=== PATIENT | male | born 1955 | race Caucasian/White ===

== ENCOUNTER 2021-12-18 15:55 | Outpatient (CLI) | payer MEDICARE, BC, SELFPAY ==
[2021-12-18 18:23] LABS: Albumin* 4.8 g/dL (3.3-5.0); Chloride* 104 mmol/L (96-114); Potassium* 4.5 mmol/L (3.6-5.1); Sodium* 139 mmol/L (135-149)
[2021-12-18 18:26] LABS: Alanine Aminotransferase* 27 U/L (4-50); Alkaline Phosphatase* 107 U/L (40-150); Aspartate Amino Transferase* 29 U/L (12-35); Bilirubin Total* 0.4 mg/dL (0.1-1.5); Blood Urea Nitrogen* 24 mg/dL (7-30); Carbon Dioxide* 25 mmol/L (20-32); Estimated Glomerular Filt Rate 83 ml/min; Glucose* 159 mg/dL (60-115); Total Protein* 8.4 g/dL (6.0-8.3)
[2021-12-18 18:27] LABS: Calcium* 9.8 mg/dL (8.4-10.6)
== END 2021-12-18 15:56 | disposition home or self-care (01) ==
LOC: NFLDREF 15:56
PROVIDERS: PCP Internal Medicine; Visit Provider Internal Medicine
DX: Z01.818 Encounter for other preprocedural examination (principal)
CPT/HCPCS: 80053

== ENCOUNTER 2022-03-02 07:55 | Outpatient (CLI) | payer MEDICARE, BC, SELFPAY ==
--- OUTSIDE RECORDS SUMMARY | 2022-03-02 08:01 | XMS_ITS | Encounter Summary ---
:1955 Author Organization [place] Address [facility] [address] Care Team Providers Name Role Phone Maurizio Yost MD Primary Care Provider [phone] Reason for Visit Auth/Cert Specialty Diagnoses / Procedures Referred By Contact Refer red To Contact Surgery Diagnoses Prostate cancer (H) Prostate cancer (H) [C61] Sh Periop Services Procedures ZZC LAPAROSCOPY, SURGICAL PROSTATECTOMY, RETROPUBIC RADICAL, W/NERVE SPARING ROBOTIC ASSISTED LAPAROSCOPIC PROSTATECTOMY AND PELVIC LYMPH NODE DISSECTION [address] [place] [address] Phone: Referral ID Status Reason Start Date Expiration Date Visits Requ ested Visits Authorized [id number] 1 1 Encounter Details Date Type Department Care Team Description 01/07/2022 - [facility], Prostate cancer (H) (Primary Dx); 01/08/2022 Encounter [facility] Elver Banuelos MD Routine general medical examination at a health care facility [facility] [place] [address] [place] [phone] [place] [id number] Social History Tobacco Use Types Packs/Day Years Used Date Smoking Tobacco: Never Smokeless Tobacco: Former Alcohol Use Standard Drinks/Week Comments No 0 (1 standard drink = 0.6 oz pure alcoho l) Sex Assigned at Date Recorded Not on file COVID-19 Exposure Response Date Recorded In the last 10 days, have you been in contact with No / Unsu re 01/07/2022 9:44 AM CDT someone who was confirmed or suspected to have Coronavirus/COVID-19? documented as of this encounter Last Filed Vital Signs Vital Sign Reading Time Taken Comments Blood Pressure 121/70 01/08/2022 7:24 AM CDT Pulse 68 01/08/2022 7:24 AM CDT Temperature 36.6 ??C (97.9 ??F) 01/08/2022 7:24 AM CDT Respiratory Rate 14 01/08/2022 7:24 AM CDT Oxygen Saturation 98% 01/08/2022 7:24 AM CDT Inhaled Oxygen Concentration - - Weight 97.5 kg (215 lb) 01/07/2022 10:02 AM CDT Height 180.3 cm (5' 11) 01/07/2022 10:02 AM CDT Body Mass Index 29.99 01/07/2022 10:02 AM CDT documented in this encounter Medications at Time of Discharge Medication Sig Dispensed Refills Start Date End Date Aspirin 81 MG 0 01/12/2022 CAPSIndications: Routine general medical examination at a health care facility FISH OIL 1000 MG OR Take 2 g by mouth 0 7 CAPSIndications: Other daily (with dinner) and unspecified (2 x 1000 mg = 2000 hyperlipidemia mg) metFORMIN (GLUCOPHAGE) Take 500 mg by mouth 0 500 MG tablet 2 times daily (with meals) oxyCODONE (ROXICODONE) 5 Take 1 tablet (5 mg) 8 tablet 0 0 01/08/2022 MG tabletIndications: by mouth every 4 Prostate cancer (H) hours as needed for moderate to severe pain senna-docusate Take 1-2 tablets by 20 tablet 0 01/08/2022 (SENOKOT-S/PERICOLACE) mouth 2 times daily 8.6-50 MG as needed for tabletIndications: constipation Prostate cancer (H) simvastatin (ZOCOR) 40 Take 1 tablet by 90 tablet 0 013 MG tabletIndications: mouth At Bedtime. Hyperlipidemia LDL goal <130 ciprofloxacin (CIPRO) Take 1 tablet (500 6 tablet 0 202101/11/2022 500 MG mg) by mouth 2 times tabletIndications: daily for 3 days Prostate cancer (H) Please start your antibiotic the day BEFORE your follow up visit then also take it the day of your visit and the day after. documented as of this encounter Progress Notes Amie Zaragoza PA-C - 01/08/2022 9:18 AM CDT [facility] Progress Note Assessment & Plan Branden Graf is a 66 year old male POD #[address] Brennan, doing well. Plan: - Discharge to home today with baptiste. RN to teach leg bag cares, appreciate assistance. - F/u for catheter removal on 01/22 - AVS updated - Regular diet, ambulate, encourage IS and fluids - Discussed discharge expectations at length. Encouraged to utilize senna and LEAD BURNER HELPER miralax given h/o straining with bowel movements. Amie Zaragoza PA-C [facility] Pager: [phone] Office: [phone] Interval History Doing well, no events overnight. Ambulated x3 since surgery. Tolerating regular diet; denies nausea,bloating, or flatus. Pain controlled with tylenol. at bedside. AVSS Cr 1.14 Hgb 12.4 UOP 700 / 1150cc OBJECTIVE: BP 121/70 (BP Location: Right arm) Pulse 68 Temp 97.9 ??F (36.6 ??C) (Oral) Resp 14 Ht 1.803 m (5' 11) Wt 97.5 kg (215 lb) SpO2 98% BMI 29.99 kg/m?? Intake/Output Summary (Last 24 hours) at 01/08/2022 0918 Last data filed at 01/08/2022 0556 Gross per 24 hour Intake 2730 ml Output 1300 ml Net 1430 ml General appearance shows no deformaties and good grooming in no acute distress. EYES: no icterus HEAD, EARS, NOSE, MOUTH, AND THROAT: atraumatic, normocephalic NECK: symmetric CHEST WALL: symmetric CARDIAC: skin well perfused, no LE edema RESPIRATORY: breathing unlabored ABDOMEN: soft, non tender, non distended. Incisions c/d/i and ANN with glue. : Baptiste draining clear urine SKIN/HAIR/NAILS: no visible rashes NEUROLOGIC: no focal deficits PSYCHIATRIC: Speech, mood, and affect normal Amie Zaragoza PA-C [facility] Miranda Pierce LPN - 01/06/2022 12:13 PM CDT LEAD BURNER HELPER medications updated by Medication Scribe prior to surgery via phone call with patient??(last doses completed by Nurse) Medication history sources: Patient, H&P and Patient's home med list In the past week, patient estimated taking medication this percent of the time: Greater than 90% Adherence assessment: N/A Not Observed Significant changes made to the medication list: None Additional medication history information: None Medication reconciliation completed by provider prior to medication history? No Time spent in this activity: 40 minutes The information provided in this note is only as accurate as the sources available at the time of update(s) Prior to Admission medications Medication Sig Last Dose Taking? Auth Provider Microphone Boom Operator End Date ASPIRIN 81 MG OR TABS Take 81 mg by mouth every evening 09/22/2021 at PM Yes Maurizio Yost MD FISH OIL 1000 MG OR CAPS Take 2 g by mouth daily (with dinner) (2 x 1000 mg = 2000 mg) 12/21/2021 at PM Yes Maurizio Yost MD metFORMIN (GLUCOPHAGE) 500 MG tablet Take 500 mg by mouth 2 times daily (with meals) 01/05/2022 at PM Yes Reported, Patient Yes simvastatin (ZOCOR) 40 MG tablet Take 1 tablet by mouth At Bedtime. Patient taking differently: Take 40 mg by mouth every evening 01/05/2022 at PM Yes Maurizio Yost MD Yes documented in this encounter H&P Notes Olivia Garcia MD - 01/07/2022 11:30 AM CDT I have reviewed the surgical (or preoperative) H&P that is linked to this encounter, and examined the patient. There are no significant changes Source Note - Scan, Provider - 12/30/2021 4:39 PM CDT documented in this encounter Procedure Notes Elver Brennan MD - 01/07/2022 5:40 PM CDT Preoperative Diagnosis: Prostate Cancer Postoperative Diagnosis: Prostate Cancer Procedure: 1. Robotic Radical Prostatectomy with bilateral pelvic lymphadenectomy Surgeon: Elver Brennan MD Camp Boss: Tomeka Salter PA-C Date of Procedure: 01/07/22 OPERATIVE INDICATION: Branden Graf is a 66 year old male with prostate cancer. After understanding various management options he elected to undergo today's procedure. Clinical stage: [id number] PSA: 12.43 TAMMI: smooth MRI findings: 1.0 cm PIRADS 4 right apex PZ Prostate volume: 32g EPE: unlikely SVI: unlikely Urethral length:unlikely LNI:unlikely Biopsy grade: 4+4=8 # cores positive: 7 # cores total: 12 Intraoperative findings: Urethra: good length Right nerve sparing: near complete Left nerve sparing:near complete Bladder neck sparing: n/a Bladder neck reconstruction: anterior Anastomosis tested:watertight Lymphadenopathy:none Accessory obturator artery/size/spared:none PORT PLACEMENT: Standard 6 ports After discussing all treatment options, the patient elected to proceed with robotic prostatectomy. The patient understands that we will proceed with robotic prostatectomy, but will convert to open prostatectomy if needed. DESCRIPTION OF PROCEDURE: The patient was identified and was brought to the operating room. He was placed on a Gelfoam padded table. After adequate general anesthesia, he was placed in supine position. Pneumatic compression stockings had been applied. All pressure points were adequately padded. Arms were tucked and he was secured to the table. The patient was then prepped and draped in the usual manner. Time out was called. An 16 Italian [place] catheter was placed and the bladder was emptied. I made a small supraumbilical incision. Using a Veress needle, pneumoperitoneum was achieved. I then placed an 8 mm port at this site. Initial endoscopic inspection with a 0 degree lens showed no evidence of vascular or visceral injury. There were minimal adhesions. The remaining ports were then placed. Two 8 mm ports were placed on either side 10 cm from the umbilical port. A 12 mm port was placed in the right lower quadrant above the anterior superior iliac spine, and a similar location on the left side an 8 mm port was placed. A5 mm suction port was placed lateral to the camera port on the right side. With all the ports in place the patient was placed in steep Trendelenburg position and the robot was docked. The sigmoid was gently released from the LLQ and the posterior bladder at the cul-de-sac. I then incised the peritoneum at the bladder base and the posterior dissection was carried beneath Denonvillier's fascia to the prostate apex. The seminal vesicles and vas deferens were identified and dissected free. Next peritoneal incisions were made lateral to the medial umbilical ligaments and the bladder was dissected away from the anterior abdominal wall and pubic ramus to expose the prostate. The superficial dorsal vein was cauterized and transected. The endopelvic fascia was opened. Incision was made in the lateral prostatic fascia and nerve-sparing was started in the interfascial plane. Next the anterior bladder wall was incised at the level of the bladder neck. The posterior bladder neck was then excised and dissected away from the base of the prostate. The seminal vesicles and vas deferens were now tented up. This exposed the lateral pedicles. I then proceeded to identify the plane between the lateral prostate and the lateral pedicles. Hem-O-Julien clips were used and the lateral pedicle was transected. Electrocautery was not used in this area.Near complete bilateral nerve preservation was performed. The dissection was carried around the apexof the prostate. Next I transected the deep dorsal vein and then oversewed this with a running 3-0 V-julien suture. The urethra was transected distal to the apex of the prostate and the prostate was placed in a Endocatch. Excellent urethral length was preserved. Jovany-Seal was used to achieve further hemostasis. A bilateral pelvic lymph node dissection was done, removing fibrofatty tissue in the external iliac and obturator areas. Bipolar cautery and hemolock clips were used to ligate lymphatic vessels. The obturator nerve was identified and preserved bilaterally. I then proceeded to anastomose the bladder neck to the urethra using a running suture of 3-0 Monocryl on a double armed needle. An 18 Italian catheter was placed and the bladder irrigated well. A good watertight, tension free anastasmosis was obtained. Further inspection at this time showed no further b leeding. The string of the Endocatch was then brought out through the umbilical port site. The robotwas then undocked. The laparoscopic ports were removed under vision and the 12 mm assistant cross country coach port wasclosed with an 0 Vicryl using a CloudApps device I slightly extended the supraumbilical incision and the prostate was removed through this site. The fascia was then closed using running 0 Vicryl sutures. The skin incisions were closed using 4-0 monocryl and Dermabond. The needle, sponge and lap counts were correct. The patient remained stable throughout the entire procedure. The estimated bloodloss was: 150 ml. The patient tolerated the procedure well and was sent to the recovery room in stable condition. Catheter can be removed in 10 days documented in this encounter Miscellaneous Notes Plan of Care - Nurys Ellington RN - 01/08/2022 2:31 PM CDT VSS, no fevers, comfortable with only scheduled Tylenol. AVS reviewed, baptiste teaching done w-patientand spouse, questions answered, pt preferred to keep night bag inplace. He was discharged home w-filled prescriptions via private car with his . Plan of Care - Erinn Conley RN - 01/08/2022 5:05 AM CDT Goal Outcome Evaluation: Alert and oriented x4. SBA. Walked x 2 overnight-tolerating well. Abdominal discomfort managed with scheduled tylenol. Abdominal incisions CDI. Baptiste catheter in place with good output. VSS on RA ex HTN. Possible discharge today. Will discharge with baptiste. documented in this encounter Plan of Treatment Not on filedocumented as of this encounter Procedures Procedure Name Priority Date/Time Associated Comments Diagnosis HEMOGLOBIN Routine 01/08/2022 6:56 Results for this AM CDT procedure are i n the results section. BASIC METABOLIC PANEL Routine 01/08/2022 6:56 Res ults for this AM CDT procedure are i n the results section. GLUCOSE BY METER Routine 01/07/2022 10:23 Results for this PM CDT procedure are i n the results section. GLUCOSE BY METER Routine 01/07/2022 6:21 Results for this PM CDT procedure are i n the results section. SURGICAL PATHOLOGY EXAM Routine 01/07/2022 2:24 R esults for this PM CDT procedure are i n the results section. PROSTATECTOMY, 01/07/2022 12:46 Prostate cancer ROBOT-ASSISTED, USING DA PM CDT (H) EDWIN XI, WITH PELVIC LYMPHADENECTOMY TYPE AND SCREEN, ADULT STAT 01/07/2022 10:11 R esults for this AM CDT procedure are i n the results section. CREATININE Add-On 01/07/2022 10:11 Results for this AM CDT procedure are i n the results section. ABO/RH TYPE AND SCREEN STAT 01/07/2022 10:11 R esults for this AM CDT procedure are i n the results section. GLUCOSE STAT 01/07/2022 10:11 Results for this AM CDT procedure are i n the results section. documented in this encounter Results (ABNORMAL) Hemoglobin (01/08/2022 6:56 AM CDT) P athologist Signature Hemoglobin 12.4 (L) 13.3 - 17.7 01/08/2022 LABORATORY g/dL 7:27 AM CDT Specimen Anatomical Collection Method / Collection Time Recei opal Time (Source) Location / Volume Laterality Blood STRUCTURE OF RIGHT Venipuncture / 01/08/2022 6:56 09/0 12/2021 7:22 UPPER LIMB / Unknown AM CDT AM CDT Unknown Tomeka Salter PA-C LAB - BLOOD ORDERABLES Performing Organization Address City/State/ZIP Code Phon e Number LABORATORY [place] [address] Care Lab [address] 1st floor, Room [address]B (ABNORMAL) Basic metabolic panel (01/08/2022 6:56 AM CDT) Analysis Performed At Patho logist Time Signature Sodium 137 133 - 144 01/08/2022 LABORATORY mmol/L 7:46 AM CDT Potassium 4.2 3.4 - 5.3 01/08/2022 LABORATORY mmol/L 7:46 AM CDT Chloride 104 94 - 109 01/08/2022 LABORATORY mmol/L 7:46 AM CDT Carbon Dioxide 26 20 - 32 01/08/2022 LABORATORY (CO2) mmol/L 7:46 AM CDT Anion Gap 7 3 - 14 01/08/2022 LABORATORY mmol/L 7:46 AM CDT Urea Nitrogen 18 7 - 30 01/08/2022 LABORATORY mg/dL 7:46 AM CDT Creatinine 1.14 0.66 - 01/08/2022 LABORATORY 1.25 mg/dL 7:46 AM CDT Calcium 8.9 8.5 - 10.1 01/08/2022 LABORATORY mg/dL 7:46 AM CDT Glucose 153 (H) 70 - 99 01/08/2022 LABORATORY mg/dL 7:46 AM CDT GFR Estimate 71 >60 01/08/2022 LABORATORY mL/min/1.7 7:46 AM CDT 3m2 Comment: Effective April 22, 2021 eGF Rcr in adults is calculated using the 2020 CKD-EPI creatinine equation which includ es age and gender (Randolph et al., NEJM, DOI: 10.1056/WRVPcs3371366) Specimen Anatomical Collection Method / Collection Time Recei opal Time (Source) Location / Volume Laterality Blood STRUCTURE OF RIGHT Venipuncture / 01/08/2022 6:56 09/0 12/2021 7:22 UPPER LIMB / Unknown AM CDT AM CDT Unknown Tomeka Salter PA-C LAB - BLOOD ORDERABLES Performing Organization Address City/State/ZIP Code Phon e Number LABORATORY [place] [address] Care Lab [address] 1[address] floor, Room [address]B (ABNORMAL) Glucose by meter (01/07/2022 10:23 PM CDT) P athologist Signature GLUCOSE BY 175 (H) 70 - 99 01/07/2022 LABORATORY METER POCT mg/dL 10:29 PM CDT POC Specimen (Source) Anatomical Collection Method Collection Time Re ceived Time Location / / Volume Laterality Blood, Capillary BLOOD SPECIMEN / 01/07/2022 10:23 10/2021 Unknown PM CDT 10:29 PM CDT Elver MICHAEL - PRETTY POCT Performing Organization Address City/State/ZIP Code Phon e Number LABORATORY [place] [facility] [place] [address] Care Lab [address] 1[address], Room [address]B (ABNORMAL) Glucose by meter (01/07/2022 6:21 PM CDT) P athologist Signature GLUCOSE BY 195 (H) 70 - 99 01/07/2022 LABORATORY METER POCT mg/dL 6:28 PM CDT POC Specimen (Source) Anatomical Collection Method Collection Time Re ceived Time Location / / Volume Laterality Blood, Capillary BLOOD SPECIMEN / 01/07/2022 6:21 09/0 10/2021 6:28 Unknown PM CDT PM CDT Elver MICHAEL - CRISTINA POCT Performing Organization Address City/State/ZIP Code Phon e Number LABORATORY [place] [facility] [place] [address] Care Lab [address] 1[address], Room [address]B (ABNORMAL) Surgical Pathology Exam (01/07/2022 2:24 PM CDT) Component Value Ref Test Analysis Performed At Patholo gist Range Method Time Signature Case Report Surgical Pathology Report ? Case: [id number] ? 01/13/2022 Authorizing Provider: ??Elver Williamson ? Collected: ? 01/07/2022 02:24 PM ? 7:16 PM LABORATOR Y ? MD Vin ? CDT [facility] ?Received: ?01/08/2022 08:37 AM ? [facility] ? Pathologist: ? Sonia Mercer, ? Specimens: ?? A) - Prostate, Patricia Prostatic fat ? B) - Urin jayy Bladder, Posterior bladder neck margin ? C) - Pros collins, PROSTATE AND SEMINAL VESICLES ? D) - Lymp h Node(s), Pelvis, Left ? E) - Lymp h Node(s), Pelvis, Right ? Final A. Soft tissue, periprostatic fat, resection: 01/13/2022 Electronically Diagnosis -Negative for malignancy. 7:16 PM LABO RATORY signed by CDT Sa kristen Mercer B. Prostate, bladder neck margin, biopsy: on 01/13/2022 -Negative for malignancy. at 7:16 PM C. Prostate gland, robotic radical prostatectomy: -Prostatic adenocarcinoma, a cinar-type; grade group 3 ([place] score 4+3 = 7) with greater than 90% pattern 4. -Estimated percentage of prostate involved by tumor: 11-20%. -Negative for bladder neck or seminal vesicle invasion. -Negative for extracapsular extension. -Uninvolved margins. -See tumor synoptic report for details. D. Lymph nodes, left pelvic, lymphadenectomy: - Three lymph nodes negative for metastatic carcinoma (0/3). E. Lymph nodes, right pelvic, lymphadenectomy: -Three lymph nodes negative for metastatic carcinoma (0/3). Synoptic PROSTATE GLAND: Radical Prostatectomy Checklist PROSTATE GLAND: RADICAL PROSTATECTOMY - A, B, C, D, E 7:16 PM LABORATORY 8th Edition - Protocol posted: 03/12/2021 CDT SPECIMEN ?? Procedure: ?Radical prostatectomy: With bilateral pelvic lymphadenectomy ?? Prostate Size: ? Prostate Weight (Grams): ?42 g ? Prostate Greatest Dimension (Centimeters): ?5.5 c m TUMOR ?? Histologic Type: ?Acinar adenocarcinoma ?? Histologic Grade: ? Grade: ?Grade group 3 ([place] Score 4 + 3 = 7) ? Minor Tertiary Pattern 5 (less than 5%): ?Not applicable ? Percentage of Pattern 4: ?Greater than 90% ?? Intraductal Carcinoma (IDC): ?Not identified ?? Cribriform Glands: ?Present ?? Treatment Effect: ?No known presurgical therapy ?? TUMOR QUANTITATION: ? Estimated Percentage of Prostate Involved by Tumor: ?11 - 20% Extraprostatic Extension (EPE): ?Not identified Urinary Bladder Neck Invasion: ?Not identified Seminal Vesicle Invasion: ?Not identified Lymphovascular Invasion: ?Not Identified Perineural Invasion: ?Present MARGINS Margin Status: ?All margins negative for invasive carci noma REGIONAL LYMPH NODES Regional Lymph Node Status: ? : ?All regional lymph nodes negative for tumor ?? Number of Lymph Nodes Examined: ?6 PATHOLOGIC STAGE CLASSIFICATION (pTNM, AJCC 8th Edition) ?? Reporting of pT, pN, and (when applicable) pM categories is based on information available to the pathologist at the time the report is issued. As per the AJCC (Chapter 1, 8th Ed.) it is the managin g physician? s responsibility to establish the final pathologic stage based upon all pertinent information, including but potentially not limited to this pathology report. Primary Tumor (pT): ?pT2 pN Category: ?pN0 ADDITIONAL FINDINGS Additional Findings: ?H igh-grade prostatic intraepithelial neoplasia (PIN) SPECIAL STUDIES Ancillary Studies: ?Not performed Clinical The patient 01/13/2022 RH Information underwent robotic 7:16 PM LABORATORY radical CDT prostatectomy with bilateral pelvic lymphadenectomy for biopsy-proven prostatic adenocarcinoma (4+4 = 8). Gross A(1). Prostate, Patricia Prostatic fat: 01/01 RH Description The specimen is received in formalin, labeled with the patient's name, medical record number and other identifying information designated periprostatic fat. It consists of a 5.0 x 3.0 x 1.0 cm aggrega 7:16 PM LABORATORY te of yellow-mayer, lobulated adipose tissue which is sectioned to reveal a pale- mayer, soft cut surface. Roustabout Supervisor sections of the specimen are submitted in 1 cassette. CDT B(2). Urinary Bladder, Posterior bladder neck margin: The specimen is received in formalin, labeled with the patient's name, medical record number and other identifying information designated posterior bladder neck margin. It consists of a 1.5 x 0.3 x 0. 2 cm pale-mayer, irregular sof t tissue fragment. The resected surface of the specimen is entirely inked black, the specimen is sectioned into 4 pieces, is submitted entirely in 1 cassette. C(3). Prostate, PROSTATE AND SEMINAL VESICLES: The specimen is received in formalin labeled with the patient's name, medical record number, and other identifying information and designated prostate seminal vesicles. It consists of a 42 g radical p rostatectomy specimen measur ing 4.0 cm apex to base x 5.5 cm transversely x 3.5 cm anterior to posterior. The right and left seminal vesicles measure 3.5 x 2.0 x 1.0 cm and 3.5 x 2.0 x 1.0 cm respective ly. The right and left vasa deferentia measure 4.5 cm in length x 0.4 cm in diameter and 4.5 cm in length x 0.3 cm diameter, respectively. The left side of the prostate is inked black, and the right dixie e is inked blue. The bladder neck and distal urethral margins are coned and submitted entirely. The specimen is serially sectioned from apex to base into 8 slices, revealing a pale-mayer, lobulated, bulgi ng cut surface. No discrete tumor nodules are noted grossly. Roustabout Supervisor sections including the entire posterior aspect are submitted. Summary of Sections: C1 - right seminal vesicle and en face vas deferens margin C2 - left seminal vesicle and en face vas deferens margin C3 - right bladder neck margin C4 - left bladder neck margin C5 - right distal urethral margin C6 - left distal urethral margin C7-C15 - right posterior, sequentially submitted from apex t o base B42-Z90-affol 5, thinned section C16-C25 - left posterior, sequentially submitted from apex t o base C20-C 21-slice 5, thinned section C 22-C 23-slice 6, thinned section C26 - right anterior mid (slice 4) C27 - left anterior mid (slice 4) D(4). Lymph Node(s), Pelvis, Left, : The specimen is received in formalin, labeled with the patient's name, medical record number and other identifying information designated left pelvic lymph nodes. It consists of a 7.0 x 4.5 x 1.5 cm a ggregate of yellow-mayer, lobu lated adipose tissue. Isolated from the tissue are 3, 2.0-4.5 x 2.0 x 1.0 cm pale-mayer possible lymph nodes which are sectioned to reveal a pale-mayer to fatty replaced cut surf elo. The possible lymph nodes are submitted entirely as foll ows: D1-1 possible lymph node, bisected D2-D3-1 possible lymph node, bisected D4-D9-1 possible lymph node, multi sectioned E(5). Lymph Node(s), Pelvis, Right, : The specimen is received in formalin, labeled with the patient's name, medical record number and other identifying information designated right pelvic lymph nodes. It consists of a 8.0 x 4.0 x 2.0 cm aggregate of yellow-mayer, lob ulated adipose tissue. Isolated from the tissue are 4, 1.0-4.0 x 2.5 x 1.0 cm pale-mayer possible lymph nodes which are sectioned to reveal a pale-mayer to fatty replaced cut alejandro face. The possible lymph nodes are submitted entirely as fol lows: E1-1 possible lymph node, bisected E2-1 possible lymph node, bisected E3-E5-1 possible lymph node, trisected E6-E11-1 possible lymph node, multi sectioned (Christiana Waldrop) Microscopic A, B, C, D, and E. 01/13/2022 Description Microscopic 7:16 PM LABORATORY examination is CDT performed. MCRS Yes (A) N/A 01/13/2022 7:16 PM LABORATORY CDT Performing The technical 01/13/2022 Labs component of this 7:16 PM LABORATORY testing was CDT completed at [facility] Laboratory Case Images 01/13/2022 7:16 PM LABORATORY CDT Specimen Anatomical Collection Method Collection Time Receive d Time (Source) Location / / Volume Laterality Tissue PROSTATIC 01/07/2022 2:24 PM 8:37 STRUCTURE / CDT AM CDT Unknown Tissue specimen URINARY BLADDER 01/07/2022 2:35 PM 12/2021 8:37 (specimen) STRUCTURE / CDT AM CDT Unknown Tissue specimen PROSTATIC 01/07/2022 3:23 PM 2021 8:37 (specimen) STRUCTURE / CDT AM CDT Unknown Tissue specimen PELVIC LYMPH NODE 01/07/2022 5:16 PM 0 01/08/2022 8:37 (specimen) STRUCTURE / CDT AM CDT Unknown Tissue specimen PELVIC LYMPH NODE 01/07/2022 5:16 PM 0 01/08/2022 8:37 (specimen) STRUCTURE / CDT AM CDT Unknown Elver Brennan MD LAB - BEAKER AP Performing Organization Address City/State/ZIP Code [place] [id number] Care Lab [address] Lab (1st floor, no room number) [place] [address], [facility] Acute Care Lab [address] 1st floor, Room [address]B Creatinine (01/07/2022 10:11 AM CDT) athologist Signature Creatinine 1.05 0.66 - 1.25 01/07/2022 LABORATORY mg/dL 8:24 PM CDT GFR Estimate 78 >60 01/07/2022 LABORATORY mL/min/1.73 8:24 PM CDT m2 Comment: Effective April 22, 2021 eGF Rcr in adults is calculated using the 2020 CKD-EPI creatinine equation which includ es age and gender (Randolph et al., [place], DOI: 10.1056/UQOJns0974702) Specimen Anatomical Collection Method / Collection Time Recei opal Time (Source) Location / Volume Laterality Blood STRUCTURE OF RIGHT Venipuncture / 01/07/2022 10:11 10/2021 UPPER LIMB / Unknown AM CDT 10:15 AM CDT Unknown Elver Brennan MD LAB - BLOOD ORDERABLES Performing Organization Address City/State/ZIP Code [place] [address] Care Lab [address] 1st floor, Room [address]B Adult Type and Screen (01/07/2022 10:11 AM CDT) Patholo gist Method Time Signature ABO/RH(D) O NEG 01/07/2022 BLOOD 10:00 AM BANK CDT Antibody Negative Negative 01/07/2022 BLOOD Screen 10:00 AM BANK CDT SPECIMEN [id number] 01/07/2022 BLOOD EXPIRATION 10:00 AM BANK DATE CDT Specimen Anatomical Collection Method / Collection Time Recei opal Time (Source) Location / Volume Laterality Blood STRUCTURE OF RIGHT Venipuncture / 01/07/2022 10:11 10/2021 UPPER LIMB / Unknown AM CDT 10:15 AM CDT Unknown Tomeka Salter PA-C LAB - BLOOD BANK TEST ORDER Performing Organization Address City/State/ZIP Code Phon e Number BLOOD BANK [address] [place] [phone] (ABNORMAL) Glucose (01/07/2022 10:11 AM CDT) athologist Signature Glucose 146 (H) 70 - 99 01/07/2022 LABORATORY mg/dL 10:32 AM CDT Patient Yes 01/07/2022 LABORATORY Fasting > 10:32 AM CDT 8hrs? Specimen Anatomical Collection Method / Collection Time Recei opal Time (Source) Location / Volume Laterality Blood STRUCTURE OF RIGHT Venipuncture / 01/07/2022 10:11 10/2021 UPPER LIMB / Unknown AM CDT 10:15 AM CDT Unknown Olivia Garcia MD LAB - BLOOD ORDERABLES Performing Organization Address City/State/ZIP Code [place] [address] Care Lab [address], Room [address]B documented in this encounter Visit Diagnoses Diagnosis Prostate cancer (H) - Primary Malignant neoplasm of prostate Routine general medical examination at a health care facility Prostate cancer (H) Malignant neoplasm of prostate documented in this encounter Admitting Diagnoses Diagnosis Prostate cancer (H) Malignant neoplasm of prostate documented in this encounter Administered Medications Inactive Administered Medications - up to 3 most recent administrations Medication Order MAR Action Action Date Dose Rate Site acetaminophen (TYLENOL) tablet Given 01/07/2022 10:30 AM CDT 975 mg 975 mg 975 mg, Oral, ONCE, On Wed01/07/22 at 1000, For 1 dose, Maximum acetaminophen dose from all sources = 75 mg/kg/day not to exceed 4 grams/day., Pre-procedure acetaminophen (TYLENOL) tablet 975 mg Given 01/08/2022 1:59 PM CDT 975 mg 975 mg, Oral, EVERY 6 HOURS, First dose on Wed01/07/22 at 2000, For 3 days, Administer for multimodal surgical pain management. Maximum acetaminophen dose from all sources = 75 mg/kg/day not to exceed 4 grams/day. Given 01/08/2022 8:24 AM CDT 975 mg Given 01/08/2022 1:53 AM CDT 975 mg ceFAZolin (ANCEF) 1 g vial to attach to NS New Bag 01/08/2022 12:1 5 PM CDT 1 g 100 ml bag for ADULT or 50 ml bag for PE DS Routine, 1 g, Intravenous, EVERY 8 HOURS, First dose on Wed01/07/22 at 2100, For 3 doses, Indications: Perioperative Pharmacoprophylaxis New Bag 01/08/2022 4:05 AM CDT 1 g New Bag 01/07/2022 8:32 PM CDT 1 g HYDROmorphone (DILAUDID) injection 0.2 m g 0.2 mg, Intravenous, EVERY 2 HOURS PRN, other, moderate pain (pain rating 4-6) IF patient unable to take oral pain medication or pain no t controlled with oral analgesics, Starting on Wed01/07/22 at 18 58, Hold IV PRN opioid dose for analgesic side effects. Notify provider to assess for uncontroll ed pain or analgesic side effects. HYDROmorphone (DILAUDID) injection 0.4 m g 0.4 mg, Intravenous, EVERY 2 HOURS PRN, other, severe pain (pain rating 7-10) IF patient unable to take oral pain medication or pain no t controlled with oral analgesics, Starting on Wed01/07/22 at 18 58, Hold IV PRN opioid dose for analgesic side effects. Notify provider to assess for uncontroll ed pain or analgesic side effects. lactated ringers infusion New Bag 01/07/2022 6:13 PM CDT 100 mL/hr at 100 mL/hr, Intravenous, CONTINUOUS, Continue until IV catheter is weaned, PACU/Phase II, Starting on Wed01/07/22 at 1800, Until Wed01/07/22 at 1850 metFORMIN (GLUCOPHAGE) tablet 500 mg Given 01/08/2022 8:24 AM CDT 500 mg 500 mg, Oral, 2 TIMES DAILY WITH MEALS, First dose on Wed01/07/22 at 1900, If the patient receives intravenous, iodinated contrast and patient GFR is greater than 60 mL/min/1.7m2, continue metformin. Contact provider for 'hold' or 'no hold' instructions if no GFR or if GFR is less than 60 mL/min/1.7m2. Given 01/07/2022 8:32 PM CDT 500 mg naloxone (NARCAN) injection 0.2 mg 0.2 mg, Intravenous, EVERY 2 MIN PRN, op ioid reversal, Starting on Wed01/07/22 at 2000, Administer intravenous route when available and notify provider when administered. For unintended sedation or respiratory depression if all of the below criteria are met: ~ respiratory rate LES S than or EQUAL to 8. ~SaO2 less than 92% and or/end-tidal CO2 is greater than 50. ~ the patient is receiving an opioid, has unintended sedations assessed as RASS (-3), and is cur rently not on mechanical ventilation. RASS scale moderate (-3) is movement or eye opening to voice but no eye contact. Patient Monitoring Once the patient has demonstrated a response to the naloxone, continue to monitor respiratory rate, depth, oxygen saturation and end-tidal CO2 (if available) every 15 mi nutes x 2, then every 30 minutes x 2, then every 1 hour x 1 after each naloxone dose. Consider tr ansfer to ICU if patient respiratory parameters have not improved after 4 nalox one doses. naloxone (NARCAN) injection 0.2 mg 0.2 mg, Intramuscular, EVERY 2 MIN PRN, opioid reversal, Starting on Wed01/07/22 at 2000, Administer intramuscular if an int ravenous route is not available and notify provider when administered. For unintend ed sedation or respiratory depression if all of the below criteria are met: ~ respiratory rate LESS than or EQUAL to 8. ~SaO2 less than 92% and or/end-tidal CO2 is greater th an 50. ~ the patient is receiving an opioid, has unintended sedations assessed as RASS (-3), and is currently not on mechanical ventilation. RASS scale moderate (-3) is movement or eye opening to voice but no eye contact. Patient Monitoring Once the patient has demonstrated a response to the naloxone, continue to m onitor respiratory rate, depth, oxygen saturation and end-tidal CO2 (if availab le) every 15 minutes x 2, then every 30 minutes x 2, then every 1 hour x 1 after each naloxone dose. Consider transfer to ICU if patient respiratory parameters have not improved after 4 naloxone doses. naloxone (NARCAN) injection 0.4 mg 0.4 mg, Intravenous, EVERY 2 MIN PRN, op ioid reversal, Starting on Wed01/07/22 at 2000, Administer intravenous route when available and notify provider when administered. For unintended sedation or respiratory depression if all of the below criteria are met: ~ respiratory rate LES S than or EQUAL to 8. ~ SaO2 less than 92% and or/end-tidal CO2 is greater than 50. ~ the patient is receiving an opioid, has unintended sedation assessed as RASS (-4 ) or (-5) and patient is currently not on mechanical ventilation. RASS scale (-4) is deep sedation with no response to voice but movement or eye opening to physical stimulation. R ASS scale (-5) is unarousable. Patient Monitoring Once the patient has demonstrated a response to the naloxone, continue to monitor respiratory rate, depth, oxygen saturation and end-tidal CO2 (if available) every 15 mi nutes x 2, then every 30 minutes x 2, then every 1 hour x 1 after each naloxone dose. Consider tr ansfer to ICU if patient respiratory parameters have not improved after 4 nalox one doses. naloxone (NARCAN) injection 0.4 mg 0.4 mg, Intramuscular, EVERY 2 MIN PRN, opioid reversal, Starting on Wed01/07/22 at 2000, Administer intramuscular if an int ravenous route is not available and notify provider when administered. For unintend ed sedation or respiratory depression if all of the below criteria are met: ~ res piratory rate LESS than or EQUAL to 8. ~ SaO2 less than 92% and or/end-tidal CO2 is greater adrián n 50. ~ the patient is receiving an opioid, has unintended sedation assessed as RASS (-4) or (-5) and patient is currently not on mechanical ventilation. RA SS scale (-4) is deep sedation with no response to voice but movement or eye opening to physical stimulation. RASS scale (-5) is unarousa ble. Patient Monitoring Once the patient has demonstrated a response to the nalox one, continue to monitor respiratory rate, depth, oxygen saturation and end-tidal CO2 (if availab le) every 15 minutes x 2, then every 30 minutes x 2, then every 1 hour x 1 after each naloxone dose. Consider transfer to ICU if patient respiratory parameters have not improved after 4 naloxone doses. ondansetron (ZOFRAN ODT) ODT tab 4 mg 4 mg, Oral, EVERY 6 HOURS PRN, nausea, v omiting, Starting on Wed01/07/22 at 1858, This is Step 1 of nausea and vomiting management. If n ausea not resolved in 15 minutes, go to Step 2 prochlorperazine (COMPAZINE). Do not push through foil backing. Peel back foil and gently remove. Place on to ngue immediately. Administration with liquid unnecessary W ith dry hands, peel back foil backing and gently remove tablet. Do not push oral d isintegrating tablet through foil backing. Administer immediately on tongue and oral disintegrati ng tablet dissolves in seconds, then swallow with saliva. Liquid not required . ondansetron (ZOFRAN) injection 4 mg 4 mg, Intravenous, EVERY 6 HOURS PRN, nausea, vomiting , Administer over 2-5 Minutes, Starting on Wed01/07/22 at 1858, This is Step 1 of nausea and vomiting management. If nausea not resolved in 15 minutes, go t o Step 2 prochlorperazine (COMPAZINE). Irritant. oxyCODONE (ROXICODONE) tablet 10 mg 10 mg, Oral, EVERY 4 HOURS PRN, severe p ain, (pain rating 7-10), Starting on Wed01/07/22 at 1858, Hold oral PRN dose for a nalgesic side effects. Notify provider to assess for uncontrolled pain or analgesic side effects . Hold while on IV SECURITY ARCHITECT or with regular IV opioid dosing. oxyCODONE (ROXICODONE) tablet 5 mg 5 mg, Oral, EVERY 4 HOURS PRN, other, mo derate pain (pain rating 4-6), Starting on Wed01/07/22 at 1858, Hold oral PRN dose f or analgesic side effects. Notify provider to assess for uncontrolled pain or analg esic side effects. Hold while on IV SECURITY ARCHITECT or with regular IV opioid dosing. prochlorperazine (COMPAZINE) injection 5 mg 5 mg, Intravenous, EVERY 6 HOURS PRN, nausea, vomiting , Administer over 1-2 Minutes, Starting on Wed01/07/22 at 1858, This is Step 2 of nausea and vomiting management. If nausea not resolved in 15-30 minutes, N otify provider. prochlorperazine (COMPAZINE) tablet 5 mg 5 mg, Oral, EVERY 6 HOURS PRN, nausea, v omiting, Starting on Wed01/07/22 at 1858, This is Step 2 of nausea and vomiting ma nagement. If nausea not resolved in 15-30 minutes, Notify provider. sodium chloride (PF) 0.9% PF flush 3 mL Given 01/08/2022 1:55 AM CDT 3 mLs 3 mL, Intracatheter, EVERY 1 MIN PRN, line flush, other, to ensure patency or to lock dormant line, Starting on Wed01/07/22 at 1858 sodium chloride 0.9% infusion New Bag 01/07/2022 8:02 PM CDT 100 mL/hr at 100 mL/hr, Intravenous, CONTINUOUS, Starting on Wed01/07/22 at 1900, Until Fani 01/08/22 at 1633 documented in this encounter Active and Recently Administered Medications Times are shown in CDT. Scheduled Medication Order 01/06/2022 01/07/2022 01/08/2022 acetaminophen (TYLENOL) tablet 975 mg (COMPLETED) 1030 (Given - Provider: Jessica Jones RN) 975 mg, Oral, ONCE, On Wed01/07/22 at 100 0, For 1 dose, Maximum acetaminophen dose from all sources = 75 mg/kg/day not to exceed 4 grams/day., Pre-procedure acetaminophen (TYLENOL) tablet 975 mg 20 33 (Given - Provider: Erinn Conley, CARL) 0153 (Given - Provider: Erinn Conley RN)0824 (Given - Provider: Nurys Ellington, CARL)1359 (Given - Provider: Nurys Ellington, RN) 975 mg, Oral, EVERY 6 HOURS, First dose on Wed01/07/22 at 2000, For 3 days, Administer for multimodal surgical pain management. Maximum acetaminophen dose from all sources = 75 mg/kg/day not to exceed 4 grams/day. ceFAZolin (ANCEF) 1 g vial to attach to NS 100 ml bag for ADULT or 50 ml bag for PEDS (COMPLETED) 2031 (New Bag - Provider: Erinn Conley RN) 040 (New Bag - Provider: Erinn Conley RN)1215 (New Bag - Provider: Nurys Ellington, RN) Routine, 1 g, Intravenous, EVERY 8 HOURS , First dose on Wed01/07/22 at 2100, For 3 doses, Indications: Perioperative Pharmacoprophylaxis ceFAZolin Sodium (ANCEF) injection 2 g (COMPLETED) 125 (Given - Provider: Bernie Smith APRN LICENSE EXAMINER) Routine, 2 g, Intravenous, PRE-OP/PRE-NY OCEDURE, Starting on Wed01/07/22 at 0955, For 1 dose, Give first dose within 1 hour PRIOR to incision. If patient weight is greater than or equal to 120 kg increas e dose to 3 g., Indications: Perioperative Pharmacoprophylaxis, Pre-procedure metFORMIN (GLUCOPHAGE) tablet 500 mg (Given - Provider: Erinn Conley RN) 08 (Given - Provider: Nurys Ellington, RN) 500 mg, Oral, 2 TIMES DAILY WITH MEALS, First dose on Wed01/07/22 at 1900, If the patient receives intravenous, iodinated contrast and patient GFR is greater than 60 mL/min/1.7m2, continue metformin. Con tact provider for 'hold' or 'no hold' in structions if no GFR or if GFR is less than 60 mL/min/1.7m2. sodium chloride (PF) 0.9% PF flush 3 mL 2001 (Not Given - Provider: Erinn Conley RN - Reason: IV Infusing) 021 (Not Given - Provider: Erinn cooper RN - Reason: Other - Comment: gave PRN early)1359 (Not Given - Provider: Nurys Ellington, CARL - Reason: Loss of IV access) 3 mL, Intracatheter, EVERY 8 HOURS, Firs t dose on Wed01/07/22 at 1900, to lock peripheral IV dormant line Continuous Medication Order 01/06/2022 01/07/2022 01/08/2022 lactated ringers infusion (CANCELED) 124 6 (New Bag - Provider: Bernie Smith APRN LICENSE EXAMINER)1640 (Anesthesia Volume Adjustment - Provider: Guido Le APRN LICENSE EXAMINER)1754 (Anesthesia Volume Adjustment - Provider: Guido Le APRN LICENSE EXAMINER) at 100 mL/hr, Intravenous, CONTINUOUS, P re-procedure, Starting on Wed01/07/22 at 1000, Until Wed01/07/22 at 1800 lactated ringers infusion (CANCELED) 181 3 (New Bag - Provider: Deborah Yost RN)2001 (Stopped - Provider: Erinn Conley RN) at 100 mL/hr, Intravenous, CONTINUOUS, C ontinue until IV catheter is weaned, PACU/Phase II, Starting on Wed01/07/22 at 1800, Until Wed01/07/22 at 1850 sodium chloride 0.9% infusion 2001 (New Bag - Pr ovider: Erinn Conley RN) at 100 mL/hr, Intravenous, CONTINUOUS, S tarting on Wed01/07/22 at 1900, Until Fani 01/08/22 at 1633 PRN Medication Order 01/06/2022 01/07/2022 01/08/2022 bupivacaine (MARCAINE) 0.5% injection MDV (CANCELED) 1725 (Given - Provider: Elver Brennan MD) PRN, Starting on Wed01/07/22 at 1725, Intra-procedure HYDROmorphone (DILAUDID) injection 0.2 mg(Linked Group 1) 0.2 mg, Intravenous, EVERY 2 HOURS PRN, other, moderate pain (pain rating 4-6) IF patient unable to take oral pain medication or pain not controlled with oral analgesics, Starting on Wed01/07/22 at 1858, Hold IV PRN opioid dose for analgesic s zena effects. Notify provider to assess for uncontrolled pain or analgesic side effects. HYDROmorphone (DILAUDID) injection 0.4 mg(Linked Group 1) 0.4 mg, Intravenous, EVERY 2 HOURS PRN, other, severe pain (pain rating 7-10) IF patient unable to take oral pain medication or pain not controlled with oral analgesics, Starting on Wed01/07/22 at 1858, Hold IV PRN opioid dose for analgesic si de effects. Notify provider to assess for uncontrolled pain or analgesic side effects. lidocaine (LMX4) cream Topical, EVERY 1 HOUR PRN, pain, with VA D insertion, Starting on Wed01/07/22 at 1858, Apply at least 30 minutes prior to VAD insertion in divided doses as needed for size of site for insertion. MAX Dose: 2.5 g (?? of 5 g tube) Do NOT give if p atient has a history of allergy to any local anesthetic or any bakari product. Do NOT use both lidocaine intradermal/subcutaneous injection and the lidocaine cream on the same site. lidocaine 1 % 0.1-1 mL 0.1-1 mL, Other, EVERY 1 HOUR PRN, mild pain with VAD insertion, Starting on Wed01/07/22 at 1858, MAX dose 1 mL subcutaneous OR intradermal along the side of the vein in divided doses as needed for VAD i nsertion. Do NOT give if patient has a h istory of allergy to any local anesthetic or any bakari product. Do NOT use both lidocaine intradermal/subcutaneous injection and the lidocaine cream on the same site. naloxone (NARCAN) injection 0.2 mg(Linked Group 2) 0.2 mg, Intravenous, EVERY 2 MIN PRN, op ioid reversal, Starting on Wed01/07/22 at 2000, Administer intravenous route when available and notify provider when administered. For unintended sedation or respi ratory depression if all of the below cr iteria are met: ~ respiratory rate LESS than or EQUAL to 8. ~SaO2 less than 92% and or/end-tidal CO2 is greater than 50. ~ the patient is receiving an opioid, has unintended sedations assessed as RASS ( -3), and is currently not on mechanical ventilation. RASS scale moderate (-3) is movement or eye opening to voice but no eye contact. Patient Monitoring Once the patient has demonstrated a response to t he naloxone, continue to monitor respiratory rate, depth, oxygen saturation and end-tidal CO2 (if available) every 15 minutes x 2, then every 30 minutes x 2, then every 1 hour x 1 after each naloxone do se. Consider transfer to ICU if patient respiratory parameters have not improved after 4 naloxone doses. naloxone (NARCAN) injection 0.2 mg(Linked Group 2) 0.2 mg, Intramuscular, EVERY 2 MIN PRN, opioid reversal, Starting on Wed01/07/22 at 2000, Administer intramuscular if an intravenous route is not available and notify provider when administered. For unin tended sedation or respiratory depressio n if all of the below criteria are met: ~ respiratory rate LESS than or EQUAL to 8. ~SaO2 less than 92% and or/end-tidal CO2 is greater than 50. ~ the patient is receiving an opioid, has unintended lupe tions assessed as RASS (-3), and is currently not on mechanical ventilation. RASS scale moderate (-3) is movement or eye opening to voice but no eye contact. Christina ent Monitoring Once the patient has demo nstrated a response to the naloxone, continue to monitor respiratory rate, depth, oxygen saturation and end-tidal CO2 (if available) every 15 minutes x 2, then ev latasha 30 minutes x 2, then every 1 hour x 1 after each naloxone dose. Consider transfer to ICU if patient respiratory parameters have not improved after 4 naloxone doses. naloxone (NARCAN) injection 0.4 mg(Linked Group 2) 0.4 mg, Intravenous, EVERY 2 MIN PRN, op ioid reversal, Starting on Wed01/07/22 at 2000, Administer intravenous route when available and notify provider when administered. For unintended sedation or respi ratory depression if all of the below cr iteria are met: ~ respiratory rate LESS than or EQUAL to 8. ~ SaO2 less than 92% and or/end-tidal CO2 is greater than 50. ~ the patient is receiving an opioid, lowe s unintended sedation assessed as RASS ( -4) or (-5) and patient is currently not on mechanical ventilation. RASS scale (-4) is deep sedation with no response to voice but movement or eye opening to phys ical stimulation. RASS scale (-5) is kimberly rousable. Patient Monitoring Once the patient has demonstrated a response to the naloxone, continue to monitor respiratory rate, depth, oxygen saturation and end- tidal CO2 (if available) every 15 minute s x 2, then every 30 minutes x 2, then every 1 hour x 1 after each naloxone dose. Consider transfer to ICU if patient respiratory parameters have not improved after 4 naloxone doses. naloxone (NARCAN) injection 0.4 mg(Linked Group 2) 0.4 mg, Intramuscular, EVERY 2 MIN PRN, opioid reversal, Starting on Wed01/07/22 at 2000, Administer intramuscular if an intravenous route is not available and notify provider when administered. For unin tended sedation or respiratory depressio n if all of the below criteria are met: ~ respiratory rate LESS than or EQUAL to 8. ~ SaO2 less than 92% and or/end- tidal CO2 is greater than 50. ~ the patient is receiving an opioid, has unintended sed ation assessed as RASS (-4) or (-5) and patient is currently not on mechanical ventilation. RASS scale (-4) is deep sedation with no response to voice but movemen t or eye opening to physical stimulation . RASS scale (-5) is unarousable. Patient Monitoring Once the patient has demonstrated a response to the naloxone, continue to monitor respiratory rate, depth, ox ygen saturation and end-tidal CO2 (if av ailable) every 15 minutes x 2, then every 30 minutes x 2, then every 1 hour x 1 after each naloxone dose. Consider transfer to ICU if patient respiratory parameters have not improved after 4 naloxone doses. ondansetron (ZOFRAN ODT) ODT tab 4 mg(Linked Group 3) 4 mg, Oral, EVERY 6 HOURS PRN, nausea, v omiting, Starting on Wed01/07/22 at 1858, This is Step 1 of nausea and vomiting management. If nausea not resolved in 15 minutes, go to Step 2 prochlorperazine (CO MPAZINE). Do not push through foil backi ng. Peel back foil and gently remove. Place on tongue immediately. Administration with liquid unnecessary With dry hands, peel back foil backing and gently remove tablet. Do not push oral disintegrating tablet through foil backing. Administer immediately on tongue and oral disintegrating tablet dissolves in seconds, then swallow with saliva. Liquid not required. ondansetron (ZOFRAN) injection 4 mg(Linked Group 3) 4 mg, Intravenous, EVERY 6 HOURS PRN, na usea, vomiting, Administer over 2-5 Minutes, Starting on Wed01/07/22 at 1858, This is Step 1 of nausea and vomiting management. If nausea not resolved in 15 minute s, go to Step 2 prochlorperazine (COMPAZINE). Irritant. oxyCODONE (ROXICODONE) tablet 10 mg(Linked Group 4) 10 mg, Oral, EVERY 4 HOURS PRN, severe p ain, (pain rating 7-10), Starting on Wed01/07/22 at 1858, Hold oral PRN dose for analgesic side effects. Notify provider to assess for uncontrolled pain or analges ic side effects. Hold while on IV SECURITY ARCHITECT or with regular IV opioid dosing. oxyCODONE (ROXICODONE) tablet 5 mg(Linked Group 4) 5 mg, Oral, EVERY 4 HOURS PRN, other, mo derate pain (pain rating 4-6), Starting on Wed01/07/22 at 1858, Hold oral PRN dose for analgesic side effects. Notify provider to assess for uncontrolled pain or a nalgesic side effects. Hold while on IV SECURITY ARCHITECT or with regular IV o pioid dosing. prochlorperazine (COMPAZINE) injection 5 mg(Linked Group 5) 5 mg, Intravenous, EVERY 6 HOURS PRN, na usea, vomiting, Administer over 1-2 Minutes, Starting on Wed01/07/22 at 1858, This is Step 2 of nausea and vomiting management. If nausea not resolved in 15-30 minutes, Notify provider. prochlorperazine (COMPAZINE) tablet 5 mg(Linked Group 5) 5 mg, Oral, EVERY 6 HOURS PRN, nausea, v omiting, Starting on Wed01/07/22 at 1858, This is Step 2 of nausea and vomiting management. If nausea not resolved in 15- 30 minutes, Notify provider. senna-docusate (SENOKOT-S/PERICOLACE) 8.6-50 MG per tablet 1-2 t ablet 1-2 tablet, Oral, 2 TIMES DAILY PRN, con stipation, Starting on Wed01/07/22 at 1858, To prevent constipation. Hold for loose stools Hold for loose stools. sodium chloride (PF) 0.9% PF flush 3 mL 0155 (Given - Provider: Erinn Conley RN) 3 mL, Intracatheter, EVERY 1 MIN PRN, li ne flush, other, to ensure patency or to lock dormant line, Starting on Wed01/07/22 at 1858 topical tissue adhesive (EXOFIN) tube (CANCELED) 1724 (Given - Provider: Tomeka Salter PA-C) PRN, Starting on Wed01/07/22 at 1724, Intra-procedure Linked Groups Order Group 1: HYDROmorphone (DILAUDID) injection 0.2 mgJump to med 0.2 mg, Intravenous, EVERY 2 HOURS PRN, other, moderate pain (pain rating 4-6) IF patient unable to take oral pain medication or pain not controlled with oral analgesics, Starting on Wed01/07/22 at 1858& lt;br>Hold IV PRN opioid dose for analge sic side effects. Notify provider to assess for uncontrolled pain or analgesic side effects.
Or HYDROmorphone (DILAUDID) injection 0.4 mgJump to med 0.4 mg, Intravenous, EVERY 2 HOURS PRN, other, severe pain (pain rating 7-10) IF patient unable to take oral pain medication or pain not controlled with oral analgesics, Starting on Wed01/07/22 at 1858&l t;br>Hold IV PRN opioid dose for analges ic side effects. Notify provider to assess for uncontrolled pain or analgesic side effects.
Group 2: naloxone (NARCAN) injection 0.2 mgJump to med 0.2 mg, Intravenous, EVERY 2 MIN PRN, op ioid reversal, Starting on Wed01/07/22 at 2001
Administer intravenous route when available and notify provider when administered. For unintended sedation or respiratory depression if al l of the below criteria are met: ~ respiratory rate LESS than or EQUAL to 8. ~SaO2 less than 92% and or/end- tidal CO2 is greater than 50.&n bsp;~ the patient is receiving an opioid , has unintended sedations assessed as RASS (-3), and is currently not on mechanical ventilation. RASS scale moderate (-3) is movement or eye o pening to voice but no eye contact.&nbsp ; Patient Monitoring Once the patient has demonstrated a response to the naloxone, continue to monitor respiratory rate, depth, oxygen satur ation and end-tidal CO2 (if available) e very 15 minutes x 2, then every 30 minutes x 2, then every 1 hour x 1 after each naloxone dose. Consider transfer to ICU if patient respiratory parameters have not improved after 4 na loxone doses.
Or naloxone (NARCAN) injection 0.4 mgJump to med 0.4 mg, Intravenous, EVERY 2 MIN PRN, op ioid reversal, Starting on Wed01/07/22 at 2000
Administer intravenous route when available and notify provider when administered. For unintended sedation or respiratory depression if al l of the below criteria are met: ~ respiratory rate LESS than or EQUAL to 8. ~ SaO2 less than 92% and or/end- tidal CO2 is greater than 50.&n bsp;~ the patient is receiving an opioid , has unintended sedation assessed as RASS (-4) or (-5) and patient is currently not on mechanical ventilation. RASS scale (-4) is deep sedatio n with no response to voice but movement or eye opening to physical stimulation. RASS scale (-5) is unarousable. Patient Monitoring Onc e the patient has demonstrated a respons e to the naloxone, continue to monitor respiratory rate, depth, oxygen saturation and end-tidal CO2 (if available) every 15 minutes x 2, then every 30 minutes x 2 , then every 1 hour x 1 after each nalox one dose. Consider transfer to ICU if patient respiratory parameters have not improved after 4 naloxone doses.
Or naloxone (NARCAN) injection 0.2 mgJump to med 0.2 mg, Intramuscular, EVERY 2 MIN PRN, opioid reversal, Starting on Wed01/07/22 at 2000
Administer intramuscular if an intravenous route is not available and notify provider when administered.& amp;nbsp;For unintended sedation or resp iratory depression if all of the below criteria are met: ~ respiratory rate LESS than or EQUAL to 8. ~SaO2 less than 92% and or/end-tidal CO2 i s greater than 50. ~ the patient is receiving an opioid, has unintended sedations assessed as RASS (-3), and is currently not on mechanical ventilation. RASS scale moderate ( -3) is movement or eye opening to voice but no eye contact. Patient Monitoring Once the patient has demonstrated a response to the naloxone, continue to monitor respiratory r ate, depth, oxygen saturation and end-ti suze CO2 (if available) every 15 minutes x 2, then every 30 minutes x 2, then every 1 hour x 1 after each naloxone dose. Consider transfer to U if patient respiratory parameters have not improved after 4 naloxone doses.
Or naloxone (NARCAN) injection 0.4 mgJump to med 0.4 mg, Intramuscular, EVERY 2 MIN PRN, opioid reversal, Starting on Wed01/07/22 at 2001
Administer intramuscular if an intravenous route is not available and notify provider when administered.& amp;nbsp;For unintended sedation or resp iratory depression if all of the below criteria are met: ~ respiratory rate LESS than or EQUAL to 8. ~ SaO2 less than 92% and or/end-tidal CO2 i s greater than 50. ~ the patient is receiving an opioid, has unintended sedation assessed as RASS (-4) or (-5) and patient is currently not on mechanical ventilation. RASS sc oumou (-4) is deep sedation with no respon se to voice but movement or eye opening to physical stimulation. RASS scale (-5) is unarousable. Patient Monitoring Once the patient has de monstrated a response to the naloxone, continue to monitor respiratory rate, depth, oxygen saturation and end-tidal CO2 (if available) every 15 minutes x 2, t hen every 30 minutes x 2, then every 1 h our x 1 after each naloxone dose. Consider transfer to ICU if patient respiratory parameters have not improved after 4 naloxone doses.
Group 3: ondansetron (ZOFRAN ODT) ODT tab 4 mgJump to med 4 mg, Oral, EVERY 6 HOURS PRN, nausea, v omiting, Starting on Wed01/07/22 at 1858
This is Step 1 of nausea and vomiting management. If nausea not resolved in 15 minutes, go to Step 2 prochlorperazine (COMPAZINE). Do not push through foil backing. Peel back foil and gently remove. Place on tongue immediately. Administration with liquid unnecessary With dry hands, peel back foil backing and gently remove tab let. Do not push oral disintegrating tablet through foil backing. Administer immediately on tongue and oral disintegrating tablet dissolves in seconds, then swallow with saliva. Liquid not required.
Or ondansetron (ZOFRAN) injection 4 mgJump to med 4 mg, Intravenous, EVERY 6 HOURS PRN, na usea, vomiting, Administer over 2-5 Minutes, Starting on Wed01/07/22 at 1858
This is Step 1 of nausea and vomiting management. If nause a not resolved in 15 minutes, go to Step 2 prochlorperazine (COMPAZINE). Irritant.
Group 4: oxyCODONE (ROXICODONE) tablet 5 mgJump to med 5 mg, Oral, EVERY 4 HOURS PRN, other, mo derate pain (pain rating 4-6), Starting on Wed01/07/22 at 1858
Hold oral PRN dose for analgesic side effects. Notify provider to assess for uncontrolled p ain or analgesic side effects. Hol d while on IV SECURITY ARCHITECT or with regular IV opioid dosing.
Or oxyCODONE (ROXICODONE) tablet 10 mgJump to med 10 mg, Oral, EVERY 4 HOURS PRN, severe p ain, (pain rating 7-10), Starting on Wed01/07/22 at 1858
Hold oral PRN dose for analgesic side effects. Notify provider to assess for uncontrolled pain or analgesic side effects. Hold whil e on IV SECURITY ARCHITECT or with regular IV opioid dosing.
Group 5: prochlorperazine (COMPAZINE) injection 5 mgJump to med 5 mg, Intravenous, EVERY 6 HOURS PRN, na usea, vomiting, Administer over 1-2 Minutes, Starting on Wed01/07/22 at 1858
This is Step 2 of nausea and vomiting management. If nausea not resolved in 15-30 minutes, Notify provider.
Or prochlorperazine (COMPAZINE) tablet 5 mgJump to med 5 mg, Oral, EVERY 6 HOURS PRN, nausea, v omiting, Starting on Wed01/07/22 at 1858
This is Step 2 of nausea and vomiting management. If nausea not resolved in 15-30 minutes, Notify provider.
documented in this encounter Care Teams Access Coordinator Relationship Specialty Start Date End Date Maurizio Yost MD PCP - General 06/17/01 [address] [place] [address] documented as of this encounter
--- OUTSIDE RECORDS SUMMARY | 2022-03-02 08:01 | XMS_ITS | Encounter Summary ---
:1955 Author Organization [facility] Address [address] [place] [address]. [place] [address] Care Team Providers Name Role Phone Maurizio Yost MD Primary Care Provider [phone] Reason for Visit Auth/Cert Specialty Diagnoses / Procedures Referred By Contact Refer red To Contact Surgery Diagnoses Prostate cancer (H) Prostate cancer (H) [C61] Periop Services Procedures [facility] LAPAROSCOPY, SURGICAL PROSTATECTOMY, RETROPUBIC RADICAL, W/NERVE SPARING ROBOTIC ASSISTED LAPAROSCOPIC PROSTATECTOMY AND PELVIC LYMPH NODE DISSECTION [address] [place] [address] Phone: Referral ID Status Reason Start Date Expiration Date Visits Requ ested Visits Authorized [id number] 1 1 Encounter Details Date Type Department Care Team Description 01/07/2022 Surgery [facility] JULIA Brennan ASSISTED [facility] PROSTATECTOMY AND [address] LTD BILATERAL PELVIC LYMPH [address] [place] [address] [address] [place], [place] [address] (Wo rk) Surgery Details Date/Time Status Location OR Service Patient Case Class Case Type Trauma Class Case? 01/07/22 12:45 Posted [facility] OR R 01 Urology Same Day PM Surgery Panel 1 Procedure LRB Anes Op Region Wound Class Commen ts ROBOTIC ASSISTED LAPAROSCOPIC N/A General Pelvis II-[place] an Contaminated PROSTATECTOMY AND BILATERAL PELVIC LYMPH NODE DISSECTION Surgeon Surgeon Role Service Panel Elver Brennan Vin, MD Primary Urology 1 Tomeka Salter PA-C Assisting 1 documented in this encounter Social History Tobacco Use Types Packs/Day Years [...] Sign Reading Time Taken Comments Blood Pressure 137/74 01/07/2022 10:02 AM CDT Pulse 70 01/07/2022 10:02 AM CDT Temperature 36.3 ??C (97.4 ??F) 01/07/2022 10:02 AM CDT Respiratory Rate 18 01/07/2022 10:02 AM CDT Oxygen Saturation 98% 01/07/2022 10:02 AM CDT Inhaled Oxygen Concentration - - [...] Zaragoza PA-C - 01/08/2022 9:18 AM CDT [facility] Urology Progress Note Assessment & Plan [...] at length. Encouraged to utilize senna and HOME INSURANCE AGENT miralax given h/o straining with bowel movements. Amie Zaragoza PA-C [facility] Pager: [phone] Office: [phone] Interval History Doing well, no events overnight. [...] non tender, non distended. 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 : Baptiste draining clear urine SKIN/HAIR/NAILS: no visible rashes NEUROLOGIC: no focal deficits PSYCHIATRIC: Speech, mood, and affect normal Amie Zaragoza PA-C [facility] Miranda Pierce LPN - 01/06/2022 12:13 PM CDT HOME INSURANCE AGENT medications updated by Medication Scribe prior to [...] Medication Sig Last Dose Taking? Auth Provider Custodial End Date ASPIRIN 81 MG OR TABS [...] are no significant changes Source Note - Silvio, Provider - 12/30/2021 4:39 PM CDT documented in this encounter Procedure Notes Elver Brennan MD - 01/07/2022 5:40 PM CDT Preoperative Diagnosis: Prostate Cancer Postoperative Diagnosis: Prostate Cancer Procedure: 1. Robotic Radical Prostatectomy with bilateral pelvic lymphadenectomy Surgeon: Elver Brennan MD Meat Counter Worker: Tomeka Salter PA-C Date of Procedure: 01/07/22 OPERATIVE INDICATION: Branden Graf is a 66 year old male with prostate cancer. After understanding various management options he elected to undergo today's procedure. Clinical stage: [id number] PSA: 12.43 TAMMI: smooth MRI findings: 1.0 [...] manner. Time out was called. An 16 Maori Bill Moore[place] catheter was placed and the bladder was [...] on a double armed needle. An 18 Maori catheter was placed and the bladder irrigated well. A good watertight, tension free anastasmosis was obtained. Further inspection at this time showed no further b leeding. The string of the Endocatch was then brought out through the umbilical port site. The robotwas then undocked. The laparoscopic ports were removed under vision and the 12 mm tv production assistant port wasclosed with an 0 Vicryl using a Tempronics device I slightly extended the supraumbilical incision [...] Hemoglobin 12.4 (L) 13.3 - 17.7 01/08/2022 [facility] g/dL 7:27 AM CDT Specimen Anatomical Collection Method / Collection Time Recei opal Time (Source) Location / Volume Laterality Blood STRUCTURE OF RIGHT Venipuncture / 01/08/2022 6:56 09/0 12/2021 7:22 UPPER LIMB / Unknown AM CDT AM CDT Unknown Tomeka Salter PA-C LAB - BLOOD ORDERABLES Performing Organization Address City/State/ZIP Code Phon e Number [place] [address] Care Lab [address] [place] 1st floor, Room 20B (ABNORMAL) Basic metabolic [...] equation which includ es age and gender (Diamond Merchant et al., NEJM, DOI: 10.1056/QNCSup6445426) Specimen Anatomical Collection Method / Collection Time Recei opal Time (Source) Location / Volume Laterality Blood STRUCTURE OF RIGHT Venipuncture / 01/08/2022 6:56 09/0 12/2021 7:22 UPPER LIMB / Unknown AM CDT AM CDT Unknown Tomeka Salter PA-C LAB - BLOOD ORDERABLES Performing Organization Address City/State/ZIP Code Phon e Number [place] [address] Care Lab [address] 1st [...] Unknown PM CDT 10:29 PM CDT Elver Brennan MD LAB - [facility] POCT Performing Organization Address City/[facility]/ZIP Code Phon e Number LABORATORY [place] [address] Care Lab [address] 1st floor, Room 20B (ABNORMAL) Glucose by meter (01/07/2022 6:21 PM CDT) athologist Signature GLUCOSE BY 195 (H) 70 - 99 01/07/2022 LABORATORY METER POCT mg/dL 6:28 PM CDT POC Specimen (Source) Anatomical Collection Method Collection Time Re ceived Time Location / / Volume Laterality Blood, Capillary BLOOD SPECIMEN / 01/07/2022 6:21 09/0 10/2021 6:28 Unknown PM CDT PM CDT Elver [place] - BEPRETTY POCT Performing Organization Address City/[facility]/ZIP Code Phon e Number LABORATORY [place] [address] Care Lab [address] 1st floor, Room 20B (ABNORMAL) Surgical Pathology Exam (01/07/2022 2:24 PM CDT) Component Value Ref Test Analysis Performed At [facility] gist Range Method Time Signature Case Report Surgical Pathology Report ? Case: [id number] ? 01/13/2022 RH Authorizing Provider: ??Elver Williamson ? Collected: ? 01/07/2022 02:24 PM ? 7:16 PM LABORATOR Y ? Vin, ? CDT [facility] ?Received: ?01/08/2022 08:37 AM ? [facility] [...] -Prostatic adenocarcinoma, a cinar-type; grade group 3 (Hussein score 4+3 = 7) with greater than [...] Histologic Grade: ? Grade: ?Grade group 3 ([place] Score 4 + 3 = 7) ? [...] (Chapter 1, 8th Ed.) it is [facility] physician? s responsibility to establish the [...] reveal a pale- mayer, soft cut surface. Fagoter sections of the specimen are submitted in [...] No discrete tumor nodules are noted grossly. Fagoter sections including the entire posterior aspect are [...] sequentially submitted from apex t o base [id number] 5, thinned section C16-C25 - left posterior, [...] PM LABORATORY testing was CDT completed at [facility] Laboratory Case Images 01/13/2022 7:16 [...] CDT Unknown Elver Brennan MD LAB - [facility] Performing Organization Address City/State/ZIP Code Ph[place] [address] Care Lab [address] [facility] (1st floor, no room number) [place] [address], [facility] Care Lab [address] floor, Room 20B Creatinine (01/07/2022 10:11 AM CDT) P athologist Signature Creatinine 1.05 0.66 - 1.25 01/07/2022 LABORATORY mg/dL 8:24 PM CDT GFR Estimate 78 >60 01/07/2022 LABORATORY mL/min/1.73 8:24 PM CDT m2 Comment: Effective April 22, 2021 eGF Rcr in adults is calculated using the 2020 CKD-EPI creatinine equation which includ es age and gender (Randolph et al., NEJM, DOI: 10.1056/HCBEsl7918114) Specimen Anatomical Collection Method / Collection Time Recei opal Time (Source) Location / Volume Laterality Blood STRUCTURE OF RIGHT Venipuncture / 01/07/2022 10:11 10/2021 UPPER LIMB / Unknown AM CDT 10:15 AM CDT Unknown Elver Brennan MD LAB - BLOOD ORDERABLES Performing Organization Address City/State/ZIP Code Phon e Number LABORATORY [facility], [place] [address] Care Lab [address] 1st floor, Room 20B Adult Type and Screen (01/07/2022 10:11 AM CDT) Patholo gist Method Time Signature ABO/RH(D) O NEG 01/07/2022 BLOOD 10:00 AM BANK CDT Antibody Negative Negative 01/07/2022 BLOOD Screen 10:00 AM BANK CDT SPECIMEN [id number] 01/07/2022 BLOOD EXPIRATION 10:00 AM BANK DATE CDT Specimen Anatomical Collection Method / Collection Time Recei opal Time (Source) Location / Volume Laterality Blood STRUCTURE OF RIGHT Venipuncture / 01/07/2022 10:11 10/2021 UPPER LIMB / Unknown AM CDT 10:15 AM CDT Unknown Tomeka Salter PA-C LAB - BLOOD BANK TEST ORDER Performing Organization Address City/State/ZIP Code Phon e Number BLOOD BANK [address] [place] [address] (ABNORMAL) Glucose (01/07/2022 10:11 AM CDT) P athologist Signature Glucose 146 (H) 70 - [...] Address City/State/ZIP Code Phon e Number [place] [address] Care Lab [address] 1[address] floor, Room 20B documented in this [...] Given 01/08/2022 1:53 AM CDT 975 mg bupivacaine (MARCAINE) Given 01/07/2022 5:25 PM 30 mLs Operative Site/Surgical 0.5% injection MDV CDT Site PRN, Starting on Wed01/07/22 at 1725, Intra-procedure ceFAZolin (ANCEF) 1 g vial to attach [...] op ioid reversal, Starting on Wed01/07/22 at 2001, Administer intravenous route when available and notify [...] nausea, v omiting, Starting on Wed01/07/22 at 1857, This is Step 1 of nausea and [...] over 2-5 Minutes, Starting on Wed01/07/22 at 185, This is Step 1 of nausea and [...] side effects . Hold while on IV PAY STATION DEPARTMENT MANAGER or with regular IV opioid dosing. oxyCODONE (ROXICODONE) tablet 5 mg 5 mg, Oral, EVERY 4 HOURS PRN, other, mo derate pain (pain rating 4-6), Starting on Wed01/07/22 at 1858, Hold oral PRN dose f or analgesic side effects. Notify provider to assess for uncontrolled pain or analg esic side effects. Hold while on IV PAY STATION DEPARTMENT MANAGER or with regular IV opioid dosing. prochlorperazine [...] at 1900, Until Fani 01/08/22 at 1633 topical tissue adhesive Given 01/07/2022 5:24 PM 1 applicator Operative (EXOFIN) tube CDT Site/Surgical S ite PRN, Starting on Wed01/07/22 at 1724, Intra-procedure documented in this encounter Active and Recently Administered Medications Times are shown in CDT. Scheduled Medication Order 01/06/2022 01/07/2022 01/08/2022 acetaminophen (TYLENOL) tablet 975 mg (COMPLETED) 1030 (Given - Provider: Jessica Jones, CARL) 975 mg, Oral, ONCE, On Wed01/07/22 at 100 0, For 1 dose, Maximum acetaminophen dose from all sources = 75 mg/kg/day not to exceed 4 grams/day., Pre-procedure acetaminophen (TYLENOL) tablet 975 mg 20 33 (Given - Provider: Erinn Conley RN) 0153 (Given - Provider: Erinn Conley RN)0824 (Given - Provider: Nurys Ellington, RN)1359 (Given - Provider: Nurys Ellington, RN) 975 [...] (New Bag - Provider: Erinn Conley RN) 0405 (New Bag - Provider: Erinn Conley RN)1215 (New Bag - Provider: Nurys Ellington, CARL) Routine, 1 g, Intravenous, EVERY 8 HOURS , First dose on Wed01/07/22 at 2100, For 3 doses, Indications: Perioperative Pharmacoprophylaxis ceFAZolin Sodium (ANCEF) injection 2 g (COMPLETED) 1251 (Given - Provider: Bernie Smith APRN CRNA) Routine, 2 g, Intravenous, PRE-OP/PRE-NH OCEDURE, Starting on Wed01/07/22 at 0955, For 1 dose, Give first dose within 1 hour PRIOR to incision. If patient weight is greater than or equal to 120 kg increas e dose to 3 g., Indications: Perioperative Pharmacoprophylaxis, Pre-procedure metFORMIN (GLUCOPHAGE) tablet 500 mg 203 2 (Given - Provider: Erinn Conley RN) 0824 (Given - Provider: Nurys Ellington RN) 500 mg, Oral, 2 TIMES DAILY [...] Erinn Conley RN - Reason: IV Infusing) 0212 (Not Given - Provider: Erinn cooper RN - Reason: Other - Comment: gave PRN early)1359 (Not Given - Provider: Nurys Ellington RN - Reason: Loss of IV access) 3 mL, Intracatheter, EVERY 8 HOURS, Firs t dose on Wed01/07/22 at 1900, to lock peripheral IV dormant line Continuous Medication Order 01/06/2022 01/07/2022 01/08/2022 lactated ringers infusion (CANCELED) 124 6 (New Bag - Provider: Bernie Smiht APRN REFERENCE SERVICES HEAD)1640 (Anesthesia Volume Adjustment - Provider: Guido Le APRN REFERENCE SERVICES HEAD)1754 (Anesthesia Volume Adjustment - Provider: Guido Le APRN REFERENCE SERVICES HEAD) at 100 mL/hr, Intravenous, CONTINUOUS, P re-procedure, [...] 2001 (New Bag - Pr ovider: Erinn Conley, CARL) at 100 mL/hr, Intravenous, CONTINUOUS, S tarting [...] op ioid reversal, Starting on Wed01/07/22 at 2001, Administer intravenous route when available and notify [...] ic side effects. Hold while on IV PAY STATION DEPARTMENT MANAGER or with regular IV opioid dosing. oxyCODONE (ROXICODONE) tablet 5 mg(Linked Group 4) 5 mg, Oral, EVERY 4 HOURS PRN, other, mo derate pain (pain rating 4-6), Starting on Wed01/07/22 at 1858, Hold oral PRN dose for analgesic side effects. Notify provider to assess for uncontrolled pain or a nalgesic side effects. Hold while on IV PAY STATION DEPARTMENT MANAGER or with regular IV o pioid dosing. [...] 3 mL 0155 (Given - Provider: Erinn Conley, CARL) 3 mL, Intracatheter, EVERY 1 MIN PRN, [...] after each naloxone dose. Consider transfer to [facility] if patient respiratory parameters have not improved [...] side effects. Hol d while on IV PAY STATION DEPARTMENT MANAGER or with regular IV opioid dosing.
Or oxyCODONE (ROXICODONE) tablet 10 mgJump to med 10 mg, Oral, EVERY 4 HOURS PRN, severe p ain, (pain rating 7-10), Starting on Wed01/07/22 at 1858
Hold oral PRN dose for analgesic side effects. Notify provider to assess for uncontrolled pain or analgesic side effects. Hold whil e on IV PAY STATION DEPARTMENT MANAGER or with regular IV opioid dosing.
Group [...] provider.
documented in this encounter Care Teams Carbon Brusher Assembler Relationship Specialty Start Date End Date Maurizio Yost MD PCP - General 06/17/01 [address] [place] [address] documented as of this encounter
--- OUTSIDE RECORDS SUMMARY | 2022-03-02 08:01 | XMS_ITS | Encounter Summary ---
:1955 Author Organization [facility] Address [address] [place] [address]. [place] [address] Care Team Providers Name Role Phone Maurizio Yost MD Primary Care Provider [phone] Encounter Details Date Type Department Care Team Description 11/12/2021 Travel Social History Tobacco Use Types Packs/Day Years Used Date Smoking Tobacco: Never Alcohol Use Standard Drinks/Week Comments No 0 (1 standard drink = 0.6 oz pure alcoho l) Sex Assigned at Date Recorded Not on file COVID-19 Exposure Response Date Recorded In the last 10 days, have you been in contact with No / Unsu re 11/12/2021 11:58 AM CDT someone who was confirmed or suspected to have Coronavirus/COVID-19? documented as of this encounter Plan of Treatment Not on filedocumented as of this encounter Visit Diagnoses Not on filedocumented in this encounter Care Teams Palaeontologist Relationship Specialty Start Date End Date Maurizio Yost MD PCP - General 06/17/01 [address] [place] [address] documented as of this encounter
--- OUTSIDE RECORDS SUMMARY | 2022-03-02 08:01 | XMS_ITS | Encounter Summary ---
:1955 Author Organization [facility] Address [address] [place] [address]. [place] [address] Care Team Providers Name Role Phone Maurizio Yost MD Primary Care Provider [phone] Encounter Details Date Type Department Care Team Description 12/19/2021 Travel Social History Tobacco Use Types Packs/Day Years Used Date Smoking Tobacco: Never Alcohol Use Standard Drinks/Week Comments No 0 (1 standard drink = 0.6 oz pure alcoho l) Sex Assigned at Date Recorded Not on file documented as of this encounter Plan of Treatment Not on filedocumented as of this encounter Visit Diagnoses Not on filedocumented in this encounter Care Teams Inserting Machine Operator Relationship Specialty Start Date End Date Maurizio Yost MD PCP - General 06/17/[address] [place] [address] documented as of this encounter
--- OUTSIDE RECORDS SUMMARY | 2022-03-02 08:01 | XMS_ITS | Encounter Summary ---
:1955 Author Organization [facility] Address [address] [facility] [place] [address] Care Team Providers Name Role Phone Maurizio Yost MD Primary Care Provider [phone] Reason for Visit Auth/Cert Specialty Diagnoses / Procedures Referred By Contact Refer red To Contact Surgery Diagnoses Prostate cancer (H) Prostate cancer (H) [C61] Sh Periop Services Procedures [facility] LAPAROSCOPY, SURGICAL PROSTATECTOMY, RETROPUBIC RADICAL, W/NERVE SPARING ROBOTIC ASSISTED LAPAROSCOPIC PROSTATECTOMY AND PELVIC LYMPH NODE DISSECTION [address], [address] [place] [address] Phone: Referral ID Status Reason Start Date Expiration Date Visits Requ ested Visits Authorized [id number] 1 1 Encounter Details Date Type Department Care Team Description 01/07/2022 Anesthesia Event [facility] Teofilo Milian MD [facility] [address] [id number] [facility] Bernie Smith, QUILL MACHINE OPERATOR ROVING INSPECTOR [address] [id number] Services [address] [place] [address] Anesthesia Record Procedure Summary Procedure Name Responsible Anesthesia Start Anesthesia Stop Anesthesiologist Time Time ROBOTIC ASSISTED Teofilo Milian MD 01/07/22 1246 1755 LAPAROSCOPIC PROSTATECTOMY AND BILATERAL PELVIC LYMPH NODE DISSECTION (Pelvis) Events Date Time Event Comment 01/07/2022 1131 1246 An Start 1247 An Start Data 1249 AN REASSESS I attest that I have identified and re-evaluated the patient immediat jasmin before the induction of anesthesia and I am satisfi ed that the anesthetic plan is suitable for the patient' s condition and procedure. The first vital signs jamilah rded are pre- induction. ANNE-MARIE Campos A 1252 An Induction 1255 An Intubation 1322 AN INCISION 1331 MD Present 1440 MD Present 1600 MD Present 1746 MD Present 1748 AN Extubation All extubation c soraida met prior to removal. 1749 an stop data 1755 An Stop Electronically s igned by Guido Le APRN CRNA on January 07, 2022 5:55 PM Name Total dexamethasone 4mg/mL 4 mg fentaNYL (SUBLIMAZE) injection 100 mcg glycopyrrolate 0.2mg/mL 0.8 mg lidocaine 2% 100 mg midazolam 1mg/mL 2 mg neostigmine 1mg/mL 5 mg ondansetron 2mg/mL 4 mg phenylephrine (FREDY-SYNEPHRINE) injection 200 mcg propofol (DIPRIVAN) injection 10 mg/mL vial 240 mg rocuronium 10mg/mL 150 mg ceFAZolin Sodium (ANCEF) injection 2 g 2 g phenylephrine 0.2 mg/mL (mcg/kg/min) drip 1.18 mg HYDROmorphone (DILAUDID) (PF) injection 0.5 mg/0.5 mL 1 mg dexmedetomidine (PRECEDEX) in NS syringe (4 mcg/mL) 20 mcg ceFAZolin vial 1 gm 2 g lactated ringers infusion 900 mL LR 950 mL Agents Name NO HELIOX O2 N2O Air Exp Sevoflurane Exp Isoflurane Exp Desflurane Exp N2O O2 Delivery Device Ins Sevoflurane Ins Isoflurane Ins Desflurane O2 Auxiliary Blood No blood administrations on file. Lines, Drains, and Airways Type Details Placement Removal Incision/Surgical Site 01/07/22; 1712; 01/07/22 1712 by Abdomen; 6X port Akil Ventura RN sites Peripheral IV 01/07/22; 1048; 20 G; 01/07/22 1048 by 01/08/22 1220 by Left; Hand Jessica Jones Foisy, Ann E, RN RN ETT Placement Date: 01/07/22 1255 by 01/07/22 1748 b y 01/07/22; Placement Bernie Smith Beumer, Fr bennett N, Time: 1255 (created QUILL MACHINE OPERATOR ROVING INSPECTOR QUILL MACHINE OPERATOR ROVING INSPECTOR via procedure documentation); Mask Ventilation: 2; Induction Type: Intravenous; Ease of Intubation: Easy; Technique: Video laryngoscopy; ETT Type: Single; Tube Size: 8 mm; VL Blade Size: Long 4; Grade View: 1; Adjucts: Stylet; Placement Person: ROVING INSPECTOR; Attempts: 1; Depth: 23 cm Peripheral IV 01/07/22; 1256; 16 G; 01/07/22 1256 by 01/08/22 1220 by BD; Right; Hand; Bernie Smith Foisy, Ann E, RN Alcohol QUILL MACHINE OPERATOR ROVING INSPECTOR Urethral Catheter 01/07/22; 1322; No; 01/07/22 1322 by 01/07/22 1655 by /GI/REHAB SPECIALIST Pelvic Bernadette Singleton Kunsang, T enzin, electronic prepress system operator; 16 fr RN Urethral Catheter 01/07/22; 1656; No; 01/07/22 1656 by 01/08/22 1533 by /GI/REHAB SPECIALIST Pelvic Akil Ventura RN Inpatient, Nurse Procedure; 18 fr documented in this encounter Social History Tobacco [...] have Coronavirus/COVID-19? documented as of this encounter OR Notes Anesthesia Postprocedure Evaluation - Jose, Olivia oMon MD - 01/07/2022 3:29 PM CDT Patient: Branden Graf Procedure: Procedure(s): ROBOTIC ASSISTED LAPAROSCOPIC PROSTATECTOMY AND PELVIC LYMPH NODE DISSECTION Anesthesia Type: General Note: Postop Pain Control: Uneventful Sign Out: Well controlled pain PONV: No Neuro/Psych: Uneventful Sign Out: Acceptable/Baseline neuro status Airway/Respiratory: Uneventful Sign Out: AIRWAY IN SITU/Resp. Support CV/Hemodynamics: Uneventful Sign Out: Acceptable CV status; No obvious hypovolemia; No obvious fluid overload Other NRE: NONE DID A NON-ROUTINE EVENT OCCUR? No Last vitals: Vitals: 01/07/22 1002 BP: 137/74 Pulse: 70 Resp: 18 Temp: 36.3 ??C (97.4 ??F) SpO2: 98% Electronically Signed By: Olivia Garcia MD, January 07, 2022 3:29 PM Anesthesia Procedure Notes - Bernie Smith APRN CRNA - 01/07/2022 1:50 PM CDTAssociated Order(s): Airway Airway Patient location during procedure: OR Procedure Start/Stop Times: 01/07/2022 12:55 PM Staff - Anesthesiologist: Olivia Garcia MD ROVING INSPECTOR: Bernie Smith APRN CRNA Performed By: ROVING INSPECTOR Consent for Airway Urgency: elective Indications and Patient Condition Indications for airway management: fanny-procedural Induction type:intravenous Mask difficulty assessment: 2 - vent by mask + OA or adjuvant +/- NMBA Final Airway Details Final airway type: endotracheal airway Successful airway: ETT - single Endotracheal Airway Details ETT size (mm): 8.0 Cuffed: yes Successful intubation technique: video laryngoscopy VL Blade Size: Long 4 Grade View of Cords: 1 Adjucts: stylet Position: Right Measured from: lips Secured at (cm): 23 Bite block used: None Post intubation assessment Placement verified by: capnometry, equal breath sounds and chest rise Number of attempts at approach: 1 Secured with: pink tape Ease of procedure: easy Dentition: Intact and Unchanged Medication(s) Administered Medication Administration Time: 01/07/2022 12:55 PM Anesthesia Preprocedure Evaluation - Olivia Garcia MD - 01/07/2022 11:30 AM CDT Anesthesia Pre-Procedure Evaluation Patient: Branden Graf : 1955 Procedure : Procedure(s): ROBOTIC ASSISTED LAPAROSCOPIC PROSTATECTOMY AND PELVIC LYMPH NODE DISSECTION Past Medical History: Diagnosis Date ??? Diabetes (H) ??? Disease of nasal sinus ??? Diverticulosis of colon (without mention of hemorrhage) 06/03/2007 incidental diverticulosis seen on colonoscopy ??? Dysmetabolic syndrome X ??? Exposure to confirmed case of severe acute respiratory syndrome coronavirus 2 (SARS-CoV-2) infection ??? Hernia, umbilical ??? [place] (hard of hearing) ??? Nasal polyp ??? Other abnormal blood chemistry ??? Pain of right thumb ??? Pure hypercholesterolemia ??? Sensorineural hearing loss, unilateral 10/01/2009 left sided hearing loss without obvious cause; ENT workup and MRI negative Past Surgical History: Procedure Laterality Date ??? HERNIA REPAIR umbilical hernia ??? NO HISTORY OF SURGERY Allergies Allergen Reactions ??? No Known Allergies Social History Tobacco Use ??? Smoking status: Never Smoker ??? Smokeless tobacco: Former User Substance Use Topics ??? Alcohol use: No Wt Readings from Last 1 Encounters: 01/07/22 97.5 kg (215 lb) Anesthesia Evaluation Pt has had prior anesthetic. No history of anesthetic complications ROS/MED HX ENT/Pulmonary: Comment: Andreafski (-) sleep apnea Neurologic: (-) no CVA Cardiovascular: (+) Dyslipidemia ----- (-) CAD METS/Exercise Tolerance: Hematologic: Musculoskeletal: GI/Hepatic: (-) GERD Renal/Genitourinary: Endo: (+) type II DM, Psychiatric/Substance Use: Infectious Disease: Malignancy: (+) Malignancy, History of Prostate. Other: Physical Exam Airway Mallampati: II TM distance: > 3 FB Neck ROM: full Mouth opening: > 3 cm Respiratory Devices and Support Dental no notable dental history Cardiovascular cardiovascular exam normal Pulmonary pulmonary exam normal OUTSIDE LABS: CBC: Lab Results Component Value Date HGB 14.6 09/04/2011 HGB 14.5 09/12/2009 BMP: Lab Results Component Value Date NA 142 09/04/2011 NA 141 09/03/2010 POTASSIUM 4.4 09/04/2011 POTASSIUM 4.3 09/03/2010 CHLORIDE 104 09/04/2011 CHLORIDE 103 09/03/2010 CO2 26 09/04/2011 CO2 28 09/03/2010 BUN 20 09/04/2011 BUN 20 09/03/2010 CR 0.98 09/04/2011 CR 1.02 09/03/2010 GLC 146 (H) 01/07/2022 GLC 119 (H) 09/04/2011 COAGS: No results found for: PTT, INR, FIBR POC: No results found for: BGM, HCG, HCGS HEPATIC: Lab Results Component Value Date ALBUMIN 4.4 09/03/2010 PROTTOTAL 8.1 09/03/2010 ALT 25 09/04/2011 AST 30 09/04/2011 ALKPHOS 79 09/03/2010 BILITOTAL 0.8 09/03/2010 OTHER: Lab Results Component Value Date A1C 6.2 (H) 09/04/2011 VIOLETA 9.7 09/04/2011 Anesthesia Plan ASA Status: 2 NPO Status: NPO Appropriate Anesthesia Type: General. - Airway: ETT Induction: Propofol, Intravenous. Maintenance: Balanced. Consents Anesthesia Plan(s) and associated risks, benefits, and realistic alternatives discussed. Questions answered and patient/digital media representative(s) expressed understanding. - Discussed: - Discussed with: Patient Postoperative Care Pain management: Multi-modal analgesia. PONV prophylaxis: Ondansetron (or other 5HT-3), Dexamethasone or Solumedrol Comments: Olivia Garcia MD, MD documented in this encounter Miscellaneous Notes Anesthesia Care Transfer Note - Guido Le APRN ROVING INSPECTOR - 01/07/2022 5:54 PM CDT Patient: Branedn Graf Procedure: Procedure(s): ROBOTIC ASSISTED LAPAROSCOPIC PROSTATECTOMY AND BILATERAL PELVIC LYMPH NODE DISSECTION Diagnosis: Prostate cancer (H) [C61] Diagnosis Additional Information: No value filed. Anesthesia Type: General Note: Oropharynx: oropharynx clear of all foreign objects and spontaneously breathing Level of Consciousness: awake Oxygen Supplementation: face mask Level of Supplemental Oxygen (L/min / FiO2): 6 Independent Airway: airway patency satisfactory and stable Dentition: dentition unchanged Vital Signs Stable: post-procedure vital signs reviewed and stable Report to RN Given: handoff report given Patient transferred to: PACU Comments: Neuromuscular blockade reversed after TOF 4/4, spontaneous respirations, adequate tidal volumes, oropharynx suctioned with soft flexible catheter, extubated atraumatically, extubated with suction, airway patent after extubation. Oxygen via facemask at 6 liters per minute to PACU. Oxygen tubing connected to wall O2 in PACU, SpO2, NiBP, and EKG monitors and alarms on and functioning, report on patient's clinical status given to GLOVE PARTS INSPECTOR, RN questions answered. Handoff Report: Identifed the Patient, Identified the Reponsible Provider, Reviewed the pertinent medical history, Discussed the surgical course, Reviewed Intra-OP anesthesia mangement and issues during anesthesia, Set expectations for post-procedure period and Allowed opportunity for questions and acknowledgement of understanding Vitals: Vitals Value Taken Time BP 142/75 01/07/22 1751 Temp Pulse 80 01/07/22 1753 Resp 11 01/07/22 1753 SpO2 98 % 01/07/22 175 Vitals shown include unvalidated device data. Electronically Signed By: Guido Le APRN CRNA January 07, 2022 5:54 PM documented in this encounter Plan of Treatment Not on filedocumented as of this encounter Procedures Procedure Name Priority Date/Time Associated Comments Diagnosis ANE AIRWAY ETT Routine 01/07/2022 12:55 Results f or this PERFORMABLE PM CDT procedure are i n the results section. documented in this encounter Results ANE AIRWAY ETT PERFORMABLE (01/07/2022 12:55 PM CDT) Narrative Bernie Smith APRN CRNA - 01/07/2022 12:55 PM CDT Bernie Smith APRN CRNA ? 01/07/2022 ??1:50 PM Airway ? Patient location during procedure : OR ? Procedure Start/Stop Times: 12:55 PM Staff - ? Anesthesiologist: ??Jose, Bertha Moon MD ? ROVING INSPECTOR: Bernie Smith APRN CRNA ? Performed By: ROVING INSPECTOR Consent for Airway ? Urgency: elective Indications and Patient Condition ? Indications for airway management : fanny-procedural ? Induction type:intravenous ? Mask difficulty assessment: 2 - v ent by mask + OA or adjuvant +/- NMBA Final Airway Details ? Final airway type: endotracheal a irway ? Successful airway: ETT - single Endotracheal Airway Details ? ETT size (mm): 8.0 ? Cuffed: yes ? Successful intubation technique: video laryngoscopy ? VL Blade Size: Long 4 ? Grade View of Cords: 1 ? Adjucts: stylet ? Position: Right ? Measured from: lips ? Secured at (cm): 23 ? Bite block used: None Post intubation assessment ? Placement verified by: capnometry , equal breath sounds and chest rise ? Number of attempts at approach: 1 ? Secured with: pink tape ? Ease of procedure: easy ? Dentition: Intact and Unchanged Medication(s) Administered Medication Administration Time: 01/07/2022 12:55 PM Olivia Garcia MD [place] [facility] documented in this encounter Visit Diagnoses Not on filedocumented in this encounter Administered Medications Inactive Administered Medications - up to 3 most recent administrations Medication Order MAR Action Action Date Dose Rate Site ceFAZolin (ANCEF) 1 g vial to attach Given 01/07/2022 4:58 PM CD T 2 g to NS 100 ml bag for ADULT or 50 ml bag for PEDS Routine, Intravenous, PRN, Starting on Wed01/07/22 at 1658, Anesthesia Intra-op ceFAZolin Sodium (ANCEF) injection 2 g Given 01/07/2022 12:51 PM CDT 2 g Routine, 2 g, Intravenous, PRE-OP/PRE-PROCEDURE, Starting on Wed01/07/22 at 0955, For 1 dose, Give first dose within 1 hour PRIOR to incision. If patient weight is greater than or equal to 120 kg increase dose to 3 g., Indications: Perioperative Pharmacoprophylaxis, Pre-procedure dexamethasone (DECADRON) injection Given 01/07/2022 1:07 PM CDT 4 mg Intravenous, PRN, Administer over 1 Minutes, Starting on Wed01/07/22 at 1307, Anesthesia Intra-op dexmedetomidine (PRECEDEX) 4 mcg/mL in NS Given 01/07/2022 1:33 PM CDT 8 mcg PRE-MIX Intravenous, PRN, Starting on Wed01/07/22 at 1327, Anesthesia Intra-op Given 01/07/2022 1:27 PM CDT 12 mcg fentaNYL (PF) (SUBLIMAZE) injection Given 01/07/2022 12:52 PM CDT 100 mcg Intravenous, PRN, Administer over 3-5 Minutes, Starting on Wed01/07/22 at 1252, Anesthesia Intra-op glycopyrrolate (ROBINUL) injection Given 01/07/2022 5:24 PM CDT 0.8 mg Intravenous, PRN, Administer over 1-2 Minutes, Starting on Wed01/07/22 at 1724, Anesthesia Intra-op HYDROmorphone (PF) (DILAUDID) injection Given 01/07/2022 3:57 PM CDT 0.5 mg Intravenous, PRN, Administer over 2-10 Minutes, Starting on Wed01/07/22 at 1323, Anesthesia Intra-op Given 01/07/2022 1:23 PM CDT 0.5 mg lactated ringers infusion New Bag 01/07/2022 12:46 PM CDT at 100 mL/hr, Intravenous, CONTINUOUS, Pre-procedure, Starting on Wed01/07/22 at 1000, Until Wed01/07/22 at 1800 lactated ringers infusion New Bag 01/07/2022 1:00 PM CDT Intravenous, CONTINUOUS PRN, Anesthesia Intra-op, Starting on Wed01/07/22 at 1300, Until Wed01/07/22 at 1755 lidocaine 2% injection (MDV) Given 01/07/2022 12:52 PM CDT 100 mg Other, PRN, Starting on Wed01/07/22 at 1252, Anesthesia Intra-op midazolam (VERSED) injection Given 01/07/2022 12:46 PM CDT 2 mg Intravenous, Administer over 2 Minutes, PRN, Starting on Wed01/07/22 at 1246, Anesthesia Intra-op neostigmine (PROSTIGMINE) injection Given 01/07/2022 5:24 PM CDT 5 mg Intravenous, PRN, Starting on Wed01/07/22 at 1724, Anesthesia Intra-op ondansetron (ZOFRAN) injection Given 01/07/2022 5:40 PM CDT 4 mg Intravenous, PRN, Administer over 2-5 Minutes, Starting on Wed01/07/22 at 1740, Anesthesia Intra-op phenylephrine (FREDY-SYNEPHRINE) injection Bolus 01/07/2022 3:22 PM CDT 100 mcg Intravenous, CONTINUOUS PRN, Starting on Wed01/07/22 at 1310, Anesthesia Intra-op New Bag 01/07/2022 1:10 PM CDT 100 mcg phenylephrine 0.2 mg/mL Rate/Dose Change 01/07/2022 3:32 0.1 mcg/kg /min 2.925 mL/hr (mcg/kg/min) drip PM CDT Intravenous, CONTINUOUS PRN, Starting on Wed01/07/22 at 1303, Anesthesia Intra-op Restarted 01/07/2022 3:22 PM CDT 0.2 mcg/kg/min 5.85 mL/hr Rate/Dose Change 01/07/2022 1:24 PM CDT 0.2 mcg/kg/min 5.85 mL/hr propofol (DIPRIVAN) injection 10 mg/mL v ial Given 01/07/2022 1:35 PM CDT 40 mg Intravenous, PRN, Starting on Wed01/07/22 at 1252, Anesthesia Intra-op Given 01/07/2022 12:52 PM CDT 200 mg rocuronium injection Given 01/07/2022 4:01 PM CDT 20 mg Intravenous, PRN, Starting on Wed01/07/22 at 1252, Anesthesia Intra-op Given 01/07/2022 3:34 PM CDT 20 mg Given 01/07/2022 3:13 PM CDT 10 mg documented in this encounter Care Teams Inventory Administrator Relationship Specialty Start Date End Date Maurizio Yost MD PCP - General 06/17/01 [address] [place] [address] documented as of this encounter
--- OUTSIDE RECORDS SUMMARY | 2022-03-02 08:01 | XMS_ITS | Clinical Summary ---
:1955 Author Organization [place] Address [facility] [place] [address] Care Team Providers Name Role Phone Maurizio Yost MD Primary Care Provider [phone] Allergies Active Allergy Reactions Severity Noted Date Comments No Known Allergies 05/05/2002 Medications Medication Sig Dispensed Refills Start Date End Date Status FISH OIL 1000 MG OR Take 2 g by 0 08/05/2006 Active CAPSIndications: Other mouth daily and unspecified (with dinner) (2 hyperlipidemia x 1000 mg = 2000 mg) simvastatin (ZOCOR) 40 Take 1 tablet by 90 tablet 0 09/20/2012 Active MG tabletIndications: mouth At Hyperlipidemia LDL goal Bedtime. <130 Additional Information Patient taking differently: 40 mg Oral EVERY EVENING, Reported on 01/08/2022 metFORMIN (GLUCOPHAGE) 500 Take 500 mg by mouth 2 0 Active MG tablet times daily (with meals) Aspirin 81 MG 0 01/12/2022 Activ e CAPSIndications: Routine general medical examination at a health care facility senna-docusate Take 1-2 tablets by mouth 20 tablet 0 2 Active (SENOKOT-S/PERICOLACE) 2 times daily as needed 8.6-50 MG for constipation tabletIndications: Prostate cancer (H) oxyCODONE (ROXICODONE) 5 MG Take 1 tablet (5 mg) by 8 tablet 0 01/08/2022 Active tabletIndications: Prostate mouth every 4 hours as cancer (H) needed for moderate to severe pain Active Problems Problem Noted Date Prostate cancer 01/07/2022 Advanced directives, counseling/discussion 09/11/2011 Overview: Patient states has Advance Directive and will bring in a copy to clinic. 09/11/2011 HYPERLIPIDEMIA LDL GOAL <130 03/02/2010 Dysmetabolic syndrome X 11/30/2003 Abnormal blood chemistry 07/10/2002 Overview: Problem list name updated by automated p rocess. Provider to review Pure hypercholesterolemia 05/05/2002 Diverticulosis of large intestine Overview: incidental diverticulosis seen on colono scopy Problem list name updated by automated p rocess. Provider to review Sensorineural hearing loss, unilateral Overview: left sided hearing loss without obvious cause; ENT workup and MRI negative Encounters Date Type Specialty Care Team Description 01/07/2022 Anesthesia Event Surgery Teofilo Milian MD [place]don, Bernie Sarabia APRN ACOUSTICAL CARPENTER 01/07/2022 Surgery Surgery Mika, ROBOTIC MILLA BROOKLYNN Elver Banuelos MD LAPAROSCOPI C PROSTATECTOMY A ND BILATERAL PELVI C LYMPH NODE DISSECTION 01/07/2022 - Hospital Encounter Med Surg O'Anna, Prostat e cancer (H) (Primary Dx); 01/08/2022 Elver Banuelos MD Routine gen eral medical examination at a health care facility 01/07/2022 Travel 01/04/2022 Lab Lab Marlo Mejia, Pre-operat zaida general physical examin ation 01/03/2022 Travel 12/19/2021 Travel 12/14/2021 Patient Self-Triage Urgent Care Marlo Mejia, Pre -operative general physical examin ation from Last 3 Months Immunizations Name Administration Dates Next Due Influenza (IIV3) PF 03/03/2011 TDAP Vaccine (Adacel) 08/10/2008 Family History Medical History Relation Comments C.A.D. Father Cancer - colorectal Mother Diabetes Mother Hypertension Mother Breast Cancer Sister Diabetes Sister Relation Status Comments Father Mother Sister Social History Tobacco Use Types Packs/Day Years Used Date Smoking Tobacco: Never Smokeless Tobacco: Former Alcohol Use Standard Drinks/Week Comments No 0 (1 standard drink = 0.6 oz pure alcoho l) Sex Assigned at Date Recorded Not on file Last Filed Vital Signs Vital Sign Reading [...] Mass Index 29.99 01/07/2022 10:02 AM CDT Plan of Treatment Health Maintenance Due Date Last Done Comments ANNUAL REVIEW OF HM ORDERS 1955 CT COLONOGRAPHY 1955 FIT-DNA (Cologuard) 1955 FIT 1955 FLEX SIG 1955 HEPATITIS B IMMUNIZATION (1 1955 of 3 - 3-dose series) HEPATITIS C SCREENING 08/30/1973 CMP 09/04/2011 09/03/2010 A1C 03/06/2012 09/04/2011, 09/03/2010, 09/12/2009, Additional history exists LIPID 09/03/2012 09/04/2011, 09/03/2010, 09/12/2009, Additional history exists ADVANCE CARE PLANNING 09/10/2016 09/11/2011 COLONOSCOPY 06/10/2017 06/10/2007 COLORECTAL CANCER SCREENING 06/10/2017 AORTIC ANEURYSM SCREENING 08/30/2020 (SYSTEM ASSIGNED) FALL RISK ASSESSMENT 08/30/2020 MEDICARE ANNUAL WELLNESS 08/30/2020 05/05/2002 VISIT PHQ-2 (once per calendar 05/03/2021 year) COVID-19 Vaccine (5 - 11/04/2021 09/09/2021, 03/29/2021, Booster for Moderna series) 08/07/2020, Addition al history exists INFLUENZA VACCINE (#1) 2022 02/05/2021, 02/12/2019, 02/24/2017, Additional history exists Pneumococcal Vaccine: 65+ 09/30/2023 03/05/2021, 09/29/2018 Years (#3) DTAP/TDAP/TD IMMUNIZATION 12/19/2031 12/18/2021, 08/19/2012 , (4 - Td or Tdap) 08/10/2008 ZOSTER IMMUNIZATION Completed 02/25/2021, 09/29/2018, 07/21/2018, Additional history exists IPV IMMUNIZATION Aged Out No longer eligi ble based on patient 's age to complete this topic MENINGITIS IMMUNIZATION Aged Out No longe r eligible based on patient 's age to complete this topic Procedures Procedure Name Priority Date/Time Associated Comments [...] procedure are i n the results section. ANE AIRWAY ETT Routine 01/07/2022 12:55 Results f or this PERFORMABLE PM CDT procedure are i n the results section. PROSTATECTOMY, 01/07/2022 12:46 Prostate cancer (H) ROBOT-ASSISTED, USING PM CDT DA EDWIN XI, WITH PELVIC LYMPHADENECTOMY ABO/RH TYPE AND SCREEN STAT 01/07/2022 10:11 R esults for this AM CDT procedure are i n the results section. TYPE AND SCREEN, ADULT STAT 01/07/2022 10:11 R esults for this AM CDT procedure are i n the results section. CREATININE Add-On 01/07/2022 10:11 Results for this AM CDT procedure are i n the results section. GLUCOSE STAT 01/07/2022 10:11 Results for this AM CDT procedure are i n the results section. COVID-19 VIRUS Routine 01/04/2022 2:11 Pre-operative Results f or this (CORONAVIRUS) BY PCR PM CDT general physical pro cedure are in examination the results section. from Last 3 Months Results (ABNORMAL) Hemoglobin (01/08/2022 6:56 AM CDT) [...] Address City/State/ZIP Code Ph[place] [address] Care Lab [address] 1st floor, Room 20B (ABNORMAL) Basic [...] and gender (Randolph et al., NEJM, DOI: 10.1056/YAAEka4076351) Specimen Anatomical Collection Method / Collection Time Recei opal Time (Source) Location / Volume Laterality Blood STRUCTURE OF RIGHT Venipuncture / 01/08/2022 6:56 09/0 12/2021 7:22 UPPER LIMB / Unknown AM CDT AM CDT Unknown Tomeka Salter PA-C LAB - BLOOD ORDERABLES Performing Organization Address City/State/ZIP Code Phon e Number [place] [address] Care Lab [address] 1[address] floor, Room 20B (ABNORMAL) Glucose by meter (01/07/2022 10:23 PM CDT)Only the most recent of2 resultswithin the time period is included. athologist Signature GLUCOSE BY 175 (H) 70 - 99 01/07/2022 LABORATORY METER POCT mg/dL 10:29 PM CDT POC Specimen (Source) Anatomical Collection Method Collection Time Re ceived Time Location / / Volume Laterality Blood, Capillary BLOOD SPECIMEN / 01/07/2022 10:23 10/2021 Unknown PM CDT 10:29 PM CDT Elver Brennan MD LAB - BEAKER POCT Performing Organization Address City/State/ZIP Code Phon e Number LAB[place]ATORY [place] [address] Care Lab [address] 1[address] floor, Room 20B (ABNORMAL) Surgical Pathology Exam (01/07/2022 2:24 PM CDT) Component Value Ref Test [facility] Method Time Signature Case Report Surgical Pathology Report ? Case: [id number] ? 01/13/2022 Authorizing Provider: ??Elver Williamson ? Collected: ? 01/07/2022 02:24 PM ? 7:16 PM LABORATOR Y ? Vin, MD ? CDT [facility]: [facility] ?Received: ?01/08/2022 08:37 AM ? [facility] OR ? Pathologist: ? Sylvie, Sonia, MD ? Specimens: ?? A) - Prostate, Fanny Prostatic fat ? B) - Urin jayy Bladder, Posterior bladder neck margin ? C) - Pros colilns, PROSTATE AND SEMINAL VESICLES ? D) - Lymp h Node(s), Pelvis, Left ? E) - Lymp h Node(s), Pelvis, Right ? Final A. Soft tissue, periprostatic fat, resection: 01/13/2022 Electronically Diagnosis -Negative for malignancy. 7:16 PM LABO RATTIMMY signed by CDT Sa kristen Mercer B. Prostate, bladder neck margin, biopsy: MD on 01/13/2022 -Negative for malignancy. at 7:16 [...] Histologic Grade: ? Grade: ?Grade group 3 (Hussein Score 4 + 3 = 7) ? [...] adenocarcinoma (4+4 = 8). Gross A(1). Prostate, Fanny Prostatic fat: 01/01 Description The specimen is received in formalin, labeled with the patient's name, medical record number and other identifying information designated periprostatic fat. It consists of a 5.0 x 3.0 x 1.0 cm aggrega 7:16 PM LABORATORY te of yellow-mayer, lobulated adipose tissue which is sectioned to reveal a pale- mayer, soft cut surface. Compound Finisher sections of the specimen are submitted in [...] to base into 8 slices, revealing a pale-maeyr, lobulated, bulgi ng cut surface. No discrete tumor nodules are noted grossly. Compound Finisher sections including the entire posterior aspect are [...] sequentially submitted from apex t o base [id number], thinned section C16-C25 - left posterior, [...] PM LABORATORY testing was CDT completed at [facility] Case Images 01/13/2022 7:16 PM [...] CDT Unknown Elver Brennan MD LAB - [facility] Performing Organization Address City/State/ZIP Code Phon e [place] [address] Care [address] Lab (1st floor, no room number) [place] [address], [facility] [phone] Acute Care Lab [address] floor, Room 20B ANE AIRWAY ETT PERFORMABLE (01/07/2022 12:55 PM CDT) Narrative Bernie Smith APRN ACOUSTICAL CARPENTER - 01/07/2022 12:55 PM CDT Bernie Smith APRN CRNA ? 01/07/2022 ??1:50 PM Airway ? Patient location during procedure : OR ? Procedure Start/Stop Times: 12:55 PM Staff - ? Anesthesiologist: ??Bertha Garcia MD ? ACOUSTICAL CARPENTER: Bernie Smith APRN CRNA ? Performed By: ACOUSTICAL CARPENTER Consent for Airway ? Urgency: elective Indications [...] Time: 01/07/2022 12:55 PM Olivia Garcia MD AR ANESTHESIA Adult Type and Screen (01/07/2022 10:11 AM CDT) [facility] gist Method Time Signature ABO/RH(D) O NEG 01/07/2022 BLOOD 10:00 AM BANK CDT Antibody Negative Negative 01/07/2022 BLOOD Screen 10:00 AM BANK CDT SPECIMEN [id number] 01/07/2022 BLOOD EXPIRATION 10:00 AM BANK DATE CDT Specimen Anatomical Collection Method / Collection Time Recei opal Time (Source) Location / Volume Laterality Blood STRUCTURE OF RIGHT Venipuncture / 01/07/2022 10:11 10/2021 UPPER LIMB / Unknown AM CDT 10:15 AM CDT Unknown Tomeka Salter PA-C LAB - BLOOD BANK TEST ORDER Performing Organization Address City/State/ZIP Code Phon e Number BLOOD BANK [address] [address] Creatinine (01/07/2022 10:11 AM CDT) athologist Signature Creatinine 1.05 0.66 - 1.25 01/07/2022 LABORATORY mg/dL 8:24 PM CDT GFR Estimate 78 >60 01/07/2022 LABORATORY mL/min/1.73 8:24 PM CDT m2 Comment: Effective April 22, 2021 eGF Rcr in adults is calculated using the 2020 CKD-EPI creatinine equation which includ es age and gender (Randolph et al., NEJ, DOI: 10.1056/[id number]) Specimen Anatomical Collection Method / Collection Time Recei opal Time (Source) Location / Volume Laterality Blood STRUCTURE OF RIGHT Venipuncture / 01/07/2022 10:11 10/2021 UPPER LIMB / Unknown AM CDT 10:15 AM CDT Unknown Elver Brennan MD LAB - BLOOD ORDERABLES Performing Organization Address City/State/ZIP Code Phon e Number [place]AT[place] [address] [phone] Care Lab [address] 1[address] floor, Room 20B (ABNORMAL) Glucose (01/07/2022 10:11 AM CDT) P [...] Address City/State/ZIP Code Phon e Number [place] [address] Care Lab [address] 1[address] floor, Room 20B Asymptomatic COVID-19 Virus (Coronavirus) by PCR Nose (01/04/2022 2:11 PM CDT) Analysis Performed At Patho logist Time Signature SARS CoV2 PCR Negative Negative 01/05/2022 [facility] 9:58 AM CDT LABORATORY Comment: NEGATIVE: SARS-CoV-2 (COVID-19) RNA not detected, presumed negative. Specimen Anatomical Collection Method Collection Time Receive d Time (Source) Location / / Volume Laterality Swab NASAL STRUCTURE / Non-blood 01/04/2022 2:11 PM 0 08/2021 2:11 Unknown Collection / CDT PM CDT Unknown Narrative [facility] LABORATORY - 01/05/2022 9:58 AM C DT Testing was performed using the Xpert Xpress SARS-CoV-2 Assay on the [employer] Gene-Xpert Instrument Systems. A dditional information about this Emergency Use Authorization (EUA) a ssay can be found via the Lab Guide. This test should be ordered for t he detection of SARS-CoV-2 in individuals who meet SARS-CoV-2 clinical and/or epidemiological criteria. Test performance is unknown in asymptomatic patients. This test is for in vitro diagnostic use unde r the FDA EUA for laboratories certified under CLIA to per form high complexity testing. This test has not been FDA cleared or ap proved. A negative result does not rule out the presence of PCR in hibitors in the specimen or target RNA in concentration below the li natacha of detection for the assay. The possibility of a false negati ve should be considered if the patient's recent exposure or clinica l presentation suggests COVID-19. This test was validated by the [facility]. This lab oratory is certified under the Clinical Laboratory Improvement Amen dments of 1987 (CLIA-88) as qualified to perform high complexity lab oratory testing. Marlo Mejia MD LAB - MICRO GENERAL ORDERABL ES Performing Organization Address City/State/ZIP Code Phon e Number [facility] LABORATORY [facility] [place] [address] Diag. Lab [address] [facility], [address] from Last 3 Months Insurance Payer Benefit Plan / Subscriber ID Effective Phone Address T ype Group Dates MEDICARE MEDICARE [id number] 2020-Prese [phone] ATTN CEFER[place] Medicare nt 40 [address] [place] [address] BCBS BCBS OF [place] [id number] 2021-Pres [phone] [address] [address] Indemnity ent [address] [place] [address] Advance Directives For more information, please contact: [phone] Latest Code Status on File Code Status Date Activated Date Inactivated Comments Full Code 01/07/2022 5:40 PM 01/08/2022 4:38 PM All basic and advanced life-sustaining interventions ar e performed as appropriate Question Answer Comments Code status determined by: Unable to discuss and no AD/POLST on file; continue PREVIOUSLY ORDERED code status Care Teams Electrical Maintenance Supervisor Relationship Specialty Start Date End Date Maurizio Yost MD PCP - General 06/17/01 [address] [place] [address]
--- OUTSIDE RECORDS SUMMARY | 2022-03-02 08:01 | XMS_ITS | Encounter Summary ---
:1955 Author Organization [place] Address [address] [place] [address]. [place] [address] Care Team Providers Name Role Phone Maurizio Yost MD Primary Care Provider [phone] Reason for Visit Diagnostic Imaging PET (Routine) - Pending Review Specialty Diagnoses / Procedures Referred By Contact Refer red To Contact Diagnoses Malignant neoplasm of prostate (H) Elver Brennan Procedures PET PSMA Eyes to Thighs MD Vin [facility] [address] [place] [address] Referral ID Status Reason Start Date Expiration Date Visits V isits Requested Authorized [id number] Pending 11/10/2021 11/10/2022 1 1 Review Encounter Details Date Type Department Care Team Description 11/12/2021 [facility] Is[facility]ell Brennan ant neoplasm Procedure Imaging Research Elver Banuelos MD of prostate (H) 2020 [facility] [place] [address] [address] [facility] [address] [place] [address] Social History Tobacco Use Types Packs/Day Years [...] encounter Procedures Procedure Name Priority Date/Time Associated Diagnosis Comme nts PET PSMA EYES TO Routine 11/12/2021 1:56 PM Malignant neoplasm Results for this THIGHS CDT of prostate (H) procedure ar e in the results section. documented in this encounter Results PET PSMA Eyes to Thighs (11/12/2021 1:56 PM CDT) Anatomical Region Laterality Modality Whole Body, SUBRAD CT BODY, UMP NUC MED Positron Emission Tomography (PET) Specimen (Source) Anatomical Location Collection Method / Collectio n Time Received Time / Laterality Volume Impressions 11/12/2021 5:09 PM CDT IMPRESSION: This patient with history of prostate carcinoma there is a solitary lesion within the right prostat e gland: 1. ??Focal PSMA uptake within the right apex of the prostate gland, compatible with the PIRADS 4 lesion on M RI report. 2. ??No abnormal PSMA uptake to suggest metastatic disease within neck, chest, abdomen or pelvis. No metastatic bony lesions. I have personally reviewed the examinati on and initial interpretation and I agree with the findings. YOSEF RUSSELL MD Narrative 11/12/2021 5:09 PM CDT Combined Report of: PET and CT on 11/12/2021 1:56 PM : 1. PET of the neck, chest, abdomen, and pelvis. 2. PET CT Fusion for Attenuation Correct ion and Anatomical Localization: ??Images were evaluated in axial, coronal, and sagittal planes in bone, soft tissue, and lung wi ndows. 3. 3D MIP and PET-CT fused images were p rocessed on an independent workstation and archived to PACS and rev iewed by a radiologist. Technique: 1. PET: The patient received 9.83 mCi of F-18 Pylarify PSMA, body weight was 100.5 kg. Images were evaluat ed in the axial, sagittal, and coronal planes as well as the rotational whole body MIP. Images were acquired from the Vertex to the Midthigh . 2. CT: Volumetric acquisition for attenu ation correction and anatomical localization. INDICATION: Malignant neoplasm of prosta te (H) ADDITIONAL INFORMATION OBTAINED FROM EMR : none COMPARISON: Outside prostate MRI report from 08/08/2021, no images available on PACS. 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 CHEST: There is no suspicious PSMA uptake in th e chest. ABDOMEN AND PELVIS: Focal PSMA uptake within the right apex of the prostate gland. SUV max of 13.02. No abnormal uptake to suggest metastatic disease within the abdomen and pelvis. BONES: There is no abnormal PSMA uptake in the skeleton Procedure Note Yosef Russell MD - 11/12/2021F ormatting of this note might be different from the original. Combined Report of: PET and CT on 022 1:56 PM : 1. PET of the neck, chest, abdomen, and pelvis. 2. PET CT Fusion for Attenuation Correct ion and Anatomical Localization: Images were evaluated in a xial, coronal, and sagittal planes in bone, soft tissue, and lung wi ndows. 3. 3D MIP and PET-CT fused images were p rocessed on an independent workstation and archived to PACS and rev iewed by a radiologist. Technique: 1. PET: The patient received 9.83 mCi of F-18 Pylarify PSMA, body weight was 100.5 kg. Images were evaluat ed in the axial, sagittal, and coronal planes as well as the rotational whole body MIP. Images were acquired from the Vertex to the Midthigh . 2. CT: Volumetric acquisition for attenu ation correction and anatomical localization. INDICATION: Malignant neoplasm of prosta te (H) ADDITIONAL INFORMATION OBTAINED FROM EMR : none COMPARISON: Outside prostate MRI report from 08/08/2021, no images available on PACS. 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 CHEST: There is no suspicious PSMA uptake in th e chest. ABDOMEN AND PELVIS: Focal PSMA uptake within the right apex of the prostate gland. SUV max of 13.02. No abnormal uptake to suggest metastatic disease within the abdomen and pelvis. BONES: There is no abnormal PSMA uptake in the skeleton IMPRESSION: This patient with history of prostate carcinoma there is a solitary lesion within the right prostat e gland: 1. Focal PSMA uptake within the right ap ex of the prostate gland, compatible with the PIRADS 4 lesion on M RI report. 2. No abnormal PSMA uptake to suggest me tastatic disease within neck, chest, abdomen or pelvis. No metastatic bony lesions. I have personally reviewed the examinati on and initial interpretation and I agree with the findings. YOSEF RUSSELL MD Elver Brennan MD IMG PET ORDERABLES documented in this encounter Visit Diagnoses Diagnosis Malignant neoplasm of prostate (H) Malignant neoplasm of prostate documented in this encounter Administered Medications Inactive Administered Medications - up to 3 most recent administrations Medication Order MAR Action Action Date Dose Rate Site piflufolastat F-18 PSMA Given 11/12/2021 12:38 PM 9.83 millicuri es (PYLARIFY) radioisotope CDT injection 7.2-10.8 millicurie 7.2-10.8 millicurie, Intravenous, ONCE, On Wed11/12/21 at 1300, For 1 dose, Supplied by and admninistered by Nuclear Medicine *HW* documented in this encounter Care Teams Tape Folding Machine Operator Relationship Specialty Start Date End Date Maurizio Yost MD PCP - General 06/17/[address] [place] [id number] documented as of this encounter
--- OUTSIDE RECORDS SUMMARY | 2022-03-02 08:01 | XMS_ITS | Encounter Summary ---
:1955 Author Organization [place] Address [address] [place] [address]. [place] [address] Care Team Providers Name Role Phone Maurizio Yost MD Primary Care Provider [phone] Encounter Details Date Type Department Care Team Description 01/03/2022 Travel Social History Tobacco Use Types Packs/Day Years Used Date Smoking Tobacco: Never Alcohol Use Standard Drinks/Week Comments No 0 (1 standard drink = 0.6 oz pure alcoho l) Sex Assigned at Date Recorded Not on file COVID-19 Exposure Response Date Recorded In the last 10 days, have you been in contact with No / Unsu re 01/03/2022 6:32 PM CDT someone who was confirmed or suspected to have Coronavirus/COVID-19? documented as of this encounter Plan of Treatment Not on filedocumented as of this encounter Visit Diagnoses Not on filedocumented in this encounter Care Teams Information Assoc Relationship Specialty Start Date End Date Maurizio Yost MD PCP - General 06/17/01 [address] [place] [address] documented as of this encounter
--- OUTSIDE RECORDS SUMMARY | 2022-03-02 08:01 | XMS_ITS | Encounter Summary ---
:1955 Author Organization [place] Address [address] [place] [address]. [place] [address] Care Team Providers Name Role Phone Maurizio Yost MD Primary Care Provider [phone] Encounter Details Date Type Department Care Team Description 01/04/2022 Lab [facility] Do cooper Mejia MD Pre-operative general [place] [facility] [address] physical examination [address] [place] [address] [place], [place] [phone] (Wo rk) [address] [phone] Social History Tobacco Use Types Packs/Day Years [...] Name Priority Date/Time Associated Diagnosis Comme nts COVID-19 VIRUS Routine 01/04/2022 2:11 PM Pre-operative Result s for this (CORONAVIRUS) BY CDT general physical procedu re are in PCR examination the results section. documented in this encounter Results Asymptomatic COVID-19 Virus (Coronavirus) by PCR Nose (01/04/2022 2:11 PM CDT) Analysis Performed At Patho logist Time Signature SARS CoV2 PCR Negative Negative 01/05/2022 [facility] 9:58 AM CDT LABORATORY Comment: NEGATIVE: SARS-CoV-2 (COVID-19) RNA not detected, presumed negative. Specimen Anatomical Collection Method Collection Time Receive d Time (Source) Location / / Volume Laterality Swab NASAL STRUCTURE / Non-blood 01/04/2022 2:11 PM 08/2021 2:11 Unknown Collection / CDT PM CDT Unknown Narrative [facility] - 01/05/2022 9:58 AM C DT Testing was performed using the Xpert Xpress SARS-CoV-2 Assay on the [employer]Xpert Instrument Systems. A dditional information about this [...] COVID-19. This test was validated by the [facility]. This lab oratory is certified under the Clinical Laboratory Improvement Amen dments of 1987 (CLIA-88) as qualified to perform high complexity lab oratory testing. Marlo Mejia MD LAB - MICRO GENERAL ORDERABL ES Performing Organization Address City/State/ZIP Code Phon e Number [facility]ORAT[facility] [place] [id number] Diag. Lab [address] [facility], Room [address]297 documented in this encounter Visit Diagnoses Diagnosis Pre-operative general physical examinati on Other specified pre-operative examinatio n documented in this encounter Care Teams Gore Inserter Relationship Specialty Start Date End Date Maurizio Yost MD PCP - General 06/17/01 [address] [place] [address] documented as of this encounter
--- OUTSIDE RECORDS SUMMARY | 2022-03-02 08:01 | XMS_ITS | Encounter Summary ---
:1955 Author Organization [place] Address [address] [place] [address]. [place] [address] Care Team Providers Name Role Phone Maurizio Yost MD Primary Care Provider [phone] Reason for Visit Reason Onset Date Comments Refill Request 09/20/2012 Encounter Details Date Type Department Care Team Description 09/20/2012 Refill [facility] Cosme Yost, Refill Request Kaden Hi MD [address] [place] [address] [phone] [place], [place] [phone] (Wo rk) Social History Tobacco Use Types Packs/Day Years Used Date Smoking Tobacco: Never Alcohol Use Standard Drinks/Week Comments No 0 (1 standard drink = 0.6 oz pure alcoho l) Sex Assigned at Date Recorded Not on file documented as of this encounter Miscellaneous Notes Telephone Encounter - Ai Patrick - 09/21/2012 8:19 AM CDT Pt is due for labs and ov. Reminder letter sent, orders placed if indicated. Rx filled per standing order. Ai Patrick RN documented in this encounter Plan of Treatment Not on filedocumented as of this encounter Visit Diagnoses Diagnosis Hyperlipidemia LDL goal <130 - Primary Other and unspecified hyperlipidemia documented in this encounter Care Teams Charging Operator Relationship Specialty Start Date End Date Maurizio Yost MD PCP - General 06/17/[address] [place] [address] documented as of this encounter
--- OUTSIDE RECORDS SUMMARY | 2022-03-02 08:01 | XMS_ITS | Encounter Summary ---
:1955 Author Organization [place] Address [facility] [place] [address] Care Team Providers Name Role Phone Maurizio Yost MD Primary Care Provider [phone] Encounter Details Date Type Department Care Team Description 12/14/2021 Patient M [facility] Marlo Mejia Pre-operat zaida general Self-Triage [facility] MD Vin physical examination [address] [address] [place] [address] [phone] Social History Tobacco Use Types Packs/Day Years Used Date Smoking Tobacco: Never Alcohol Use Standard Drinks/Week Comments No 0 (1 standard drink = 0.6 oz pure alcoho l) Sex Assigned at Date Recorded Not on file documented as of this encounter Plan of Treatment Not on filedocumented as of this encounter Results Asymptomatic COVID-19 Virus (Coronavirus) [...] the Xpert Xpress SARS-CoV-2 Assay on the [employer]-Xpert Instrument Systems. A dditional information about [...] COVID-19. This test was validated by the [facility]. This lab oratory is certified under the Clinical Laboratory Improvement Amen dments of 1987 (CLIA-88) as qualified to perform high complexity lab oratory testing. Marlo Mejia MD LAB - MICRO GENERAL ORDERABL ES Performing Organization Address City/State/ZIP Code Phon e Number [facility] [place] [address] Diag. Lab [address] [facility], Room [address]297 documented in this encounter Visit Diagnoses Diagnosis Pre-operative general physical examinati on Other specified pre-operative examinatio n documented in this encounter Care Teams Lamination Operator Relationship Specialty Start Date End Date Maurizio Yost MD PCP - General 06/17/[address] [place] [address] documented as of this encounter
--- OUTSIDE RECORDS SUMMARY | 2022-03-02 08:01 | XMS_ITS | Encounter Summary ---
:1955 Author Organization [facility] Address [address] [place] [address]. [place] [address] Care Team Providers Name Role Phone Maurizio Yost MD Primary Care Provider [phone] Encounter Details Date Type Department Care Team Description 01/07/2022 Travel Social History Tobacco Use Types Packs/Day [...] on filedocumented in this encounter Care Teams Genetic Supervisor Relationship Specialty Start Date End Date Maurizio Yost MD PCP - General 06/17/01 [address] [place] [address] documented as of this encounter
--- OUTSIDE RECORDS SUMMARY | 2022-03-02 08:02 | XMS_ITS | Encounter Summary ---
:1955 Author Organization [place] Address [address] [place] [address]. [place] [address] Care Team Providers Name Role Phone Maurizio Yost MD Primary Care Provider [phone] Reason for Visit Reason Onset Date Comments Refill Request 08/14/2009 Simvastatin Encounter Details Date Type Department Care Team Description 08/14/2009 Refill [facility] Maurizio Yost Refil l Request Clinic Kaden Lux MD (Simvastatin) [place] [address] [address] (Wo rk) [address] [phone] Social History Tobacco Use Types Packs/Day Years Used Date Smoking Tobacco: Never Alcohol Use Standard Drinks/Week Comments No 0 (1 standard drink = 0.6 oz pure alcoho l) Sex Assigned at Date Recorded Not on file documented as of this encounter Miscellaneous Notes Telephone Encounter - Yumiko Butt - 08/16/2009 9:59 AM CDT Last Office Visit R/T Diagnosis: 03/22/09 CHOLESTEROL MEDICATION TRIAGE REFILL GUIDELINES: STATINS: Simvastatin OV: 12 mths Max Refills until next office visit R/T Dx: 12mths if LDL < 100 and ALT in last 6 mths. Tests: If LDL<100 every year If LDL>100 every 6 mths and with dosage change FLP,ALT,or per future orders ALT needs to be done every 6 mths if LDL>100, annually if LDL<100. (May do refills until the date of future orders scheduled) *Repeat labs 6-8 wks after dosage change LDL Cholesterol Calculated Date Value Range Status 03/15/2009 86 0-129 (mg/dL) Final ] ALT 41 08/07/2008 Filled per standing order. Given 30 days. Due for appt in August. Letter sent. CARL Robles, BSN documented in this encounter Plan of Treatment Not on filedocumented as of this encounter Visit Diagnoses Diagnosis Other and unspecified hyperlipidemia - P rimary documented in this encounter Care Teams Scagliola Mechanic Relationship Specialty Start Date End Date Maurizio Yost MD PCP - General 06/17/01 [address] [place] [address] documented as of this encounter
--- OUTSIDE RECORDS SUMMARY | 2022-03-02 08:02 | XMS_ITS | Encounter Summary ---
:1955 Author Organization [facility] Address [address] [place] [address]. [place] [address] Care Team Providers Name Role Phone Maurizio Yost MD Primary Care Provider [phone] Reason for Visit Reason Comments Lipids Pre Visit Planning - Done Encounter Details Date Type Department Care Team Description 09/10/2010 Office Visit [facility] Maurizio Yost Hyper lipidemia LDL goal <130 (Primary Dx); Clinic Kaden Lux MD Sensorineural hearing loss, unilateral; [place] [address] [place] [address] Dysmetabolic syndrome X; [address] Special screening for malign ant neoplasm of prostate [place], [place] [phone] [phone] Social History Tobacco Use Types Packs/Day Years Used Date Smoking Tobacco: Never Alcohol Use Standard Drinks/Week Comments No 0 (1 standard drink = 0.6 oz pure alcoho l) Sex Assigned at Date Recorded Not on file documented as of this encounter Last Filed Vital Signs Vital Sign Reading Time Taken Comments Blood Pressure 134/78 09/10/2010 3:21 PM CDT Pulse 78 09/10/2010 3:21 PM CDT Temperature 36.7 ??C (98.1 ??F) 09/10/2010 3:21 PM CDT Respiratory Rate 18 09/10/2010 3:21 PM CDT Oxygen Saturation - - Inhaled Oxygen Concentration - - Weight 104.3 kg (230 lb) 09/10/2010 3:21 PM CDT Height 180.3 cm (5' 11) 09/10/2010 3:21 PM CDT Body Mass Index 32.08 09/10/2010 3:21 PM CDT documented in this encounter Progress Notes Maurizio Yost - 09/03/2010 4:05 PM CDT [facility] OFFICE VISIT Branden Graf presents for follow-up of the following conditions: Hyperlipidemia Patient reports feeling fine Medication side effects: None Issues with medication compliance: None Other patient concerns: none Health Maintenance updated: Yes Ai Patrick PHQ-2 Over the last two weeks- Have the patient been bothered by little interest or pleasure in doing things? No Over the last two weeks- Have the patient been been feeling down, depressed, or hopeless? No VANESSA Sahu Branden Graf is a 55 year old male here for follow up of hyperlipidemia. He has been taking his statin cholesterol medication regularly without side effects such as myalgiasor upper abdominal pain, nausea or jaundice. Side effects from medications: No Review of recent labs shows: Recent Labs Lab Test 09/03/10 0743 09/12/09 0737 ??? CHOL 159 138 ??? HDL 48 43 ??? LDL 76 68 ??? TRIG 171* 134 ??? CHOLHDLRATIO 3.3 3.2 Other issues to discuss today: YES 2. Still has one sided hearing loss. Seen by ENT and has had negative workup thus far. 3. history of elevated fasting lgucose readings but normal A1Cs. Has been trying to work on lowering simple carbs from diet. Reviewed labs GLC 118 09/03/2010 GLC 115 09/12/2009 GLC 127 03/15/2009 GLC 126 08/07/2008 GLC 129 08/04/2007 GLC 111 02/17/2007 GLC 122 07/29/2006 GLC 109 11/02/2003 GLC 105 04/24/2003 GLC 108 10/23/2002 GLC 119 05/06/2002 A1C 6.2 09/03/2010 A1C 6.2 09/12/2009 A1C 6.3 03/15/2009 A1C 6.6 08/07/2008 A1C 6.0 08/04/2007 A1C 5.7 02/17/2007 A1C 6.1 07/29/2006 A1C 6.4 06/12/2005 A1C 6.2 05/28/2004 A1C 6.0 11/02/2003 A1C 6.5 04/24/2003 A1C 6.3 10/23/2002 Past Medical History Diagnosis Date ??? Pure hypercholesterolemia ??? Dysmetabolic syndrome X ??? Other abnormal blood chemistry ??? Diverticulosis of colon (without mention of hemorrhage) 06/10 incidental diverticulosis seen on colonoscopy Past Surgical History Procedure Date ??? No history of surgery Current outpatient prescriptions Medication Sig ??? SIMVASTATIN 40 MG PO TABS 1 TABLET AT BEDTIME ??? FISH OIL 1000 MG OR CAPS 2 capsules daily ??? ASPIRIN 81 MG OR TABS 1 tab po QD (Once per day) Allergies Allergen Reactions ??? No Known Allergies Family History Problem Relation Age of Onset ??? C.A.D. Father ??? Colon CA Mother ??? Diabetes Mother ??? Diabetes Sister ??? Hypertension Mother ??? Breast CA Sister History Social History ??? Marital Status: Spouse Name: N/A Number of Children: 2 ??? 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 Social History Main Topics ??? Smoking status: Never Smoker ??? Smokeless tobacco: Not on file ??? Alcohol Use: No ??? Drug Use: No ??? Sexually Active: Yes -- Female partner(s) Other Topics Concern ??? Seat Belt No educated. Social History Narrative [place] HARD WIRED WITH BATTERIES REPLACED YEARLY.NO GUNS AT HOME. REVIEW OF SYSTEMS: REVIEW OF SYSTEMS: RESP: negative for cough, dyspnea, wheezing, hemoptysis CV: negative for chest pain, palpitations, PND, [place], orthopnea; reports no changes in their ability to perform physical activity GI: negative for dysphagia, N/V, pain, melena, diarrhea and constipation NEURO: negative for numbness/tingling, paralysis, incoordination, or focal weakness OBJECTIVE: BP 134/78 Pulse 78 Temp(Src) 98.1 ??F (36.7 ??C) (Oral) Resp 18 Ht 5' 11 (1.803 m) Wt 230lb (104.327 kg) BMI 32.08 kg/m2 Estimated Body mass index is 32.08 kg/(m^2) as calculated from the following: Height as of this encounter: 5' 11(1.803 m). Weight as of this encounter: 230 lb(104.327 kg). GENERAL alert and no distress HENT: NCAT,oral and posterior pharynx without lesions or erythema,sinuses nontender, facies symmetric NECK: Neck supple. No LAD, without thyroidmegaly or JVD., Carotids without bruits. RESP: Clear to ausculation bilaterally without wheezes or crackles. Normal BS in all mccray. CV: RRR normal S1S2 without murmurs, rubs or gallops. PMI normal LYMPH: no cervical lymph adenopathy appreciated ASSESSMENT/PLAN: 272.4CK Hyperlipidemia LDL goal <130 (primary encounter diagnosis) Comment: Stable. Continue current therapy. He has not experienced any significant side effects of this medication. Plan: simvastatin (ZOCOR) 40 MG tablet, Lipid Profile, AST, ALT, Basic metabolic panel, Hemoglobin 389.15 Sensorineural hearing loss, unilateral Comment: reviewed ENT workup showing no obvious cause. Plan: 277.7 Dysmetabolic syndrome X Comment: Plan: Basic metabolic panel, Hemoglobin A1c V76.44 Special screening for malignant neoplasm of prostate Comment: Plan: Prostate spec antigen screen documented in this encounter Nursing Notes 09/10/2010 3:15 PM CDT >> STANLEY CAST Wed September 10, 2010 3:24 PM Patient presents with: Lipids Pre Visit Planning - Done Medications reviewed: See list Initial BP 134/78 Pulse 78 Temp(Src) 98.1 ??F (36.7 ??C) (Oral) Resp 18 Ht 5' 11 (1.803 m) Wt 230 lb (104.327 kg) BMI 32.08 kg/m2 Estimated Body mass index is 32.08 kg/(m^2) as calculated from the following: Height as of this encounter: 5' 11(1.803 m). Weight as of this encounter: 230 lb(104.327 kg). BP completed using cuff size: large Signed by VANESSA Sahu documented in this encounter Plan of Treatment Not on filedocumented as of this encounter Visit Diagnoses Diagnosis Hyperlipidemia LDL goal <130 - Primary Other and unspecified hyperlipidemia Sensorineural hearing loss, unilateral Dysmetabolic syndrome X Dysmetabolic Syndrome X Special screening for malignant neoplasm of prostate documented in this encounter Care Teams Irrigation Manager Relationship Specialty Start Date End Date Maurizio Yost MD PCP - General 06/17/01 [address] [place] [address] documented as of this encounter
--- OUTSIDE RECORDS SUMMARY | 2022-03-02 08:02 | XMS_ITS | Encounter Summary ---
:1955 Author Organization [facility] Address [address] [place] [address]. [place] [address] Care Team Providers Name Role Phone Maurizio Yost MD Primary Care Provider [phone] Reason for Visit Reason Comments Knee Pain left knee pain and swelling x 1 week, denies injury, states also experiencing left ankle numb ness Encounter Details Date Type Department Care Team Description 01/11/2007 Office Visit [facility] Maurizio Yost N OF KNEE & LEG NOS (Primary Dx); Clinic Kaden Lux MD HYPERLIPIDEMIA NEC/NOS; [place] [address] BLOOD CHEMISTRY NEC [address] [id number] [phone] Social History Tobacco Use Types Packs/Day Years Used Date Smoking Tobacco: Never Alcohol Use Standard Drinks/Week Comments No 0 (1 standard drink = 0.6 oz pure alcoho l) Sex Assigned at Date Recorded Not on file documented as of this encounter Last Filed Vital Signs Vital Sign Reading Time Taken Comments Blood Pressure 138/80 01/11/2007 3:45 PM CDT Pulse 60 01/11/2007 3:45 PM CDT Temperature - - Respiratory Rate - - Oxygen Saturation - - Inhaled Oxygen Concentration - - Weight 108 kg (238 lb) 01/11/2007 3:45 PM CDT Height 179.7 cm (5' 10.75) 01/11/2007 3:45 PM CDT Body Mass Index 33.43 01/11/2007 3:45 PM CDT documented in this encounter Progress Notes Maurizio Yost - 01/11/2007 4:07 PM CDT Branden Graf is here for evaluation of left knee pain/discomfort for last 1 week. Discomfort specifically in lateral joint line, worst with kneeling. All started 1.5 weeks, after extra long walkign session. DOes not sit with legs crossed. Also notices some mild numbness at distal point of left heel during this time. Possible mild joint swelling, no erythema, no knee instability. No specific knee injuries recently. . 2. Has lipid issues, oin meds He has not experienced any significant side effects of this medication. HDL 44 07/29/2006 LDL 79 07/29/2006 CHOL 183 07/29/2006 TRIG 298 07/29/2006 AST 31 07/29/2006 Due for follow up in January anyway, 3. Has dysmetabolic syndrome. Workignon diet, exercise, carb control. Past Medical History: Past Medical History Diagnosis Date ??? PURE HYPERCHOLESTEROLEM ??? DYSMETABOLIC SYNDROME X ??? ABN BLOOD CHEMISTRY NEC Past Surgical History: Past Surgical History Procedure Date ??? No history of surgery Current Medications: Current outpatient prescriptions Medication Sig ??? SIMVASTATIN 40 MG OR TABS 1 TABLET AT BEDTIME ??? FISH OIL 1000 MG OR CAPS 2 capsules daily ??? ASPIRIN 81 MG OR TABS 1 tab po QD (Once per day) Allergies: Allergies Allergen Reactions ??? No Known Allergies Social History: History Social History ??? Marital Status: Spouse Name: N/A Number of Children: 2 ??? 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 Tobacco Use: Never ??? Alcohol Use: No ??? Drug Use: No ??? Sexually Active: Yes Other Topics Concern ??? Seat Belt No educated. 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 NO GUNS AT HOME. Family Medical History: Family History Problem Relation ??? C.A.D. Father ??? Colon CA Mother ??? Diabetes Mother ??? Diabetes Sister ??? Hypertension Mother ??? Breast CA Sister REVIEW of SYSTEMS: REVIEW OF SYSTEMS: RESP: negative for cough, dyspnea, wheezing, hemoptysis CV: negative for chest pain, palpitations, PND, [place], orthopnea, palpitations GI: negative for dysphagia, N/V, pain, melena, diarrhea and constipation NEURO: negative for numbness/tingling, paralysis, incoordination or weakness OBJECTIVE: BP 138/80 Pulse 60 Ht 5' 10.75 (1.80m) Wt 238 lbs (108.0kg) Body mass index is 33.43 kg/(m^2). GENERAL alert and no distress. EYES conjunctivae/corneas clear. PERRL, EOM's intact HENT: NCAT,oral and posterior pharynx without lesions or erythema, facies symmetric NECK: Neck supple. No LAD, without thyroidmegaly or JVD. RESP: Clear to ausculation bilaterally without wheezes or crackles. Normal BS in all mccray. CV: RRR normal S1S2 without murmurs, rubs or gallops. PMI normal LYMPH: no cervical lymph adenopathy appreciated GI: NTND, no organomegaly, normal BS in all quadrants, without rebound or guarding MS: No cyanosis, clubbing or edema noted bilaterally in Upper and Lower Extremities SKIN: no significant ulcers, lesions or rashes NEURO: Alert and Oriented x 3, Gait normal. Reflexes normal and symmetric. Sensation grossly WNL.. ASSESSMENT/PLAN: 844.9 SPRAIN OF KNEE & LEG NOS (primary encounter diagnosis) Note: Apply a compressive SANTA bandage. Rest and elevate the affected painful area. Apply cold compresses intermittently as needed. As pain recedes, begin normal activities slowly as tolerated. Call if symptoms persist. Plan: RTC prn 272.4 HYPERLIPIDEMIA NEC/NOS Note: Discussed current lipid results, previous results (if available) current guidelines (NCEP) fortreatment and goals for lipids. Discussed lifestyle modification, dietary changes (low fat, low simple carb) and regular aerobic exercise. Discussed the link between dysmetabolic syndrome and impaired glucose tolerance seen in certain patterns of lipids. Briefly discussed medication used for lipid lowering, including the statins are their possible side effects of myalgias, rhabdomyolysis, and liver toxicity. Plan: 790.6 ABN BLOOD CHEMISTRY NEC Note: Discussed impaired glucose tolerance, and its part in the dysmetabolic syndrome. Discussed theprogression of impaired glucose tolerance toward diabetes mellitus and the need for agressive interventions now to delay and prevent this inevitable progression. Discussed the overall risks that dysmetabolic syndromes/impaired glucose tolerance/syndrome X pose toward increased risks of vascular disease as the main reason for agressive intervention now. Will add medications for glucose control (i.e. metformin, glitazones, etc), lipid (e.g. statins), and for blood pressure (preferably ARBs and SANTA) asindicated. Will start these as early as needed based other proven ability to delay and modify these risk factors. Plan: pt will return for blood work as previsuly scheduled, but does not specificalylneed to see me as we discussed his situation and potential changes if indicated based on lab results. We can do this via phone or letter assuming thing are stable. documented in this encounter Nursing Notes 01/11/2007 3:45 PM CDT >> GIOVANA CASTANEDA 01/11/2007 3:43 pm Patient presents with: Knee Pain - left knee pain and swelling x 1 week, denies injury, states also experiencing left ankle numbness Pt is aware of need for colonoscopy, will schedule in next couple months Medications reviewed: No discrepancies identified. Initial BP 138/80 Pulse 60 Ht 5' 10.75 (1.80m) Wt 238 lbs (108.0kg) Body mass index is 33.43 kg/(m^2). BP completed using cuff size: large Signed by Giovana Castaneda RN documented in this encounter Plan of Treatment Not on filedocumented as of this encounter Visit Diagnoses Diagnosis Sprain and strain of unspecified site of knee and leg - Primary Other and unspecified hyperlipidemia Other abnormal blood chemistry documented in this encounter Care Teams Stoner Out Relationship Specialty Start Date End Date Maurizio Yost MD PCP - General 06/17/01 [address] [place] [address] documented as of this encounter
--- OUTSIDE RECORDS SUMMARY | 2022-03-02 08:02 | XMS_ITS | Encounter Summary ---
:1955 Author Organization [facility] Address [address] [place] [address]. [place] [address] Care Team Providers Name Role Phone Maurizio Yost MD Primary Care Provider [phone] Reason for Visit Reason Comments Lipids Varicose Vein in the back of his left leg Pre Visit Planning - Done Encounter Details Date Type Department Care Team Description 09/11/2011 Office Visit [facility] Maurizio Yost Hyper lipidemia LDL goal <130 (Primary Dx); Clinic Kaden Lux MD Dysmetabolic syndrome X; [place] [address] [place] [address] Umbilical hernia; [address] ABN BLOOD CHEMISTRY NEC; [place] [address] Sensorineural hearing loss, unilateral [id number] [phone] Social History Tobacco Use Types Packs/Day Years Used Date Smoking Tobacco: Never Alcohol Use Standard Drinks/Week Comments No 0 (1 standard drink = 0.6 oz pure alcoho l) Sex Assigned at Date Recorded Not on file documented as of this encounter Last Filed Vital Signs Vital Sign Reading Time Taken Comments Blood Pressure 126/84 09/11/2011 3:59 PM CDT Pulse 78 09/11/2011 3:59 PM CDT Temperature 37.1 ??C (98.7 ??F) 09/11/2011 3:59 PM CDT Respiratory Rate - - Oxygen Saturation 100% 09/11/2011 3:59 PM CDT Inhaled Oxygen Concentration - - Weight 100.5 kg (221 lb 9.6 oz) 09/11/2011 3:59 PM CDT Height 179 cm (5' 10.47) 09/11/2011 3:59 PM CDT Body Mass Index 31.37 09/11/2011 3:59 PM CDT documented in this encounter Progress Notes Maurizio Yost MD - 09/04/2011 10:59 AM CDT [facility]IC[facility] OFFICE VISIT Branden Graf presents for follow-up of the following conditions: Hyperlipidemia, renew Simvastatin, review Labs Patient reports feeling Good Medication side effects: None Issues with medication compliance: None Other patient concerns: None Health Maintenance updated: Yes Keturah Gamino PHQ-2 Over the last two weeks- Have the patient been bothered by little interest or pleasure in doing things? No Over the last two weeks- Have the patient been been feeling down, depressed, or hopeless? No Branden Graf is a 56 year old male here for follow up of hyperlipidemia. On statin for this, denies any significant side effects of this medication. Latest labs reviewed: Recent Labs Lab Test 09/04/11 0728 09/03/10 0743 ??? CHOL 152 159 ??? HDL 52 48 ??? LDL 81 76 ??? TRIG 96 171* ??? CHOLHDLRATIO 2.9 3.3 AST 30 09/04/2011 2. Reviewed ENT angelika from evaluation about hearing loss in left side. No cause found. 3. Reports bulge in umbilicus present for last few weeks. Past Medical History Diagnosis Date ??? Pure hypercholesterolemia ??? Dysmetabolic syndrome X ??? Other abnormal blood chemistry ??? Diverticulosis of colon (without mention of hemorrhage) 06/10 incidental diverticulosis seen on colonoscopy ??? Sensorineural hearing loss, unilateral 6/10 left sided hearing loss without obvious cause; ENT workup and MRI negative Past Surgical History Procedure Date ??? No history of surgery Current outpatient prescriptions Medication Sig ??? simvastatin (ZOCOR) 40 MG tablet Take 1 tablet by mouth At Bedtime. ??? 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 Smoking status: [...] paralysis, incoordination, or focal weakness OBJECTIVE: BP 126/84 Pulse 78 Temp 98.7 ??F (37.1 ??C) Ht 5' 10.47 (1.79 m) Wt 221 lb 9.6 oz (100.517 kg) BMI 31.37 kg/m2 SpO2 100% Estimated Body mass index is 31.37 kg/(m^2) as calculated from the following: Height as of this encounter: 5' 10.472(1.79 m). Weight as of this encounter: 221 lb 9.6 oz(100.517 kg). GENERAL alert and no distress. EYES conjunctivae/corneas [...] in all quadrants, without rebound or guarding Small easily reducible umbilical hernia present, nontender MS: No cyanosis, clubbing or edema noted bilaterally in Upper and Lower Extremities SKIN: no significant ulcers, lesions or rashes NEURO: Alert and Oriented x 3, Gait normal. Reflexes normal and symmetric. Sensation grossly WNL.. ASSESSMENT/PLAN: 272.4CK Hyperlipidemia LDL goal <130 (primary encounter diagnosis) Comment: This condition is currently controlled on the current medical regimen. Continue current therapy. Discussed current lipid results, previous results (if available) current guidelines (NCEP) for treatment and goals for lipids. Discussed lifestyle modification, dietary changes (low fat, low simple carb) and regular aerobic exercise. Discussed the link between dysmetabolic syndrome and impaired glucose tolerance seen in certain patterns of lipids. Briefly discussed medication used for lipid lowering,including the statins are their possible side effects of myalgias, rhabdomyolysis, and liver toxicity. Plan: simvastatin (ZOCOR) 40 MG tablet, Lipid panel reflex to direct LDL 277.7 Dysmetabolic syndrome X Comment: Plan: CBC with platelets, Basic metabolic panel, Hemoglobin A1c 553.1M Umbilical hernia Comment: refer to surgery when gets bigger, discussed signs and symptoms to watch for. He will alert us if and whenhe needs to be seen. Plan: 790.6 ABN BLOOD CHEMISTRY NEC Comment: Plan: Basic metabolic panel, Hemoglobin A1c 389.15 Sensorineural hearing loss, unilateral Comment: Plan: documented in this encounter Nursing Notes 09/11/2011 4:00 PM CDT >> HERLINDA GUTIERREZ Fri September 11, 2011 4:07 PM Patient presents with: Lipids Varicose Vein - in the back of his left leg Pre Visit Planning - Done Initial BP 126/84 Pulse 78 Temp 98.7 ??F (37.1 ??C) Ht 5' 10.47 (1.79 m) Wt 221 lb 9.6 oz (100.517 kg) BMI 31.37 kg/m2 SpO2 100% Estimated Body mass index is 31.37 kg/(m^2) as calculated from the following: Height as of this encounter: 5' 10.472(1.79 m). Weight as of this encounter: 221 lb 9.6 oz(100.517 kg).. BP completed using cuff size: regular Herlinda Gutierrez documented in this encounter Plan of Treatment Not on filedocumented as of this encounter Visit Diagnoses Diagnosis Hyperlipidemia LDL goal <130 - Primary Other and unspecified hyperlipidemia Dysmetabolic syndrome X Dysmetabolic Syndrome X Umbilical hernia Umbilical hernia without mention of obst ruction or gangrene ABN BLOOD CHEMISTRY NEC Other abnormal blood chemistry Sensorineural hearing loss, unilateral documented in this encounter Care Teams Outsole Molder Relationship Specialty Start Date End Date Maurizio Yost MD PCP - General 06/17/01 [address] [place] [address] documented as of this encounter
--- OUTSIDE RECORDS SUMMARY | 2022-03-02 08:02 | XMS_ITS | Encounter Summary ---
:1955 Author Organization [facility] Address [address] [place] [address]. [place] [address] Care Team Providers Name Role Phone Maurizio Yost MD Primary Care Provider Reason for Visit Reason Onset Date Comments Colonoscopy 03/04/2007 Encounter Details Date Type Department Care Team Description 03/04/2007 Telephone [facility] Owen Banuelos MD Colonoscopy [facility] NO INFO FOUND [address] [phone] (Wo rk) Social History Tobacco Use Types Packs/Day Years Used Date Smoking Tobacco: Never Alcohol Use Standard Drinks/Week Comments No 0 (1 standard drink = 0.6 oz pure alcoho l) Sex Assigned at Date Recorded Not on file documented as of this encounter Miscellaneous Notes Telephone Encounter - Arlene Goff - 03/04/2007 10:37 AM CDT Colonoscopy scheduled at [facility] on 05/20/07 at 7:15AM for screening and mother of colon cancer. Worksheet completed and packet will be mailed. documented in this encounter Plan of Treatment Not on filedocumented as of this encounter Visit Diagnoses Not on filedocumented in this encounter Care Teams Certified Caregiver Relationship Specialty Start Date End Date Maurizio Yost MD PCP - General 06/17/01 [address] [place] [address] documented as of this encounter
--- OUTSIDE RECORDS SUMMARY | 2022-03-02 08:02 | XMS_ITS | Encounter Summary ---
:1955 Author Organization [facility] Address [facility] [place] [address] Care Team Providers Name Role Phone Maurizio Yost MD Primary Care Provider [phone] Encounter Details Date Type Department Care Team Description 08/07/2008 Orders Only [facility] HYP ERLIPIDEMIA NEC/NOS; [place] Dysmetabo lic Syndrome X Laboratory [address] [phone] Social History Tobacco Use Types Packs/Day Years Used Date Smoking Tobacco: Never Alcohol Use Standard Drinks/Week Comments No 0 (1 standard drink = 0.6 oz pure alcoho l) Sex Assigned at Date Recorded Not on file documented as of this encounter Plan of Treatment Not on filedocumented as of this encounter Procedures Procedure Name Priority Date/Time Associated Diagnosis Comme nts HCL BASIC METABOLIC Routine 08/07/2008 7:39 AM Dysmetabolic Sy ndrome Results for this PANEL CDT X procedure are i n the results section. HCL GLYCATED Routine 08/07/2008 7:39 AM Dysmetabolic Syndrome Results for this HEMOGLOBIN CDT X procedure are i n the results section. HCL ALT Routine 08/07/2008 7:39 AM HYPERLIPIDEMIA NEC/NOS Results for this CDT procedure are i n the results section. HCL AST Routine 08/07/2008 7:39 AM HYPERLIPIDEMIA NEC/NOS Results for this CDT procedure are i n the results section. CL AFF A.M.A. LIPID Routine 08/07/2008 7:39 AM HYPERLIPIDEMIA NEC/NOS Results for this PANEL CDT procedure are i n the results section. documented in this encounter Results (ABNORMAL) A.M.A. BASIC METABOLIC PANEL (08/07/2008 7:39 AM CDT) athologist Signature Sodium 142 133 - 144 [place] mmol/L [facility] Potassium 4.1 3.4 - 5.3 [place] mmol/L [facility] Chloride 103 94 - 109 [place] mmol/L [facility] Carbon Dioxide 27 20 - 32 [place] mmol/L [facility] Anion Gap 12 6 - 17 [place] mmol/L [facility] Glucose 126 (H) 60 - 99 [place] mg/dL [facility] Urea Nitrogen 17 7 - 30 [place] mg/dL [facility] Creatinine 0.99 0.66 - [place] 1.25 mg/dL [facility] Comment: New IDMS-traceable calibration beginning 09/01/07 GFR Estimate 79 >60 mL/min/1.7m2 [place] O [facility] GFR Estimate If Black >90 >60 mL/min/1.7m2 [facility] Calcium 9.6 8.5 - 10.4 mg/dL [facility] Specimen Anatomical Collection Method Collection Time Receive d Time (Source) Location / / Volume Laterality 08/07/2008 7:39 AM 9 8:46 CDT AM CDT Maurizio Yost MD LABORATORY Performing Organization Address City/[facility]/ZIP Code Phon e Number [facility] [address] [place] [phone] [facility] (ABNORMAL) HEMOGLOBIN A1C (08/07/2008 7:39 AM CDT) athologist Signature Hemoglobin A1C 6.6 (H) 4.3 - 6.0 [place] % [facility] Specimen Anatomical Collection Method Collection Time Receive d Time (Source) Location / / Volume Laterality 08/07/2008 7:39 AM 9 8:46 CDT AM CDT Maurizio Yost MD LABORATORY Performing Organization Address City/[facility] Code Phon e Number [facility] [address] [place] [phone] [facility] ALANINE AMINO (ALT) (SGPT) (08/07/2008 7:39 AM CDT) athologist Signature ALT 41 0 - 70 U/L [facility] Specimen Anatomical Collection Method Collection Time Receive d Time (Source) Location / / Volume Laterality 08/07/2008 7:39 AM 9 8:46 CDT AM CDT Maurizio Yost MD LABORATORY Performing Organization Address City/[facility]/ZIP Code Phon e Number [facility] [address] [place] [phone] [facility] AST (08/07/2008 7:39 AM CDT) athologist Signature AST 37 0 - 55 U/L [facility] Specimen Anatomical Collection Method Collection Time Receive d Time (Source) Location / / Volume Laterality 08/07/2008 7:39 AM 9 8:46 CDT AM CDT Maurizio Yost MD LABORATORY Performing Organization Address City/State/[facility] Code Phon e Number [facility] [address] [place] [phone] [facility] (ABNORMAL) A.M.A. LIPID PANEL (08/07/2008 7:39 AM CDT) athologist Signature Cholesterol 187 0 - 200 [place] mg/dL [facility] Comment: LDL Cholesterol is the primary guide to therapy: LDL-cholesterol goal in high risk patients is <100 mg/dL and in very high risk patients is <70 mg/dL. The NCEP recommends further evaluation of: patients with cholesterol <200 mg/dL if additional risk factors are present, cholesterol >240 mg/dL, triglycerides >150 mg/dL, or HDL <40 mg/dL. Triglycerides 228 (H) 0 - 150 mg/dL [facility] HDL Cholesterol 48 40 - 110 mg/dL [facility] LDL Cholesterol Calculated 94 0 - 129 mg/dL [facility] VLDL-Cholesterol 46 (H) 0 - 30 mg/dL [facility] Cholesterol/HDL Ratio 3.9 0.0 - 5.0 [facility] Specimen Anatomical Collection Method Collection Time Receive d Time (Source) Location / / Volume Laterality 08/07/2008 7:39 AM 9 8:46 CDT AM CDT Maurizio Yost MD LABORATORY Performing Organization Address City/State/ZIP Code Phon e Number [facility] [address] [place] [phone] [facility] documented in this encounter Visit Diagnoses Diagnosis HYPERLIPIDEMIA NEC/NOS Other and unspecified hyperlipidemia Dysmetabolic syndrome X Dysmetabolic Syndrome X documented in this encounter Care Teams Box Chipper Relationship Specialty Start Date End Date Maurizio Yost MD PCP - General 06/17/01 [address] [place] [address] documented as of this encounter
--- OUTSIDE RECORDS SUMMARY | 2022-03-02 08:02 | XMS_ITS | Encounter Summary ---
:1955 Author Organization [facility] Address [address] [facility] [place] [address] Care Team Providers Name Role Phone Maurizio Yost MD Primary Care Provider [phone] Reason for Referral Rehab Therapy Chiropractic Services - Closed Specialty Diagnoses / Procedures Referred By Contact Refer red To Contact Diagnoses Perceptive hearing loss, unilateral Maurizio Yost [place] MD OTOLARYNGOLOGY [address] [place] [address] [address] [facility] [address] [place], [place] [address] [place] [address] Fax: Referral ID Status Reason Start Date Expiration Date Visits Requ ested Visits Authorized [id number] Closed 10/02/2009 05/02/2011 1 1 Reason for Visit Reason Comments RECHECK left ear continues to have f luid pt cannot hear as well out of it has taken 2 weeks of musinex D with no r tammie Encounter Details Date Type Department Care Team Description 10/02/2009 Office Visit [facility] Maurizio Yost [facility] Kaden Lux MD Loss, Unilateral [place] [address] (Primary Dx) [address], [place] [phone] Social History Tobacco Use Types Packs/Day Years Used Date Smoking Tobacco: Never Alcohol Use Standard Drinks/Week Comments No 0 (1 standard drink = 0.6 oz pure alcoho l) Sex Assigned at Date Recorded Not on file documented as of this encounter Last Filed Vital Signs Vital Sign Reading Time Taken Comments Blood Pressure 122/70 10/02/2009 3:04 PM CDT Pulse 68 10/02/2009 3:04 PM CDT Temperature - - Respiratory Rate - - Oxygen Saturation - - Inhaled Oxygen Concentration - - Weight 104.3 kg (230 lb) 10/02/2009 3:04 PM CDT Height - - Body Mass Index 32.54 09/18/2009 10:34 AM CDT documented in this encounter Progress Notes Maurizio Yost - 10/02/2009 3:30 PM CDT Branden Graf is here for evaluation of ongoing left ear fullness for last 5 weeks. Seen 2 weeks ago, rec for mucinex-d. Has been taking the mucinex D and OTC cold meds without much help. No fevers, no chills. Feels hearing is dull in that ear, hears dull distortion with listening to music, TV, voices, etc. Past Medical History: Past Medical History Diagnosis Date ??? Pure Hypercholesterolemia ??? Dysmetabolic Syndrome X ??? Other Abnormal Blood Chemistry ??? 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 Tobacco Use: [...] ??? Hypertension Mother ??? Breast CA Sister OBJECTIVE: BP 122/70 Pulse 68 Wt 230 lb (104.327 kg) Estimated Body mass index is 32.54 kg/(m^2) as calculated from the following: Height as of 09/18/09: 5' 10.5(1.791 m). Weight as of this encounter: 230 [...] normal LYMPH: no cervical lymph adenopathy appreciated EARS: Normal canals, TMs on both sides, no evidence for infection, perforation or other obvious cause for hearing loss ASSESSMENT/PLAN: 389.15C Perceptive Hearing Loss, Unilateral (primary encounter diagnosis) Comment: unclear reason for this, had similar problems in past Refer to ENT< will need audiology exam as well. Plan: CONSULT OTOLARYNGOLOGY (ENT) documented in this encounter Nursing Notes 10/02/2009 3:00 PM CDT >> YOSSI ARTEAGA Wed Oct 02, 2009 3:06 PM Patient presents with: RECHECK - left ear continues to have fluid pt cannot hear as well out of it has taken 2 weeks of musinex D with no relif Initial BP 122/70 Pulse 68 Wt 230 lb (104.327 kg) Estimated Body mass index is 32.54 kg/(m^2) ascalculated from the following: Height as of 09/18/09: 5' 10.5(1.791 m). Weight as of this encounter: 230 lb(104.327 kg).. BP completed using cuff size: isaiah Arteaga LPN documented in this encounter Plan of Treatment Not on filedocumented as of this encounter Procedures Procedure Name Priority Date/Time Associated Diagnosis Comme nts ZSkyler CONSULT OTOLARYNGOLOGY Routine 01/13/2010 Perceptive Hear ing Loss, (ENT) Unilateral documented in this encounter Results CONSULT OTOLARYNGOLOGY (ENT) (01/13/2010) Narrative This result has an attachment that is no t available. Maurizio Yost MD REFERRAL documented in this encounter Visit Diagnoses Diagnosis Perceptive hearing loss, unilateral - Pr imary Sensorineural hearing loss, unilateral documented in this encounter Care Teams Pricing Director Relationship Specialty Start Date End Date Maurizio Yost MD PCP - General 06/17/01 [address] [place] [address] documented as of this encounter
--- OUTSIDE RECORDS SUMMARY | 2022-03-02 08:02 | XMS_ITS | Encounter Summary ---
:1955 Author Organization [place] Address [facility] [place] [address] Care Team Providers Name Role Phone Maurizio Yost MD Primary Care Provider [phone] Encounter Details Date Type Department Care Team Description 02/17/2007 Orders Only [facility] HYP ERLIPIDEMIA NEC/NOS; [place] [facility] R[facility] M EDICAL EXAM Laboratory [address] [phone] Social History Tobacco Use [...] Priority Date/Time Associated Diagnosis Comme nts HCL HEMOGLOBIN Routine 02/17/2007 8:44 AM Routine Medical Exam Results for this NONLAB CDT procedure are i n the results section. HCL PROSTATE SPEC Routine 02/17/2007 8:44 AM Routine Medical E xam Results for this ANTIGEN,SCREEN CDT procedure are in the results section. HCL GLYCATED Routine 02/17/2007 8:44 AM Hyperlipidemi a Nec/Nos Results for this HEMOGLOBIN CDT Routine Medical Exam procedu re are in the results section. HCL GLUCOSE Routine 02/17/2007 8:44 AM Hyperlipidemi a Nec/Nos Results for this CDT Routine Medical Exam procedu re are in the results section. HCL ALT Routine 02/17/2007 8:44 AM Hyperlipidemi a Nec/Nos Results for this CDT Routine Medical Exam procedu re are in the results section. HCL AST Routine 02/17/2007 8:44 AM Hyperlipidemi a Nec/Nos Results for this CDT Routine Medical Exam procedu re are in the results section. CL AFF A.M.A. LIPID Routine 02/17/2007 8:44 AM Hyperlipi demia Nec/Nos Results for this PANEL CDT Routine Medical Exam procedu re are in the results section. documented in this encounter Results (ABNORMAL) GLUCOSE (02/17/2007 8:44 AM CDT) P athologist Signature Glucose 111 (H) 60 - 99 [place] mg/dL [facility] Specimen Anatomical Collection Method Collection Time Receive d Time (Source) Location / / Volume Laterality 02/17/2007 8:44 AM 7 8:49 CDT AM CDT Maurizio Yost MD LABORATORY Performing Organization Address City/[facility]/ZIP Code Phon e Number [facility] [address] [place] [phone] [facility] HGB (02/17/2007 8:44 AM CDT) P athologist Signature Hemoglobin 14.9 13.3 - 17.7 [facility] g/dL [facility] Specimen Anatomical Collection Method Collection Time Receive d Time (Source) Location / / Volume Laterality 02/17/2007 8:44 AM 7 8:49 CDT AM CDT Maurizio Yost MD LABORATORY Performing Organization Address City/[facility]/ZIP Code Phon e Number [facility] [address] [place] [address] [facility] PROSTATE SPEC ANTIGEN,SCREEN (02/17/2007 8:44 AM CDT) P athologist Signature PSA 1.41 0 - 4 ug/L [facility] Specimen Anatomical Collection Method Collection Time Receive d Time (Source) Location / / Volume Laterality 02/17/2007 8:44 AM 7 8:49 CDT AM CDT Maurizio Yost MD LABORATORY Performing Organization Address City/[facility]/ZIP Code Phon e Number [facility] [address] [place] [phone] [facility] HEMOGLOBIN A1C (02/17/2007 8:44 AM CDT) athologist Signature Hemoglobin A1C 5.7 4.3 - 6.0 [facility] Specimen Anatomical Collection Method Collection Time Receive d Time (Source) Location / / Volume Laterality 02/17/2007 8:44 AM 7 8:49 CDT AM CDT Maurizio Yost MD LABORATORY Performing Organization Address City/[facility]/ZIP Code Phon e Number [facility] [address] [place] [address] [facility] ALANINE AMINO (ALT) (SGPT) (02/17/2007 8:44 AM CDT) athologist Signature ALT 22 0 - 70 U/L [facility] Specimen Anatomical Collection Method Collection Time Receive d Time (Source) Location / / Volume Laterality 02/17/2007 8:44 AM 7 8:49 CDT AM CDT Maurizio Yost MD LABORATORY Performing Organization Address City/State/ZIP Code Phon e Number [facility] [address] [place] [phone] [facility] AST (02/17/2007 8:44 AM CDT) athologist Signature AST 27 0 - 55 U/L [facility] Specimen Anatomical Collection Method Collection Time Receive d Time (Source) Location / / Volume Laterality 02/17/2007 8:44 AM 7 8:49 CDT AM CDT Maurizio Yost MD LABORATORY Performing Organization Address City/[facility]/ZIP Code Phon e Number [facility] [address] [place] [address] [facility] (ABNORMAL) A.M.A. LIPID PANEL (02/17/2007 8:44 AM CDT) athologist Signature Cholesterol 159 0 - 200 [place] mg/dL [facility] Comment: LDL Cholesterol is the primary guide to therapy: LDL-cholesterol goal in high risk patients is <100 mg/dL and in very high risk patients is <70 mg/dL. The NCEP recommends further evaluation of: patients with cholesterol <200 mg/dL if additional risk factors are present, cholesterol >240 mg/dL, triglycerides >150 mg/dL, or HDL <40 mg/dL. Triglycerides 210 (H) 0 - 150 mg/dL [facility] HDL Cholesterol 42 40 - 110 mg/dL [facility] LDL Cholesterol Calculated 75 0 - 129 mg/dL [facility] VLDL-Cholesterol 42 (H) 0 - 30 mg/dL [place] [facility] Cholesterol/HDL Ratio 3.8 0.0 - 5.0 [facility] Specimen Anatomical Collection Method Collection Time Receive d Time (Source) Location / / Volume Laterality 02/17/2007 8:44 AM 7 8:49 CDT AM CDT Maurizio Yost MD LABORATORY Performing Organization Address City/State/ZIP Code Phon e Number [facility] [address] [place] [address] [facility] documented in this encounter Visit Diagnoses Diagnosis Other and unspecified hyperlipidemia Routine general medical examination at a health care facility documented in this encounter Care Teams Parts Counterperson Relationship Specialty Start Date End Date Maurizio Yost MD PCP - General 06/17/01 [address] [place] [address] documented as of this encounter
--- OUTSIDE RECORDS SUMMARY | 2022-03-02 08:02 | XMS_ITS | Encounter Summary ---
:1955 Author Organization [place] Address [facility] [place] [address] Care Team Providers Name Role Phone Maurizio Yost MD Primary Care Provider [phone] Encounter Details Date Type Department Care Team Description 08/04/2007 Orders Only [facility] HYP ERLIPIDEMIA NEC/NOS; [facility] ABN BLOOD CHEMISTRY NEC; Laboratory DYSMETABOLIC SYNDROME X [address] [phone] Social History Tobacco Use [...] Associated Diagnosis Comme nts HCL HEMOGLOBIN Routine 08/04/2007 7:32 AM Hyperlipidemi a Nec/Nos Results for this NONLAB CDT Abn Blood Chemistry procedur e are in Nec the results Dysmetabolic Syndrome sectio n. X HCL GLYCATED Routine 08/04/2007 7:32 AM Abn Blood Chemistry Re sults for this HEMOGLOBIN CDT Nec procedure are in Hyperlipidemia N ec/Nos the results Dysmetabolic Syndrome sectio n. X HCL GLUCOSE Routine 08/04/2007 7:32 AM Abn Blood Chemistry Re sults for this CDT Nec procedure are in Hyperlipidemia N ec/Nos the results Dysmetabolic Syndrome sectio n. X HCL ALT Routine 08/04/2007 7:32 AM Hyperlipidemi a Nec/Nos Results for this CDT Abn Blood Chemistry procedur e are in Nec the results Dysmetabolic Syndrome sectio n. X HCL AST Routine 08/04/2007 7:32 AM Hyperlipidemi a Nec/Nos Results for this CDT Abn Blood Chemistry procedur e are in Nec the results Dysmetabolic Syndrome sectio n. X CL AFF A.M.A. LIPID Routine 08/04/2007 7:32 AM Hyperlipi demia Nec/Nos Results for this PANEL CDT Abn Blood Chemistry procedur e are in Nec the results Dysmetabolic Syndrome sectio n. X documented in this encounter Results HGB (08/04/2007 7:32 AM CDT) athologist Signature Hemoglobin 14.4 13.3 - 17.7 [place] [facility]IC LAB Specimen Anatomical Collection Method Collection Time Receive d Time (Source) Location / / Volume Laterality 08/04/2007 7:32 AM 8 7:37 CDT AM CDT Maurizio Yost MD LABORATORY Performing Organization Address City/[facility]/ZIP Code Phon e Number [facility] [address] [place] [phone] [facility] (ABNORMAL) GLUCOSE (08/04/2007 7:32 AM CDT) athologist Signature Glucose 129 (H) 60 - 99 [place] mg/dL [facility] Specimen Anatomical Collection Method Collection Time Receive d Time (Source) Location / / Volume Laterality 08/04/2007 7:32 AM 8 7:37 CDT AM CDT Maurizio Yost MD LABORATORY Performing Organization Address City/[facility]/ZIP Code Phon e Number [facility] [address] [place] [phone] [facility] HEMOGLOBIN A1C (08/04/2007 7:32 AM CDT) athologist Signature Hemoglobin A1C 6.0 4.3 - 6.0 [place] % [facility] Specimen Anatomical Collection Method Collection Time Receive d Time (Source) Location / / Volume Laterality 08/04/2007 7:32 AM 8 7:37 CDT AM CDT Maurizio Yost MD LABORATORY Performing Organization Address City/[facility]/ZIP Code Phon e Number [facility] [address] [place] [phone] [facility] ALANINE AMINO (ALT) (SGPT) (08/04/2007 7:32 AM CDT) P athologist Signature ALT 38 0 - 70 U/L [facility] Specimen Anatomical Collection Method Collection Time Receive d Time (Source) Location / / Volume Laterality 08/04/2007 7:32 AM 8 7:37 CDT AM CDT Maurizio Yost MD LABORATORY Performing Organization Address City/[facility]/ZIP Code Phon e Number [facility] [address] [place] [address] [facility] (ABNORMAL) AST (08/04/2007 7:32 AM CDT) P athologist Signature AST 59 (H) 0 - 55 U/L [facility] Specimen Anatomical Collection Method Collection Time Receive d Time (Source) Location / / Volume Laterality 08/04/2007 7:32 AM 8 7:37 CDT AM CDT Maurizio Yost MD LABORATORY Performing Organization Address City/[facility]/ZIP Code Phon e Number [facility] [address] [place] [phone] [facility] (ABNORMAL) A.M.A. LIPID PANEL (08/04/2007 7:32 AM CDT) P athologist Signature Cholesterol 163 0 - 200 [place] mg/dL [facility] Comment: LDL Cholesterol is the primary guide to therapy: LDL-cholesterol goal in high risk patients is <100 mg/dL and in very high risk patients is <70 mg/dL. The NCEP recommends further evaluation of: patients with cholesterol <200 mg/dL if additional risk factors are present, cholesterol >240 mg/dL, triglycerides >150 mg/dL, or HDL <40 mg/dL. Triglycerides 206 (H) 0 - 150 mg/dL [facility] HDL Cholesterol 44 40 - 110 mg/dL [place] [facility] LDL Cholesterol Calculated 78 0 - 129 mg/dL [facility] VLDL-Cholesterol 41 (H) 0 - 30 mg/dL [place] [facility] Cholesterol/HDL Ratio 3.7 0.0 - 5.0 [facility] Specimen Anatomical Collection Method Collection Time Receive d Time (Source) Location / / Volume Laterality 08/04/2007 7:32 AM 8 7:37 CDT AM CDT Maurizio Yost MD LABORATORY Performing Organization Address City/State/ZIP Code Phon e Number [facility] [address] [place] [phone] [facility] documented in this encounter Visit Diagnoses Diagnosis Other and unspecified hyperlipidemia Other abnormal blood chemistry Dysmetabolic syndrome X Dysmetabolic Syndrome X documented in this encounter Care Teams Irrigation Engineer Relationship Specialty Start Date End Date Maurizoi Yost MD PCP - General 06/17/01 [address] [place] [address] documented as of this encounter
--- OUTSIDE RECORDS SUMMARY | 2022-03-02 08:02 | XMS_ITS | Encounter Summary ---
:1955 Author Organization [place] Address [facility] [place] [address] Care Team Providers Name Role Phone Maurizio Yost MD Primary Care Provider [phone] Encounter Details Date Type Department Care Team Description 07/29/2006 Orders Only [facility] HYP ERLIPIDEMIA NEC/NOS; [place] PURE HYPE RCHOLESTEROLEM; Laboratory ABN BLOOD CHEMISTRY NEC [address] [phone] Social History Tobacco Use [...] Date/Time Associated Diagnosis Comme nts HCL BASIC Routine 07/29/2006 8:01 Pure Hypercholes terolem Results for this METABOLIC PANEL AM CDT Hyperlipidemia N ec/Nos procedure are in Abn Blood Chemistry Nec the results section. HCL GLYCATED Routine 07/29/2006 8:01 Abn Blood Chemis try Nec Results for this HEMOGLOBIN AM CDT Hyperlipidemia N ec/Nos procedure are in Pure Hypercholesterolem the results section. HCL ALT Routine 07/29/2006 8:01 Pure Hypercholes terolem Results for this AM CDT Hyperlipidemia Nec/Nos proce dure are in the results section. HCL AST Routine 07/29/2006 8:01 Hyperlipidemia N ec/Nos Results for this AM CDT Pure Hypercholesterolem proc edure are in the results section. CL AFF A.M.A. Routine 07/29/2006 8:01 Hyperlipidemia N ec/Nos Results for this LIPID PANEL AM CDT Pure Hypercholesterolem proc edure are in the results section. documented in this encounter Results (ABNORMAL) A.M.A. BASIC METABOLIC PANEL (07/29/2006 8:01 AM CDT) P athologist Signature Sodium 138 133 - 144 [place] mmol/L [facility] Potassium 3.9 3.4 - 5.3 [place] mmol/L [facility] Chloride 100 94 - 109 [place] mmol/L [facility] Carbon Dioxide 24 20 - 32 [place] mmol/L [facility] Anion Gap 14 6 - 17 [place] mmol/L [facility] Glucose 122 (H) 60 - 110 [facility] mg/dL [facility] Urea Nitrogen 16 7 - 30 [facility] mg/dL [facility] Creatinine 1.00 0.80 - [place] 1.50 mg/dL [facility] GFR Estimate 84 >60 [place] mL/min/1.7 [facility] m2 LAB GFR Estimate If >90 >60 [place] mL/min/1.7 [facility] m2 LAB Calcium 9.5 8.5 - 10.4 [facility] mg/dL [facility] Specimen Anatomical Collection Method Collection Time Receive d Time (Source) Location / / Volume Laterality 07/29/2006 8:01 AM 7 8:06 CDT AM CDT Maurizio Yost MD LABORATORY Performing Organization Address City/[facility]/ZIP Code Phon e Number [facility] [address] [place] [phone] [facility] ALANINE AMINO (ALT) (SGPT) (07/29/2006 8:01 AM CDT) athologist Signature ALT 32 0 - 70 U/L [facility] Specimen Anatomical Collection Method Collection Time Receive d Time (Source) Location / / Volume Laterality 07/29/2006 8:01 AM 7 8:06 CDT AM CDT Maurizio Yost MD LABORATORY Performing Organization Address City/[facility]/ZIP Code Phon e Number [facility] [address] [place] [address] [facility] AST (07/29/2006 8:01 AM CDT) athologist Signature AST 31 0 - 55 U/L [facility] Specimen Anatomical Collection Method Collection Time Receive d Time (Source) Location / / Volume Laterality 07/29/2006 8:01 AM 7 8:06 CDT AM CDT Maurizio Yost MD LABORATORY Performing Organization Address City/[facility]/ZIP Code Phon e Number [facility] [address], [place] [address] [facility] (ABNORMAL) HEMOGLOBIN A1C (07/29/2006 8:01 AM CDT) athologist [facility] Hemoglobin A1C 6.1 (H) 4.3 - 6.0 [place] % [facility] Specimen Anatomical Collection Method Collection Time Receive d Time (Source) Location / / Volume Laterality 07/29/2006 8:01 AM 7 8:06 CDT AM CDT Maurizio Yost MD LABORATORY Performing Organization Address City/State/ZIP Code Phon e Number [facility] [address] [place] [address] [facility] (ABNORMAL) A.M.A. LIPID PANEL (07/29/2006 8:01 AM CDT) athologist Signature Cholesterol 183 0 - 200 [place] mg/dL [facility] Comment: LDL Cholesterol is the primary guide to therapy: LDL-cholesterol goal in high risk patients is <100 mg/dL and in very high risk patients is <70 mg/dL. The NCEP recommends further evaluation of: patients with cholesterol <200 mg/dL if additional risk factors are present, cholesterol >240 mg/dL, triglycerides >150 mg/dL, or HDL <40 mg/dL. Triglycerides 298 (H) 0 - 150 mg/dL [facility] HDL Cholesterol 44 40 - 110 mg/dL [facility] LDL Cholesterol Calculated 79 0 - 129 mg/dL [facility] VLDL-Cholesterol 60 (H) 0 - 30 mg/dL [place] [facility] Cholesterol/HDL Ratio 4.1 0.0 - 5.0 [facility] Specimen Anatomical Collection Method Collection Time Receive d Time (Source) Location / / Volume Laterality 07/29/2006 8:01 AM 7 8:06 CDT AM CDT Maurizio Yost MD LABORATORY Performing Organization Address City/State/ZIP Code Phon e Number [facility] [address] [place] [address] [facility] documented in this encounter Visit Diagnoses Diagnosis Other and unspecified hyperlipidemia Pure hypercholesterolemia Other abnormal blood chemistry documented in this encounter Care Teams Child Care Lead Teacher Relationship Specialty Start Date End Date Maurizio Yost MD PCP - General 06/17/01 [address] [place] [phone] documented as of this encounter
--- OUTSIDE RECORDS SUMMARY | 2022-03-02 08:02 | XMS_ITS | Encounter Summary ---
:1955 Author Organization [place] Address [facility] [place] [address] Care Team Providers Name Role Phone Maurizio Yost MD Primary Care Provider [phone] Encounter Details Date Type Department Care Team Description 08/07/2008 Orders Only [facility] Maurizio Yost HYPER LIPIDEMIA NEC/NOS; Clinic Kaden Lux MD PURE HYPERCHOLESTEROLEM; [place] [address] [place] [address] Dysmetabolic Syndrome X [address] [phone] Social History Tobacco Use Types Packs/Day Years Used Date Smoking Tobacco: Never Alcohol Use Standard Drinks/Week Comments No 0 (1 standard drink = 0.6 oz pure alcoho l) Sex Assigned at Date Recorded Not on file documented as of this encounter Plan of Treatment Not on filedocumented as of this encounter Visit Diagnoses Diagnosis HYPERLIPIDEMIA NEC/NOS Other and unspecified hyperlipidemia PURE HYPERCHOLESTEROLEM Pure hypercholesterolemia Dysmetabolic syndrome X Dysmetabolic Syndrome X documented in this encounter Care Teams Timber Spotter Relationship Specialty Start Date End Date Maurizio Yost MD PCP - General 06/17/01 [address] [place] [phone] documented as of this encounter
--- OUTSIDE RECORDS SUMMARY | 2022-03-02 08:02 | XMS_ITS | Encounter Summary ---
:1955 Author Organization [place] Address [address] [place] [address]. [place] [address] Care Team Providers Name Role Phone Maurizio Yost MD Primary Care Provider [phone] Reason for Visit Reason Comments Lipids med check, review labs, is t aking simvastatin, no c/o myalgias Ear Problem right ear ringing Eye Problem left eye redness, denies any discomfort/drainage Encounter Details Date Type Department Care Team Description 08/08/2007 Office Visit [facility] Maurizio Yost HYPER LIPIDEMIA NEC/NOS (Primary Dx); Clinic Kaden Lux MD DYSMETABOLIC SYNDROME X; [place] [address] BLOOD CHEMISTRY NEC; [address] ACUTE CONJUNCTIVITIS NOS; [place] [address] DYSFUNCT EUSTACHIAN TUBE; [address] DIVERTICULOSIS OF COLON W/O BLEED [phone] Social History Tobacco Use Types Packs/Day Years Used Date Smoking Tobacco: Never Alcohol Use Standard Drinks/Week Comments No 0 (1 standard drink = 0.6 oz pure alcoho l) Sex Assigned at Date Recorded Not on file documented as of this encounter Last Filed Vital Signs Vital Sign Reading Time Taken Comments Blood Pressure 118/82 08/08/2007 2:30 PM CDT Pulse 72 08/08/2007 2:30 PM CDT Temperature - - Respiratory Rate - - Oxygen Saturation - - Inhaled Oxygen Concentration - - Weight 108.4 kg (239 lb) 08/08/2007 2:30 PM CDT Height 179.7 cm (5' 10.75) 08/08/2007 2:30 PM CDT Body Mass Index 33.57 08/08/2007 2:30 PM CDT documented in this encounter Progress Notes Maurizio Yost - 08/14/2007 11:54 PM CDT Branden Graf is a 51 year old male here for follow up of hyperlipidemia. He has been taking his statin cholesterol medication regularly without side effects such as myalgiasor upper abdominal pain, nausea or jaundice. Side effects from medications: NO Review of recent labs shows: HDL 44 08/04/2007 LDL 78 08/04/2007 CHOL 163 08/04/2007 TRIG 206 08/04/2007 AST 59 08/04/2007 Other issues to discuss today: YES 2. Reports irritated left eye for last 1-2 days Mild drainage, no matterin, no vision cahnges. No burring. 3. Erports some ear rining in right ear as well Has had reetn URI sx. No drainge, no feers, no chills, no ear Pain. 4. Reviewed colonscopy reportshwoin only incidental diverticulosis. Has never had diverticulitis attacks. Past Medical History Diagnosis Date ??? PURE HYPERCHOLESTEROLEM ??? DYSMETABOLIC SYNDROME X ??? ABN BLOOD CHEMISTRY NEC ??? DIVERTICULOSIS OF COLON W/O BLEED 06/10 incidental diverticulosis seen on colonoscopy Past Surgical History Procedure Date ??? No history of surgery Current outpatient prescriptions Medication Sig ??? SIMVASTATIN 40 MG OR TABS 1 TABLET AT BEDTIME ??? POLYTRIM 64891-3.1 UNIT/ML-% OP SOLN 1-2 drops to affected eye every 4 hours while awake for 4-7days ??? FISH OIL 1000 MG OR CAPS 2 capsules daily ??? ASPIRIN 81 MG OR TABS 1 tab po QD (Once per day) Allergies Allergen Reactions ??? No Known Allergies Family History Problem Relation ??? C.A.D. Father ??? Colon CA Mother ??? Diabetes Mother ??? Diabetes Sister ??? Hypertension Mother ??? Breast CA Sister History Social History ??? Marital Status: Spouse Name: N/A Number of Children: 2 ??? 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 Tobacco Use: Never ??? Alcohol Use: No ??? Drug Use: No ??? Sexually Active: Yes Other Topics Concern ??? Seat Belt No educated. 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 NO GUNS AT HOME. REVIEW OF SYSTEMS: RESP: negative for cough, dyspnea, wheezing, hemoptysis CV: negative for chest pain, palpitations, PND, [place], orthopnea, palpitations GI: negative for dysphagia, N/V, pain, melena, diarrhea and constipation NEURO: negative for numbness/tingling, paralysis, incoordination or weakness OBJECTIVE: BP 118/82 Pulse 72 Ht 5' 10.75 (1.80m) Wt 239 lbs (108.4kg) Body mass index is 33.57 kg/(m^2). GENERAL alert and no distress. EYES right conjunctivae/cornea clear; left is irritated consistent with ocnnunctivitis. PERRL, EOM'sintact HENT: NCAT,oral and posterior pharynx without lesions or erythema, facies symmetric EARS: left showds small amount of no infected nonpurulent fluid in miuddle ear space. NECK: Neck supple. No LAD, without thyroidmegaly [...] normal and symmetric. Sensation grossly WNL.. ASSESSMENT/PLAN: 272.4 HYPERLIPIDEMIA NEC/NOS (primary encounter diagnosis) Note: Discussed current lipid results, previous results [...] effects of myalgias, rhabdomyolysis, and liver toxicity. Stable. Continue current therapy. Plan: SIMVASTATIN 40 MG OR TABS 277.7 DYSMETABOLIC SYNDROME X Note: Discussed impaired glucose tolerance, and its [...] delay and modify these risk factors. Plan: 790.6 ABN BLOOD CHEMISTRY NEC Note: [...] delay and modify these risk factors. Plan: 372.00 ACUTE CONJUNCTIVITIS NOS Note: Plan: POLYTRIM 76476-2.1 UNIT/ML-% OP SOLN 381.81 DYSFUNCT EUSTACHIAN TUBE Note: Discussed the pathophysiology of eustachian tube dysfunciton with the pt including a basic description of the anatomy. Symptomatic therapy suggested: push fluids, use decongestant nasal spray up to 3 days, decongestant of choice or antihistamine-decongestant of choice as needed, saline nasal spray as needed, Robitussin DM prn. RTC prn if symptoms persist or worsen. Call or return to clinic prn if these symptoms worsen or fail to improve as anticipated. Plan: 562.10 DIVERTICULOSIS OF COLON W/O BLEED Note: Review the pathophysiology and anatomincal/mechanical issues of diverticulosis and diverticulitis. Discussed low residue, higher fiber diet to prevent occurances of diverticulitis and the formation of future diverticuli. Discussed the typical presentations of diverticulitis and what to do if they appear. Plan: documented in this encounter Nursing Notes 08/08/2007 2:30 PM CDT >> GIOVANA CASTANEDA 08/08/2007 2:41 pm Patient presents with: Lipids - med check, review labs, is taking simvastatin, no c/o myalgias Ear Problem - right ear ringing Eye Problem - left eye redness, denies any discomfort/drainage Medications reviewed: No discrepancies identified. Initial BP 118/82 Pulse 72 Ht 5' 10.75 (1.80m) Wt 239 lbs (108.4kg) Body mass index is 33.57 kg/(m^2). BP completed using cuff size: large Signed by Giovana Castaneda RN documented in this encounter Plan of Treatment Not on filedocumented as of this encounter Visit Diagnoses Diagnosis Other and unspecified hyperlipidemia - P rimary Dysmetabolic syndrome X Dysmetabolic Syndrome X Other abnormal blood chemistry Acute conjunctivitis, unspecified Dysfunction of eustachian tube Dysfunction of Eustachian tube Diverticulosis of colon (without mention of hemorrhage) documented in this encounter Care Teams Manager Of Finance Relationship Specialty Start Date End Date Maurizio Yost MD PCP - General 06/17/01 [address] [place] [address] documented as of this encounter
--- OUTSIDE RECORDS SUMMARY | 2022-03-02 08:02 | XMS_ITS | Encounter Summary ---
:1955 Author Organization [place] Address [address] [place] [address]. [place] [address] Care Team Providers Name Role Phone Maurizio Yost MD Primary Care Provider [phone] Reason for Visit Reason Comments Lipids med check and review labs Encounter Details Date Type Department Care Team Description 08/05/2006 Office Visit [facility] Maurizio Yost HYPER LIPIDEMIA NEC/NOS (Primary Dx); Clinic Kaden Lux MD DYSMETABOLIC SYNDROME X; [place] [address] [place] [address] ROUTINE MEDICAL EXAM [address] [address] [phone] Social History Tobacco Use Types Packs/Day Years Used Date Smoking Tobacco: Never Alcohol Use Standard Drinks/Week Comments No 0 (1 standard drink = 0.6 oz pure alcoho l) Sex Assigned at Date Recorded Not on file documented as of this encounter Last Filed Vital Signs Vital Sign Reading Time Taken Comments Blood Pressure 124/86 08/05/2006 3:45 PM CDT Pulse 68 08/05/2006 3:45 PM CDT Temperature - - Respiratory Rate - - Oxygen Saturation - - Inhaled Oxygen Concentration - - Weight 104.8 kg (231 lb) 08/05/2006 3:45 PM CDT Height - - Body Mass Index 32.45 06/22/2005 3:45 PM ACCOUNTING CLERK documented in this encounter Progress Notes Maurizio Yost - 08/05/2006 4:47 PM CDT Branden Graf is a 50 year old male here for follow up of hyperlipidemia. He has been taking his statin cholesterol medication regularly without side effects such as myalgiasor upper abdominal pain, nausea or jaundice. Side effects from medications: NO Review of recent labs shows: HDL 44 07/29/2006 LDL 79 07/29/2006 CHOL 183 07/29/2006 TRIG 298 07/29/2006 Other issues to discuss today: YES 1,. Has history of dysmetabolic syndrome. A1C 6.1 07/29/2006 A1C 6.4 06/12/2005 A1C 6.2 05/28/2004 A1C 6.0 11/02/2003 A1C 6.5 04/24/2003 A1C 6.3 10/23/2002 Workgin hard on diet and controlling his levels. Past Medical History Diagnosis Date ??? PURE HYPERCHOLESTEROLEM ??? DYSMETABOLIC SYNDROME X ??? ABN BLOOD CHEMISTRY NEC Past Surgical History Procedure Date ??? No history of surgery Current outpatient prescriptions Medication Sig ??? LIPITOR 20 MG OR TABS 1 tab PO QD (Once per day) ??? 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 Tobacco Use: Never ??? Alcohol Use: No ??? Drug Use: No ??? Sexually Active: Yes Other Topics Concern ??? Seat Belt No educated. 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 NO GUNS AT HOME. REVIEW OF SYSTEMS: REVIEW OF SYSTEMS: RESP: negative for cough, dyspnea, wheezing, hemoptysis CV: negative for chest pain, palpitations, PND, [place], orthopnea, palpitations GI: negative for dysphagia, N/V, pain, melena, diarrhea and constipation NEURO: negative for numbness/tingling, paralysis, incoordination or weakness OBJECTIVE: BP 124/86 Pulse 68 Wt 231 lbs (104.8kg) Estimated Body mass index is 32.45 kg/(m^2) as calculated from: Height of 5' 10.75 (1.797 m) as of 06/22/05 Weight of 231 lbs (104.781 kg) as of this encounter GENERAL alert and no distress. EYES conjunctivae/corneas [...] 272.4 HYPERLIPIDEMIA NEC/NOS (primary encounter diagnosis) Note: Stable. Continue current therapy. Discussed current lipid results, [...] of myalgias, rhabdomyolysis, and liver toxicity. Plan: SIMVASTATIN 40 MG OR TABS, FISH OIL 1000 MG OR CAPS, A.M.A. LIPID PANEL, AST, ALANINE AMINO (ALT) (SGPT), HEMOGLOBIN A1C, GLUCOSE 277.7 DYSMETABOLIC SYNDROME X Note: Discussed impaired [...] delay and modify these risk factors. Plan: V70.0 ROUTINE MEDICAL EXAM (future lab ordere only) Note: Plan: A.M.A. LIPID PANEL, AST, ALANINE AMINO (ALT) (SGPT), HEMOGLOBIN A1C, PROSTATE SPEC ANTIGEN,SCREEN, HGB, GLUCOSE documented in this encounter Nursing Notes 08/05/2006 3:45 PM CDT >> GIOVANA CASTANEDA 08/05/2006 4:10 pm Patient presents with: Lipids - med check and review labs Medications reviewed: No discrepancies identified. Initial BP 124/86 Pulse 68 Wt 231 lbs (104.8kg) Estimated Body mass index is 32.45 kg/(m^2) as calculated from: Height of 5' 10.75 (1.797 m) as of 06/22/05 Weight of 231 lbs (104.781 kg) as of this encounter BP completed using cuff size: large Signed by Giovana Castaneda, RN documented in this encounter Plan of Treatment Not on filedocumented as of this encounter Visit Diagnoses Diagnosis Other and unspecified hyperlipidemia - P rimary Dysmetabolic syndrome X Dysmetabolic Syndrome X Routine general medical examination at a health care facility documented in this encounter Care Teams Bias Cutter Relationship Specialty Start Date End Date Maurizio Yost MD PCP - General 06/17/01 [address] [place] [address] documented as of this encounter
--- OUTSIDE RECORDS SUMMARY | 2022-03-02 08:02 | XMS_ITS | Encounter Summary ---
:1955 Author Organization [place] Address [address] [place] [address]. [place] [address] Care Team Providers Name Role Phone Maurizio Yost MD Primary Care Provider [phone] Encounter Details Date Type Department Care Team Description 03/15/2009 Orders Only [facility] HYP ERLIPIDEMIA NEC/NOS; [place] Other and Unspecified Hyperlipidemia; Laboratory ABN BLOOD CHEMISTRY [facility]; [address] [place] [address] Dysmetabolic Syndrome X; [place], [place] Special Scre ening for Malignant Neoplasm of Prostate [address] Social History Tobacco Use Types Packs/Day Years Used Date Smoking Tobacco: Never Alcohol Use Standard Drinks/Week Comments No 0 (1 standard drink = 0.6 oz pure alcoho l) Sex Assigned at Date Recorded Not on file documented as of this encounter Plan of Treatment Not on filedocumented as of this encounter Procedures Procedure Name Priority Date/Time Associated Diagnosis Comme nts HCL PROSTATE SPEC Routine 03/15/2009 7:35 AM Special Screening for Results for this ANTIGEN,SCREEN SLOT MACHINE KEY PERSON Malignant Neoplasm of proc edure are in Prostate the results section. HCL BASIC METABOLIC Routine 03/15/2009 7:35 AM HYPERLIPI DEMIA NEC/NOS Results for this PANEL SLOT MACHINE KEY PERSON Other and Unspecified proced ure are in Hyperlipidemia the results ABN BLOOD CHEMISTRY section. NEC Dysmetabolic Syndrome X HCL GLYCATED Routine 03/15/2009 7:35 AM HYPERLIPIDEMI A NEC/NOS Results for this HEMOGLOBIN SLOT MACHINE KEY PERSON Other and Unspecified proced ure are in Hyperlipidemia the results ABN BLOOD CHEMISTRY section. NEC Dysmetabolic Syndrome X HCL AST Routine 03/15/2009 7:35 AM HYPERLIPIDEMI A NEC/NOS Results for this SLOT MACHINE KEY PERSON Other and Unspecified proced ure are in Hyperlipidemia the results ABN BLOOD CHEMISTRY section. NEC Dysmetabolic Syndrome X CL AFF A.M.A. LIPID Routine 03/15/2009 7:35 AM HYPERLIPI DEMIA NEC/NOS Results for this PANEL SLOT MACHINE KEY PERSON Other and Unspecified proced ure are in Hyperlipidemia the results ABN BLOOD CHEMISTRY section. NEC Dysmetabolic Syndrome X documented in this encounter Results PROSTATE SPEC ANTIGEN,SCREEN (03/15/2009 7:35 AM SLOT MACHINE KEY PERSON) P athologist Signature PSA 1.94 0 - 4 ug/L [facility] Specimen Anatomical Collection Method Collection Time Receive d Time (Source) Location / / Volume Laterality 03/15/2009 7:35 AM 9 7:40 SLOT MACHINE KEY PERSON AM SLOT MACHINE KEY PERSON Maurizio Yost MD LABORATORY Performing Organization Address City/State/ZIP Code Phon e Number [facility] [address] [place] [address] [facility] (ABNORMAL) A.M.A. BASIC METABOLIC PANEL (03/15/2009 7:35 AM SLOT MACHINE KEY PERSON) P athologist Signature Sodium 142 133 - 144 [place] mmol/L [facility] Potassium 4.6 3.4 - 5.3 [place] mmol/L [facility] Chloride 104 94 - 109 [place] mmol/L [facility] Carbon Dioxide 26 20 - 32 [place] mmol/L [facility] Anion Gap 12 6 - 17 [place] mmol/L [facility] Glucose 127 (H) 60 - 99 [place] mg/dL [facility] Urea Nitrogen 20 7 - 30 [place] mg/dL [facility] Creatinine 1.01 0.66 - [facility] 1.25 mg/dL [facility] Comment: New IDMS-traceable calibration beginning 09/01/07 GFR Estimate 77 >60 mL/min/1.7m2 [place] [facility] GFR Estimate If Black >90 >60 mL/min/1.7m2 [facility] Calcium 10.0 8.5 - 10.4 mg/dL [facility] Specimen Anatomical Collection Method Collection Time Receive d Time (Source) Location / / Volume Laterality 03/15/2009 7:35 AM 9 7:40 SLOT MACHINE KEY PERSON AM SLOT MACHINE KEY PERSON Maurizio Yost MD LABORATORY Performing Organization Address City/State/ZIP Code Phon e Number [facility] [address] [place] [id number] [facility] (ABNORMAL) HEMOGLOBIN A1C (03/15/2009 7:35 AM SLOT MACHINE KEY PERSON) P athologist Signature Hemoglobin A1C 6.3 (H) 4.3 - 6.0 [place] % [facility] Specimen Anatomical Collection Method Collection Time Receive d Time (Source) Location / / Volume Laterality 03/15/2009 7:35 AM 9 7:40 SLOT MACHINE KEY PERSON AM SLOT MACHINE KEY PERSON Maurizio Yost MD LABORATORY Performing Organization Address City/[facility]/ZIP Code Phon e Number [facility] [address] [place] [phone] [facility] AST (03/15/2009 7:35 AM SLOT MACHINE KEY PERSON) P athologist Signature AST 30 0 - 55 U/L [facility] Specimen Anatomical Collection Method Collection Time Receive d Time (Source) Location / / Volume Laterality 03/15/2009 7:35 AM 9 7:40 SLOT MACHINE KEY PERSON AM SLOT MACHINE KEY PERSON Maurizio Yost MD LABORATORY Performing Organization Address City/[facility]/ZIP Code Phon e Number [facility] [address] [place] [phone] [facility] A.M.A. LIPID PANEL (03/15/2009 7:35 AM SLOT MACHINE KEY PERSON) P athologist Signature Cholesterol 160 0 - 200 [place] mg/dL [facility] Comment: LDL Cholesterol is the primary guide to therapy: LDL-cholesterol goal in high risk patients is <100 mg/dL and in very high risk patients is <70 mg/dL. The NCEP recommends further evaluation of: patients with cholesterol <200 mg/dL if additional risk factors are present, cholesterol >240 mg/dL, triglycerides >150 mg/dL, or HDL <40 mg/dL. Triglycerides 119 0 - 150 mg/dL [facility] HDL Cholesterol 50 40 - 110 mg/dL [facility] LDL Cholesterol Calculated 86 0 - 129 mg/dL [facility] VLDL-Cholesterol 24 0 - 30 mg/dL [place] [facility] Cholesterol/HDL Ratio 3.2 0.0 - 5.0 [facility] Specimen Anatomical Collection Method Collection Time Receive d Time (Source) Location / / Volume Laterality 03/15/2009 7:35 AM 9 7:40 SLOT MACHINE KEY PERSON AM SLOT MACHINE KEY PERSON Maurizio Yost MD LABORATORY Performing Organization Address City/State/ZIP Code Phon e Number [facility] [address] [place] [phone] [facility] documented in this encounter Visit Diagnoses Diagnosis HYPERLIPIDEMIA NEC/NOS Other and unspecified hyperlipidemia ABN BLOOD CHEMISTRY NEC Other abnormal blood chemistry Dysmetabolic syndrome X Dysmetabolic Syndrome X Special screening for malignant neoplasm of prostate documented in this encounter Care Teams Licensed Surveyor Relationship Specialty Start Date End Date Maurizio Yost MD PCP - General 06/17/01 [address] [place] [address] documented as of this encounter
--- OUTSIDE RECORDS SUMMARY | 2022-03-02 08:02 | XMS_ITS | Encounter Summary ---
:1955 Author Organization [place] Address [address] [place] [address]. [place] [address] Care Team Providers Name Role Phone Maurizio Yost MD Primary Care Provider [phone] Reason for Visit Reason Comments Lipids med check and review labs Encounter Details Date Type Department Care Team Description 08/10/2008 Office Visit [facility] Maurizio Yost HYPER LIPIDEMIA NEC/NOS (Primary Dx); Clinic Kaden Lux MD Need for Fonqjxydtr-Wqmefgw-Diusgecuk (T dap) Vaccine, Adult/Adolescent; [place] [address] Other and Unspecified Hyperlipidemia; [address] ABN BLOOD CHEMISTRY NEC; [place] [address] Dysmetabolic Syndrome X; [id number] Special Screening for Malignant Neoplasm of Prostate [phone] Social History Tobacco Use Types Packs/Day Years Used Date Smoking Tobacco: Never Alcohol Use Standard Drinks/Week Comments No 0 (1 standard drink = 0.6 oz pure alcoho l) Sex Assigned at Date Recorded Not on file documented as of this encounter Last Filed Vital Signs Vital Sign Reading Time Taken Comments Blood Pressure 122/86 08/10/2008 3:32 PM CDT Pulse 64 08/10/2008 3:32 PM CDT Temperature - - Respiratory Rate - - Oxygen Saturation - - Inhaled Oxygen Concentration - - Weight 108.4 kg (239 lb) 08/10/2008 3:32 PM CDT Height 180.3 cm (5' 11) 08/10/2008 3:32 PM CDT Body Mass Index 33.33 08/10/2008 3:32 PM CDT documented in this encounter Patient Instructions Patient InstructionsMaurizio Yost - 08/10/2008 4:21 PM CDT * Return to see me in 6 months. [facility]2 days before this appointment. Eat nothing for at least 8 hours prior to having these labs drawn. Call [phone] to schedule both appointments. OBESITY/WEIGHT LOSS: * Eat This, Not That (by Kt Wren) A book about choices * Picture Perfect Weight Loss (Dr. Hany Cooper) A book about choices * Calorie Celio (either book or web site) Calorie and carbohydrate data * The Best Life Diet a complete program. Obesity is defined as BMI (body mass index) greater than 30. The main principles in weight loss are diet and exercise. You need to have both. Dietary principles are aimed at keeping the fat content in your diet to less than 30% of total calories AND minimizing the simple carbohydrates (breads, sugars, pasta, etc.). Complex carbohydrates suchas wild rice, brown rice, legumes and most vegetables are OK. Avoid, try to limit all simple carbohydrate foods such as white breads (whole grain natural breads are OK), white rice (brown rice and wild rice are OK), pasta, noodles, candy, jam/jellies, cakes, pies, sweets, pop (sugar free is OK). Try to keep the calories under 2406-3194 total per day, divide between 3 small meals and 2 snacks. Avoid orange juice or any fruit juice because it contains a large amount of sugars which may raise your blood sugars very high. Specifically avoid grapefruit juice because grapefruits and grapefruit juice can interfere with the way certain medications are handled in the body. Limit the amount of citrus fruits such as oranges, ad, grapefruit. These contain a large amount of sugars and will raise your blood sugars very high. Try to keep less than 3 pieces of fruit per day Always eat three meals a day every day: breakfast, lunch, and supper. Try to make the meals all the same size and not to eat one meal much larger than the others. I do not recommend over the counter diet aids such as Metabolife or Dexatrim since they have a high risk of side effects mainly fast heart rate, insomnia, and nervousness. Good resources for nutrition are: * Eat This, Not That (by Kt Wren) A book about choices * Picture Perfect Weight Loss (Dr. Hany Cooper) A book about choices * Calorie Celio (either book or web site) Calorie and carbohydrate data * The Best Life Diet a complete program. * Pipe Gerardoish: Eat More, Weigh Less or The Program for the Reversal of Heart Disease * [facility] web site the food and nutrition link. * Swiss Heart Association * [employer] Diabetes Association (www.diabetes.org) Exercise should be aimed at 3 hours per week total of cumulative physical aerobic activity. documented in this encounter Progress Notes Maurizio Yost - 08/10/2008 4:20 PM CDT Branden Graf is a 52 year old male here for follow up of hyperlipidemia. He has been taking his statin cholesterol medication regularly without side effects such as myalgiasor upper abdominal pain, nausea or jaundice. Side effects from medications: NO Review of recent labs shows: HDL 48 08/07/08 LDL 94 08/07/08 CHOL 187 08/07/08 TRIG 228 08/07/08 Other issues to discuss today: YES 2. Revieed weigh curves and borderline history of glucose elevation GLC 126 08/07/08 GLC 129 08/04/07 GLC 111 02/17/07 GLC 122 07/29/06 GLC 109 11/02/03 GLC 105 04/24/03 GLC 108 10/23/02 GLC 119 05/06/02 A1C 6.6 08/07/08 A1C 6.0 08/04/07 A1C 5.7 02/17/07 A1C 6.1 07/29/06 A1C 6.4 06/12/05 A1C 6.2 05/28/04 A1C 6.0 11/02/03 A1C 6.5 04/24/03 A1C 6.3 10/23/02 Past Medical History Diagnosis Date ??? 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 Tobacco Use: [...] numbness/tingling, paralysis, incoordination or weakness OBJECTIVE: BP 122/86 Pulse 64 Ht 5' 11 (1.803 m) Wt 239 lb (108.41 kg) Body mass index is 33.33 kg/(m^2). GENERAL alert and no distress. EYES [...] ASSESSMENT/PLAN: 272.4 HYPERLIPIDEMIA NEC/NOS (primary encounter diagnosis) Comment: Stable. Continue current therapy. Discussed current lipid [...] of myalgias, rhabdomyolysis, and liver toxicity. Plan: A.M.A. LIPID PANEL, AST, HEMOGLOBIN A1C, A.M.A. BASIC METABOLIC PANEL V06.1H Need for Bfoaevxsao-Rofucmb-Fjcxzisui (Tdap) Vaccine, Adult/Adolescent Comment: Plan: TDAP (ADACEL AGES 11-64) 272.4 Other and Unspecified Hyperlipidemia Comment: Plan: SIMVASTATIN 40 MG OR TABS, A.M.A. LIPID PANEL, AST, HEMOGLOBIN A1C, A.M.A. BASIC METABOLIC PANEL 790.6 ABN BLOOD CHEMISTRY NEC Comment: Discussed impaired glucose tolerance, and its part in the dysmetabolic syndrome. Discussed the progression of impaired glucose tolerance toward diabetes mellitus and the need for agressive interventions now to delay and prevent this inevitable progression. Discussed the overall risks that dysm etabolic syndromes/impaired glucose tolerance/syndrome X pose toward increased risks of vascular disease as the main reason for agressive intervention now. Will add medications for glucose control (i.e. metformin, glitazones, etc), lipid (e.g. statins), and for blood pressure (preferably ARBs and SANTA)as indicated. Will start these as early as needed based other proven ability to delay and modify these risk factors. BG are defintiely more eleavted than in the pat. Discucsed veyr real cahnce of developing DM II if he does not committ to makign changes. He now agreed and will return with those things in mind If A1C notbetter next time, then will need medicaion, starting with metfromin. Plan: A.M.A. LIPID PANEL, AST, HEMOGLOBIN A1C, A.M.A. BASIC METABOLIC PANEL 277.7 Dysmetabolic Syndrome X Comment: Plan: A.M.A. LIPID PANEL, AST, HEMOGLOBIN A1C, A.M.A. BASIC METABOLIC PANEL V76.44 Special Screening for Malignant Neoplasm of Prostate Comment: Plan: PROSTATE SPEC ANTIGEN,SCREEN Spent greater than 25 minutes with pt, greater than 50% of time was educational and counseling. documented in this encounter Nursing Notes 08/10/2008 3:45 PM CDT >> GIOVANA CASTANEDA Fri Aug 10, 2008 3:36 PM Patient presents with: Lipids - med check and review labs Medications reviewed: No discrepancies identified. Initial BP 122/86 Pulse 64 Ht 5' 11 (1.803 m) Wt 239 lb (108.41 kg) Body mass index is 33.33 kg/(m^2). BP completed using cuff size: large Signed by Giovana Castaneda RN documented in this encounter Plan of Treatment Not on filedocumented as of this encounter Visit Diagnoses Diagnosis HYPERLIPIDEMIA NEC/NOS - Primary Other and unspecified hyperlipidemia Need for fentahsybx-vicinmz-qavpysbfw (T dap) vaccine, adult/adolescent Need for prophylactic vaccination with c ombined rvfwsfiosi-zfntnvc-vgbmlmvuo (DTP) vaccine ABN BLOOD CHEMISTRY NEC Other abnormal blood chemistry Dysmetabolic syndrome X Dysmetabolic Syndrome X Special screening for malignant neoplasm of prostate documented in this encounter Care Teams Automobile Leasing Supervisor Relationship Specialty Start Date End Date Maurizio Yost MD PCP - General 06/17/[address] [place] [id number] documented as of this encounter
--- OUTSIDE RECORDS SUMMARY | 2022-03-02 08:02 | XMS_ITS | Encounter Summary ---
:1955 Author Organization [place] Address [address] [place] [address]. [place] [address] Care Team Providers Name Role Phone Maurizio Yost MD Primary Care Provider [phone] Reason for Visit Reason Comments Lipids review labs and meds Encounter Details Date Type Department Care Team Description 02/21/2007 Office Visit [facility] Maurizio Yost HYPER LIPIDEMIA NEC/NOS; Clinic Kaden Lux MD ABN BLOOD CHEMISTRY NEC; [place] [address] [place] [address] DYSMETABOLIC SYNDROME X [address] [address] [phone] Social History Tobacco Use Types Packs/Day Years Used Date Smoking Tobacco: Never Alcohol Use Standard Drinks/Week Comments No 0 (1 standard drink = 0.6 oz pure alcoho l) Sex Assigned at Date Recorded Not on file documented as of this encounter Last Filed Vital Signs Vital Sign Reading Time Taken Comments Blood Pressure 129/79 02/21/2007 3:45 PM CDT Pulse 68 02/21/2007 3:45 PM CDT Temperature - - Respiratory Rate - - Oxygen Saturation - - Inhaled Oxygen Concentration - - Weight 108 kg (238 lb) 02/21/2007 3:45 PM CDT Height - - Body Mass Index 33.43 01/11/2007 3:45 PM CDT documented in this encounter Progress Notes Maurizio Yost - 02/21/2007 4:40 PM CDT Branden Graf is a 51 year old male here for follow up of hyperlipidemia. He has been taking his statin cholesterol medication regularly without side effects such as myalgiasor upper abdominal pain, nausea or jaundice. Side effects from medications: NO Review of recent labs shows: HDL 42 02/17/2007 LDL 75 02/17/2007 CHOL 159 02/17/2007 TRIG 210 02/17/2007 Other issues to discuss today: YES 1. Ongoin issues with impaired glucose tolerance and early dysmetabolic syndrome. GLC 111 02/17/2007 GLC 122 07/29/2006 GLC 109 11/02/2003 GLC 105 04/24/2003 GLC 108 10/23/2002 GLC 119 05/06/2002 A1C 5.7 02/17/2007 A1C 6.1 07/29/2006 A1C 6.4 06/12/2005 A1C 6.2 05/28/2004 A1C 6.0 11/02/2003 A1C 6.5 04/24/2003 A1C 6.3 10/23/2002 Has been workgin on diet changes and exercise more often and regularly. Past Medical History Diagnosis Date ??? 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 Tobacco Use: [...] numbness/tingling, paralysis, incoordination or weakness OBJECTIVE: BP 129/79 Pulse 68 Wt 238 lbs (108.0kg) Estimated Body mass index is 33.43 kg/(m^2) as calculated from: Height of 5' 10.75 (1.797 m) as of 01/11/07 Weight of 238 lbs (107.956 kg) as of this encounter GENERAL alert [...] Sensation grossly WNL.. ASSESSMENT/PLAN: 272.4 HYPERLIPIDEMIA NEC/NOS Note: Discussed current lipid [...] liver toxicity. Stable. Continue current therapy. Plan: A.M.A. LIPID PANEL, AST, ALANINE AMINO (ALT) (SGPT), HEMOGLOBIN A1C, GLUCOSE, HGB 790.6 ABN BLOOD CHEMISTRY NEC Note: Discussed [...] delay and modify these risk factors. Plan: A.M.A. LIPID PANEL, AST, ALANINE AMINO (ALT) (SGPT), HEMOGLOBIN A1C, GLUCOSE, HGB 277.7 DYSMETABOLIC SYNDROME X Note: Discussed impaired [...] delay and modify these risk factors. Plan: A.M.A. LIPID PANEL, AST, ALANINE AMINO (ALT) (SGPT), HEMOGLOBIN A1C, GLUCOSE, HGB Spent greater than 25 minutes with pt, greater than 50% of time was educational and counseling. documented in this encounter Nursing Notes 02/21/2007 3:45 PM CDT >> GIOVANA MOBLEY 02/21/2007 4:08 pm Patient presents with: Lipids - review labs and meds Pt has been advised re: colonoscopy. Will schedule own appt. Medications reviewed: No discrepancies identified. Initial BP 130/82 Pulse 68 Wt 238 lbs (108.0kg) Estimated Body mass index is 33.43 kg/(m^2) as calculated from: Height of 5' 10.75 (1.797 m) as of 01/11/07 Weight of 238 lbs (107.956 kg) as of this encounter BP completed using cuff size: large Signed by Giovana Stoneback, RN documented in this encounter Plan of Treatment Not on filedocumented as of this encounter Visit Diagnoses Diagnosis Other and unspecified hyperlipidemia Other abnormal blood chemistry Dysmetabolic syndrome X Dysmetabolic Syndrome X documented in this encounter Care Teams Medical Records Assistant Relationship Specialty Start Date End Date Maurizio Yost MD PCP - General 06/17/01 [address] [place] [address] documented as of this encounter
--- OUTSIDE RECORDS SUMMARY | 2022-03-02 08:02 | XMS_ITS | Encounter Summary ---
:1955 Author Organization [place] Address [address] [facility] [place] [address] Care Team Providers Name Role Phone Maurizio Yost MD Primary Care Provider [phone] Encounter Details Date Type Department Care Team Description 09/04/2011 Orders Only [facility] Hyp erlipidemia LDL goal <130; [place] Dysmetabo lic syndrome X; Laboratory Special screening for malign ant neoplasm of prostate [address] [address] Social History Tobacco Use Types Packs/Day Years Used Date Smoking Tobacco: Never Alcohol Use Standard Drinks/Week Comments No 0 (1 standard drink = 0.6 oz pure alcoho l) Sex Assigned at Date Recorded Not on file documented as of this encounter Plan of Treatment Not on filedocumented as of this encounter Procedures Procedure Name Priority Date/Time Associated Diagnosis Comme nts PROSTATE SPECIFIC Routine 09/04/2011 7:28 AM Special screening for Results for this ANTIGEN SCREEN CDT malignant neoplasm of proc edure are in prostate the results section. LIPID PROFILE Routine 09/04/2011 7:28 AM Hyperlipidemia LDL Re sults for this CDT goal <130 procedure are i n the results section. HEMOGLOBIN A1C Routine 09/04/2011 7:28 AM Dysmetabolic syndrom e Results for this CDT X procedure are i n the results section. HEMOGLOBIN Routine 09/04/2011 7:28 AM Hyperlipidemia LDL Res ults for this CDT goal <130 procedure are i n the results section. AST Routine 09/04/2011 7:28 AM Hyperlipidemia LDL Res ults for this CDT goal <130 procedure are i n the results section. ALT Routine 09/04/2011 7:28 AM Hyperlipidemia LDL Res ults for this CDT goal <130 procedure are i n the results section. BASIC METABOLIC Routine 09/04/2011 7:28 AM Hyperlipidemia LDL Results for this PANEL CDT goal <130 procedure are in Dysmetabolic syndrome the re sults X section. documented in this encounter Results Hemoglobin (09/04/2011 7:28 AM CDT) athologist Signature Hemoglobin 14.6 13.3 - 17.7 [facility] g/dL [facility] Specimen Anatomical Collection Method Collection Time Receive d Time (Source) Location / / Volume Laterality Blood specimen 09/04/2011 7:28 AM 012 7:33 (specimen) CDT AM CDT Maurizio Yost MD LAB - BLOOD ORDERABLES Performing Organization Address [facility] Code Phon e Number [facility] [address] [place] [phone] [facility] (ABNORMAL) Hemoglobin A1c (09/04/2011 7:28 AM CDT) athologist Signature Hemoglobin A1C 6.2 (H) 4.3 - 6.0 [facility] Specimen Anatomical Collection Method Collection Time Receive d Time (Source) Location / / Volume Laterality Blood specimen 09/04/2011 7:28 AM 012 7:33 (specimen) CDT AM CDT Maurizio Yost MD LAB - BLOOD ORDERABLES Performing Organization Address [facility] Code Phon e Number [facility] [address] [place] [phone] [facility] Prostate spec antigen screen (09/04/2011 7:28 AM CDT) athologist Signature PSA 1.98 0 - 4 ug/L [facility] Specimen Anatomical Collection Method Collection Time Receive d Time (Source) Location / / Volume Laterality Blood specimen 09/04/2011 7:28 AM 012 7:33 (specimen) CDT AM CDT Maurizio Yost MD LAB - BLOOD ORDERABLES Performing Organization Address [facility]/ZIP Code Phon e Number [facility] [address] [place] [address] [facility] (ABNORMAL) Basic metabolic panel (09/04/2011 7:28 AM CDT) P athologist Signature Sodium 142 133 - 144 [place] mmol/L [facility] Potassium 4.4 3.4 - 5.3 [place] mmol/L [facility] Chloride 104 94 - 109 [facility] mmol/L [facility] Carbon Dioxide 26 20 - 32 [place] mmol/L [facility] Anion Gap 13 6 - 17 [place] mmol/L [facility] Glucose 119 (H) 60 - 99 [place] mg/dL [facility] Urea Nitrogen 20 7 - 30 [place] mg/dL [facility] Creatinine 0.98 0.66 - [facility] 1.25 mg/dL [facility] GFR Estimate 79 >60 [place] mL/min/1.7 [facility] m2 LAB GFR Estimate If >90 >60 [place] Black mL/min/1.7 [facility] m2 LAB Calcium 9.7 8.5 - 10.4 [place] mg/dL [facility] Specimen Anatomical Collection Method Collection Time Receive d Time (Source) Location / / Volume Laterality Blood specimen 09/04/2011 7:28 AM 012 7:33 (specimen) CDT AM CDT Maurizio Yost MD LAB - BLOOD ORDERABLES Performing Organization Address City/[facility]/ZIP Code Phon e Number [facility] [address] [place] [phone] [facility] ALT (09/04/2011 7:28 AM CDT) P athologist Signature ALT 25 0 - 70 U/L [facility] Specimen Anatomical Collection Method Collection Time Receive d Time (Source) Location / / Volume Laterality Blood specimen 09/04/2011 7:28 AM 012 7:33 (specimen) CDT AM CDT Maurizio Yost MD LAB - BLOOD ORDERABLES Performing Organization Address City/[facility]/ZIP Code Phon e Number [facility] [address] [place] [phone] [facility] AST (09/04/2011 7:28 AM CDT) athologist Signature AST 30 0 - 45 U/L [facility] Specimen Anatomical Collection Method Collection Time Receive d Time (Source) Location / / Volume Laterality Blood specimen 09/04/2011 7:28 AM 012 7:33 (specimen) CDT AM CDT Maurizio Yost MD LAB - BLOOD ORDERABLES Performing Organization Address City/[facility]/ZIP Code Phon e Number [facility] [address] [place] [phone] [facility] Lipid Profile (09/04/2011 7:28 AM CDT) athologist Signature Cholesterol 152 0 - 200 [place] mg/dL [facility] Comment: LDL Cholesterol is the primary guide to therapy. The NCEP recommends further evaluation of: patients with cholesterol greater than 200 mg/dL if additional risk facto rs are present, cholesterol greater than 240 mg/dL, triglycerides greater than 1 50 mg/dL, or HDL less than 40 mg/dL. Triglycerides 96 0 - 150 mg/dL [place] [facility] HDL Cholesterol 52 40 - 110 mg/dL [facility] LDL Cholesterol Calculated 81 0 - 129 mg/dL [facility] Comment: LDL Cholesterol is the primary guide to therapy: LDL-cholesterol goal in high risk patients is <100 mg/dL and in very high risk patients is <70 mg/dL. VLDL-Cholesterol 19 0 - 30 mg/dL [place] [facility] Cholesterol/HDL Ratio 2.9 0.0 - 5.0 [facility] Specimen Anatomical Collection Method Collection Time Receive d Time (Source) Location / / Volume Laterality Blood specimen 09/04/2011 7:28 AM 012 7:33 (specimen) CDT AM CDT Maurizio Yost MD LAB - BLOOD ORDERABLES Performing Organization Address City/State/ZIP Code Phon e Number [facility] [address] [place] [phone] [facility] documented in this encounter Visit Diagnoses Diagnosis Hyperlipidemia LDL goal <130 Other and unspecified hyperlipidemia Dysmetabolic syndrome X Dysmetabolic Syndrome X Special screening for malignant neoplasm of prostate documented in this encounter Care Teams Imaging Services Director Relationship Specialty Start Date End Date Maurizio Yost MD PCP - General 06/17/01 [address] [place] [phone] documented as of this encounter
--- OUTSIDE RECORDS SUMMARY | 2022-03-02 08:02 | XMS_ITS | Encounter Summary ---
:1955 Author Organization [place] Address [facility] [place] [address] Care Team Providers Name Role Phone Maurizio Yost MD Primary Care Provider [phone] Encounter Details Date Type Department Care Team Description 09/01/2010 Orders Only [facility] Maurizio Yost Hyper lipidemia LDL goal <130 (Primary Dx); Clinic Kaden Lux MD ABN BLOOD CHEMISTRY NEC; [place] [address] [place] [address] Dysmetabolic syndrome X [address] [address] [phone] Social History Tobacco Use Types Packs/Day Years [...] <130 - Primary Other and unspecified hyperlipidemia ABN BLOOD CHEMISTRY NEC Other abnormal blood chemistry Dysmetabolic syndrome X Dysmetabolic Syndrome X documented in this encounter Care Teams Scientific Technical Writer Relationship Specialty Start Date End Date Maurizio Yost MD PCP - General 06/17/[address] [place] [phone] documented as of this encounter
--- OUTSIDE RECORDS SUMMARY | 2022-03-02 08:02 | XMS_ITS | Encounter Summary ---
:1955 Author Organization [place] Address [address] [place] [address]. [place] [address] Care Team Providers Name Role Phone Maurziio Yost MD Primary Care Provider [phone] Reason for Visit Reason Comments RECHECK follow up on lab work Encounter Details Date Type Department Care Team Description [facility]/NOS (Primary Dx); Clinic Kaden Lux MD DYSMETABOLIC SYNDROME X; [place] [address] BLOOD CHEMISTRY NEC; [address] PURE HYPERC HOL[address] [phone] (Work) [phone] Social History Tobacco Use Types Packs/Day Years Used Date Smoking Tobacco: Never Alcohol Use Standard Drinks/Week Comments No 0 (1 standard drink = 0.6 oz pure alcoho l) Sex Assigned at Date Recorded Not on file documented as of this encounter Last Filed Vital Signs Vital Sign Reading Time Taken Comments Blood Pressure 130/70 06/22/2005 3:45 PM BLOWER OPERATOR Pulse 78 06/22/2005 3:45 PM BLOWER OPERATOR Temperature - - Respiratory Rate - - Oxygen Saturation - - Inhaled Oxygen Concentration - - Weight 102.2 kg (225 lb 6.4 oz) 06/22/2005 3:45 PM BLOWER OPERATOR Height 179.7 cm (5' 10.75) 06/22/2005 3:45 PM BLOWER OPERATOR Body Mass Index 31.66 06/22/2005 3:45 PM BLOWER OPERATOR documented in this encounter Progress Notes Maurizio Yost - 06/22/2005 4:41 PM CST Branden Graf is a 49 year old male here for follow up of impaired glucose tolerance, lipids. In regards specifically to Branden impaired glucose tolerance , the patient reports no specific symtpoms or new complaints. Diabetic diet compliance: following the diabetic diet most of the time Diabetic ROS: no polyuria or polydipsia, no chest pain, dyspnea or TIA's, no numbness, tingling or pain in extremities NO reported regular hypo- or hyperglycemia. Diabetic complications: none Recent labs: A1C 6.4 06/12/2005 A1C 6.2 05/28/2004 A1C 6.0 11/02/2003 A1C 6.5 04/24/2003 A1C 6.3 10/23/2002 Other issues to discuss: YES 1. Also has lipids, on meds, no side effects reported. HDL 46 06/12/2005 LDL 86 06/12/2005 CHOL 170 06/12/2005 TRIG 187 06/12/2005 AST 28 06/12/2005 Past Medical History Diagnosis Date ??? PURE HYPERCHOLESTEROLEM ??? DYSMETABOLIC SYNDROME X ??? ABN BLOOD CHEMISTRY NEC Past Surgical History Procedure Date ??? No history of surgery Current outpatient prescriptions Medication Sig ??? ASPIRIN 81 MG OR TABS 1 tab po QD (Once per day) ??? LIPITOR 10 MG OR TABS 1 tab PO QD (Once per day) Allergies Allergen Reactions ??? No Known Allergies Family History Problem Relation ??? C.A.D. Father ??? Colon CA Mother ??? Diabetes Mother ??? Diabetes Sister ??? Hypertension Mother ??? Breast CA Sister History Substance Use Topics ??? Tobacco Use: Never ??? Alcohol Use: No REVIEW of SYSTEMS: ENT/MOUTH: negative for congestion, rhinorrhea, PND, ear pain, sore throat RESP: negative for cough, dyspnea, wheezing, hemoptysis CV: negative for chest pain, palpitations, PND, [place], orthopnea, palpitations GI: negative for dysphagia, N/V, pain, melena, diarrhea and constipation : negative for dysuria, polyuria, hematuria, genital d/c OBJECTIVE: BP 130/70 Pulse 78 Ht 5' 10.75 (1.80m) Wt 225 lbs 6.4 oz (102.2kg) Body mass index is 31.66 kg/(m^2). GENERAL healthy, alert and no distress HENT: NCAT,oral and posterior pharynx without lesions or erythema,sinuses nontender, facies symmetric NECK: Neck supple. No LAD, without thyroidmegaly or JVD., Carotids without bruits. RESP: Clear to ausculation bilaterally without wheezes or crackles. Normal BS in all mccray. CV: RRR normal S1S2, no murmurs, no gallops, no rubs. PMI normal LYMPH: no cervical lymph adenopathy appreciated SKIN: no apparent non healing wounds or significant rashse or lesions. FEET: Foot exam - both sides normal; no swelling, tenderness or skin or vascular lesions. Color and temperature is normal. Sensation is intact with monofilament testing. Peripheral pulses are palpable.Toenails are normal and not digging into neighboring toes. NO nonhealing wounds ASSESSMENT/PLAN: 272.4 HYPERLIPIDEMIA NEC/NOS (primary encounter diagnosis) [...] of myalgias, rhabdomyolysis, and liver toxicity. Plan: LIPITOR 20 MG OR TABS, A.M.A. LIPID PANEL, HEMOGLOBIN A1C, AST, ALANINE AMINO (ALT) (SGPT), A.M.A. BASIC METABOLIC PANEL 277.7 DYSMETABOLIC SYNDROME X Note: Discussed impaired [...] delay and modify these risk factors. Plan: HEMOGLOBIN A1C, A.M.A. BASIC METABOLIC PANEL 272.0 PURE HYPERCHOLESTEROLEM Note: Plan: LIPITOR 20 MG OR TABS, A.M.A. LIPID PANEL, HEMOGLOBIN A1C, AST, ALANINE AMINO (ALT) (SGPT), A.M.A. BASIC METABOLIC PANEL ER OPERATOR documented in this encounter Nursing Notes 06/22/2005 3:45 PM CST >> GINNY MORA 06/22/2005 4:08 pm Branden Graf presents for a follow up on lab work. Initial BP 130/70 Pulse 78 Ht 5' 10.75 (1.80m) Wt 225 lbs 6.4 oz (102.2kg) Body mass index is31.66 kg/(m^2).. BP completed using cuff size: isaiah Mora MA documented in this encounter Plan of Treatment Not on filedocumented as of this encounter Visit Diagnoses Diagnosis Other and unspecified hyperlipidemia - P rimary Dysmetabolic syndrome X Dysmetabolic Syndrome X Other abnormal blood chemistry Pure hypercholesterolemia documented in this encounter Care Teams Hotel Supplies Salesperson Relationship Specialty Start Date End Date Maurizio Yost MD PCP - General 06/17/01 [address] [place] [address] documented as of this encounter
--- OUTSIDE RECORDS SUMMARY | 2022-03-02 08:02 | XMS_ITS | Encounter Summary ---
:1955 Author Organization [facility] Address [address] [place] [address]. [place] [address] Care Team Providers Name Role Phone Maurizio Yost MD Primary Care Provider [phone] Reason for Visit Reason Comments Ear Problem Left ear pressure x 2 weeks Encounter Details Date Type Department Care Team Description 09/04/2009 Office Visit [facility] LIAM Perkins ( [facility] M[facility] Fuller PA-C Dysfunction) (Primary [address] [facility] [address] Dx) [place] [phone] Social History Tobacco Use Types Packs/Day Years Used Date Smoking Tobacco: Never Alcohol Use Standard Drinks/Week Comments No 0 (1 standard drink = 0.6 oz pure alcoho l) Sex Assigned at Date Recorded Not on file documented as of this encounter Last Filed Vital Signs Vital Sign Reading Time Taken Comments Blood Pressure 124/80 09/04/2009 9:49 AM CDT Pulse 84 09/04/2009 9:49 AM CDT Temperature 36.7 ??C (98 ??F) 09/04/2009 9:49 AM CDT Respiratory Rate 16 09/04/2009 9:49 AM CDT Oxygen Saturation - - Inhaled Oxygen Concentration - - Weight 104.3 kg (230 lb) 09/04/2009 9:49 AM CDT Height - - Body Mass Index 32.08 08/10/2008 3:32 PM CDT documented in this encounter Progress Notes Mely Perkins - 09/04/2009 10:26 AM CDT SUBJECTIVE: Branden Graf is a 54 year old male who presents with left ear pressure for 2 week(s). Severity: mild and moderate Timing:gradual onset Additional symptoms include none. History of recurrent otitis: no Past Medical History Diagnosis Date ??? PURE HYPERCHOLESTEROLEM ??? DYSMETABOLIC SYNDROME X ??? ABN BLOOD CHEMISTRY NEC ??? DIVERTICULOSIS OF COLON W/O BLEED 06/10 incidental diverticulosis seen on colonoscopy Current outpatient prescriptions Medication Sig ??? SIMVASTATIN 40 MG OR TABS 1 TABLET AT BEDTIME ??? ASPIRIN 81 MG OR TABS 1 tab po QD (Once per day) ??? FISH OIL 1000 MG OR CAPS 2 capsules daily History Substance Use Topics ??? Tobacco Use: Never ??? Alcohol Use: No ROS: CONSTITUTIONAL:NEGATIVE for fever, chills, change in weight ENT/MOUTH: NEGATIVE for ear, mouth and throat problems RESP:NEGATIVE for significant cough or SOB CV: NEGATIVE for chest pain, palpitations or peripheral edema OBJECTIVE: BP 124/80 Pulse 84 Temp(Src) 98 ??F (36.7 ??C) (Oral) Resp 16 Wt 230 lb (104.327 kg) EXAM: The right TM is normal: no effusions, no erythema, and normal landmarks The right auditory canal is normal and without drainage, edema or erythema The left TM is normal: no effusions, no erythema, and normal landmarks The left auditory canal is normal and without drainage, edema or erythema NOSE: boggy turbinates with clear coryza Oropharynx exam is normal: no lesions, erythema, adenopathy or exudate. GENERAL: no acute distress EYES: EOMI, PERRL, conjunctiva clear NECK: supple, non-tender to palpation, no adenopathy noted SKIN: no suspicious lesions or rashes 381.81D ETD (Eustachian Tube Dysfunction) (primary encounter diagnosis) Plan: FLONASE INHA 50 MCG/DOSE NA Comment: saline nasal spray. May also try OTC loratadine. F/U with PCP should symptoms persist or worsen. documented in this encounter Nursing Notes 09/04/2009 9:45 AM CDT >> TONJA MULLEN Wed September 04, 2009 9:52 AM Patient presents with: Ear Problem - Left ear pressure x 2 weeks Intial BP 124/80 Pulse 84 Temp(Src) 98 ??F (36.7 ??C) (Oral) Resp 16 Wt 230 lb (104.327 kg) Estimated Body mass index is 32.08 kg/(m^2) as calculated from the following: Height as of 08/10/08: 5' 11(1.803 m). Weight as of this encounter: 230 lb(104.327 kg).. BP completed using cuff size: regular Tonja Mullen RN documented in this encounter Plan of Treatment Not on filedocumented as of this encounter Visit Diagnoses Diagnosis ETD (eustachian tube dysfunction) - Prim jayy Dysfunction of Eustachian tube documented in this encounter Care Teams Supervisor Histology Relationship Specialty Start Date End Date Maurizio Yost MD PCP - General 06/17/01 [address] [place] [address] documented as of this encounter
--- OUTSIDE RECORDS SUMMARY | 2022-03-02 08:02 | XMS_ITS | Encounter Summary ---
:1955 Author Organization [facility] Address [address] [place] [address]. [place] [address] Care Team Providers Name Role Phone Maurizio Yost MD Primary Care Provider [phone] Reason for Visit Reason Comments Eye Problem eye infection rt eye has had for 3 days Encounter Details Date Type Department Care Team Description 08/27/2008 Office Visit [facility] Elver Zapata Blepha rityumiko (Primary Clinic Kaden Horton MD Dx) [place] [address] [place] [phone] Social History Tobacco Use Types Packs/Day Years Used Date Smoking Tobacco: Never Alcohol Use Standard Drinks/Week Comments No 0 (1 standard drink = 0.6 oz pure alcoho l) Sex Assigned at Date Recorded Not on file documented as of this encounter Last Filed Vital Signs Vital Sign Reading Time Taken Comments Blood Pressure 110/70 08/27/2008 11:09 AM CDT Pulse 76 08/27/2008 11:09 AM CDT Temperature - - Respiratory Rate - - Oxygen Saturation - - Inhaled Oxygen Concentration - - Weight 105.7 kg (233 lb) 08/27/2008 11:09 AM CDT Height - - Body Mass Index 32.5 08/10/2008 3:32 PM CDT documented in this encounter Progress Notes Elver Zapata - 08/27/2008 11:45 AM CDT Branden Graf is here for irritated upper eyelid. Has been using antibioptic eye gtts since 2 d ago. Notes some matting in the am but otherwise not mch thru the day. No pain or redness in eye itself. PHYSICAL EXAMINATION: BP 110/70 Pulse 76 Wt 233 lb (105.688 kg) GENERAL healthy, alert and no distress EYES R upper eyelid edematous, no sty or other abnrml noted. Eye itself normal ASSESSMENT: 373.00H Blepharitis (primary encounter diagnosis) Plan: may con't to use antibx gtts but i see no direct evid of actual infection here. Can use hot packs prn documented in this encounter Nursing Notes 08/27/2008 11:15 AM CDT >> AARTI OVIEDO Mon Aug 27, 2008 11:11 AM Patient presents with: Eye Problem - eye infection rt eye has had for 3 days Medications reviewed: No discrepancies identified. Initial BP 110/70 Pulse 76 Wt 233 lb (105.688 kg) Estimated Body mass index is 32.50 kg/(m^2) ascalculated from: Height of 5' 11 (1.803 m) as of 08/10/08 Weight of 233 lb (105.688 kg) as of this encounter BP completed using cuff size: large Signed by Primo Oviedo LPN documented in this encounter Plan of Treatment Not on filedocumented as of this encounter Visit Diagnoses Diagnosis Blepharitis - Primary Blepharitis, unspecified documented in this encounter Care Teams Full Stack Python Developer Relationship Specialty Start Date End Date Maurizio Yost MD PCP - General 06/17/[address] [place] [address] documented as of this encounter
--- OUTSIDE RECORDS SUMMARY | 2022-03-02 08:02 | XMS_ITS | Encounter Summary ---
:1955 Author Organization [place] Address [address] [facility] [place] [address] Care Team Providers Name Role Phone Maurizio Yost MD Primary Care Provider [phone] Reason for Referral Referral not Required - Closed Specialty Diagnoses / Procedures Referred By Contact Refer red To Contact Diagnoses Unspecified tinnitus Maurizio Yost [place] MD OTOLARYNGOLOGY [address] [place] [address] [place] [address] [address] [place], [place] [address] [place] [address] Fax: Referral ID Status Reason Start Date Expiration Date Visits Requ ested Visits Authorized [id number] Closed 2007 05/02/2011 1 1 Reason for Visit Reason Comments Ear Problem Right ear discomfort and rin ging x 2 months. Has tried decongestants w/o relief. Encounter Details Date Type Department Care Team Description 2007 Office Visit [facility] Maurizoi Yost TUS NOS (Primary Dx); Clinic Kaden Lux MD DYSFUNCT EUSTACHIAN TUBE [place] [address], [place] [phone] Social History Tobacco Use Types Packs/Day Years Used Date Smoking Tobacco: Never Alcohol Use Standard Drinks/Week Comments No 0 (1 standard drink = 0.6 oz pure alcoho l) Sex Assigned at Date Recorded Not on file documented as of this encounter Last Filed Vital Signs Vital Sign Reading Time Taken Comments Blood Pressure 138/82 2007 3:45 PM CDT Pulse - - Temperature - - Respiratory Rate - - Oxygen Saturation - - Inhaled Oxygen Concentration - - Weight 108 kg (238 lb) 2007 3:45 PM CDT Height 180.3 cm (5' 11) 2007 3:45 PM CDT Body Mass Index 33.19 2007 3:45 PM CDT documented in this encounter Progress Notes Maurizio Yost - 2007 4:21 PM CDT Branden Graf is here for evaluation of recetn mild ringing in the ear for the past several months. More noticeable for the past few weeks. No fevers, no chils, no recetn URIs sx. No dyspahgia, no sore throat. Has some sensation of fullness in the ear. 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 Breast CA Sister OBJECTIVE: BP 138/82 Ht 5' 11 (1.80m) Wt 238 lbs (108.0kg) Body mass index is 33.21 kg/(m^2). GENERAL alert and no distress. EYES [...] Reflexes normal and symmetric. Sensation grossly WNL.. EARS: both canals clear, no wax, small amount of clear fluid visible behind the TM. ASSESSMENT/PLAN: 388.30 TINNITUS NOS (primary encounter diagnosis) Comment: cause not clear, but suspect eustachian tube dysfunction might play some role Refer to ENT If much better on decongsetant alone, then continue as needed, if not, then see ENT Plan: CONSULT OTOLARYNGOLOGY (ENT), GUAIFEN PSE 600-120 MG OR TB12 381.81 DYSFUNCT EUSTACHIAN TUBE Comment: some degree of eustachian tube dysfunction Discussed the pathophysiology of eustachian tube dysfunciton [...] or fail to improve as anticipated. Plan: documented in this encounter Nursing Notes 2007 3:45 PM CDT >> MARY KAY VALDES 2007 3:52 pm Patient presents with: Ear Problem - Right ear discomfort and ringing x 2 months. Has tried decongestants w/o relief. Initial BP 138/82 Ht 5' 11 (1.80m) Wt 238 lbs (108.0kg) Body mass index is 33.21 kg/(m^2).. BP completed using cuff size: regular Jett Valdes CMA documented in this encounter Plan of Treatment Not on filedocumented as of this encounter Procedures Procedure Name Priority Date/Time Associated Diagnosis Comme nts ZSkyler CONSULT OTOLARYNGOLOGY (ENT) Routine 09/09/2007 Unspecifi ed Tinnitus documented in this encounter Results CONSULT OTOLARYNGOLOGY (ENT) (09/09/2007) Narrative This result has an attachment that is no t available. Maurizio Yost MD REFERRAL documented in this encounter Visit Diagnoses Diagnosis Unspecified tinnitus - Primary Dysfunction of eustachian tube Dysfunction of Eustachian tube documented in this encounter Care Teams Field Marketing Team Leader Relationship Specialty Start Date End Date Maurizio Yost MD PCP - General 06/17/01 [address] [place] [address] documented as of this encounter
--- OUTSIDE RECORDS SUMMARY | 2022-03-02 08:02 | XMS_ITS | Encounter Summary ---
:1955 Author Organization [facility] Address [address] [place] [address]. [place] [address] Care Team Providers Name Role Phone Maurizio Yost MD Primary Care Provider [phone] Encounter Details Date Type Department Care Team Description 06/10/2007 GI Procedure [facility] Aidan Yi MD None [place] [address] [facility] [place] [phone] (Wo rk) Social History Tobacco Use Types Packs/Day Years Used Date Smoking Tobacco: Never Alcohol Use Standard Drinks/Week Comments No 0 (1 standard drink = 0.6 oz pure alcoho l) Sex Assigned at Date Recorded Not on file documented as of this encounter Plan of Treatment Not on filedocumented as of this encounter Procedures Procedure Name Priority Date/Time Associated Diagnosis Comme nts COLONOSCOPY Routine 06/10/2007 7:55 AM Results f or this MEDICAL RECORDS TECHNICIAN procedure are i n the results section . documented in this encounter Results COLONOSCOPY (06/10/2007 7:55 AM MEDICAL RECORDS TECHNICIAN) Component Value Ref Test Analysis Performed At [facility] Method Time Signature COLONOSCOPY [facility] RADIOLOGY [facility] Endoscopy Department RESULTS Patient Name: Branden Rivas n ? Gender: M ? Procedure Date: 06/10/2007 7:5 5 AM ? Date of : 1955 ?Age: 51 ? Admit Type: Outpatient ?Room: 6 ? Note Status: Finalized ? Attending MD: Owen Banuelos MD ? Pause For The Cause: Pause for the cause Procedure: ? Colonoscopy Indications: ? Hig h risk colon CA screening: Colon cancer in mother 60 ? or older Providers: ? Owen Banuelos MD, Charissa Del Castillo , CARL Referring : ?Maurizio Yost MD Medicines: ? Fentanyl IV 100 mcgs, Versed IV 1 mg Complications: ? No immediate complications Procedure: ? - Prior to the procedure, a History and Physical was ? performed, and patient medication allergies were ? reviewed. The patient is competent. The risks and ? benefits of the procedure and the sedation options and ? risks were discussed with the patient. All questions ? were answered and informed consent was obtained. Patient ? identification and proposed procedure were verified by ? the physician in the endoscopy suite. Mental Status ? Examination: alert and oriented. Airway Examination: ? normal oropharyng eal airway and neck mobility. ? Respiratory Examination: clear to auscultation. CV ? Examination: normal. Prophylactic Antibiotics: The ? patient does not require prophylactic antibiotics. Prior ? Anticoagulants: The patient has taken aspirin, last dose ? was 6 days prior to procedure. ASA Grade Assessment: II ? - A patient with mild systemic disease. After reviewing ? the risks and benefits, the patient was deemed in ? satisfactory condition to undergo the procedure. The ? anesthesia plan was to use minimal sedation / analgesia ? (anxiolysis). Immediately prior to administration of ? medications, the patient was re-assessed for adequacy to ? receive sedatives. The heart rate, respiratory rate, ? oxygen sa turations, blood pressure, adequacy of ? pulmonary ventilation, and response to care were ? monitored throughout the procedure. The physical status ? of the patient was re-assessed after the procedure. ? After obtaining informed consent, the colonoscope was ? passed under direct vision. Throughout the procedure, ? the patie nt's blood pressure, pulse, and oxygen ? saturations were monitored continuously. The ? [id number] was introduced through the ? anus and advanced to th e cecum, identified by ? appendiceal orifice & IC valve. The colonoscopy was ? performed with ease. The patient tolerated the procedure ? well. The quality of the prep was excellent. The prep ? was adequate to identify polyps. Scope insertion time ? was 12 minutes. Scope withdrawal time was 8 minutes. ? Findings: ? The perianal and digital rectal examinations were nor mal. Pertinent ? negatives include normal sphincte r tone, no palpable rectal lesions and ? no anal lesion or abnormality was detected. A few sma ll-mouthed ? diverticula were foun d in the sigmoid colon and in the descending colon. ? Otherwise normal colon from the a nus (including rectal retroflexion) to ? the base of the cecum. ? Impression: ?- Diverticulos is sigmoid colon and descending colon. ? - The exam was otherwis e normal to the cecum. Recommendation: ?- Discharge patient to home (ambulat ory). ? - High bulk, high fluid diet. ? - Follow up with Dr. Yost as planned and get annual ? FOBT (fecal occult blood test ). ? - Repeat colonoscopy for screening purposes in 5 years ? or PRN sooner. ? - The findings and recommendations were discussed with ? the patient. ? Owen Banuelos M.D. Owen Banuelos MD Signed Date: 06/10/2007 9:00 AM Number of Addenda: 0 I was physically present for the entire viewing portion of t he exam. Note initiated on 06/10/2007 7:55 AM COLONOSCOPY RADIOLOGY RESULTS Specimen (Source) Anatomical Collection Method Collection Time Re ceived Time Location / / Volume Laterality 06/10/2007 7:55 AM MEDICAL RECORDS TECHNICIAN Aidan Yi MD PROCEDURES Performing Organization Address City/State/ZIP Code Phon e Number RADIOLOGY RESULTS documented in this encounter Visit Diagnoses Not on filedocumented in this encounter Care Teams Loan Consultant Relationship Specialty Start Date End Date Maurizio Yost MD PCP - General 06/17/01 [address] [place] [address] documented as of this encounter
--- OUTSIDE RECORDS SUMMARY | 2022-03-02 08:02 | XMS_ITS | Encounter Summary ---
:1955 Author Organization [place] Address [facility] [place] [address] Care Team Providers Name Role Phone Maurizio Yost MD Primary Care Provider [phone] Encounter Details Date Type Department Care Team Description 09/12/2009 Orders Only [facility] HYP ERLIPIDEMIA NEC/NOS; [place] Dysmetabo lic Syndrome X; Laboratory Hyperglycemia [address] [phone] Social History Tobacco Use [...] Priority Date/Time Associated Diagnosis Comme nts HCL LIPID PANEL, Routine 09/12/2009 7:37 AM HYPERLIPIDEM IA NEC/NOS Results for this REFLEX TO DIRECT CDT Dysmetabolic Syndrome pr ocedure are in LDL X the results Hyperglycemia section. HCL HEMOGLOBIN Routine 09/12/2009 7:37 AM HYPERLIPIDEMI A NEC/NOS Results for this NONLAB CDT Dysmetabolic Syndrome proced ure are in X the results Hyperglycemia section. HCL BASIC METABOLIC Routine 09/12/2009 7:37 AM HYPERLIPI DEMIA NEC/NOS Results for this PANEL CDT Dysmetabolic Syndrome proced ure are in X the results Hyperglycemia section. HCL GLYCATED Routine 09/12/2009 7:37 AM Dysmetabolic Syndrome Results for this HEMOGLOBIN CDT X procedure are in Hyperglycemia the results section. HCL ALT Routine 09/12/2009 7:37 AM HYPERLIPIDEMI A NEC/NOS Results for this CDT Dysmetabolic Syndrome proced ure are in X the results Hyperglycemia section. HCL AST Routine 09/12/2009 7:37 AM HYPERLIPIDEMI A NEC/NOS Results for this CDT Dysmetabolic Syndrome proced ure are in X the results Hyperglycemia section. documented in this encounter Results HGB (09/12/2009 7:37 AM CDT) athologist Signature Hemoglobin 14.5 13.3 - 17.7 [facility] g/dL CLINIC LAB Specimen Anatomical Collection Method Collection Time Receive d Time (Source) Location / / Volume Laterality 09/12/2009 7:37 AM 0 7:42 CDT AM CDT Maurizio Yost MD LABORATORY Performing Organization Address City/State/ZIP Code Phon e Number [facility] [address] [place] [address] [facility] (ABNORMAL) A.M.A. BASIC METABOLIC PANEL (09/12/2009 7:37 AM CDT) athologist Signature Sodium 140 133 - 144 [place] mmol/L [facility] Potassium 4.5 3.4 - 5.3 [place] mmol/L [facility] Chloride 104 94 - 109 [place] mmol/L [facility] Carbon Dioxide 26 20 - 32 [place] mmol/L [facility] Anion Gap 10 6 - 17 [place] mmol/L [facility] Glucose 115 (H) 60 - 99 [place] mg/dL [facility] Urea Nitrogen 18 7 - 30 [place] mg/dL [facility] Creatinine 0.99 0.66 - [facility] 1.25 mg/dL [facility] Comment: New IDMS-traceable calibration beginning 09/01/07 GFR Estimate 79 >60 mL/min/1.7m2 [place] [facility] GFR Estimate If Black >90 >60 mL/min/1.7m2 [facility] Calcium 9.4 8.5 - 10.4 mg/dL [facility]IN[facility] LAB Specimen Anatomical Collection Method Collection Time Receive d Time (Source) Location / / Volume Laterality 09/12/2009 7:37 AM 0 7:42 CDT AM CDT Maurizio Yost MD LABORATORY Performing Organization Address City/[facility]/ZIP Code Phon e Number [facility] [address] [place] [phone] [facility] ALANINE AMINO (ALT) (SGPT) (09/12/2009 7:37 AM CDT) P athologist Signature ALT 16 0 - 70 U/L [facility] Specimen Anatomical Collection Method Collection Time Receive d Time (Source) Location / / Volume Laterality 09/12/2009 7:37 AM 0 7:42 CDT AM CDT Maurizio Yost MD LABORATORY Performing Organization Address City/[facility]/ZIP Code Phon e Number [facility] [address] [place] [phone] [facility] AST (09/12/2009 7:37 AM CDT) P athologist Signature AST 34 0 - 55 U/L [facility] Specimen Anatomical Collection Method Collection Time Receive d Time (Source) Location / / Volume Laterality 09/12/2009 7:37 AM 0 7:42 CDT AM CDT Maurizio Yost MD LABORATORY Performing Organization Address City/[facility]/ZIP Code Phon e Number [facility] [address] [place] [phone] [facility] (ABNORMAL) HEMOGLOBIN A1C (09/12/2009 7:37 AM CDT) P athologist Signature Hemoglobin A1C 6.2 (H) 4.3 - 6.0 [facility] Specimen Anatomical Collection Method Collection Time Receive d Time (Source) Location / / Volume Laterality 09/12/2009 7:37 AM 0 7:42 CDT AM CDT Maurizio Yost MD LABORATORY Performing Organization Address City/[facility]/ZIP Code Phon e Number [facility] [address] [place] [phone] [facility] LIPID PANEL, REFLEX TO DIRECT LDL (09/12/2009 7:37 AM CDT) P athologist Signature Cholesterol 138 0 - 200 [place] mg/dL [facility] Comment: LDL Cholesterol is the primary guide to therapy. The NCEP recommends further evaluation of: patients with cholesterol <200 mg/dL if additional risk factors are present, cholesterol >240 mg/dL, triglycerides >150 mg/dL, or HDL <40 mg/dL. Triglycerides 134 0 - 150 mg/dL [place] [facility] HDL Cholesterol 43 40 - 110 mg/dL [facility] LDL Cholesterol Calculated 68 0 - 129 mg/dL [facility] Comment: LDL Cholesterol is the primary guide to therapy: LDL-cholesterol goal in high risk patients is <100 mg/dL and in very high risk patients is <70 mg/dL. VLDL-Cholesterol 27 0 - 30 mg/dL [place] [facility] Cholesterol/HDL Ratio 3.2 0.0 - 5.0 [facility] Specimen Anatomical Collection Method Collection Time Receive d Time (Source) Location / / Volume Laterality 09/12/2009 7:37 AM 0 7:42 CDT AM CDT Maurizio Yost MD LABORATORY Performing Organization Address City/State/ZIP Code Phon e Number [facility] [address] [place] [phone] [facility] documented in this encounter Visit Diagnoses Diagnosis HYPERLIPIDEMIA NEC/NOS Other and unspecified hyperlipidemia Dysmetabolic syndrome X Dysmetabolic Syndrome X Hyperglycemia Other abnormal glucose documented in this encounter Care Teams Dairy Farm Manager Relationship Specialty Start Date End Date Maurizio Yost MD PCP - General 06/17/01 [address], [place] [address] documented as of this encounter
--- OUTSIDE RECORDS SUMMARY | 2022-03-02 08:02 | XMS_ITS | Encounter Summary ---
:1955 Author Organization [place] Address [address] [place] [address]. [place] [address] Care Team Providers Name Role Phone Maurizio Yost MD Primary Care Provider [phone] Reason for Visit Reason Comments Lab Result Notice labs drawn on 09/12/09 Ear Problem left ear feels plugged, flon ase ineffective Refill Request Simvastatin Encounter Details Date Type Department Care Team Description 09/18/2009 Office Visit [facility] Maurizio Yost Other and Unspecified Hyperlipidemia (Primary Dx); Clinic Kaden Lux MD ETD (Eustachian Tube Dysfunction) [place] [address] [phone] Social History Tobacco Use Types Packs/Day Years Used Date Smoking Tobacco: Never Alcohol Use Standard Drinks/Week Comments No 0 (1 standard drink = 0.6 oz pure alcoho l) Sex Assigned at Date Recorded Not on file documented as of this encounter Last Filed Vital Signs Vital Sign Reading Time Taken Comments Blood Pressure 126/80 09/18/2009 10:34 AM CDT Pulse 76 09/18/2009 10:34 AM CDT Temperature - - Respiratory Rate - - Oxygen Saturation - - Inhaled Oxygen Concentration - - Weight 102.5 kg (226 lb) 09/18/2009 10:34 AM CDT Height 179.1 cm (5' 10.5) 09/18/2009 10:34 AM CDT Body Mass Index 31.97 09/18/2009 10:34 AM CDT documented in this encounter Progress Notes Maurizio Yost A - 09/18/2009 10:51 AM CDT Branden Graf is a 54 year old male here for follow up of hyperlipidemia. He has been taking his statin cholesterol medication regularly without side effects such as myalgiasor upper abdominal pain, nausea or jaundice. Side effects from medications: NO Review of recent labs shows: HDL 43 09/12/2009 LDL 68 09/12/2009 CHOL 138 09/12/2009 TRIG 134 09/12/2009 Other issues to discuss today: YES 2. recent sensation of fullness in the left ear. No fevers, no chils, no recent URIs. No dyspahgia, no sore throat, no cough. Has some popping and crackling in the ear No balance issues. Has some mildly impaired hearing described as slightly muffled. Past Medical History Diagnosis Date ??? PURE HYPERCHOLESTEROLEM ??? DYSMETABOLIC SYNDROME X ??? ABN BLOOD CHEMISTRY NEC ??? DIVERTICULOSIS OF COLON W/O BLEED 06/10 incidental diverticulosis seen on colonoscopy Past Surgical History Procedure Date ??? No history of surgery Current outpatient prescriptions Medication Sig ??? FLONASE INHA 50 MCG/DOSE NA INHALE 2 SPRAYS IN EACH NOSTRIL ONCE DAILY at bedtime ??? 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 Weight as of this encounter: 226 lb(102.513 kg). GENERAL alert and no distress. EYES conjunctivae/corneas clear. PERRL, EOM's intact HENT: NCAT,oral and posterior pharynx without lesions or erythema, facies symmetric EARS: right cnaal and TM are within normal limits, left ear canal is noraml., small amt of clear fluid behind left TM, no erythema, no purulence. NECK: Neck supple. No LAD, without thyroidmegaly [...] and symmetric. Sensation grossly WNL.. ASSESSMENT/PLAN: 272.4 Other and Unspecified Hyperlipidemia (primary encounter diagnosis) Comment: Stable. Continue current therapy. He has not experienced any significant side effects of this medication. Plan: SIMVASTATIN 40 MG PO TABS 381.81D ETD (Eustachian Tube Dysfunction) Comment: Discussed the pathophysiology of eustachian tube dysfunciton [...] Plan: documented in this encounter Nursing Notes 09/18/2009 10:15 AM CDT >> NENITA SCHMITZ Wed September 18, 2009 10:37 AM Patient presents with: Lab Result Notice - labs drawn on 09/12/09 Ear Problem - left ear feels plugged, flonase ineffective Refill Request - Simvastatin Initial BP 126/80 Pulse 76 Ht 5' 10.5 (1.791 m) Wt 226 lb (102.513 kg) Estimated Body mass index is 31.97 kg/(m^2) as calculated from the following: Height as of this encounter: 5' 10.5(1.791 m). Weight as of this encounter: 226 lb(102.513 kg). BP completed using cuff size: large Signed by Nenita Schmitz LPN documented in this encounter Plan of Treatment Not on filedocumented as of this encounter Visit Diagnoses Diagnosis Other and unspecified hyperlipidemia - P rimary ETD (eustachian tube dysfunction) Dysfunction of Eustachian tube documented in this encounter Care Teams Rim Fire Charger Operator Relationship Specialty Start Date End Date Maurizio Yost MD PCP - General 06/17/01 [address] [place] [address] documented as of this encounter
--- OUTSIDE RECORDS SUMMARY | 2022-03-02 08:02 | XMS_ITS | Encounter Summary ---
:1955 Author Organization [place] Address [facility] [place] [address] Care Team Providers Name Role Phone Maurizio Yost MD Primary Care Provider [phone] Reason for Visit Reason Comments Blood Draw Encounter Details Date Type Department Care Team Description 06/12/2005 Orders Only [facility] HYP ERLIPIDEMIA NEC/NOS; [facility] ABN BLOOD CHEMISTRY NEC ; Laboratory ROUTINE MEDICAL EXAM [address] [address] Social History Tobacco Use Types [...] Associated Diagnosis Comme nts HCL HEMOGLOBIN Routine 06/12/2005 7:48 AM Routine Medical Exam Results for this NONLAB SOFT SUGAR OPERATOR HEAD procedure are i n the results section. HCL PROSTATE SPEC Routine 06/12/2005 7:48 AM Routine Medical E xam Results for this ANTIGEN,SCREEN SOFT SUGAR OPERATOR HEAD procedure are in the results section. HCL GLYCATED Routine 06/12/2005 7:48 AM ABN BLOOD CHEMISTRY Re sults for this HEMOGLOBIN SOFT SUGAR OPERATOR HEAD NEC procedure are in Hyperlipidemia N ec/Nos the results Routine Medical Exam section . HCL AST Routine 06/12/2005 7:48 AM Hyperlipidemi a Nec/Nos Results for this SOFT SUGAR OPERATOR HEAD Routine Medical Exam procedu re are in the results section. HCL CREATININE Routine 06/12/2005 7:48 AM Hyperlipidemi a Nec/Nos Results for this SOFT SUGAR OPERATOR HEAD ABN BLOOD CHEMISTRY procedur e are in NEC the results Routine Medical Exam section . CL AFF A.M.A. LIPID Routine 06/12/2005 7:48 AM Hyperlipi demia Nec/Nos Results for this PANEL SOFT SUGAR OPERATOR HEAD Routine Medical Exam procedu re are in the results section. documented in this encounter Results (ABNORMAL) A.M.A. LIPID PANEL (06/12/2005 7:48 AM SOFT SUGAR OPERATOR HEAD) athologist Signature Cholesterol 170 0 - 200 [place] mg/dL [facility] Comment: LDL Cholesterol is the primary guide to therapy: LDL-cholesterol goal in high risk patients is <100 mg/dL and in very high risk patients is <70 mg/dL. The NCEP recommends further evaluation of: patients with cholesterol <200 mg/dL if additional risk factors are present, cholesterol >240 mg/dL, triglycerides >150 mg/dL, or HDL <40 mg/dL. Triglycerides 187 (H) 0 - 150 mg/dL [facility] HDL Cholesterol 46 40 - 110 mg/dL [facility] LDL Cholesterol Calculated 86 0 - 129 mg/dL [facility] Comment: LDL Cholesterol is the primary guide to therapy: LDL-cholesterol goal in high risk patients is <100 mg/dL and in very high risk patients is <70 mg/dL. VLDL-Cholesterol 37 (H) 0 - 30 mg/dL [place] [facility] Cholesterol/HDL Ratio 3.7 0.0 - 5.0 [facility] Specimen Anatomical Collection Method Collection Time Receive d Time (Source) Location / / Volume Laterality 06/12/2005 7:48 AM 6 7:53 SOFT SUGAR OPERATOR HEAD AM SOFT SUGAR OPERATOR HEAD Maurizio Yost MD LABORATORY Performing Organization Address City/State/ZIP Code Phon e Number [facility] [address] [place] [address] [facility] AST (06/12/2005 7:48 AM SOFT SUGAR OPERATOR HEAD) athologist Signature AST 28 0 - 55 U/L [facility] Specimen Anatomical Collection Method Collection Time Receive d Time (Source) Location / / Volume Laterality 06/12/2005 7:48 AM 6 7:53 SOFT SUGAR OPERATOR HEAD AM SOFT SUGAR OPERATOR HEAD Maurizio Yost MD LABORATORY Performing Organization Address City/State/ZIP Code Phon e Number [facility] [address], [place] [address] [facility] (ABNORMAL) HEMOGLOBIN A1C (06/12/2005 7:48 AM SOFT SUGAR OPERATOR HEAD) P athologist Signature Hemoglobin A1C 6.4 (H) 4.3 - 6.0 [facility] Specimen Anatomical Collection Method Collection Time Receive d Time (Source) Location / / Volume Laterality 06/12/2005 7:48 AM 6 7:53 SOFT SUGAR OPERATOR HEAD AM SOFT SUGAR OPERATOR HEAD Maurizio Yost MD LABORATORY Performing Organization Address City/[facility]/ZIP Code Phon e Number [facility] [address] [place] [phone] [facility] PROSTATE SPEC ANTIGEN,SCREEN (06/12/2005 7:48 AM SOFT SUGAR OPERATOR HEAD) P athologist Signature PSA 1.59 0 - 4 ug/L [facility] Specimen Anatomical Collection Method Collection Time Receive d Time (Source) Location / / Volume Laterality 06/12/2005 7:48 AM 6 7:53 SOFT SUGAR OPERATOR HEAD AM SOFT SUGAR OPERATOR HEAD Maurizio Yost MD LABORATORY Performing Organization Address City/State/ZIP Code Phon e Number [facility] [address] [place] [phone] [place] [facility] HGB (06/12/2005 7:48 AM SOFT SUGAR OPERATOR HEAD) P athologist Signature Hemoglobin 14.8 13.3 - 17.7 [facility] g/dL CLINIC LAB Specimen Anatomical Collection Method Collection Time Receive d Time (Source) Location / / Volume Laterality 06/12/2005 7:48 AM 6 7:53 SOFT SUGAR OPERATOR HEAD AM SOFT SUGAR OPERATOR HEAD Maurizio Yost MD LABORATORY Performing Organization Address City/State/ZIP Code Phon e Number [facility] [address] [place] [phone] [facility] CREATININE (06/12/2005 7:48 AM SOFT SUGAR OPERATOR HEAD) P athologist Signature Creatinine 1.00 0.80 - [facility] 1.50 mg/dL [facility] GFR Estimate 84 >60 [place] mL/min/1.7 [facility] m2 LAB GFR Estimate If >90 >60 [place] Black mL/min/1.7 [facility] m2 LAB Specimen Anatomical Collection Method Collection Time Receive d Time (Source) Location / / Volume Laterality 06/12/2005 7:48 AM 6 7:53 SOFT SUGAR OPERATOR HEAD AM SOFT SUGAR OPERATOR HEAD Maurizio Yost MD LABORATORY Performing Organization Address City/State/ZIP Code Phon e Number [facility] [address] [place] [phone] [facility] documented in this encounter Visit Diagnoses Diagnosis Other and unspecified hyperlipidemia ABN BLOOD CHEMISTRY NEC Other abnormal blood chemistry Routine general medical examination at a health care facility documented in this encounter Care Teams Amortization Clerk Relationship Specialty Start Date End Date Maurizio Yost MD PCP - General 06/17/01 [address] [place] [address] documented as of this encounter
--- OUTSIDE RECORDS SUMMARY | 2022-03-02 08:02 | XMS_ITS | Encounter Summary ---
:1955 Author Organization [place] Address [address] [place] [address]. [place] [address] Care Team Providers Name Role Phone Mauirzio Yost MD Primary Care Provider [phone] Encounter Details Date Type Department Care Team Description 09/03/2010 Orders Only [facility] Hyp erlipidemia LDL goal <130; [facility] ABN BLOOD CHEMISTRY NEC; Laboratory Dysmetabolic syndrome X [address] [phone] Social History Tobacco Use Types Packs/Day Years Used Date Smoking Tobacco: Never Alcohol Use Standard Drinks/Week Comments No 0 (1 standard drink = 0.6 oz pure alcoho l) Sex Assigned at Date Recorded Not on file documented as of this encounter Plan of Treatment Not on filedocumented as of this encounter Procedures Procedure Name Priority Date/Time Associated Diagnosis Comme nts LIPID PROFILE Routine 09/03/2010 7:43 Hyperlipidemia LDL Resul ts for this AM CDT goal <130 procedure are i n the results section. HEMOGLOBIN A1C Routine 09/03/2010 7:43 ABN BLOOD CHEMISTRY Res ults for this AM CDT NEC procedure are in Dysmetabolic syndrome the re sults X section. COMPREHENSIVE Routine 09/03/2010 7:43 Hyperlipidemia LDL Resul ts for this METABOLIC PANEL AM CDT goal <130 procedure ar e in the results section. documented in this encounter Results (ABNORMAL) Comprehensive metabolic panel (09/03/2010 7:43 AM CDT) [facility] Method Time Signature Sodium 141 133 - 144 [place] mmol/L [facility] Potassium 4.3 3.4 - 5.3 [facility] mmol/L [facility] Chloride 103 94 - 109 [place] mmol/L [facility] Carbon Dioxide 28 20 - 32 [place] mmol/L [facility] Anion Gap 10 6 - 17 [place] mmol/L [facility] Glucose 118 (H) 60 - 99 [place] mg/dL [facility] Urea Nitrogen 20 7 - 30 [place] mg/dL [facility] Creatinine 1.02 0.66 - [facility] 1.25 [facility] mg/dL CLINIC LAB GFR Estimate Not Calculated >60 [place] mL/min/1. [facility] 7[facility]2 [facility] LAB GFR Estimate If Not Calculated >60 [place] Black mL/min/1. [facility] 7m2 CLINIC LAB Calcium 9.6 8.5 - [facility] 10.4 [facility] mg/dL CLINIC LAB Bilirubin Total 0.8 0.2 - 1.3 [place] mg/dL [facility] Albumin 4.4 3.3 - 4.9 [place] g/dL [facility] Protein Total 8.1 6.8 - 8.8 [place] g/dL [facility] Alkaline 79 40 - 150 [place] Phosphatase U/L [facility] ALT 38 0 - 70 [place] U/L [facility] AST 36 0 - 55 [place] U/L [facility] Specimen Anatomical Collection Method Collection Time Receive d Time (Source) Location / / Volume Laterality Blood specimen 09/03/2010 7:43 AM 011 7:48 (specimen) CDT AM CDT Maurizio Yost MD LAB - BLOOD ORDERABLES Performing Organization Address City/State/ZIP Code Phon e Number [facility] [address] [place] [address] [facility] (ABNORMAL) Hemoglobin A1c (09/03/2010 7:43 AM CDT) P athologist Signature Hemoglobin A1C 6.2 (H) 4.3 - 6.0 [place] % [facility] Specimen Anatomical Collection Method Collection Time Receive d Time (Source) Location / / Volume Laterality Blood specimen 09/03/2010 7:43 AM 011 7:48 (specimen) CDT AM CDT Maurizio Yost MD LAB - BLOOD ORDERABLES Performing Organization Address City/[facility]/ZIP Code Phon e Number [facility] [address] [place] [phone] [facility] (ABNORMAL) Lipid Profile (09/03/2010 7:43 AM CDT) P athologist Signature Cholesterol 159 0 - 200 [place] mg/dL [facility] Comment: LDL Cholesterol is the primary guide to therapy. The NCEP recommends further evaluation of: patients with cholesterol greater than 200 mg/dL if additional risk facto rs are present, cholesterol greater than 240 mg/dL, triglycerides greater than 1 50 mg/dL, or HDL less than 40 mg/dL. Triglycerides 171 (H) 0 - 150 mg/dL [place] [facility] HDL Cholesterol 48 40 - 110 mg/dL [facility] LDL Cholesterol Calculated 76 0 - 129 mg/dL [facility] Comment: LDL Cholesterol is the primary guide to therapy: LDL-cholesterol goal in high risk patients is <100 mg/dL and in very high risk patients is <70 mg/dL. VLDL-Cholesterol 34 (H) 0 - 30 mg/dL [place] [facility] Cholesterol/HDL Ratio 3.3 0.0 - 5.0 [facility] Specimen Anatomical Collection Method Collection Time Receive d Time (Source) Location / / Volume Laterality Blood specimen 09/03/2010 7:43 AM 011 7:48 (specimen) CDT AM CDT Maurizio Yost MD LAB - BLOOD ORDERABLES Performing Organization Address City/[facility]/ZIP Code Phon e Number [facility] [address] [place] [phone] [facility] documented in this encounter Visit Diagnoses Diagnosis Hyperlipidemia LDL goal <130 Other and unspecified hyperlipidemia ABN BLOOD CHEMISTRY NEC Other abnormal blood chemistry Dysmetabolic syndrome X Dysmetabolic Syndrome X documented in this encounter Care Teams Manufacturing Engineer Machining Relationship Specialty Start Date End Date Maurizio Yost MD PCP - General 06/17/01 [address] [place] [id number] documented as of this encounter
--- OUTSIDE RECORDS SUMMARY | 2022-03-02 08:02 | XMS_ITS | Encounter Summary ---
:1955 Author Organization [place] Address [address] [place] [address]. [place] [address] Care Team Providers Name Role Phone Maurizio Yost MD Primary Care Provider [phone] Reason for Visit Reason Comments Lipids med check and review labs Encounter Details Date Type Department Care Team Description 03/22[facility]2009 [facility]IPIDEM[facility]/NOS; Clinic Kaden Lux MD Dysmetabolic Syndrome X; [place] [address] [phone] Social History Tobacco Use Types Packs/Day Years Used Date Smoking Tobacco: Never Alcohol Use Standard Drinks/Week Comments No 0 (1 standard drink = 0.6 oz pure alcoho l) Sex Assigned at Date Recorded Not on file documented as of this encounter Last Filed Vital Signs Vital Sign Reading Time Taken Comments Blood Pressure 132/82 03/22/2009 3:54 PM MATERIAL MANAGER Pulse 60 03/22/2009 3:54 PM MATERIAL MANAGER Temperature - - Respiratory Rate - - Oxygen Saturation - - Inhaled Oxygen Concentration - - Weight 101.6 kg (224 lb) 03/22/2009 3:54 PM MATERIAL MANAGER Height - - Body Mass Index 31.24 08/10/2008 3:32 PM CDT documented in this encounter Progress Notes Maurizio Yost - 03/22/2009 4:49 PM CST Branden Graf is a 53 year old male here for follow up of hyperlipidemia. He has been taking his statin cholesterol medication regularly without side effects such as myalgiasor upper abdominal pain, nausea or jaundice. Side effects from medications: NO Review of recent labs shows: Lab Test 03/15/09 08/07/08 CHOL 160 187 HDL 50 48 LDL 86 94 TRIG 119 228* CHOLHDLRATIO 3.2 3.9 Other issues to discuss today: YES 2. Has lost 15-20 through diet and exercise. Has lost inches as well. 3. history of elevtaed glucose as well. This has improved as well with lifestyl cahnges. 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 He has not experienced any significant side effects of this medication. Discussed current lipid results, previous results (if [...] of myalgias, rhabdomyolysis, and liver toxicity. Plan: LIPID PANEL, REFLEX TO DIRECT LDL, AST, ALANINE AMINO (ALT) (SGPT), A.M.A. BASIC METABOLIC PANEL, HGB 277.7 Dysmetabolic Syndrome X Comment: doing much better with lifestyle cahnges Plan: LIPID PANEL, REFLEX TO DIRECT LDL, HEMOGLOBIN A1C, AST, ALANINE AMINO (ALT) (SGPT), A.M.A. BASIC METABOLIC PANEL, HGB 790.29K Hyperglycemia Comment: much better. Continue to address this aggresively, add meds if needed. Discussed impaired glucose tolerance, and its part [...] for blood pressure (preferably ARBs and SANTA) as indicated. Will start these as early as needed based other proven ability to delay and modify these risk factors. Plan: LIPID PANEL, REFLEX TO DIRECT LDL, HEMOGLOBIN A1C, AST, ALANINE AMINO (ALT) (SGPT), A.M.A. BASIC METABOLIC PANEL, HGB * Spent greater than 15 minutes with pt , greater than 50% of time was educational and counseling. * Return to see me in 6 months. Please get fasting labs done in the [facility] lab 1-2 days before this appointment. Eat nothing for at least 8 hours prior to having these labs drawn. Call [phone] to schedule both appointments. RIAL MANAGER documented in this encounter Nursing Notes 03/22/2009 3:45 PM CST >> GIOVANA CASTANEDA Fri Mar 22, 2009 3:55 PM Patient presents with: Lipids - med check and review labs Initial BP 132/82 Pulse 60 Wt 224 lb (101.606 kg) Estimated Body mass index is 31.24 kg/(m^2) ascalculated from: Height of 5' 11 (1.803 m) as of 08/10/08 Weight of 224 lb (101.606 kg) as of this encounter. BP completed using cuff size: large Giovana Castaneda RN documented in this encounter Plan of Treatment Not on filedocumented as of this encounter Visit Diagnoses Diagnosis HYPERLIPIDEMIA NEC/NOS Other and unspecified hyperlipidemia Dysmetabolic syndrome X Dysmetabolic Syndrome X Hyperglycemia Other abnormal glucose documented in this encounter Care Teams School Nurse Relationship Specialty Start Date End Date Maurizio Yost MD PCP - General 06/17/01 [address] [place] [address] documented as of this encounter
--- OUTSIDE RECORDS SUMMARY | 2022-03-02 08:02 | XMS_ITS | Encounter Summary ---
:1955 Author Organization [place] Address [address] [place] [address]. [place] [address] Care Team Providers Name Role Phone Maurizio Yost MD Primary Care Provider [phone] Reason for Visit Reason Comments RECHECK cholesterol Encounter Details Date Type Department Care Team Description [facility] (Primary Dx); Clinic Kaden Lux MD DYSMETABOLIC SYNDROME X ; [place] [address] BLOOD CHEMISTRY NEC ; [address] [place] [phone] [phone] Social History Tobacco Use Types Packs/Day Years Used Date Smoking Tobacco: Never Alcohol Use Standard Drinks/Week Comments No 0 (1 standard drink = 0.6 oz pure alcoho l) Sex Assigned at Date Recorded Not on file documented as of this encounter Last Filed Vital Signs Vital Sign Reading Time Taken Comments Blood Pressure 122/80 06/05/2004 3:34 PM AUDIT PARTNER Pulse 72 06/05/2004 3:34 PM AUDIT PARTNER Temperature - - Respiratory Rate - - Oxygen Saturation - - Inhaled Oxygen Concentration - - Weight 102.5 kg (226 lb) 06/05/2004 3:34 PM AUDIT PARTNER Height - - Body Mass Index - - documented in this encounter Progress Notes Maurizio Yost - 06/24/2004 2:20 AM CST Branden Graf is a 48 year old male here for follow up of hyperlipidemia. He has been taking his statin cholesterol medication regularly without side effects such as myalgiasor upper abdominal pain, nausea or jaundice. Side effects from medications: NO Review of recent labs shows: HDL 38 05/28/2004 LDL 93 05/28/2004 CHOL 163 05/28/2004 TRIG 160 05/28/2004 Other issues to discuss today: YES also has gerosn atkins with impaired glucose tolerance and early diabetes mellitus II. has been following diet and exercise recs with good results. ahw lost approx 20-30 lbs since starting these items. A1C 6.2 05/28/2004 A1C 6.0 11/02/2003 A1C 6.5 04/24/2003 A1C 6.3 10/23/2002 Previous Medical History: PURE HYPERCHOLESTEROLEM DYSMETABOLIC SYNDROME X ABN BLOOD CHEMISTRY NEC Review of patient's past surgical history indicates: NO HISTORY OF SURGERY Active Medications as of 06/05/2004: ASPIRIN 81 MG OR TABS, 1 tab po QD (Once per day), Disp: , Rfl: LIPITOR 10 MG OR TABS, 1 tab PO QD (Once per day), Disp: 90, Rfl: 3 No Known Allergies Family History: C.A.D. 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 NO GUNS AT HOME. REVIEW OF SYSTEMS: ENT/MOUTH: negative for congestion, rhinorrhea, PND, ear pain, sore throat RESP: negative for cough, dyspnea, wheezing, hemoptysis CV: negative for chest pain, palpitations, PND, [place], orthopnea, palpitations GI: negative for dysphagia, N/V, pain, melena, diarrhea and constipation OBJECTIVE: BP 122/80 Pulse 72 Wt 226 lbs (102.5kg) HENT: NCAT,oral and posterior pharynx without lesions [...] noted bilaterally in Upper and Lower Extremities ASSESSMENT/PLAN: 272.4 HYPERLIPIDEMIA NEC/NOS (primary encounter diagnosis) [...] of myalgias, rhabdomyolysis, and liver toxicity. Plan: ASPIRIN 81 MG OR TABS, LIPITOR 10 MG OR TABS, A.M.A. LIPID PANEL, AST, HEMOGLOBIN A1C, CREATININE rtc 6 months 277.7 DYSMETABOLIC SYNDROME X Note: Discussed impaired [...] Plan: 790.6 ABN BLOOD CHEMISTRY NEC Note: see above, doing well, start oral agent if A1c creeps higher Plan: HEMOGLOBIN A1C, CREATININE V70.0 ROUTINE MEDICAL EXAM (future labs order only) Note: Plan: ASPIRIN 81 MG OR TABS, A.M.A. LIPID PANEL, AST, HEMOGLOBIN A1C, PROSTATE SPEC ANTIGEN,SCREEN, HGB, CREATININE T PARTNER documented in this encounter Nursing Notes 06/05/2004 3:30 PM CST >> GIOVANA CASTANEDA 06/05/2004 3:34 pm Branden Graf presents for f/u on cholesterol and review labs. Initial BP 122/80 Pulse 72 Wt 226 lbs (102.5kg). BP completed using cuff size: large. Giovana Castaneda RN documented in this encounter Plan of Treatment Not on filedocumented as of this encounter Visit Diagnoses Diagnosis Other and unspecified hyperlipidemia - P rimary DYSMETABOLIC SYNDROME X Dysmetabolic Syndrome X ABN BLOOD CHEMISTRY NEC Other abnormal blood chemistry Routine general medical examination at a health care facility documented in this encounter Care Teams Clinical Molecular Geneticist Relationship Specialty Start Date End Date Maurizio Yost MD PCP - General 06/17/01 [address] [place] [address] documented as of this encounter
--- OUTSIDE RECORDS SUMMARY | 2022-03-02 08:02 | XMS_ITS | Encounter Summary ---
:1955 Author Organization [place] Address [facility] [place] [address] Care Team Providers Name Role Phone Maurizio Yost MD Primary Care Provider [phone] Reason for Visit Reason Comments Blood Draw Encounter Details Date Type Department Care Team Description 05/28/2004 Orders Only [facility] HYP ERLIPIDEMIA NEC/NOS; [facility] ABN BLOOD CHEMISTRY NEC Laboratory [address] [phone] Social History Tobacco Use [...] Priority Date/Time Associated Diagnosis Comme nts HCL GLYCATED Routine 05/28/2004 9:10 AM Abn Blood Chemistry Re sults for this HEMOGLOBIN GAS OPERATOR Nec procedure are in Hyperlipidemia Nec/Nos the r esults section. HCL AST Routine 05/28/2004 9:10 AM Hyperlipidemia Nec/Nos Results for this GAS OPERATOR procedure are i n the results section. CL AFF A.M.A. LIPID Routine 05/28/2004 9:10 AM Hyperlipidemia Nec/Nos Results for this PANEL GAS OPERATOR procedure are i n the results section. documented in this encounter Results AST (05/28/2004 9:10 AM GAS OPERATOR) P athologist Signature AST 31 0 - 55 U/L [facility] Specimen Anatomical Collection Method Collection Time Receive d Time (Source) Location / / Volume Laterality 05/28/2004 9:10 AM 5 9:15 GAS OPERATOR AM GAS OPERATOR Maurizio Yost MD LABORATORY Performing Organization Address City/State/ZIP Code Phon e Number [facility] [address] [place] [phone] [facility] (ABNORMAL) HEMOGLOBIN A1C (05/28/2004 9:10 AM GAS OPERATOR) athologist Signature Hemoglobin A1C 6.2 (H) 4.3 - 6.0 [facility] Specimen Anatomical Collection Method Collection Time Receive d Time (Source) Location / / Volume Laterality 05/28/2004 9:10 AM 5 9:15 GAS OPERATOR AM GAS OPERATOR Maurizio Yost MD LABORATORY Performing Organization Address City/[facility]/ZIP Code Phon e Number [facility] [address] [place] [phone] [facility] (ABNORMAL) A.M.A. LIPID PANEL (05/28/2004 9:10 AM GAS OPERATOR) P athologist Signature Cholesterol 163 0 - 200 [place] mg/dL [facility] Comment: Cholesterol Reference Range: <200 ??The NCEP recommends further ? evaluation of: ? 1. ??Patients with cholesterol ? greater than 200 mg/dL ? if additional risk facto rs ? are present. ? 2. ??All patients with a ? cholesterol greater than ? 240 mg/dL. Triglycerides 160 (H) 0 - 150 mg/dL [facility] HDL Cholesterol 38 (L) >40 mg/dL [facility] LDL Cholesterol Calculated 93 0 - 129 mg/dL [facility] VLDL-Cholesterol 32 (H) 0 - 30 mg/dL [facility] Cholesterol/HDL Ratio 4.2 0.0 - 5.0 [facility] Specimen Anatomical Collection Method Collection Time Receive d Time (Source) Location / / Volume Laterality 05/28/2004 9:10 AM 5 9:15 GAS OPERATOR AM GAS OPERATOR Maurizio Yost MD LABORATORY Performing Organization Address City/State/[facility] Code Phon e Number [facility] [address] [place] [phone] [facility] documented in this encounter Visit Diagnoses Diagnosis Other and unspecified hyperlipidemia Other abnormal blood chemistry documented in this encounter Care Teams Pressfitter Relationship Specialty Start Date End Date Maurizio Yost MD PCP - General 06/17/01 [address] [place] [address] documented as of this encounter
--- OUTSIDE RECORDS SUMMARY | 2022-03-02 08:03 | XMS_ITS | Encounter Summary ---
:1955 Author Organization [place] Address [address] [place] [address]. [place] [address] Care Team Providers Name Role Phone Maurizio Yost MD Primary Care Provider [phone] Reason for Visit Reason Comments Medication Request Encounter Details Date Type Department Care Team Description 08/08/2003 Telephone [facility] Maurizio Oakes Medic ation Request Clinic Kaden Lux MD [facility] [address] [address] [place], [place] [phone] (Wo rk) [phone] Social History Tobacco Use Types Packs/Day Years Used Date Smoking Tobacco: Never Alcohol Use Standard Drinks/Week Comments No 0 (1 standard drink = 0.6 oz pure alcoho l) Sex Assigned at Date Recorded Not on file documented as of this encounter Miscellaneous Notes Telephone Encounter - 08/08/2003 11:59 PM CDT >> SINGH CAIN Fani Aug 09, 2003 3:22 PM pt advised. >> MAURIZIO YOST Fani Aug 09, 2003 1:38 AM If his sx. went totally away while off the lipitor, then it may be a cause. Typically the myalagias from statins will be more diffuse than just the arms. I would consider stopping the lipitor for 2-3 weeks,see what happens. If the sx are no better,t hen it is not likely to be the lipitor. If it is better, it still may not be lipitor. If his sx to begin with were not that bad or limiting, then I would restart the lipitor at the same dose and see if sx return. That should give us our answer. >> DONTE NOBLE WedAug 08, 2003 12:11 PM >> CALL RECEIVED. Contact: W# or H# Pt states he has been on Lipitor for aprox. 2 years and never had any problem until recently he is n oticing shoulders and upper arms ache and feel stiff. He has stopped taking the Lipitor and would li ke direction if needs to make appt or prescribe something else. OK to hold for next week. He does ma il order. documented in this encounter Plan of Treatment Not on filedocumented as of this encounter Visit Diagnoses Not on filedocumented in this encounter Care Teams Chemistry Quality Control Analyst Relationship Specialty Start Date End Date Maurizio Yost MD PCP - General 06/17/01 [address] [place] [address] documented as of this encounter
--- OUTSIDE RECORDS SUMMARY | 2022-03-02 08:03 | XMS_ITS | Encounter Summary ---
:1955 Author Organization [place] Address [address] [place] [address]. [place] [address] Care Team Providers Name Role Phone Maurizio Yost MD Primary Care Provider [phone] Reason for Visit Reason Comments Musculoskeletal Problem right knee pain , only has p ain when kneels, no swelliing or pain with walking Shoulder pain between shoulder blades Encounter Details Date Type Department Care Team Description 07/27/2003 Office Visit [facility] [place] Maurizio Yost [facility] MD GRAY Whelan (Primary Dx) [place] [address] [phone] Social History Tobacco Use Types Packs/Day Years Used Date Smoking Tobacco: Never Alcohol Use Standard Drinks/Week Comments No 0 (1 standard drink = 0.6 oz pure alcoho l) Sex Assigned at Date Recorded Not on file documented as of this encounter Last Filed Vital Signs Vital Sign Reading Time Taken Comments Blood Pressure 126/82 07/27/2003 11:45 AM INCLUSION SPECIAL EDUCATION TEACHER Pulse 60 07/27/2003 11:45 AM INCLUSION SPECIAL EDUCATION TEACHER Temperature - - Respiratory Rate - - Oxygen Saturation - - Inhaled Oxygen Concentration - - Weight 100.2 kg (221 lb) 07/27/2003 11:45 AM INCLUSION SPECIAL EDUCATION TEACHER Height - - Body Mass Index - - documented in this encounter Progress Notes 07/27/2003 11:45 AM INCLUSION SPECIAL EDUCATION TEACHER Branden Graf is here for evaluation of right knee pain for last 3 weeks. Occurred after very li [place]ance [place] ./ noswelling, no erythema. no break away pain. no instbaility. Pa in specificallyl only with kneeling. no theater sign, some pain with stairs. No specific knee injur y in the past. Review of patient's past medical history indicates: PURE HYPERCHOLESTEROLEM Review of patient's past surgical history indicates: HISTORY OF SURGER Y = NONE Meds as of 07/27/2003: LIPITOR 10 MG OR TABS 1 tab PO QD (O nce per day) ASPIRIN 325 MG OR TBEC 1 tab po QD (Once per day) Review of the patient's allergies f inds: No Known Allergies Social History Marital Status: Stephanie mcleod Spouse Name: Years of Education: Number of chil dren: 2 Social History Main Topics Tobacco Use: Never Alcohol Use: No Drug Use: No Sexually Active: Yes Other Topics Concern SEAT B ELT No Comment: educated. Social History Narrative [place] HARD WIRED WITH BATTERIES REP LACED YEARLY. NO GUNS AT HOME. Review of patient's family history indicates: C.A.D. Father Colon CA Mother Diabet es Mother Diabetes Sister Hypertension Mother Breast CA Sister OBJECTIVE: BP 126/82 Pulse 60 Wt 221 lbs (100.2kg) GENERAL healthy, alert and no distress MS: No cyanosis, clubbing or edema noted bilaterally in Upper and Lower Extremities NEUR O: Alert and Oriented x 3, Gait normal. Reflexes normal and symmetric. Sensation grossly WNL.. KNEE: left knee compkltely normal. no patellar crepitus. rigth knee: Knee exam: the injured knee reveals normal exam, no swelling, tenderness, instability; ligaments intact, FROM, negative drawer sign, nega tive pivot-shift, collateral ligaments intact, negative Segundo sign. X-ray is negative for fracture . patellar crepitus and patellar apprehension signs present on rigth knee only. 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 Recommended knee braces with patellar support, NSAIDs prn, and strengthening exe rcises to improve patellar stability. Offered referral to [facility] for PT. pt information sheets given. Plan: RTC prn, call for [facility] referral if no better documented in this encounter Nursing Notes 07/27/2003 11:45 AM CST >> GIOVNAA CASTANEDA 07/27/2003 12:06 pm BP cuff size: regular Giovana Castaneda RN documented in this encounter Plan of Treatment Not on filedocumented as of this encounter Visit Diagnoses Diagnosis Chondromalacia of patella - Primary documented in this encounter Care Teams Primer Charger Relationship Specialty Start Date End Date Maurizio Yost MD PCP - General 06/17/01 [address] [place] [address] documented as of this encounter
--- OUTSIDE RECORDS SUMMARY | 2022-03-02 08:03 | XMS_ITS | Encounter Summary ---
:1955 Author Organization [place] Address [facility] [place] [address] Care Team Providers Name Role Phone Maurizio Yost MD Primary Care Provider [phone] Encounter Details Date Type Department Care Team Description 11/02/2003 Orders Only [facility] BILLY BETES UNCOMPL ADULT-TYPE II; [place] LIPOID ME TABOL DIS NOS Laboratory [address] [phone] Social History Tobacco Use Types Packs/Day Years Used Date Smoking Tobacco: Never Alcohol Use Standard Drinks/Week Comments No 0 (1 standard drink = 0.6 oz pure alcoho l) Sex Assigned at Date Recorded Not on file documented as of this encounter Plan of Treatment Not on filedocumented as of this encounter Procedures Procedure Name Priority Date/Time Associated Comments Diagnosis HCL GLYCATED Routine 11/02/2003 7:40 AM Diabetes Uncompl Resul ts for this HEMOGLOBIN CDT Adult-Type Ii procedure are in the results section. HCL GLUCOSE Routine 11/02/2003 7:40 AM Diabetes Uncompl Resul ts for this CDT Adult-Type Ii procedure are in the results section. HCL AST Routine 11/02/2003 7:40 AM Diabetes Uncompl Resul ts for this CDT Adult-Type Ii procedure are in Lipoid Metabol Dis the resul ts Nos section. HCL CREATININE Routine 11/02/2003 7:40 AM Diabetes Uncompl Res ults for this CDT Adult-Type Ii procedure are in the results section. CL AFF A.M.A. LIPID Routine 11/02/2003 7:40 AM Diabetes Uncomp l Results for this PANEL CDT Adult-Type Ii procedure are in Lipoid Metabol Dis the resul ts Nos section. documented in this encounter Results CREATININE (11/02/2003 7:40 AM CDT) athologist Signature Creatinine 1.10 0.80 - [facility] 1.50 mg/dL [facility] LAB GFR Estimate 76 >60 [facility] mL/min/1.7 [facility] LAB GFR Estimate If >80 >60 [facility] Black mL/min/1.7 [facility] m2 LAB Specimen Anatomical Collection Method Collection Time Receive d Time (Source) Location / / Volume Laterality 11/02/2003 7:40 AM 4 7:44 CDT AM CDT Maurizio Yost MD LABORATORY Performing Organization Address City/[facility]/ZIP Code Phon e Number [facility] [address] [place] [phone] [facility] GLUCOSE (11/02/2003 7:40 AM CDT) athologist Signature Glucose 109 60 - 115 [facility] mg/dL CLINIC LAB Specimen Anatomical Collection Method Collection Time Receive d Time (Source) Location / / Volume Laterality 11/02/2003 7:40 AM 4 7:44 CDT AM CDT Maurizio Yost MD LABORATORY Performing Organization Address City/[facility]/ZIP Code Phon e Number [facility] [address] [place] [phone] [facility] AST (11/02/2003 7:40 AM CDT) athologist Signature AST 25 0 - 55 U/L [facility] Specimen Anatomical Collection Method Collection Time Receive d Time (Source) Location / / Volume Laterality 11/02/2003 7:40 AM 4 7:44 CDT AM CDT Maurizio Yost MD LABORATORY Performing Organization Address City/[facility]/ZIP Code Phon e Number [facility] [address] [place] [phone] [facility] HEMOGLOBIN A1C (11/02/2003 7:40 AM CDT) athologist Signature Hemoglobin A1C 6.0 4.3 - 6.0 [facility] LAB Specimen Anatomical Collection Method Collection Time Receive d Time (Source) Location / / Volume Laterality 11/02/2003 7:40 AM 4 7:44 CDT AM CDT Maurizio Yost MD LABORATORY Performing Organization Address City/[facility] Code Phon e Number [facility] [address] [place] [phone] [facility] (ABNORMAL) A.M.A. LIPID PANEL (11/02/2003 7:40 AM CDT) athologist Signature Cholesterol 211 (H) <200 mg/dL [facility] Comment: Cholesterol Reference Range: <200 ??The NCEP recommends further ? evaluation of: ? 1. ??Patients with cholesterol ? greater than 200 mg/dL ? if additional risk facto rs ? are present. ? 2. ??All patients with a ? cholesterol greater than ? 240 mg/dL. Triglycerides 212 (H) <150 mg/dL [facility] HDL Cholesterol 40 (L) >40 mg/dL [facility] LAB LDL Cholesterol Calculated 129 <130 mg/dL [facility] VLDL-Cholesterol 42 (H) 0 - 30 mg/dL [facility] LAB Cholesterol/HDL Ratio 5.3 (H) 0.0 - 5.0 [facility] Specimen Anatomical Collection Method Collection Time Receive d Time (Source) Location / / Volume Laterality 11/02/2003 7:40 AM 4 7:44 CDT AM CDT Maurizio Yost MD LABORATORY Performing Organization Address [facility] Code Phon e Number [facility] [address] [place] [phone] [facility] documented in this encounter Visit Diagnoses Diagnosis Type II or unspecified type diabetes davis litus without mention of complication, not stated as uncontrolled Unspecified disorder of lipoid metabolis m documented in this encounter Care Teams Bindery Machine Setter/Set Up Operator Relationship Specialty Start Date End Date Maurizio Yost MD PCP - General 06/17/01 [address] [place] [address] documented as of this encounter
--- OUTSIDE RECORDS SUMMARY | 2022-03-02 08:03 | XMS_ITS | Encounter Summary ---
:1955 Author Organization [place] Address [address] [place] [address]. [place] [address] Care Team Providers Name Role Phone Maurizio Yost MD Primary Care Provider [phone] Reason for Referral - Closed Specialty Diagnoses / Procedures Referred By Contact Refer red To Contact Diagnoses Type II or unspecified type diabetes mellitus without mention of complication, not stated as uncontrolled Maurizio Yost MD [address] [address] Referral ID Status Reason Start Date Expiration Date Visits Requ ested Visits Authorized [id number] Closed 12/11/2002 05/02/2011 1 1 Reason for Visit Reason Comments Diabetes Encounter Details Date Type Department Care Team Description 12/11/2002 Telephone [facility] Cosme Yost, Diabetes [place] [address] [place] [address] [phone] [place] [address] [phone] (Wo rk) Social History Tobacco Use Types Packs/Day Years Used Date Smoking Tobacco: Never Alcohol Use Standard Drinks/Week Comments No 0 (1 standard drink = 0.6 oz pure alcoho l) Sex Assigned at Date Recorded Not on file documented as of this encounter Miscellaneous Notes Telephone Encounter - 12/11/2002 11:59 PM CDT >> GIOVANA CASTANEDA Mon Dec 11, 2002 4:23 PM Pt notified. Giovana Castaneda RN >> GIOVANA CASTANEDA Mon Dec 11, 2002 3:18 PM Referral faxed. Left message on answering machine for patient to call back. Giovana Castaneda RN >> MAURIZIO YOST WedDec 11, 2002 1:59 PM Diabetic education classes. Giovana please set up for him or iniitiate referral. thanks. >> GIOVANA DONALDSON WedDec 11, 2002 10:36 AM >> CALL RECEIVED. Contact: Pt seen end of October re: high glucoses it was suggested to him to go through classes for diabetes. Pt now wanting to go. What do you want him to do? Giovana Donaldson LPN documented in this encounter Plan of Treatment Not on filedocumented as of this encounter Procedures Procedure Name Priority Date/Time Associated Diagnosis Comme nts ZZ CONSULT DIABETIC Routine 07/23/2003 Diabetes Uncompl A dult-Type EDUCATION Ii documented in this encounter Results CONSULT DIABETIC EDUCATION (07/23/2003) Narrative This result has an attachment that is no t available. Maurizio Yost MD REFERRAL documented in this encounter Visit Diagnoses Diagnosis Type II or unspecified type diabetes davis litus without mention of complication, not stated as uncontrolled - Primary documented in this encounter Care Teams Supervisor Electronics Testing Relationship Specialty Start Date End Date Maurizio Yost MD PCP - General 06/17/01 [address] [place] [address] documented as of this encounter
--- OUTSIDE RECORDS SUMMARY | 2022-03-02 08:03 | XMS_ITS | Encounter Summary ---
:1955 Author Organization [place] Address [address] [place] [address]. [place] [address] Care Team Providers Name Role Phone Maurizio Yost MD Primary Care Provider Reason for Visit Reason Comments Lipids had labs on Wednesday, needs wr itten rx for mail order Headache cluster TIRADO's any tx. options Encounter Details Date Type Department Care Team Description 10/27/2002 Office Visit [facility] Maurizio Yost DYSMHolden TABOLIC SYNDROME X (Primary Dx); Clinic Kaden Lux MD PURE HYPERCHOLESTEROLEM; [place] [address] [place] [address] MIGRAINE VARIANT W/O MENTN INTRACT [address] [phone] Social History Tobacco Use Types Packs/Day Years Used Date Smoking Tobacco: Never Alcohol Use Standard Drinks/Week Comments No 0 (1 standard drink = 0.6 oz pure alcoho l) Sex Assigned at Date Recorded Not on file documented as of this encounter Last Filed Vital Signs Vital Sign Reading Time Taken Comments Blood Pressure 98/64 10/27/2002 3:30 PM CDT Pulse 76 10/27/2002 3:30 PM CDT Temperature 36.6 ??C (97.9 ??F) 10/27/2002 3:30 PM CDT Respiratory Rate - - Oxygen Saturation - - Inhaled Oxygen Concentration - - Weight 100.7 kg (222 lb) 10/27/2002 3:30 PM CDT Height - - Body Mass Index - - documented in this encounter Progress Notes 10/27/2002 3:30 PM CDT Here for follow-up of lipid labs and recent elevated blood sugars from previous labs checked by Wang Rodriguez in May 2002. Pt generalll yfells well. Has history of cluster headaches typically in fal l and/or psring. Wonders about new treatments. Has been using OTC meds and touging it out. tried d ifferent meds over the years ( doesn't remember which) which did not help or lese were side effect pr oblems. CUrrentl finishing a cycle of TIRADO and wants to gut it out fro now. Not taking OTCmeds now. typicaly TIRADO will apepar liek clock work at 11 pm or so and last for a few hours almost every night. Pain is piercing , unilateral, no visual sx, m,inimial nausea. Review of patient's past medical hist ory indicates: PURE HYPERCHOLESTEROLEM Review of patient's past surgical history indicates: HISTORY OF SURGERY = NONE Meds as of 10/27/2002: ASPIRIN 325 MG OR TBEC 1 tab po QD (Once per day) LIPITOR 10 MG OR TABS 1 tab PO QD (Once per day) Review of patient's allergies indicates: No Known Aller* Social History Marital Sta tus: Spouse Name: Years of Education: Number of children: 2 Social History Main Topics Tobacco Use: Never Alcohol Use: No Drug Use: No Sexually Active: Yes Other Topics Concern SEAT BELT No Comment: educated. Social History Narrative [place] HARD WIRED WITH [employer] REPLACED YEARLY. NO GUNS AT HOME. Review of patient's family history indicates: C.A.D. Father Colon CA Mother Diabetes Mother Diabetes Sister Hypertension Mother Breast CA S ister OBJECTIVE: BP 98/64 Pulse 76 Temp 97.9 Temp Src: Oral Wt 222 lbs (10 0.699 kg) exam deffered today ASSESSMENT/PLAN: 277.7 DYSMETABOLIC SYNDROME X (primary encounter di agnosis) Note: Discussed at length the significane of his metabloic profile with elevated lipds and e [id number]. Will enbark opn aggressive diet changes emphasizing low fat and low simple carbs. ALso emphasized imprtoance of exercise regularly. rechek labs in 6 months, titrate medsas needed. Plan: HEMOGLOBIN A1C, AST, CK, TOTAL, A.M.A. BASIC METABOLIC PANEL RTC 6 months 272.0 PURE HY PERCHOLESTEROLEM Note: Discussed current cholesterol guidelines according NCEP, including more strict LDL goals (LDL < 100)for those with PVD, CAD, and diabetes. TGs are elevated, but LDL OK> contine u curretn med fro now,m see what lofestyl brings. Add niaspans if needed. Plan: HEMOGLOBIN A1C, AST, CK, TOTAL, A.M.A. BASIC METABOLIC PANEL RCT 6 [facility] labs 346.20 MIGRAINE VARIANT W/O MENTN INTRACT Note: discused at length, pt wanting to defer new mneds fro now., Ifnext time OTC meds not helpful (timed dosing prior to known sx time) then will consier other options inclduign pre dnisone, O2, etc. Plan: RTCprn krytsyna TIRADO Spent greater than 25 minutes with pt , greater than 5 0% of time was educational and counseling. documented in this encounter Nursing Notes 10/27/2002 3:30 PM CDT >> ROSANA KLINE 10/27/2002 3:37 pm Rosana Klien RN documented in this encounter Plan of Treatment Not on filedocumented as of this encounter Visit Diagnoses Diagnosis Dysmetabolic syndrome X - Primary Dysmetabolic Syndrome X Pure hypercholesterolemia Variants of migraine, not elsewhere clas sified, without mention of intractable migraine without mention of status migra inosus documented in this encounter Care Teams Angledozer Operator Relationship Specialty Start Date End Date Maurizio Yost MD PCP - General 06/17/01 [address] [place] [address] documented as of this encounter
--- OUTSIDE RECORDS SUMMARY | 2022-03-02 08:03 | XMS_ITS | Encounter Summary ---
:1955 Author Organization [place] Address [address] [place] [address]. [place] [address] Care Team Providers Name Role Phone Maurizio Yost MD Primary Care Provider [phone] Reason for Visit Reason Comments Medication Request Encounter Details Date Type Department Care Team Description 05/15/2002 Telephone [facility] Kedar Philippe MD Medication Request [address] [place] [phone] [place], [place] [address] (Wo rk) Social History Tobacco Use Types Packs/Day Years Used Date Smoking Tobacco: Never Alcohol Use Standard Drinks/Week Comments No 0 (1 standard drink = 0.6 oz pure alcoho l) Sex Assigned at Date Recorded Not on file documented as of this encounter Miscellaneous Notes Telephone Encounter - 05/15/2002 11:59 PM EMERGENCY ROOM RN >> KELLY GIBBONS WedMay 22, 2002 12:28 PM Cannot close encouter. Need to OK or deny medication. Kelly Gibbons RN >> SUSAN NIÑO Mon May 15, 2002 11:45 AM Pt. contacted and advised to contact their pharmacy. Susan Niño R.N. >> KEDAR PHILIPPE WedMay 15, 2002 10:27 AM must go through pharmacy - not triage. >> KELLY GIBBONS WedMay 15, 2002 10:15 AM >> CALL RECEIVED. Contact: documented in this encounter Plan of Treatment Not on filedocumented as of this encounter Visit Diagnoses Not on filedocumented in this encounter Care Teams Billing Supervisor Relationship Specialty Start Date End Date Maurizio Yost MD PCP - General 06/17/01 [address] [place] [address] documented as of this encounter
--- OUTSIDE RECORDS SUMMARY | 2022-03-02 08:03 | XMS_ITS | Encounter Summary ---
:1955 Author Organization [place] Address [address] [place] [address]. [place] [address] Care Team Providers Name Role Phone Maurizio Yost MD Primary Care Provider [phone] Reason for Visit Reason Comments Lab Result Notice labs drawn 11-02-03 Encounter Details Date Type Department Care Team Description 11/15/2003 Office Visit [facility] Maurizio Yost HYPER LIPIDEMIA NEC/NOS; Clinic Kaden Lux MD ABN BLOOD CHEMISTRY NEC; [place] [address] ROTATOR CUFF SYND NOS [address] [address] [phone] Social History Tobacco Use Types Packs/Day Years Used Date Smoking Tobacco: Never Alcohol Use Standard Drinks/Week Comments No 0 (1 standard drink = 0.6 oz pure alcoho l) Sex Assigned at Date Recorded Not on file documented as of this encounter Last Filed Vital Signs Vital Sign Reading Time Taken Comments Blood Pressure 118/64 11/15/2003 4:15 PM CDT Pulse 72 11/15/2003 4:15 PM CDT Temperature - - Respiratory Rate - - Oxygen Saturation - - Inhaled Oxygen Concentration - - Weight 102.5 kg (226 lb) 11/15/2003 4:15 PM CDT Height - - Body Mass Index - - documented in this encounter Progress Notes 11/15/2003 4:15 PM CDT Branden Graf is a 48 year old male here for follow up of lipids and dysmetabolic syndrome. [place] ing meds without side effecst . intiallly thought to ahamy musausnoreen achign in upper arms. Stoppe d taking the med since 08/04 with no improvement. Did not restart the lipitor. Mopst recent labs: HD L 40 11/02/2003 LDL 129 11/02/2003 CHOL 211 11/02/2003 TRIG 212 2003 Also complains of pain in rigth shoulde as well with rotation, abduction and impingemtn type s ymptoms. Review of patient's past medical history indicates: PURE HYPERCHOLESTEROLEM Impaired glucose tolerance Dysmetabolic syndrome Review of patient's pas t surgical history indicates: HISTORY OF SURGERY = NONE Meds as o f 11/15/2003: ASPIRIN 81 MG OR TABS 1 tab po QD (Once per day) Review of the patient's allergies fi nds: No Known Allergies Review of patient's family history in dicates: C.A.D. Father Colon CA Mot her Diabetes Mother Diabetes Sister Hypertension Mother Breast CA Sister Social History Marital Status: Spou se Name: Years of Education: Number of children: 2 Soc ial History Main Topics Tobacco Use: Never Alcohol Use: No Drug Use: No Sexually Active: Yes Other Topics Concern SEAT BELT No Comment: educated. 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 NO NS AT HOME. REVIEW OF SYSTEMS: ENT/MOUTH: negative for congestion, rhinorrhea, PND, ear pain, sor e throat RESP: negative for cough, dyspnea, wheezing, hemoptysis CV: negative for chest pain, palpita tions, PND, [place], orthopnea, palpitations GI: negative for dysphagia, N/V, pain, melena, diarrhea and constipation. OBJECTIVE: BP 118/64 Pulse 72 Wt 226 lbs (102.5kg) GENERAL healthy, alert and no distress HENT: NCAT,oral and posterior pharynx without lesions or erythema,sinuses nontender, faci es symmetric NECK: Neck supple. No LAD, without thyroidmegaly or JVD., Carotids without bruits. RESP: Clear to ausculation bilaterally without wheezes or crackles. Normal BS in all mccray. CV: RRR gustavo l S1S2 without murmurs, rubs or gallops. PMI normal LYMPH: no cervical lymph adenopathy appreciated GI: NTND, no organomegaly, normal BS in all quadrants, without rebound or guarding MS: No cyanosis, c lubbing or edema noted bilaterally in Upper and Lower Extremities SKIN: no ulcers, lesions or rash NE URO: Alert and Oriented x 3, Gait normal. Reflexes normal and symmetric. Sensation grossly WNL.. SHOU LDER: Shoulder exam shows positive impingement signs are present with pain at high arc of abduction a nd forward flexion on right. ASSESSMENT/PLAN: 272.4 HYPERLIPIDEMIA NEC/NOS Note: Discussed current lipid results, previous results (if available) current guidelines (NCEP) fortreatment and goals for lipids. Discussed lifestyle modification, dietary changes (low fat, low simple carb) and regular ae robic exercise. Discussed the link between dysmetabolic syndrome and impairedglucose tolerance seen in certain patterns of lipids. Briefly discussed medication used for lipid lowering, including the statins are their possible side effects of myalgias, rhabdomyolysis, and liver toxicity. Plan: A.M.A . LIPID PANEL, HEMOGLOBIN A1C, AST restart lipitor 790.6 ABN BLOOD CHEMISTRY NEC Note: Discuss ed impaired glucose tolerance, and its part in the dysmetabolic syndrome. Discussed the progression of impaired glucose tolerance toward diabetes mellitus and the need for agressive interventions now t o delay and prevent this inevitable progression. Discussed the overall risks that dysme tabolic syndr omes/impaired glucose tolerance/syndrome X pose toward increased risks of vascular disease as the ines n reason for agressive intervention now. Will add medications for glucose control (i.e. metformin, g litazones, etc), lipid (e.g. statins), and for blood pressure (preferably ARBs and SANTA) as indicated. Will start these as early as needed based other proven ability to delay and modify these risk facto rs. Plan: HEMOGLOBIN A1C 726.10 ROTATOR CUFF SYND NOS Note: Discussed rotator cuff injuries and con ditions at length with the pt. Reviewed the mechanics of the shoulder and roatotr cuff function. Di scussed conservative treatments such as rest, adjustment of activites involving the shoulder, NSAIDs, physical therapy. if no improvement, then recommend referral to Orthopedics for steroid injection. Plan: RTC prn, otrhopedic referral if no better See patient instruction portion of this clinic note Spent greater than 25 minutes with pt, greater than 50% of time was educational and patent counsel ing. documented in this encounter Nursing Notes 11/15/2003 4:15 PM CDT >> QAMAR HERNANDEZ 11/15/2003 4:33 pm Branden Graf presents for lab results from 11-02-03. Pt stopped Lipitor in August because of shoulder soreness. Shoulder soreness has not resolved, but pt has yet to restart the Lipitor. Initial BP 118/64 Pulse 72 Wt 226 lbs (102.5kg) completed using BP cuff size: large. QAMAR DAVID SALT WASHER documented in this encounter Plan of Treatment Not on filedocumented as of this encounter Visit Diagnoses Diagnosis Other and unspecified hyperlipidemia Other abnormal blood chemistry Disorders of bursae and tendons in shoul aliza region, unspecified documented in this encounter Care Teams Day Trader Relationship Specialty Start Date End Date Maurizio Yost MD PCP - General 06/17/01 [address] [place] [address] documented as of this encounter
--- OUTSIDE RECORDS SUMMARY | 2022-03-02 08:03 | XMS_ITS | Encounter Summary ---
:1955 Author Organization [place] Address [address] [place] [address]. [place] [address] Care Team Providers Name Role Phone Maurizio Yost MD Primary Care Provider [phone] Reason for Visit Reason Comments Physical Encounter Details Date Type Department Care Team Description [facility] Clinic Kaden Diaz MD PURE HYPERCHOLESTEROLEM [place] [address] [place] [address] [place] [address] [place] [address] Social History Tobacco Use Types Packs/Day Years Used Date Smoking Tobacco: Never Alcohol Use Standard Drinks/Week Comments No 0 (1 standard drink = 0.6 oz pure alcoho l) Sex Assigned at Date Recorded Not on file documented as of this encounter Last Filed Vital Signs Vital Sign Reading Time Taken Comments Blood Pressure 120/74 05/05/2002 3:45 PM LEGAL EDITOR Pulse 70 05/05/2002 3:45 PM LEGAL EDITOR Temperature - - Respiratory Rate - - Oxygen Saturation - - Inhaled Oxygen Concentration - - Weight 113.4 kg (250 lb) 05/05/2002 3:45 PM LEGAL EDITOR Height - - Body Mass Index - - documented in this encounter Progress Notes 05/05/2002 3:45 PM LEGAL EDITOR SUBJECTIVE: CC: Branden Graf is a 46 year old male who presents for CPE. HPI: ALSO F/U ON ELEV ATED TRIG'S. INTENDING TO DO WEIGHT LOSS AND DIET. PAST MEDICAL HISTORY: Review o f patient's past medical history indicates: PURE HYPERCHOLESTEROLEM PAST SURGICAL HISTORY: Review of patient's past surgical history indicates: HIST ORY OF SURGERY = NONE CURRENT MEDICATIONS: Current pr escriptions: ASPIRIN 325 MG OR TBEC 1 tab po QD (Once per day) LIPITOR 10 MG OR TABS 1 tab PO QD (Onc e per day) ALLERGIES: Review of patient's allergies indicates: No Known Aller* S OCIAL HISTORY: Social History Marital Status: Spouse Name: Years of Education: Number of children: 2 Social History Tiffany n Topics Tobacco Use: Never Alcohol Use: No Drug Use: No Sexual ly Active: Yes Other Topics Concern SEAT BELT No Comment: educ ated. 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 NO GUNS AT HOME. FAMILY HISTORY: Review of patient's family history indicates: CAD Father Colon CA Mother Diabetes Mother Diabetes Sister Hypertension Mother Breast CA Sister ROS: Otherwise negative in detail with respect to head and neck, ophtho, endocrine, pulmon jayy, cardiovascular, , muscular, skeletal,neurologic, dermatologic, hematologic and psychiatric exc ept as noted per HPI. EXAM: BP 120/74 Pulse 70 Wt 250 lbs (113.399 kg) Overweight. NCAT. TM's pearly christina with nl light reflex b/l. Nares moist and clear without inflammation. Oral MMM, edmundo pharynx clear without tonsillar hypertrophy or exudate. EOMI, VFI, PERRL, anicteric, conjunctivae pi nk. Neck supple without cervical/jugular adenopathy, thyromegaly or thyroid nodularity. Lungs CTA/P , nl excursion, no crackles/wheezes. Cardiac demonstrates nl PMI, nl S1/S2, no murmurs or extra hear t sounds. Carotids are brisk/symmetric with nl upstroke b/l and no bruit. Peripheral pulses in all 4 ext. are brisk/symmetric without LE edema. Abdomen has NABS, ND/NT/S, without HSM or masses. Live r is approx. 6 cm to percussion. No bruits noted or masses palpated. Ext. X 4 reveal no C/C, and th ere is FROM in joints without joint tenderness or swelling. Neuro reveals CN II-XII intact, A&O x 3, strength 5/5 throughout and symmetric, brisk symmetric reflexes at the knees/biceps b/l and grossly intact sensation to light touch throughout. Skin reveals no ulcers, lesions or rash. ASSESSMENT/PL AN: V70.0 ROUTINE MEDICAL EXAM Note: normal. see below. Plan: repeat in one year. 272.0 PURE HYPERC HOLESTEROLEM Plan: A.M.A. LIPID PANEL, ALANINE AMINO (ALT) (SGPT), OFFICE/OUTPT VISIT,EST,LEVL II, GLUCOSE with elevated trig's and FH, recheck for DM. discussed diet and exercise. f/u prn lab results. Note that 15 minutes was spent on acute issues with patient outside of routi ne prevention, greater than 1/2 of which was focused on education. Kedar Philippe M.D. 05/05/2002 documented in this encounter Plan of Treatment Not on filedocumented as of this encounter Visit Diagnoses Diagnosis Routine general medical examination at a health care facility Pure hypercholesterolemia documented in this encounter Care Teams Pre Press Operator Relationship Specialty Start Date End Date Maurizio Yost MD PCP - General 06/17/01 [address] [place] [address] documented as of this encounter
--- OUTSIDE RECORDS SUMMARY | 2022-03-02 08:03 | XMS_ITS | Encounter Summary ---
:1955 Author Organization [place] Address [facility] [place] [address] Care Team Providers Name Role Phone Maurizio Yost MD Primary Care Provider Encounter Details Date Type Department Care Team Description 10/23/2002 Orders Only [facility] PUR E HYPERCHOLESTEROLEM; [facility] BLOOD CHEMISTRY NEC Laboratory [address] [phone] Social History Tobacco Use [...] Date/Time Associated Comments Diagnosis HCL GLYCATED Routine 10/23/2002 8:19 AM Pure Results f or this HEMOGLOBIN CDT Hypercholesterol em procedure are in Abn Blood Chemistry the resu s Nec section. HCL GLUCOSE Routine 10/23/2002 8:19 AM Pure Results f or this CDT Hypercholesterol em procedure are in Abn Blood Chemistry the resu lts Nec section. HCL CK, TOTAL Routine 10/23/2002 8:19 AM Pure Results for this CDT Hypercholesterol em procedure are in Abn Blood Chemistry the resu lts Nec section. HCL AST Routine 10/23/2002 8:19 AM Pure Results f or this CDT Hypercholesterol em procedure are in Abn Blood Chemistry the resu lts Nec section. CL AFF A.M.A. LIPID Routine 10/23/2002 8:19 AM Pure Re sults for this PANEL CDT Hypercholesterol em procedure are in Abn Blood Chemistry the resu lts Nec section. documented in this encounter Results (ABNORMAL) HEMOGLOBIN A1C (10/23/2002 8:19 AM CDT) athologist Signature Hemoglobin A1C 6.3 (H) 4.3 - 6.0 [facility] Specimen Anatomical Collection Method Collection Time Receive d Time (Source) Location / / Volume Laterality 10/23/2002 8:19 AM 3 8:24 CDT AM CDT Maurizio Yost MD LABORATORY Performing Organization Address City/State/ZIP Code Phon e Number [facility] [address] [place] [id number] [place] [facility] GLUCOSE (10/23/2002 8:19 AM CDT) athologist Signature Glucose 108 60 - 115 [facility] mg/dL CLINIC LAB Specimen Anatomical Collection Method Collection Time Receive d Time (Source) Location / / Volume Laterality 10/23/2002 8:19 AM 3 8:24 CDT AM CDT Maurizio Yost MD LABORATORY Performing Organization Address City/State/ZIP Code Phon e Number [facility] [address] [place] [phone] [facility] CK, TOTAL (10/23/2002 8:19 AM CDT) athologist Signature CK Total 157 45 - 300 [place] [facility] U[facility] LAB Specimen Anatomical Collection Method Collection Time Receive d Time (Source) Location / / Volume Laterality 10/23/2002 8:19 AM 3 8:24 CDT AM CDT Maurizio Yost MD LABORATORY Performing Organization Address City/[facility]/ZIP Code Phon e Number [facility] [address] [place] [phone] [place] [facility] AST (10/23/2002 8:19 AM CDT) athologist Signature AST 24 0 - 55 U/L [facility] Specimen Anatomical Collection Method Collection Time Receive d Time (Source) Location / / Volume Laterality 10/23/2002 8:19 AM 3 8:24 CDT AM CDT Maurizio Yost MD LABORATORY Performing Organization Address City/[facility]/ZIP Code Phon e Number [facility] [address] [place] [address] [facility] (ABNORMAL) A.M.A. LIPID PANEL (10/23/2002 8:19 AM CDT) athologist Signature Cholesterol 153 <200 mg/dL [facility] Comment: Cholesterol Reference Range: <200 ??The NCEP recommends further ? evaluation of: ? 1. ??Patients with cholesterol ? greater than 200 mg/dL ? if additional risk facto rs ? are present. ? 2. ??All patients with a ? cholesterol greater than ? 240 mg/dL. Triglycerides 197 (H) <150 mg/dL [facility] HDL Cholesterol 45 >40 mg/dL [facility] LDL Cholesterol Calculated 69 <130 mg/dL [facility] VLDL-Cholesterol 39 (H) 0 - 30 mg/dL [facility] Cholesterol/HDL Ratio 3 0 - 5 [facility] Specimen Anatomical Collection Method Collection Time Receive d Time (Source) Location / / Volume Laterality 10/23/2002 8:19 AM 3 8:24 CDT AM CDT Maurziio Yost MD LABORATORY Performing Organization Address City/State/ZIP Code Phon e Number [facility] [address] [place] [id number] [facility] documented in this encounter Visit Diagnoses Diagnosis Pure hypercholesterolemia Other abnormal blood chemistry documented in this encounter Care Teams Oil Field Pumper Relationship Specialty Start Date End Date Maurizio Yost MD PCP - General 06/17/01 [address] [place] [address] documented as of this encounter
--- OUTSIDE RECORDS SUMMARY | 2022-03-02 08:03 | XMS_ITS | Encounter Summary ---
:1955 Author Organization [place] Address [address] [place] [address]. [place] [address] Care Team Providers Name Role Phone Maurizio Yost MD Primary Care Provider [phone] Reason for Visit Reason Comments Diabetes pt here to discuss treatment options Encounter Details Date Type Department Care Team Description 05/16/[address] [facility] Maurizio Yost DIABHolden ANTNOIO UNCOMPL ADULT-TYPE II (Primary Dx); Clinic Kaden Lux MD LIPOID METABOL DIS NOS [place] [address] [address] [phone] Social History Tobacco Use Types Packs/Day Years Used Date Smoking Tobacco: Never Alcohol Use Standard Drinks/Week Comments No 0 (1 standard drink = 0.6 oz pure alcoho l) Sex Assigned at Date Recorded Not on file documented as of this encounter Last Filed Vital Signs Vital Sign Reading Time Taken Comments Blood Pressure 134/84 05/16/2003 4:15 PM CLINICAL NURSING MANAGER Pulse 58 05/16/2003 4:15 PM CLINICAL NURSING MANAGER Temperature - - Respiratory Rate - - Oxygen Saturation - - Inhaled Oxygen Concentration - - Weight 100.2 kg (221 lb) 05/16/2003 4:15 PM CLINICAL NURSING MANAGER Height - - Body Mass Index - - documented in this encounter Progress Notes 05/16/2003 4:15 PM CLINICAL NURSING MANAGER Branden Graf is a 47 year old male here for follow up of impaired glucose tolerance/Diabetes Davis litus II. In regards specifically to Branden diabetes no unusual symptoms Medication compliance: co mpliant all of the time, Diabetic diet compliance: compliant all of the time, Home accucheks: are p erformed regulary, Diabetic ROS: no polyuria or polydipsia, no chest pain, dyspnea or TIA's, no numbn ess, tingling or pain in extremities Review of patients self blood glucose monitoring shows fasting less than 120 always and post prandial average always less than 160 Diabetic complications: none R eview of patient's past medical history indicates: PURE HYPERCHOLESTEROLEM Review of patient's past surgical history indicates: HISTORY OF SURGERY = NONE Meds as of 05/16/2003: LIPITOR 10 MG OR TABS 1 tab PO QD (Once per day) ASPI RIN 325 MG OR TBEC 1 tab po QD (Once per day) Review of the patient's allergies finds: No Known A llergies Review of patient's family history indicates: C.A.D . Father Colon CA Mother Diabetes Mother Diabetes Sister Hypertension Mother Breast CA Sister Tobacco Use: Never Alcohol Use: No REVIEW of SYSTEM S: ENT/MOUTH: negative for congestion, rhinorrhea, PND, ear pain, sore throat RESP: negative for cou gh, dyspnea, wheezing, hemoptysis CV: negative for chest pain, palpitations, PND, [place], orthopnea, pal pitations GI: negative for dysphagia, N/V, pain, melena, diarrhea and constipation NEURO: negative fo r numbness/tingling, paralysis, incoordination or weakness. OBJECTIVE: BP 134/84 Pulse 58 Wt 22 1 lbs (100.2kg) exam deffered today ASSESSMENT/PLAN: 250.00 DIABETES UNCOMPL ADULT-TYPE II Note: reviewed most recent labs with pt and . discussed all aspect s of diabetic cares. Reviewed th e current recommended treatment goals and guidelines for Diabetes Mellitus according to the ADA. Rev iewed the patients current therapies in this context and encouraged vigorous adherance to the diabeti c diet and absolute medical comliance with any medications. Reviewed expected intervalsfor follow u p appts and labs. Discussed proper footwear and inspection of feet for nonhealign wounds. Plan: RTC 6 month swith labs, If A1C > 6.5, then sill start glucophage. 272.9 LIPOID METABOL DIS NOS Note: S table. Continue current therapy. Discussed current cholesterol guidelines according NCEP, including more strict LDL goals (LDL < 100)for those with PVD, CAD, and diabetes. Plan: LIPITOR 10 MG OR TABS RTC 6 months with labs, titrate meds as needed. Spent greater than 25 minutes with pt and wi fe , greater than 50% of time was educational and counseling. documented in this encounter Nursing Notes 05/16/2003 4:15 PM CST >> GIOVANA CASTANEDA 05/16/2003 4:38 pm BP cuff size: regular Giovana Castaneda RN documented in this encounter Plan of Treatment Not on filedocumented as of this encounter Visit Diagnoses Diagnosis Type II or unspecified type diabetes davis litus without mention of complication, not stated as uncontrolled - Primary Unspecified disorder of lipoid metabolis m documented in this encounter Care Teams Assistant Manager Trainee Relationship Specialty Start Date End Date Maurizio Yost MD PCP - General 06/17/01 [address] [place] [address] documented as of this encounter
--- OUTSIDE RECORDS SUMMARY | 2022-03-02 08:03 | XMS_ITS | Encounter Summary ---
:1955 Author Organization [place] Address [address] [place] [address]. [place] [address] Care Team Providers Name Role Phone Maurizio Yost MD Primary Care Provider [phone] Reason for Visit Reason Comments Medication Request Encounter Details Date Type Department Care Team Description 02/13/2002 Telephone [facility] Kedar Philippe MD Medication Request [address] AT [facility] [phone] [place], [place] [address] (Wo rk) Social History Tobacco Use Types Packs/Day Years Used Date Smoking Tobacco: Never Assessed Sex Assigned at Date Recorded Not on file documented as of this encounter Miscellaneous Notes Telephone Encounter - 02/13/2002 11:59 PM CDT >> LUKE CANDELARIA [facility] Feb 16, 2002 10:31 AM rx sent to pt's home address. >> KEDAR PHILIPPE [facility] Feb 16, 2002 10:23 AM okay for patient to p/u. >> VIKTORIA SANTAMARIA [facility] Feb 13, 2002 3:03 PM >> CALL RECEIVED. Contact: Changed to mail order pharm. Needs written rx and mail to pt. See med sheet. documented in this encounter Plan of Treatment Not on filedocumented as of this encounter Visit Diagnoses Not on filedocumented in this encounter Care Teams Sales And Marketing Manager Relationship Specialty Start Date End Date Maurizio Yost MD PCP - General 06/17/01 [address] [place] [address] documented as of this encounter
--- OUTSIDE RECORDS SUMMARY | 2022-03-02 08:03 | XMS_ITS | Encounter Summary ---
:1955 Author Organization [place] Address [facility] [place] [address] Care Team Providers Name Role Phone Maurizio Yost MD Primary Care Provider [phone] Encounter Details Date Type Department Care Team Description 05/06/2002 Orders Only [facility] PURE HYPER CHOLESTEROLEM Clinic Madeline (Primary Dx) [facility] [address] [address] Social History Tobacco Use Types Packs/Day Years Used Date Smoking Tobacco: Never Alcohol Use Standard Drinks/Week Comments No 0 (1 standard drink = 0.6 oz pure alcoho l) Sex Assigned at Date Recorded Not on file documented as of this encounter Plan of Treatment Not on filedocumented as of this encounter Procedures Procedure Name Priority Date/Time Associated Diagnosis Comme nts HCL GLUCOSE Routine 05/06/2002 9:53 Results for this AM HOT MILL OBSERVER procedure are i n the results section. HCL ALT Routine 05/06/2002 9:52 Pure Hypercholesterolem R esults for this AM HOT MILL OBSERVER procedure are i n the results section. CL AFF A.M.A. Routine 05/06/2002 9:52 Pure Hypercholesterolem Results for this LIPID PANEL AM HOT MILL OBSERVER procedure are i n the results section. documented in this encounter Results (ABNORMAL) GLUCOSE (05/06/2002 9:53 AM HOT MILL OBSERVER) P athologist Signature Glucose 119 (H) 60 - 115 [place] mg/dL [facility] Specimen Anatomical Collection Method Collection Time Receive d Time (Source) Location / / Volume Laterality 05/06/2002 9:53 AM 3 9:58 HOT MILL OBSERVER AM HOT MILL OBSERVER Kedar Philippe MD LABORATORY Performing Organization Address City/[facility]/ZIP Code Phon e Number [facility] [address] [place] [phone] [facility] ALANINE AMINO (ALT) (SGPT) (05/06/2002 9:52 AM HOT MILL OBSERVER) P athologist Signature ALT 52 0 - 70 U/L [facility] Specimen Anatomical Collection Method Collection Time Receive d Time (Source) Location / / Volume Laterality 05/06/2002 9:52 AM 3 9:58 HOT MILL OBSERVER AM HOT MILL OBSERVER Kedar Phliippe MD LABORATORY Performing Organization Address City/[facility]/ZIP Code Phon e Number [facility] [address] [place] [phone] [facility] (ABNORMAL) A.M.A. LIPID PANEL (05/06/2002 9:52 AM HOT MILL OBSERVER) P athologist Signature Cholesterol 194 <200 mg/dL [facility] Comment: Cholesterol Reference Range: <200 ??The NCEP recommends further ? evaluation of: ? 1. ??Patients with cholesterol ? greater than 200 mg/dL ? if additional risk facto rs ? are present. ? 2. ??All patients with a ? cholesterol greater than ? 240 mg/dL. Triglycerides 389 (H) <150 mg/dL [facility] HDL Cholesterol 41 >40 mg/dL [facility] LDL Cholesterol Calculated 75 <130 mg/dL [facility] VLDL-Cholesterol 78 (H) 0 - 30 mg/dL [facility] Cholesterol/HDL Ratio 5 0 - 5 [facility] Specimen Anatomical Collection Method Collection Time Receive d Time (Source) Location / / Volume Laterality 05/06/2002 9:52 AM 3 9:58 HOT MILL OBSERVER AM HOT MILL OBSERVER Kedar Philippe MD LABORATORY Performing Organization Address City/State/ZIP Code Phon e Number [facility] [address] [place] [address] [facility] documented in this encounter Visit Diagnoses Diagnosis Pure hypercholesterolemia - Primary documented in this encounter Care Teams Special Education Coordinator Relationship Specialty Start Date End Date Maurizio Yost MD PCP - General 06/17/01 [address] [place] [address] documented as of this encounter
--- OUTSIDE RECORDS SUMMARY | 2022-03-02 08:03 | XMS_ITS | Encounter Summary ---
:1955 Author Organization [place] Address [address] [address]. [place] [address] Care Team Providers Name Role Phone Maurizio Yost MD Primary Care Provider [phone] Encounter Details Date Type Department Care Team Description 03/23/2002 Abstract [facility] Vin [place], Jennifer boro [address] [phone] Social History Tobacco Use Types Packs/Day Years Used Date Smoking Tobacco: Never Assessed Sex Assigned at Date Recorded Not on file documented as of this encounter Plan of Treatment Not on filedocumented as of this encounter Procedures Procedure Name Priority Date/Time Associated Diagnosis Comme nts ABSTRACT [facility] REPORT Routine 03/24/2002 documented in this encounter Results ABSTRACT [facility] REPORT (03/24/2002) Narrative This result has an attachment that is no t available. Jennifer Durham LABORATORY documented in this encounter Visit Diagnoses Not on filedocumented in this encounter Care Teams Handling Tech Relationship Specialty Start Date End Date Maurizio Yost MD PCP - General 06/17/[address] [address] documented as of this encounter
--- OUTSIDE RECORDS SUMMARY | 2022-03-02 08:03 | XMS_ITS | Encounter Summary ---
:1955 Author Organization [place] Address [facility] [place] [address] Care Team Providers Name Role Phone Maurizio Yost MD Primary Care Provider Encounter Details Date Type Department Care Team Description 04/24/2003 Orders Only [facility] DYS METABOLIC SYNDROME X; [place] PURE HYPE RCHOLESTEROLEM Laboratory [address] [phone] Social History Tobacco Use [...] Associated Diagnosis Comme nts HCL BASIC Routine 04/24/2003 7:35 Dysmetabolic Syn drome X Results for this METABOLIC PANEL AM [facility] Pure Hypercholesterolem p rocedure are in the results section. HCL GLYCATED Routine 04/24/2003 7:35 Dysmetabolic Syn drome X Results for this HEMOGLOBIN AM [facility] Pure Hypercholesterolem proc edure are in the results section. HCL CK, TOTAL Routine 04/24/2003 7:35 Dysmetabolic Syn drome X Results for this AM [facility] [place] Pure Hypercholesterolem proc edure are in the results section. HCL AST Routine 04/24/2003 7:35 Dysmetabolic Syn drome X Results for this AM [facility] [place] Pure Hypercholesterolem proc edure are in the results section. documented in this encounter Results A.M.A. BASIC METABOLIC PANEL (04/24/2003 7:35 AM [facility] [place]) P athologist Signature Sodium 140 133 - 144 [place] mmol/L [facility] Potassium 3.8 3.4 - 5.3 [place] mmol/L [facility] Chloride 105 94 - 109 [place] mmol/L [facility] Carbon Dioxide 26 20 - 32 [place] mmol/L [facility] Anion Gap 9 6 - 17 [place] mmol/L [facility] Glucose 105 60 - 115 [place] mg/dL [facility] Urea Nitrogen 19 5 - 24 [place] mg/dL [facility] Creatinine 1.00 0.80 - [place] 1.50 mg/dL [facility] GFR Estimate >80 >80 mL/min [facility] GFR Estimate If >80 >80 mL/min [place] Black [facility] Calcium 9.4 8.5 - 10.4 [place] mg/dL [facility] Specimen Anatomical Collection Method Collection Time Receive d Time (Source) Location / / Volume Laterality 04/24/2003 7:35 AM 3 7:40 [facility] [place] AM [facility] [place] Maurizio Yost MD LABORATORY Performing Organization Address City/State/ZIP Code Phon e Number [facility] [address] [place] [phone] [facility] CK, TOTAL (04/24/2003 7:35 AM [facility] [place]) athologist Signature CK Total 106 45 - 300 [facility] U/L CLINIC LAB Specimen Anatomical Collection Method Collection Time Receive d Time (Source) Location / / Volume Laterality 04/24/2003 7:35 AM 3 7:40 [facility] [place] AM [facility] Maurizio Yost MD LABORATORY Performing Organization Address City/State/ZIP Code Phon e Number [facility] [address] [place] [phone] [facility] AST (04/24/2003 7:35 AM [facility] [place]) athologist Signature AST 24 0 - 55 U/L [facility] Specimen Anatomical Collection Method Collection Time Receive d Time (Source) Location / / Volume Laterality 04/24/2003 7:35 AM 3 7:40 [facility] [place] AM [facility] Maurizio Yost MD LABORATORY Performing Organization Address City/[facility]/ZIP Code Phon e Number [facility] [address] [place] [phone] [facility] (ABNORMAL) HEMOGLOBIN A1C (04/24/2003 7:35 AM [facility] [place]) P athologist Signature Hemoglobin A1C 6.5 (H) 4.3 - 6.0 [facility] Specimen Anatomical Collection Method Collection Time Receive d Time (Source) Location / / Volume Laterality 04/24/2003 7:35 AM 3 7:40 [facility] [place] AM [facility] Maurizio Yost MD LABORATORY Performing Organization Address City/[facility]/ZIP Code Phon e Number [facility] [address] [place] [phone] [facility] documented in this encounter Visit Diagnoses Diagnosis Dysmetabolic syndrome X Dysmetabolic Syndrome X Pure hypercholesterolemia documented in this encounter Care Teams Driver Starting Gate Relationship Specialty Start Date End Date Maurizio Yost MD PCP - General 06/17/01 [address] [place] [id number] documented as of this encounter
--- OUTSIDE RECORDS SUMMARY | 2022-03-02 08:03 | XMS_ITS | Encounter Summary ---
:1955 Author Organization [place] Address [address] [place] [address]. [place] [address] Care Team Providers Name Role Phone Maurizio Yost MD Primary Care Provider [phone] Reason for Visit Reason Comments Medication Request Encounter Details Date Type Department Care Team Description 07/10/2002 Telephone [facility] Kedar Philippe MD Medication Request [address] AT [facility] [phone] [place], [place] [address] (Wo rk) Social History Tobacco Use Types Packs/Day Years Used Date Smoking Tobacco: Never Alcohol Use Standard Drinks/Week Comments No 0 (1 standard drink = 0.6 oz pure alcoho l) Sex Assigned at Date Recorded Not on file documented as of this encounter Miscellaneous Notes Telephone Encounter - 07/10/2002 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 >> LUZ MARIA SIMON WedJul 10, 2002 3:50 PM No answer at work number. Left message with family member to call back. Dr. Yost mailed out letter and Rx to patient already. Luz Maria Simon RN >> MAURIZIO YOST WedJul 10, 2002 2:02 PM Pt need to be seen about his elevated TGs Make appt to see me in 2-3 months, labs 1-2 days before. I can give resuklts at the appt. Letter sent to pt. >> LUZ MARIA SIMON WedJul 10, 2002 10:01 AM >> CALL RECEIVED. Contact: W [phone] until 4pm, H [phone] Please see previous message 05/15/02. Patient had called requesting written Rx for mail order pharmacy. Patient was told to go through pharmacy for request, Dr. Philippe must not have seen this was a r equest for mail order. Patient needs a written Rx to mail to them. Patient will be transferring c yakovto Dr. Yost. Will you do written Rx for patient due to the miscommunication? When should jordi ent schedule an appointment with you? Patient had a physical and lipids done 05/05. Patient would like to last picker Rx. chart requested Luz Maria Simon RN documented in this encounter Plan of Treatment Not on filedocumented as of this encounter Visit Diagnoses Diagnosis Pure hypercholesterolemia Other abnormal blood chemistry documented in this encounter Care Teams Business Travel Consultant Relationship Specialty Start Date End Date Maurizio Yost MD PCP - General 06/17/01 [address] [place] [address] documented as of this encounter
--- OUTSIDE RECORDS SUMMARY | 2022-03-02 08:04 | XMS_ITS | Clinical Summary ---
:1955 Author Organization [facility] [place] [address] Care Team Providers Name Role Phone Rodriguez Desai MD Primary Care Provider Allergies No known active allergies Medications Medication Sig Dispensed Refills Start Date End Date Status simvastatin (ZOCOR) 40 Take 40 mg by 0 07/24/2021 Active mg tablet mouth at bedtime. metFORMIN (GLUCOPHAGE) Take 500 mg by 0 07/24/2021 Active 500 mg tablet mouth 2 times daily with meals. fish oil-omega-3 fatty Daily 0 Active acids 1,000-340 mg capsule aspirin chewable 81 mg Daily 0 Active chewable tablet Active Problems Not on file Social History Tobacco Use Types Packs/Day Years Used Date Never Smoker Smokeless Tobacco: Never Used Sex Assigned at Date Recorded Not on file Obstetrics History Last Filed Vital Signs Vital Sign Reading Time Taken Comments Blood Pressure 151/91 07/30/2021 9:34 AM CDT Pulse 71 07/30/2021 9:34 AM CDT Temperature - - Respiratory Rate - - Oxygen Saturation 97% 07/30/2021 9:34 AM CDT Inhaled Oxygen Concentration - - Weight 102.5 kg (225 lb 14.4 oz) 07/30/2021 9:34 AM CDT Height - - Body Mass Index - - Plan of Treatment Health Maintenance Due Date Last Done Comments Tdap 08/30/1966 Depression screening for age 12+ 1967 BMI (ht and wt on same day) for age 0408/30/1973 18+ Hepatitis C screening for age 18-79 08/30/1973 Tetanus booster 1975 Colonoscopy through age 75 08/30/2000 Lipids for age 45-75 08/30/2000 Zoster (shingles) series for age 50+ 08/30/2005 (1 of 2) Medicare Wellness for age 65+ 08/30/2020 Pneumococcal series for age 65+ (1 - 08/30/2020 PCV) COVID-19 vaccine series (4 - Booster 05/24/2021 03/29/2021, 08/07/2020, for Moderna series) 07/10/2020 Influenza for age 65+ 01/01/2022 Results Not on filefrom Last 3 Months Insurance Payer Benefit Plan / Subscriber ID Effective Dates Phone Addre ss Type Group MEDICARE PART B MEDICARE PART B [id number] 2020-Presen ATTN: CLAIMS - HB USE ONLY HB ONLY t [address] [place] [address] MEDICARE - PB MEDICARE PB [id number] 2020-Presen ATTN : CLAIMS USE ONLY ONLY t [address] [place] [address] BLUE CROSS BLUE CROSS OF [id number] 2020-Presen [address] [facility] [place] [address] Guarantor Name Account Type Relation to Date of Phone Billing Patient Address [place] Personal/Family Self 1955 [address] ([address]) [address] [place] [address] Care Teams System Support Specialist Relationship Specialty Start Date End Date Rodriguez Desai MD PCP - General Internal Medicine 07/30/211999 [place] [address]
--- OUTSIDE RECORDS SUMMARY | 2022-03-02 08:04 | XMS_ITS | Encounter Summary ---
:1955 Author Care Team Providers Name Role Phone Rodriguez Desai MD Primary Care Provider [phone] Reason for Visit Post Op - Catheter Removal Assessment and Plan Assessment Note 66M with newly-diagnosed high-risk pros collins cancer ([id number], [place] 4+4=8, PSA 12.43) S/p RALP with PLND with Dr. Emilia muller at [facility] 01/07/22 Discussed kegels, 2 sets of 10 reps per day Reviewed surgical pathology cont activity restrictions until 6wks po stop Complete cipro tomorrow f/u with Dr. Brennan 6wks with fir st PSA 1. Malignant tumor of prostate ? PSA, total, serum or plasma Discussion Note: None recorded.Patient educational handouts: No information available. Plan of Care Reminders Provider Appointments Established 10 06/25/2022 Elver Banuelos 10:10AM MD [facility] PSA, Total, Serum or Plasma 01/16/2022 ? Referral None recorded. ? ? Procedures None recorded. ? ? Surgeries None recorded. ? ? Imaging None recorded. ? ? Medications Name Start Date ? ? ciprofloxacin 500 mg tablet 01/16/2022 metformin 500 mg tablet ? TAKE ONE TABLET BY MOUTH TWICE A DAY WITH MEALS sildenafil (pulmonary hypertension) 20 mg tablet ? Take 1 tab by mouth daily. One day per week can take 5 tabs (100 mg) 30-60 minutes prior to sexual activity. simvastatin 40 mg tablet ? TAKE ONE TABLET BY MOUTH AT BEDTIME Medications Administered None recorded. Vitals Height Weight BMI 5 ft 11 in 211 lbs 29.4 kg/m2 Results Lab Results None recorded. Allergies Code Code System Name Reaction Severity Onset NKDA ? ? ? Problems Name Status Onset Date Source ? Malignant Tumor of Prostate Active 11/07/2021 ? Erectile Dysfunction Active 02/23/2022 ? Procedures Date Name Performed by ? 01/21/2022 Prostatectomy Information not avai lable 05/03/2019 Colonoscopy Information not avai lable Vaccine List None recorded. Social History Tobacco Smoking Status Never Smoker What was the date of your most recent tobacco screening? What is your level of alcohol consumption? Occasional Ethnicity Not / What is your level of caffeine consumption? Occasional Race white Are you sexually active? N What is your relationship status? Family History Relation Problem Onset Age of Age Notes Mother Family history of cancer (No Information) N/A (No Notes) Functional Status Unknown. Past Encounters 01/16/2022 Malignant Tumor of Prostate TK Torres: [address] [facility] [place] [address], Ph. History of Present Illness Note: <div>66yo male here today for routine postop visit. S/p RALP with Dr. Brennan at [facility] on 01/07/22. </div><div>
</div><div>Reports he has been doing well at home. Urine has been clear, no issues with baptiste. Minimal pain. Moving his bowels well. Ambulating. No fever/chills/sob </div><div>
</div><div>Surgical pathology:Hussein 3+4</div><div>LN negative </div><div>Margins negative </div> Review of Systems ? Comprehensive General Adult ROS Reported By: Patient Constitutional: Constitutional: no fever, no chills Eyes: Eyes: no dry eyes, no vision change, no irritation Endocrine: Endocrine: no fatigue, no in creased thirst Cardiovascular: Cardiovascular: no chest francheska n, no palpitations Integumentary: Skin: no rashes, no change i n skin color Respiratory: Respiratory: no wheezing, no cough, no shortness of breath Gastrointestinal: Gastrointestinal: no abdomin al pain, no nausea, no vomiting, no constipation, no GERD Musculoskeletal: Musculoskeletal: no neck francheska n, no back pain Neurologic: Neurologic: no tremor, no di zziness, no numbness, no headaches Genitourinary: Genitourinary: no incontinen ce, no difficulty urinating ENMT: Ears: no ear pain. Mouth/Thr oat: no sore throat Allergic/Immunologic: Allergy/Immunologic: no itch ing, no hives Hematologic/Lymphatic: Hematologic/Lymphatic no swo llen glands, no excessive bleeding Psychiatric: Psych: no hallucinations, (n ormal) sleep disturbances: mismatch of sleep / wake aki edule with lifestyle needs Physical Exam ? Notes: <div>Constitutional: general ly well appearing, NAD</div><div>Eyes: no icterus</div><div>ENT: normo cephalic, atraumatic </div><div>Respiratory: breathing unlabored </div><d iv>Cardiovascular: chest wall symmetric </div><div>GI: abd soft, NT, ND; incisions cdi- healing well </div><div>Lymph/Hematologic : no le edema </div><div>Genitourinary: baptiste draining clear urine </div>< div>Skin: well perfused </div><div><div>Musculoskele brant: moves all extremities</div><div>
&l t;/div></div><div>Neurologic: no focal deficits </div><div>Neuropsychiatric: A&Ox3</div>
--- OUTSIDE RECORDS SUMMARY | 2022-03-02 08:04 | XMS_ITS | Encounter Summary ---
:1955 Author Care Team Providers Name Role Phone Rodriguez Desai MD Primary Care Provider [phone] Reason for Visit Malignant tumor of prostate Assessment and Plan Assessment Note 66M [id number] Hussein 4+3=7 prostate ca ncer s/p RALP 01/07/22 (-SMS, 0/6 LN). 1) Prostate cancer - f/u 4 months with PSA 2) ERICH, minimal 3) ED - V20/100, discussed side effects 1. Malignant tumor of prostate ? PSA, serum or plasma 2. Erectile dysfunction ? sildenafil (pulmonary hypertension) 2 0 mg tablet Discussion Note: None recorded.Patient educational handouts: No information available. Plan of Care Reminders Provider Appointments Established 10 06/25/2022 10:10AM Elver Escobedo MD Lab PSA, Serum or Plasma 02/23/2022 [facility] Referral None recorded. ? ? Procedures None [...] BEDTIME Medications Administered None recorded. Vitals Height 5 ft 11 in Results Lab Results Date Name Specimen Result Interpretation Description Value Range Status Address ? 02/23/2022 PSA, Serum or ? Psa <0.04 ng/ml 0-4.0 ? [facility] [address] [facility] [address], [place] [facility] Allergies Code Code System Name Reaction Severity [...] date of your most recent tobacco screening? Ethnicity Not / What is your relationship status? What is your level of alcohol consumption? Occasional Are you sexually active? N What is your level of caffeine consumption? Occasional Race white Family History Relation Problem Onset Age of Age Notes Mother Family history of cancer (No Information) N/A (No Notes) Functional Status Unknown. Past Encounters 02/23/2022 Malignant Tumor of Prostate; Erectile Dy sfunction Elver Escobedo MD: [address] [facility], [address], [place] [address], Ph. History of Present Illness Note: <div>66M with pT2N0 [place] 4+3=7 prostate cancer s/p RALP 01/07/22 (-SMS, 0/6 LN).</div><div>
</div><div>Overall doing well. Initially some hematuria, this has resolved.</div><div>
</div><div>Voiding with good stream. Using 1 safety ppd, almost always dry. Rare ERICH with BM. </div><div>Erections minimal.</div><div>
</div><div>UF: 1/</div><div>Date of continence: 02/23/22</div><div>EF: 5/5</div><div>Pre-op EF: 4/5</div><div>
< /div><div>PSA Results</div><div>02/23/22: <0.04</div> Review of Systems ? Comprehensive General Adult [...] with lifestyle needs Physical Exam ? Notes: <p>General: No acute distres s, well developed/well nourished</p><div>HEENT: Conjunctiva clear, extraocul ar movements intact, normocephalic/atraumatic</di v><div>Resp: Respirations nonlabored, no audible wheeze, symmetric</div><div> Abd: s/nt/nd, no hernia</div><div>Skin: no plaques or lesions</div><div>Neuro: CN intact, normal sensation</div><div>Psych: normal mood and affect</div> <div>
</div><div>
</div>
--- OUTSIDE RECORDS SUMMARY | 2022-03-02 08:04 | XMS_ITS | Encounter Summary ---
:1955 Author Care Team Providers Name Role Phone Rodriguez Desai MD Primary Care Provider [phone] Reason for Visit Malignant tumor of prostate Assessment and Plan Assessment Note 66M with newly-diagnosed high-risk pros collins cancer ([id number], Hussein 4+4=8, PSA 12.43) PSMA PET negative for metastasis. I reviewed the discussion with the patie nt and his about the natural history of high-risk prostate cancer. We talked about the need for staging imaging to evaluate for metastasis. I explained that if he is found to have metastasis, then systemic androgen deprivation treatment will be initiated and although the cancer may be controlled for a number of years it would not be generally considered cur able. As his staging evaluation is negat zaida for metastasis, then I would recommend definitive local treatment with either radical prostatectomy or radiation therapy + ADT. We talked about treatment options for lo calized prostate cancer including surgery and radiation. I explained that surgery and radiation have similar oncologic outcomes but differences in short- and long-term side effects. We talked at length about radical prosta tectomy and pelvic lymphadenectomy, including expected post-operative course and the risk of urinary and sexual side effects. ?I explained that high-risk loc alized prostate cancers have increased r isk of recurrence after treatment and many cases require multimodal therapy beyond surgery or radiation alone. He would like to proceed with surgery. Planning trip to [place] in January. - Ambry germline genetics; due to family h/o cancer and high-risk cancer - schedule RALP + PLND 25 min total time 1. Malignant tumor of prostate Discussion Note: None recorded.Patient educational handouts: No information available. Plan of Care Reminders Provider Appointments Established 10 06/25/2022 10:10AM Elver Escobedo MD Lab None recorded. ? ? Referral None recorded. ? ? Procedures [...] Height Weight BMI 5 ft 11 in 210 lbs 29.3 kg/m2 Results Lab Results None recorded. Allergies Code Code System Name Reaction Severity Onset NKDA ? ? ? Problems Name Status Onset Date Source ? Malignant Tumor of Prostate Active 11/07/2021 ? Erectile Dysfunction Active 02/23/2022 ? Procedures Date Name Performed by ? 01/21/2022 Prostatectomy Information not avai lable 05/03/2019 Colonoscopy Information not avai lable 11/07/2021 PET-CT, Skull Base to Mid-thigh Scan [facility] [address] [place], [place] [address] (Work Place) Vaccine List None recorded. Social History Tobacco [...] (No Notes) Functional Status Unknown. Past Encounters 12/05/2021 Malignant Tumor of Prostate Elver Escobedo MD: [address] [place] [address], Ph. 11/07/2021 Malignant Tumor of Prostate Elver Escobedo MD: [address] [place] [address], Ph. History of Present Illness Note: <div>66M with elevated PSA, here to review results of prostate biopsy.</div><div>
</div><div>Has seen Dr Sargent previously. Lives in [place]. Here with ana PSMA results.</div><div>
</div><div>Biopsy (10/06/21): 11/11 template cores up to Hussein 4+4=8 in 60%, MRI lesion with Gl 3+3=6 in 35% of core</div><div&gt ;
</div><div>LUTS: mod to weak FOS, intermittency, noct x 1</div><div>EF: 4/5</div><div>
</div><div><strong>PSA Results</strong></div><div>08/06/21 12.43</div><div>02/27/21 12.30</div><div>09/27/18 4.49</div><div>
</div><div><strong>Imaging:</strong></div><div>MRI (08/08/21): 32g, 1.0 cm PIRADS 4 lesion at right apex PZ, -EPE</div><div>PSMA PET (11/12/21): focal PSMA uptake in right apex consistent with PIRADS 4 lesion on MRI; no additional PSMA uptake to suggest metastatic disease</div><div>
</div><div>PMH: DM, HL</div><div>PSH: umbilical hernia</div><div>
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 </div><div>Tob:</div><div>EtOH:</div><div>
&lt ;/div><div><strong>FamHx:</strong></div><div>cable rigger- none</div><div>Mom- ?abdominal ca</div><div>BrCa- sister</div><div>
</d iv><div>
</div><div>
</div><div>
</div><div>
</div> Review of Systems ? Comprehensive General [...] with lifestyle needs Physical Exam ? Notes: <div>General: No acute distr ess, well developed/well nourished</div><div>Resp: Respirations nonlabored, no audible wheeze, symmetric</div><div>Psych: normal mood and affect</div><div><b r></div><div>
</div>
--- OUTSIDE RECORDS SUMMARY | 2022-03-02 08:04 | XMS_ITS ---
:1955 Author Care Team Providers Name Role Phone GABRIEL LEONG MD Primary Care Provider [phone] Allergies Code Code System Name Reaction Severity Status Onset NKDA ? Medications Name Status Start Date Stop Date ? ? ceftriaxone 1 gram solution for injection Completed ? 11/07/2021 Take 1 g by injection route. ciprofloxacin 500 mg tablet Active 01/16/2022 Not available metformin 500 mg tablet Active ? Not avai lable TAKE ONE TABLET BY MOUTH TWICE A DAY WITH MEALS oxycodone 5 mg tablet Completed ? 01/16/2022 prednisone 20 mg tablet Completed ? 11/08/19 TAKE ONE TABLET BY MOUTH TWICE A DAY sildenafil (pulmonary hypertension) 20 mg tablet Active ? Not available Take 1 tab by mouth daily. One day per week can take 5 tabs (100 mg) 30-60 minutes prior to sexual activity. simvastatin 40 mg tablet Active ? Not winsome ilable TAKE ONE TABLET BY MOUTH AT BEDTIME Problems Name Status Onset Date Source ? Malignant Tumor of Prostate Active 11/07/2021 ? Erectile Dysfunction Active 02/23/2022 ? Procedures Date Name Performed by ? 01/21/2022 Prostatectomy Information not avai lable 05/03/2019 Colonoscopy Information not avai lable 11/07/2021 PET-CT, Skull Base to Mid-thigh Scan [facility] [address] [place], [place] [address] (Work Place) Results Lab Results Date Name Specimen Result Interpretation Description Value Range Status Address ? 02/23/2022 PSA, Serum or ? Psa <0.04 ng/ml 0-4.0 ? _penryn: [address] [facility] [address] [place] [address] Past Encounters 02/23/2022 Malignant Tumor of Prostate; Erectile Dy sfunction Elver Escobedo MD: [address] [facility], [address], [place] [address], Ph. 01/16/2022 Malignant Tumor of Prostate TK Torres: [address], [place] [address], Ph. 12/05/2021 Malignant Tumor of Prostate Elver Escobedo MD: [address] [place] [address], Ph. 11/07/2021 Malignant Tumor of Prostate Elver Escobedo MD: [address] [place] [address], Ph. 10/06/2021 Raised Prostate Specific Antigen Elver Escobedo MD: [address] [facility], [address], [place] [address], Ph. Social History Tobacco Smoking Status Never Smoker Vaccine List None recorded. Plan of Care Reminders Provider Appointments None recorded. ? ? Lab None recorded. ? ? Referral None recorded. ? ? Procedures None recorded. ? ? Surgeries None recorded. ? ? Imaging None recorded. ? ? Vitals 02/23/2022 02:45PM ESTABLISHED 10 Height 5 ft 11 in 01/16/2022 11:40AM ESTABLISHED 20 Height Weight BMI 5 ft 11 in 211 lbs 29.4 kg/m2 12/05/2021 08:00AM CONSULT Height Weight BMI 5 ft 11 in 210 lbs 29.3 kg/m2 11/07/2021 03:30PM CA TALK Height Weight BMI 5 ft 11 in 210 lbs 29.3 kg/m2
[2022-03-02 09:55] LABS: Albumin* 4.3 g/dL (3.3-5.0)
[2022-03-02 09:56] LABS: Chloride* 106 mmol/L (96-114); Potassium* 4.4 mmol/L (3.6-5.1); Sodium* 138 mmol/L (135-149)
[2022-03-02 09:58] LABS: Aspartate Amino Transferase* 29 U/L (12-35); Bilirubin Total* 0.9 mg/dL (0.1-1.5); Carbon Dioxide* 23 mmol/L (20-32); Cholesterol* 174 mg/dL (90-199); Estimated Glomerular Filt Rate 83 ml/min
[2022-03-02 09:59] LABS: Alanine Aminotransferase* 35 U/L (4-50); Alkaline Phosphatase* 93 U/L (40-150); Blood Urea Nitrogen* 17 mg/dL (7-30); Calcium* 9.6 mg/dL (8.4-10.6); Glucose* 120 mg/dL (60-115); Total Protein* 7.3 g/dL (6.0-8.3); Triglycerides* 172 mg/dL (40-149)
[2022-03-02 10:00] LABS: HDL Cholesterol* 60 mg/dL (>=40); LDL Cholesterol Calculated 80 mg/dL (<100)
[2022-03-02 10:51] LABS: PSA Screen* < 0.06 ng/mL (0.10-4.00)
== END 2022-03-02 07:56 | disposition home or self-care (01) ==
PROVIDERS: PCP Internal Medicine; Visit Provider Internal Medicine
DX: Z00.00 Encounter for general adult medical examination without abnormal findings (principal); E11.9 Type 2 diabetes mellitus without complications; Z13.6 Encounter for screening for cardiovascular disorders; Z12.5 Encounter for screening for malignant neoplasm of prostate
CPT/HCPCS: 80053; 80061; 84153

== ENCOUNTER 2022-04-06 07:59 | Outpatient (CLI) | payer MEDICARE, BC, SELFPAY ==
--- OUTSIDE RECORDS SUMMARY | 2022-04-06 08:12 | XMS_ITS | Encounter Summary ---
:1955 Author Organization [place] Address [address] [facility] [place] [address] Care Team Providers Name Role Phone Maurizio Yost MD Primary Care Provider [phone] Encounter Details Date Type Department Care Team Description 09/04/2011 Orders Only [facility] Hyp erlipidemia LDL goal <130; [place] Dysmetabo lic syndrome X; Laboratory Special screening for malign ant neoplasm of prostate [address] [address] Social History Tobacco Use Types [...] athologist Signature Hemoglobin 14.6 13.3 - 17.7 [facility] g/dL [facility] Specimen Anatomical Collection Method Collection Time Receive d Time (Source) Location / / Volume Laterality Blood specimen 09/04/2011 7:28 AM 012 7:33 (specimen) CDT AM CDT Maurizio Yost MD LAB - BLOOD ORDERABLES Performing Organization Address [facility] Code Phon e Number [facility] [address] [place] [phone] [facility] (ABNORMAL) Hemoglobin A1c (09/04/2011 7:28 AM CDT) athologist Signature Hemoglobin A1C 6.2 (H) 4.3 - 6.0 [facility] Specimen Anatomical Collection Method Collection Time Receive d Time (Source) Location / / Volume Laterality Blood specimen 09/04/2011 7:28 AM 012 7:33 (specimen) CDT AM CDT Maurizio Yost MD LAB - BLOOD ORDERABLES Performing Organization Address [facility] Code Phon e Number [facility] [address] [place] [phone] [facility] Prostate spec antigen screen (09/04/2011 7:28 AM CDT) athologist Signature PSA 1.98 0 - 4 ug/L [facility] Specimen Anatomical Collection Method Collection Time Receive d Time (Source) Location / / Volume Laterality Blood specimen 09/04/2011 7:28 AM 012 7:33 (specimen) CDT AM CDT Maurizio Yost MD LAB - BLOOD ORDERABLES Performing Organization Address [facility]/ZIP Code Phon e Number [facility] [address] [place] [address] [facility] (ABNORMAL) Basic metabolic panel (09/04/2011 7:28 AM CDT) P athologist Signature Sodium 142 133 - 144 [place] mmol/L [facility] Potassium 4.4 3.4 - 5.3 [place] mmol/L [facility] Chloride 104 94 - 109 [facility] mmol/L [facility] Carbon Dioxide 26 20 - 32 [place] mmol/L [facility] Anion Gap 13 6 - 17 [place] mmol/L [facility] Glucose 119 (H) 60 - 99 [place] mg/dL [facility] Urea Nitrogen 20 7 - 30 [place] mg/dL [facility] Creatinine 0.98 0.66 - [facility] 1.25 mg/dL [facility] GFR Estimate 79 >60 [place] mL/min/1.7 [facility] m2 LAB GFR Estimate If >90 >60 [place] Black mL/min/1.7 [facility] m2 LAB Calcium 9.7 8.5 - 10.4 [place] mg/dL [facility] Specimen Anatomical Collection Method Collection Time Receive d Time (Source) Location / / Volume Laterality Blood specimen 09/04/2011 7:28 AM 012 7:33 (specimen) CDT AM CDT Maurizio Yost MD LAB - BLOOD ORDERABLES Performing Organization Address City/[facility]/ZIP Code Phon e Number [facility] [address] [place] [address] [facility] ALT (09/04/2011 7:28 AM CDT) P athologist Signature ALT 25 0 - 70 U/L [facility] Specimen Anatomical Collection Method Collection Time Receive d Time (Source) Location / / Volume Laterality Blood specimen 09/04/2011 7:28 AM 012 7:33 (specimen) CDT AM CDT Maurizio Yost MD LAB - BLOOD ORDERABLES Performing Organization Address City/[facility]/ZIP Code Phon e Number [facility] [address] [place] [address] [facility] AST (09/04/2011 7:28 AM CDT) athologist Signature AST 30 0 - 45 U/L [facility] Specimen Anatomical Collection Method Collection Time Receive d Time (Source) Location / / Volume Laterality Blood specimen 09/04/2011 7:28 AM 012 7:33 (specimen) CDT AM CDT Maurizio Yost MD LAB - BLOOD ORDERABLES Performing Organization Address City/[facility]/ZIP Code Phon e Number [facility] [address] [place] [address] [facility] Lipid Profile (09/04/2011 7:28 AM CDT) athologist Signature Cholesterol 152 0 - 200 [place] mg/dL [facility] Comment: LDL Cholesterol is the primary guide to therapy. The NCEP recommends further evaluation of: patients with cholesterol greater than 200 mg/dL if additional risk facto rs are present, cholesterol greater than 240 mg/dL, triglycerides greater than 1 50 mg/dL, or HDL less than 40 mg/dL. Triglycerides 96 0 - 150 mg/dL [place] [facility] HDL Cholesterol 52 40 - 110 mg/dL [facility] LDL Cholesterol Calculated 81 0 - 129 mg/dL [facility] Comment: LDL Cholesterol is the primary guide to therapy: LDL-cholesterol goal in high risk patients is <100 mg/dL and in very high risk patients is <70 mg/dL. VLDL-Cholesterol 19 0 - 30 mg/dL [place] [facility] Cholesterol/HDL Ratio 2.9 0.0 - 5.0 [facility] Specimen Anatomical Collection Method Collection Time Receive d Time (Source) Location / / Volume Laterality Blood specimen 09/04/2011 7:28 AM 012 7:33 (specimen) CDT AM CDT Maurizio Yost MD LAB - BLOOD ORDERABLES Performing Organization Address City/State/ZIP Code Phon e Number [facility] [address] [place] [phone] [facility] documented in this encounter Visit Diagnoses Diagnosis Hyperlipidemia LDL goal <130 Other and unspecified hyperlipidemia Dysmetabolic syndrome X Dysmetabolic Syndrome X Special screening for malignant neoplasm of prostate documented in this encounter Care Teams Blackjack Pit Boss Relationship Specialty Start Date End Date Maurizio Yost MD PCP - General 06/17/01 [address] [place] [address] documented as of this encounter
--- OUTSIDE RECORDS SUMMARY | 2022-04-06 08:12 | XMS_ITS | Encounter Summary ---
:1955 Author Organization [place] Address [address] [place] [address]. [place] [address] Care Team Providers Name Role Phone Maurizio Yost MD Primary Care Provider [phone] Reason for Visit Diagnostic Imaging PET (Routine) - Pending Review Specialty Diagnoses / Procedures Referred By Contact Refer red To Contact Diagnoses Malignant neoplasm of prostate (H) Elver Brennan Procedures PET PSMA Eyes to Thighs MD [facility] [address] [place] [address] Referral ID Status Reason Start Date Expiration Date Visits V isits Requested Authorized [id number] Pending 11/10/2021 11/10/2022 1 1 Review Encounter Details Date Type Department Care Team Description 11/12/2021 [facility] Is[facility] Brennan ant neoplasm Procedure Imaging Research Elver Banuelos MD of prostate (H) [address] [facility] [place], [place] [address] [address] [facility] [address] [place] [address] Social History Tobacco Use Types Packs/Day Years [...] *HW* documented in this encounter Care Teams Neurophysiological Technician Relationship Specialty Start Date End Date Maurizio Yost MD PCP - General 06/17/01 [address] [place] [address] documented as of this encounter
--- OUTSIDE RECORDS SUMMARY | 2022-04-06 08:12 | XMS_ITS | Encounter Summary ---
:1955 Author Organization [place] Address [facility] [facility] [place] [address] Care Team Providers Name Role Phone Maurizio Yost MD Primary Care Provider [phone] Encounter Details Date Type Department Care Team Description 12/14/2021 Patient M [facility] Marlo Mejia Pre-operat zaida general Self-Triage Virtual Urgent Care MD Vin physical examination [address] [address] [place] [address] [phone] Social History Tobacco Use Types Packs/Day Years [...] the Xpert Xpress SARS-CoV-2 Assay on the [employer] Gene-Xpert Instrument Systems. A dditional information about [...] COVID-19. This test was validated by the [facility]. This lab oratory is certified under the Clinical Laboratory Improvement Amen dments of 1987 (CLIA-88) as qualified to perform high complexity lab oratory testing. Marlo Mejia MD LAB - MICRO GENERAL ORDERABL ES Performing Organization Address City/State/ZIP Code Phon e Number [facility] [place] [address] Diag. Lab [address] [facility], [address] documented in this encounter Visit Diagnoses Diagnosis Pre-operative general physical examinati on Other specified pre-operative examinatio n documented in this encounter Care Teams Conservation Engineer Relationship Specialty Start Date End Date Maurizio Yost MD PCP - General 06/17/01 [address] [place] [address] documented as of this encounter
--- OUTSIDE RECORDS SUMMARY | 2022-04-06 08:12 | XMS_ITS | Encounter Summary ---
:1955 Author Organization [place] Address [address] [place] [address] Care Team Providers Name Role Phone Maurizio Yost MD Primary Care Provider [phone] Reason for Visit Auth/Cert Specialty Diagnoses / Procedures Referred By Contact Refer red To Contact Surgery Diagnoses Prostate cancer (H) Prostate cancer (H) [C61] Sh Periop Services Procedures [facility] LAPAROSCOPY, SURGICAL PROSTATECTOMY, RETROPUBIC RADICAL, W/NERVE SPARING ROBOTIC ASSISTED LAPAROSCOPIC PROSTATECTOMY AND PELVIC LYMPH NODE DISSECTION [address] [place] [address] Phone: Referral ID Status Reason Start Date Expiration Date Visits Requ ested Visits Authorized [id number] 1 1 Encounter Details Date Type Department Care Team Description 01/07/2022 Anesthesia Event [facility] Teofilo Milian MD [facility] ANESTHESIOLOGISTS [facility] [address] [phone] [facility] Bernie Smith, BLOW MACHINE TENDER STARCH SPRAYING PAINTER HELPER [address] [place] [phone] Services [address], [address] [place] [...] Beumer, Fr bennett N, Time: 1255 (created BLOW MACHINE TENDER STARCH SPRAYING PAINTER HELPER BLOW MACHINE TENDER STARCH SPRAYING PAINTER HELPER via procedure documentation); Mask Ventilation: 2; Induction Type: Intravenous; Ease of Intubation: Easy; Technique: Video laryngoscopy; ETT Type: Single; Tube Size: 8 mm; VL Blade Size: Long 4; Grade View: 1; Adjucts: Stylet; Placement Person: PAINTER HELPER; Attempts: 1; Depth: 23 cm Peripheral IV 01/07/22; 1256; 16 G; 01/07/22 1256 by 01/08/22 1220 by BD; Right; Hand; Bernie Smith Foisy, Ann E, RN Alcohol BLOW MACHINE TENDER STARCH SPRAYING PAINTER HELPER Urethral Catheter 01/07/22; 1322; No; 01/07/22 1322 by 01/07/22 1655 by /GI/RESEARCH LABORATORY MANAGER Pelvic Bernadette Singleton Kunsang, T enzin, well control instructor; 16 fr RN Urethral Catheter 01/07/22; 1656; No; 01/07/22 1656 by 01/08/22 1533 by /GI/RESEARCH LABORATORY MANAGER Pelvic Akil Ventura RN Inpatient, Nurse Procedure; [...] Notes Anesthesia Postprocedure Evaluation - Jose, Olivia Moon MD - 01/07/2022 3:29 PM CDT Patient: [...] PM Staff - Anesthesiologist: Olivia Garcia MD PAINTER HELPER: Bernie Smith APRN CRNA Performed By: PAINTER HELPER Consent for Airway Urgency: elective Indications and [...] 2 (SARS-CoV-2) infection ??? Hernia, umbilical ??? MAKAH (hard of hearing) ??? Nasal polyp ??? [...] of anesthetic complications ROS/MED HX ENT/Pulmonary: Comment: [place] (-) sleep apnea Neurologic: (-) no CVA [...] and realistic alternatives discussed. Questions answered and patient/community health representative(s) expressed understanding. - Discussed: - Discussed with: Patient Postoperative Care Pain management: Multi-modal analgesia. PONV prophylaxis: Ondansetron (or other 5HT-3), Dexamethasone or Solumedrol Comments: Olivia Garcia MD, MD documented in this encounter Miscellaneous Notes Anesthesia Care Transfer Note - Guido Le APRN PAINTER HELPER - 01/07/2022 5:54 PM CDT Patient: Branden Graf Procedure: Procedure(s): [...] report on patient's clinical status given to CASTINGS TRIMMER, RN questions answered. Handoff Report: Identifed the [...] ? Anesthesiologist: ??Jose, Bertha Moon MD ? PAINTER HELPER: Bernie Smith APRN CRNA ? Performed By: PAINTER HELPER Consent for Airway ? Urgency: elective Indications [...] Time: 01/07/2022 12:55 PM Olivia Garcia MD [place] ANESTHESIA documented in this encounter Visit Diagnoses [...] mg documented in this encounter Care Teams Manager Performance Relationship Specialty Start Date End Date Maurizio Yost MD PCP - General 06/17/01 [address] [place] [address] documented as of this encounter
--- OUTSIDE RECORDS SUMMARY | 2022-04-06 08:12 | XMS_ITS | Encounter Summary ---
:1955 Author Organization [place] Address [address] [place] [address]. [place] [address] Care Team Providers Name Role Phone Maurizio Yost MD Primary Care Provider [phone] Encounter Details Date Type Department Care Team [...] on filedocumented in this encounter Care Teams Director Of Email Marketing Relationship Specialty Start Date End Date Maurizio Yost MD PCP - General 06/17/01 [address] [place] [address] documented as of this encounter
--- OUTSIDE RECORDS SUMMARY | 2022-04-06 08:12 | XMS_ITS | Encounter Summary ---
:1955 Author Organization [place] Address [facility] [place] [place] [address] Care Team Providers Name Role Phone Maurizio Yost MD Primary Care Provider [phone] Reason for Visit Auth/Cert Specialty Diagnoses / Procedures Referred By Contact Refer red To Contact Surgery Diagnoses Prostate cancer (H) Prostate cancer (H) [C61] Sh Periop Services Procedures [facility] LAPAROSCOPY, SURGICAL PROSTATECTOMY, RETROPUBIC RADICAL, W/NERVE SPARING ROBOTIC ASSISTED LAPAROSCOPIC PROSTATECTOMY AND PELVIC LYMPH NODE DISSECTION [address] [place] [address] Phone: Referral ID Status Reason Start Date Expiration Date Visits Requ ested Visits Authorized [id number] 1 1 Encounter Details Date Type Department Care Team Description 01/07/2022 - [facility], Prostate cancer (H) (Primary Dx); 01/08/2022 Encounter [facility] Elver Banuelos MD Routine general medical examination at a health care facility [facility] [place] [address] [place] [phone] [place] [id number] Social History Tobacco Use Types Packs/Day Years [...] Zaragoza PA-C - 01/08/2022 9:18 AM CDT [facility] Urology Progress Note Assessment & Plan Branden [...] at length. Encouraged to utilize senna and NIB ASSEMBLER miralax given h/o straining with bowel movements. Amie Zaragoza PA-C [facility] Pager: [phone] Office: [phone] Interval History Doing well, no events overnight. [...] mood, and affect normal Amie Zaragoza PA-C [facility] Miranda Pierce LPN - 01/06/2022 12:13 PM CDT NIB ASSEMBLER medications updated by Medication Scribe prior to [...] Medication Sig Last Dose Taking? Auth Provider Legal Administrative Secretary End Date ASPIRIN 81 MG OR TABS [...] bilateral pelvic lymphadenectomy Surgeon: Elver Brennan MD Knife Changer: Tomeka Salter PA-C Date of Procedure: 01/07/22 OPERATIVE INDICATION: Branden Graf is a 66 year old male with prostate cancer. After understanding various management options he elected to undergo today's procedure. Clinical stage: [id number] PSA: 12.43 TAMMI: smooth MRI findings: 1.0 [...] manner. Time out was called. An 16 Croatian Mosier catheter was placed and the bladder was [...] on a double armed needle. An 18 Croatian catheter was placed and the bladder irrigated well. A good watertight, tension free anastasmosis was obtained. Further inspection at this time showed no further b leeding. The string of the Endocatch was then brought out through the umbilical port site. The robotwas then undocked. The laparoscopic ports were removed under vision and the 12 mm case management assistant port wasclosed with an 0 Vicryl using a [employer] device I slightly extended the supraumbilical incision [...] Address City/State/ZIP Code Phon e Number [place]AT[place] [address] Care Lab [address] 1st [...] and gender (Randolph et al., NEJM, DOI: 10.1056/[id number]) Specimen Anatomical Collection Method / Collection Time Recei opal Time (Source) Location / Volume Laterality Blood STRUCTURE OF RIGHT Venipuncture / 01/08/2022 6:56 09/0 12/2021 7:22 UPPER LIMB / Unknown AM CDT AM CDT Unknown Tomeka Salter PA-C LAB - BLOOD ORDERABLES Performing Organization Address City/State/ZIP Code Phon e Number [place] [address] Care Lab [address] 1st [...] City/State/ZIP Code Phon e Number LAB[place]ATORY [place] [facility] [place] [address] Care [address] 1st [...] City/State/ZIP Code Phon e Number [place]AT[place] [place] [address] Care Lab [address] 1st floor, Room 20B (ABNORMAL) Surgical Pathology Exam (01/07/2022 2:24 PM CDT) Component Value Ref Test Analysis Performed At Patholo gist Range Method Time Signature Case Report Surgical Pathology Report ? Case: [id number] ? 01/13/2022 Authorizing Provider: ??Elver Williamson ? Collected: ? 01/07/2022 02:24 PM ? 7:16 PM LABORATOR Y ? MD Vin ? CDT [facility] [place] ?Received: ?01/08/2022 08:37 AM ? [facility] [...] -Prostatic adenocarcinoma, a cinar-type; grade group 3 (Danbury score 4+3 = 7) with greater than [...] Histologic Grade: ? Grade: ?Grade group 3 (Danbury Score 4 + 3 = 7) ? [...] reveal a pale- mayer, soft cut surface. Washing Machine Loader sections of the specimen are submitted in [...] No discrete tumor nodules are noted grossly. Washing Machine Loader sections including the entire posterior aspect are [...] sequentially submitted from apex t o base [id number], thinned section C16-C25 - left posterior, [...] PM LABORATORY testing was CDT completed at [facility] Laboratory Case Images 01/13/2022 7:16 [...] Address City/State/ZIP Code Phon [place] [phone] Care [address] Lab (1st floor, no room number) [place] [address], [facility] Acute Care Lab [address] [...] and gender (Randolph et al., NE, DOI: 10.1056/[id number]) Specimen Anatomical Collection Method / Collection Time Recei opal Time (Source) Location / Volume Laterality Blood STRUCTURE OF RIGHT Venipuncture / 01/07/2022 10:11 10/2021 UPPER LIMB / Unknown AM CDT 10:15 AM CDT Unknown Elver Brennan MD LAB - BLOOD ORDERABLES Performing Organization Address City/State/ZIP [place] [address] Care [address] 1st floor, Room 20B Adult Type and Screen (01/07/2022 10:11 AM CDT) Patholo gist Method Time Signature ABO/RH(D) O NEG 01/07/2022 BLOOD 10:00 AM BANK CDT Antibody Negative Negative 01/07/2022 BLOOD Screen 10:00 AM BANK CDT SPECIMEN [id number] 01/07/2022 BLOOD EXPIRATION 10:00 AM BANK DATE [...] Number BLOOD BANK [address] [place] [address] (ABNORMAL) Glucose (01/07/2022 10:11 AM CDT) athologist [...] Address City/State/ZIP [place] [address] Care Lab [address] 1st floor, [...] Oral, EVERY 4 HOURS PRN, severe p ain (7-10), (pain rating 7-10), Starting on Wed01/07/22 at 1858, Hold oral PRN dose f or analgesic side effects. Notify provider to assess for uncontrolled pain or analg esic side effects. Hold while on IV SILK SCREEN OPERATOR or with regular IV opioid dosing. oxyCODONE (ROXICODONE) tablet 5 mg 5 mg, Oral, EVERY 4 HOURS PRN, other, mo derate pain (pain rating 4-6), Starting on Wed01/07/22 at 1858, Hold oral PRN dose f or analgesic side effects. Notify provider to assess for uncontrolled pain or analg esic side effects. Hold while on IV SILK SCREEN OPERATOR or with regular IV opioid dosing. prochlorperazine [...] 125 (Given - Provider: Bernie Smith APRN CRNA) Routine, 2 g, Intravenous, PRE-OP/PRE-SC OCEDURE, Starting on Wed01/07/22 at 0955, For 1 dose, Give first dose within 1 hour PRIOR to incision. If patient weight is greater than or equal to 120 kg increas e dose to 3 g., Indications: Perioperative Pharmacoprophylaxis, Pre-procedure metFORMIN (GLUCOPHAGE) tablet 500 mg 203 (Given - Provider: Erinn Conley RN) 08 [...] Erinn Conley RN - Reason: IV Infusing) 211 (Not Given - Provider: Erinn cooper RN [...] (New Bag - Provider: Bernie Smith APRN SCRUM PROJECT MANAGER)1640 (Anesthesia Volume Adjustment - Provider: Guido Le APRN SCRUM PROJECT MANAGER)1754 (Anesthesia Volume Adjustment - Provider: Guido Le APRN SCRUM PROJECT MANAGER) at 100 mL/hr, Intravenous, CONTINUOUS, P re-procedure, [...] ic side effects. Hold while on IV SILK SCREEN OPERATOR or with regular IV opioid dosing. oxyCODONE (ROXICODONE) tablet 5 mg(Linked Group 4) 5 mg, Oral, EVERY 4 HOURS PRN, other, mo derate pain (pain rating 4-6), Starting on Wed01/07/22 at 1858, Hold oral PRN dose for analgesic side effects. Notify provider to assess for uncontrolled pain or a nalgesic side effects. Hold while on IV SILK SCREEN OPERATOR or with regular IV o pioid dosing. [...] side effects. Hol d while on IV SILK SCREEN OPERATOR or with regular IV opioid dosing.
Or oxyCODONE (ROXICODONE) tablet 10 mgJump to med 10 mg, Oral, EVERY 4 HOURS PRN, severe p ain, (pain rating 7-10), Starting on Wed01/07/22 at 1858
Hold oral PRN dose for analgesic side effects. Notify provider to assess for uncontrolled pain or analgesic side effects. Hold whil e on IV SILK SCREEN OPERATOR or with regular IV opioid dosing.
Group [...] HOURS PRN, nausea, v omiting, Starting on 01/07/22 at 1858
This is Step 2 of nausea and vomiting management. If nausea not resolved in 15-30 minutes, Notify provider.
documented in this encounter Care Teams It Assistant Relationship Specialty Start Date End Date Maurizio Yost MD PCP - General 06/17/01 [address] [place] [address] documented as of this encounter
--- OUTSIDE RECORDS SUMMARY | 2022-04-06 08:12 | XMS_ITS | Clinical Summary ---
:1955 Author Organization [place] Address [address] [place] [address]. [place] [address] Care Team Providers Name Role Phone Maurizio Yost MD Primary Care Provider Allergies Active Allergy Reactions Severity Noted Date [...] Event Surgery Teofilo Milian MD [place], Bernie Sarabia, MIXING PLACE SUPERVISOR TRACK TEMPLATE MAKER 01/07/2022 Surgery Surgery Mika, ROBOTIC MILLA BROOKLYNN Elver Banuelos MD LAPAROSCOPI C PROSTATECTOMY A ND BILATERAL PELVI C LYMPH NODE DISSECTION 01/07/2022 - Hospital Encounter Med Surg [facility], Prostat e cancer (H) (Primary Dx); 01/08/2022 Elver Banuelos MD Routine gen eral medical examination at a health care facility 01/07/2022 Travel from Last 3 Months Immunizations Name Administration [...] 1955 FIT 1955 FLEX SIG 1955 HEPATITIS C SCREENING 08/30/1973 CMP 09/04/2011 09/03/2010 [...] CDT (H) EDWIN XI, WITH PELVIC LYMPHADENECTOMY ABO/RH TYPE [...] procedure are i n the results section. from Last 3 Months [...] Address City/State/ZIP Code [place] [address] Care Lab [address] 1st [...] and gender (Randolph et al., NEJ, DOI: 10.1056/[id number]) Specimen Anatomical Collection Method / Collection Time Recei opal Time (Source) Location / Volume Laterality Blood STRUCTURE OF RIGHT Venipuncture / 01/08/2022 6:56 09/0 12/2021 7:22 UPPER LIMB / Unknown AM CDT AM CDT Unknown Tomeka Salter PA-C LAB - BLOOD ORDERABLES Performing Organization Address City/State/ZIP Code Phon e Number LABORATORY [facility] [place] [address] Care Lab [address] 1st [...] PM CDT Elver Brennan MD LAB - [facility] POCT Performing Organization Address City/State/ZIP Code Phon [place] [address] Care Lab [address] 1st floor, Room 20B (ABNORMAL) Surgical Pathology Exam (01/07/2022 2:24 PM CDT) Component Value Ref Test Analysis Performed At [facility] gist Range Method Time Signature Case Report Surgical Pathology Report ? Case: [id number] ? 01/13/2022 Authorizing Provider: ??Elver Williamson ? Collected: ? 01/07/2022 02:24 PM ? 7:16 PM LABORATOR Y ? MD Vin ? CDT [facility]ing [facility]: [facility] [place] ?Received: ?01/08/2022 08:37 AM ? [facility] ? Pathologist: ? Sonia Mercer, ? Specimens: ?? A) - Prostate, Fanny Prostatic fat ? B) - Urin jayy Bladder, Posterior bladder neck margin ? C) - Pros collins, PROSTATE AND SEMINAL VESICLES ? D) - Lymp h Node(s), Pelvis, Left ? E) - Lymp h Node(s), Pelvis, Right ? Final A. Soft tissue, periprostatic fat, resection: 01/13/2022 Electronically Diagnosis -Negative for malignancy. 7:16 PM ALECO ASHLEY signed by CDT Sa kristen Mercer B. Prostate, bladder neck margin, biopsy: MD on 01/13/2022 -Negative for malignancy. at 7:16 PM C. Prostate gland, robotic radical prostatectomy: -Prostatic adenocarcinoma, a cinar-type; grade group 3 (Greer score 4+3 = 7) with greater than [...] Histologic Grade: ? Grade: ?Grade group 3 (Greer Score 4 + 3 = 7) ? [...] Gross A(1). Prostate, Fanny Prostatic fat: 01/01 RH Description The specimen is received in formalin, labeled with the patient's name, medical record number and other identifying information designated periprostatic fat. It consists of a 5.0 x 3.0 x 1.0 cm aggrega 7:16 PM LABORATORY te of yellow-mayer, lobulated adipose tissue which is sectioned to reveal a pale- mayer, soft cut surface. Bail Bondsman sections of the specimen are submitted in [...] No discrete tumor nodules are noted grossly. Bail Bondsman sections including the entire posterior aspect are [...] sequentially submitted from apex t o base [id number], thinned section C16-C25 - left posterior, [...] PM LABORATORY testing was CDT completed at [facility] Laboratory Case Images 01/13/2022 [...] CDT AM CDT Unknown Elver Brennan MD [facility] Performing Organization Address City/State/ZIP Code Phon [place] [address] Care Lab [address] Lab (1st floor, no room number) [place] [address], [place] [phone] Acute Care Lab [address] 1st floor, Room 20B ANE AIRWAY ETT PERFORMABLE (01/07/2022 12:55 PM CDT) Narrative Bernie Smith APRN TRACK TEMPLATE MAKER - 01/07/2022 12:55 PM CDT Bernie Smith APRN CRNA ? 01/07/2022 ??1:50 PM Airway ? Patient location during procedure : OR ? Procedure Start/Stop Times: 12:55 PM Staff - ? Anesthesiologist: ??Bertha Garcia MD ? TRACK TEMPLATE MAKER: Bernie Smith APRN CRNA ? Performed By: TRACK TEMPLATE MAKER Consent for Airway ? Urgency: elective Indications [...] Time: 01/07/2022 12:55 PM Olivia Garcia MD [place] ANESTHESIA Adult Type and Screen (01/07/2022 10:11 AM CDT) Patholo gist Method Time Signature ABO/RH(D) O NEG 01/07/2022 BLOOD 10:00 AM BANK CDT Antibody Negative Negative 01/07/2022 BLOOD Screen 10:00 AM BANK CDT SPECIMEN [id number] 01/07/2022 BLOOD EXPIRATION 10:00 AM BANK DATE CDT Specimen Anatomical Collection Method / Collection Time Recei opal Time (Source) Location / Volume Laterality Blood STRUCTURE OF RIGHT Venipuncture / 01/07/2022 10:11 10/2021 UPPER LIMB / Unknown AM CDT 10:15 AM CDT Unknown Tomeka Salter PA-C LAB - BLOOD BANK TEST ORDER Performing Organization Address City/[facility]/ZIP Code Phon e Number BLOOD BANK [address] [address] Creatinine (01/07/2022 10:11 AM CDT) P athologist Signature Creatinine 1.05 0.66 - 1.25 01/07/2022 LABORATORY mg/dL 8:24 PM CDT GFR Estimate 78 >60 01/07/2022 LABORATORY mL/min/1.73 8:24 PM CDT m2 Comment: Effective April 22, 2021 eGF Rcr in adults is calculated using the 2020 CKD-EPI creatinine equation which includ es age and gender (Randolph et al., NEJM, DOI: 10.1056/[id number]) Specimen Anatomical Collection Method / Collection Time Recei opal Time (Source) Location / Volume Laterality Blood STRUCTURE OF RIGHT Venipuncture / 01/07/2022 10:11 10/2021 UPPER LIMB / Unknown AM CDT 10:15 AM CDT Unknown Elver Brennan MD LAB - BLOOD ORDERABLES Performing Organization Address City/State/ZIP Code Phon e Number LABORATORY [facility] [place] [phone] [phone] 1st floor, Room 20B [...] Address City/State/ZIP Code Phon e Number LABORATORY [facility] [place] [address] Care Lab [address] 1st floor, Room 20B from Last 3 Months Insurance Payer Benefit Plan / Subscriber ID Effective Phone Address T ype Group Dates MEDICARE MEDICARE [id number] 2020-Prese [phone] ATTN CLAI MS Medicare nt 40 [address] [place] [address] [place] [id number] 2021-Pres [phone] [address] [address] Indemnity ent [address] [place] [address] Advance Directives For more information, please contact: [phone] Latest Code Status on File Code Status Date Activated Date Inactivated Comments Full Code 01/07/2022 5:40 PM 01/08/2022 4:38 PM All basic and advanced life-sustaining interventions ar e performed as appropriate Question Answer Comments Code status determined by: Unable to discuss and no AD/POLST on file; continue PREVIOUSLY ORDERED code status Care Teams Patient Financial Representative Relationship Specialty Start Date End Date Maurizio Yost MD PCP - General 06/17/[address] [place] [address]
--- OUTSIDE RECORDS SUMMARY | 2022-04-06 08:12 | XMS_ITS | Encounter Summary ---
:1955 Author Organization [place] Address [address] [place] [address]. [place] [address] Care Team Providers Name Role Phone Maurizio Yost MD Primary Care Provider [phone] Reason for Visit Reason Onset Date Comments Refill Request 09/20/2012 Encounter Details Date Type Department Care Team Description 09/20/2012 Refill [facility] Yost, Refill Request Kaden Hi MD [address] [place] [address] [phone] [place], [place] [phone] (Wo rk) Social History Tobacco Use Types [...] hyperlipidemia documented in this encounter Care Teams Sound Truck Operator Relationship Specialty Start Date End Date Maurizio Yost MD PCP - General 06/17/[address] [place] [address] documented as of this encounter
--- OUTSIDE RECORDS SUMMARY | 2022-04-06 08:12 | XMS_ITS | Encounter Summary ---
:1955 Author Organization [place] Address [address] [place] [address]. [place] [address] Care Team Providers Name Role Phone Maurizio Yost MD Primary Care Provider [phone] Encounter Details Date Type Department Care Team Description 09/03/2010 Orders Only [facility] Hyp erlipidemia LDL goal <130; [facility] ABN BLOOD CHEMISTRY NEC; Laboratory Dysmetabolic syndrome X [address] [address] Social History Tobacco Use Types [...] Comprehensive metabolic panel (09/03/2010 7:43 AM CDT) [facility] Method Time Signature Sodium 141 133 - 144 [place] mmol/L [facility] Potassium 4.3 3.4 - 5.3 [facility] mmol/L [facility] Chloride 103 94 - 109 [place] mmol/L [facility] Carbon Dioxide 28 20 - 32 [place] mmol/L [facility] Anion Gap 10 6 - 17 [place] mmol/L [facility] Glucose 118 (H) 60 - 99 [place] mg/dL [facility] Urea Nitrogen 20 7 - 30 [place] mg/dL [facility] Creatinine 1.02 0.66 - [facility] 1.25 [facility] mg/dL CLINIC LAB GFR Estimate Not Calculated >60 [place] mL/min/1. [facility] 7m2 [facility] LAB GFR Estimate If Not Calculated >60 [place] Black mL/min/1. [facility] 7m2 CLINIC LAB Calcium 9.6 8.5 - [facility] 10.4 [facility] mg/dL CLINIC LAB Bilirubin Total 0.8 0.2 - 1.3 [place] mg/dL [facility] Albumin 4.4 3.3 - 4.9 [place] g/dL [facility] Protein Total 8.1 6.8 - 8.8 [place] g/dL [facility] Alkaline 79 40 - 150 [place] Phosphatase U/L [facility] ALT 38 0 - 70 [place] U/L [facility] AST 36 0 - 55 [place] U/L [facility] Specimen Anatomical Collection Method Collection Time Receive d Time (Source) Location / / Volume Laterality Blood specimen 09/03/2010 7:43 AM 011 7:48 (specimen) CDT AM CDT Maurizio Yost MD LAB - BLOOD ORDERABLES Performing Organization Address City/State/ZIP Code Phon e Number [facility] [address] [place] [address] [facility] (ABNORMAL) Hemoglobin A1c (09/03/2010 7:43 AM CDT) P athologist Signature Hemoglobin A1C 6.2 (H) 4.3 - 6.0 [place] % [facility] Specimen Anatomical Collection Method Collection Time Receive d Time (Source) Location / / Volume Laterality Blood specimen 09/03/2010 7:43 AM 011 7:48 (specimen) CDT AM CDT Maurizio Yost MD LAB - BLOOD ORDERABLES Performing Organization Address City/[facility]/ZIP Code Phon e Number [facility] [address] [place] [address] [facility] (ABNORMAL) Lipid Profile (09/03/2010 7:43 AM CDT) P athologist Signature Cholesterol 159 0 - 200 [place] mg/dL [facility] Comment: LDL Cholesterol is the primary guide to therapy. The NCEP recommends further evaluation of: patients with cholesterol greater than 200 mg/dL if additional risk facto rs are present, cholesterol greater than 240 mg/dL, triglycerides greater than 1 50 mg/dL, or HDL less than 40 mg/dL. Triglycerides 171 (H) 0 - 150 mg/dL [place] [facility] HDL Cholesterol 48 40 - 110 mg/dL [facility] LDL Cholesterol Calculated 76 0 - 129 mg/dL [facility] Comment: LDL Cholesterol is the primary guide to therapy: LDL-cholesterol goal in high risk patients is <100 mg/dL and in very high risk patients is <70 mg/dL. VLDL-Cholesterol 34 (H) 0 - 30 mg/dL [place] [facility] Cholesterol/HDL Ratio 3.3 0.0 - 5.0 [facility] Specimen Anatomical Collection Method Collection Time Receive d Time (Source) Location / / Volume Laterality Blood specimen 09/03/2010 7:43 AM 011 7:48 (specimen) CDT AM CDT Maurizio Yost MD LAB - BLOOD ORDERABLES Performing Organization Address City/[facility]/ZIP Code Phon e Number [facility] [address] [place] [address] [facility] documented in this encounter Visit Diagnoses Diagnosis Hyperlipidemia LDL goal <130 Other and unspecified hyperlipidemia ABN BLOOD CHEMISTRY NEC Other abnormal blood chemistry Dysmetabolic syndrome X Dysmetabolic Syndrome X documented in this encounter Care Teams Freezer Worker Relationship Specialty Start Date End Date Maurizio Yost MD PCP - General 06/17/01 [address] [place] [address] documented as of this encounter
--- OUTSIDE RECORDS SUMMARY | 2022-04-06 08:12 | XMS_ITS | Encounter Summary ---
:1955 Author Organization [place] Address [address] [place] [address]. [place] [address] Care Team Providers Name Role Phone Maurizio Yost MD Primary Care Provider [phone] Encounter Details Date Type Department Care Team [...] on filedocumented in this encounter Care Teams Ships Or Barges Loader Relationship Specialty Start Date End Date Maurizio Yost MD PCP - General 06/17/[address] [place] [address] documented as of this encounter
--- OUTSIDE RECORDS SUMMARY | 2022-04-06 08:12 | XMS_ITS | Encounter Summary ---
:1955 Author Organization [place] Address [address] [place] [address]. [place] [address] Care Team Providers Name Role Phone Maurizio Yost MD Primary Care Provider [phone] Encounter Details Date Type Department Care Team Description 01/04/2022 Lab [facility] Do cooper Mejia MD Pre-operative general [place] [facility] [address] physical examination [address] [place] [address] [place], [place] [phone] (Wo rk) [address] [phone] Social History Tobacco Use Types Packs/Day Years [...] the Xpert Xpress SARS-CoV-2 Assay on the [employer]. A dditional information about this [...] COVID-19. This test was validated by the [facility]. This lab oratory is certified under the Clinical Laboratory Improvement Amen dments of 1987 (CLIA-88) as qualified to perform high complexity lab oratory testing. Marlo Mejia MD LAB - MICRO GENERAL ORDERABL ES Performing Organization Address City/State/ZIP Code Phon e Number [facility] [place] [address] Diag. Lab [address] [facility], Room D297 documented in this encounter Visit Diagnoses Diagnosis Pre-operative general physical examinati on Other specified pre-operative examinatio n documented in this encounter Care Teams Mechatronics Technician Relationship Specialty Start Date End Date aMurizio Yost MD PCP - General 06/17/01 [address] [place] [address] documented as of this encounter
--- OUTSIDE RECORDS SUMMARY | 2022-04-06 08:12 | XMS_ITS | Encounter Summary ---
:1955 Author Organization [place] Address [address] [place] [address]. [place] [address] Care Team Providers Name Role Phone Maurizio Yost MD Primary Care Provider [phone] Encounter Details Date Type Department Care Team [...] on filedocumented in this encounter Care Teams Corporate Development Officer Relationship Specialty Start Date End Date Maurizio Yost MD PCP - General 06/17/01 [address] [place] [address] documented as of this encounter
--- OUTSIDE RECORDS SUMMARY | 2022-04-06 08:12 | XMS_ITS | Encounter Summary ---
:1955 Author Organization [place] Address [address] [place] [address]. [place] [address] Care Team Providers Name Role Phone Maurizio Yost MD Primary Care Provider [phone] Encounter Details Date Type Department Care Team [...] on filedocumented in this encounter Care Teams Doll Wigs Hackler Relationship Specialty Start Date End Date Maurizio Yost MD PCP - General 06/17/01 [address] [place] [address] documented as of this encounter
--- OUTSIDE RECORDS SUMMARY | 2022-04-06 08:12 | XMS_ITS | Encounter Summary ---
:1955 Author Organization [place] Address [address] [place] [address]. [place] [address] Care Team Providers Name Role Phone Maurizio Yost MD Primary Care Provider [phone] Reason for Visit Reason Comments Lipids Pre Visit Planning - Done Encounter Details Date Type Department Care Team Description 09/10/2010 Office Visit [facility] Maurizio Yost Hyper lipidemia LDL goal <130 (Primary Dx); Clinic Kaden Lux MD Sensorineural hearing loss, unilateral; [place] [address] [place] [address] Dysmetabolic syndrome X; [address] Special screening for malign ant neoplasm of prostate [place], [place] [id number] [phone] Social History Tobacco Use Types Packs/Day Years [...] Maurizio Yost - 09/03/2010 4:05 PM CDT [facility] INTERNAL MEDICINE OFFICE VISIT Branden Graf [...] of Education: N/A 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 Smoking status: [...] prostate documented in this encounter Care Teams Rod Cup Filler Relationship Specialty Start Date End Date Maurizio Yost MD PCP - General 06/17/01 [address] [place] [address] documented as of this encounter
--- OUTSIDE RECORDS SUMMARY | 2022-04-06 08:12 | XMS_ITS | Encounter Summary ---
:1955 Author Organization [place] Address [address] [place] [address]. [place] [address] Care Team Providers Name Role Phone Maurizio Yost MD Primary Care Provider [phone] Reason for Visit Reason Comments Lipids Varicose Vein in the back of his left leg Pre Visit Planning - Done Encounter Details Date Type Department Care Team Description 09/11/[address] 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
--- OUTSIDE RECORDS SUMMARY | 2022-04-06 08:12 | XMS_ITS | Encounter Summary ---
:1955 Author Organization [place] Address [facility] [place] [address] Care Team Providers Name Role Phone Maurizio Yost MD Primary Care Provider [phone] Encounter Details Date Type Department Care Team Description 09/01/2010 Orders Only [facility] Maurizio Yost Hyper lipidemia LDL goal <130 (Primary Dx); Clinic Kaden Lux MD ABN BLOOD CHEMISTRY NEC; [place] [address] [place] [address] Dysmetabolic syndrome X [address] [address] [phone] Social History Tobacco Use Types Packs/Day Years [...] X documented in this encounter Care Teams Nut Feeder Relationship Specialty Start Date End Date Maurizio Yost MD PCP - General 06/17/[address] [place] [address] documented as of this encounter
--- OUTSIDE RECORDS SUMMARY | 2022-04-06 08:12 | XMS_ITS | Encounter Summary ---
:1955 Author Organization [place] Address [address] [place] [address]. [place] [address] Care Team Providers Name Role Phone Maurizio Yost MD Primary Care Provider [phone] Reason for Visit Auth/Cert Specialty Diagnoses / Procedures Referred By Contact Refer red To Contact Surgery Diagnoses Prostate cancer (H) Prostate cancer (H) [C61] Periop Services Procedures [facility] LAPAROSCOPY, SURGICAL PROSTATECTOMY, RETROPUBIC RADICAL, W/NERVE SPARING ROBOTIC ASSISTED LAPAROSCOPIC PROSTATECTOMY AND PELVIC LYMPH NODE DISSECTION [address] [place] [address] Phone: Referral ID Status Reason Start Date Expiration Date Visits Requ ested Visits Authorized [id number] 1 1 Encounter Details Date Type Department Care Team Description 01/07/2022 Surgery [facility] JULIA Brennan ASSISTED [facility] PeriOP [facility]AR[facility]COP[facility] PROSTATECTOMY AND [address] L[address] BILATERAL PELVIC LYMPH [address] [place] [place] [address] [address] [place], [place] [address] (Wo rk) Surgery Details Date/Time Status Location [...] Zaragoza PA-C - 01/08/2022 9:18 AM CDT [facility] Urology Progress Note Assessment & Plan [...] at length. Encouraged to utilize senna and WOOLING MACHINE OPERATOR miralax given h/o straining with bowel movements. Amie Zaragoza PA-C [facility] Pager: [phone] Office: [phone] Interval History Doing well, no events overnight. [...] non tender, non distended. Incisions c/d/i and IMAGING AIDE with glue. : Baptiste draining clear urine SKIN/HAIR/NAILS: no visible rashes NEUROLOGIC: no focal deficits PSYCHIATRIC: Speech, mood, and affect normal Amie Zaragoza PA-C [facility] Miranda Pierce LPN - 01/06/2022 12:13 PM CDT WOOLING MACHINE OPERATOR medications updated by Medication Scribe prior to [...] Medication Sig Last Dose Taking? Auth Provider Care Home End Date ASPIRIN 81 MG OR TABS [...] bilateral pelvic lymphadenectomy Surgeon: Elver Brennan MD Elementary [employer] Teacher'S Aide: Tomeka Salter PA-C Date of Procedure: 01/07/22 OPERATIVE INDICATION: Branden Graf is a 66 year old male with prostate cancer. After understanding various management options he elected to undergo today's procedure. Clinical stage: [id number] PSA: 12.43 TAMMI: smooth MRI findings: 1.0 [...] manner. Time out was called. An 16 [place] catheter was placed and the bladder was [...] on a double armed needle. An 18 Lithuanian catheter was placed and the bladder irrigated well. A good watertight, tension free anastasmosis was obtained. Further inspection at this time showed no further b leeding. The string of the Endocatch was then brought out through the umbilical port site. The robotwas then undocked. The laparoscopic ports were removed under vision and the 12 mm assistant professor of drama port wasclosed with an 0 Vicryl using a Primedic device I slightly extended the supraumbilical incision [...] his . Plan of Care - Erinn Conely RN - 01/08/2022 5:05 AM CDT Goal [...] Address City/State/ZIP Code Phon e [place] [address] Care Lab [address] [place] 1st [...] equation which includ es age and gender (Finance Analyst et al., NEJM, DOI: 10.1056/[id number]) Specimen Anatomical Collection Method / Collection Time Recei opal Time (Source) Location / Volume Laterality Blood STRUCTURE OF RIGHT Venipuncture / 01/08/2022 6:56 09/0 12/2021 7:22 UPPER LIMB / Unknown AM CDT AM CDT Unknown Tomeka Salter PA-C LAB - BLOOD ORDERABLES Performing Organization Address City/State/ZIP Code Phon e [place] [address] Care Lab [address] 1st [...] PM CDT Elver Brennan MD LAB - [facility] POCT Performing Organization Address City/[facility]/ZIP Code Phon e Number [place] [facility] [address] Care Lab [address] 1st [...] [place] - BEPRETTY POCT Performing Organization Address City/[facility]/ZIP Code Phon e Number [place]AT[place] [address] Care Lab [address] 1st floor, Room 20B (ABNORMAL) Surgical Pathology Exam (01/07/2022 2:24 PM CDT) Component Value Ref Test Analysis Performed At [facility] gist Range Method Time Signature Case Report Surgical Pathology Report ? Case: [id number] ? 01/13/2022 RH Authorizing Provider: ??Elver Williamson ? Collected: ? 01/07/2022 02:24 PM ? 7:16 PM LABORATOR Y ? Vin, ? CDT [facility] [place] ?Received: ?01/08/2022 08:37 AM ? [place] Main [...] Histologic Grade: ? Grade: ?Grade group 3 ([place] Score 4 + 3 = 7) ? [...] (Chapter 1, 8th Ed.) it is the [facility]? s responsibility to establish the [...] reveal a pale- mayer, soft cut surface. Telephone Directory Deliverer sections of the specimen are submitted in [...] No discrete tumor nodules are noted grossly. Telephone Directory Deliverer sections including the entire posterior aspect are [...] sequentially submitted from apex t o base [id number], thinned section C16-C25 - left posterior, [...] 3, 2.0-4.5 x 2.0 x 1.0 cm pale-amyer possible lymph nodes which are sectioned to [...] PM LABORATORY testing was CDT completed at [facility] Laboratory Case Images 01/13/2022 [...] CDT Unknown Elver Brennan MD LAB - [facility] Performing Organization Address City/State/ZIP Code [place] [address] Care Lab [address] [facility] Lab (1st floor, no room number) [place] [address], [facility] Care Lab [address] 1st floor, [...] and gender (Randolph et al., NEJM, DOI: 10.1056/[id number]) Specimen Anatomical Collection Method / Collection Time Recei opal Time (Source) Location / Volume Laterality Blood STRUCTURE OF RIGHT Venipuncture / 01/07/2022 10:11 10/2021 UPPER LIMB / Unknown AM CDT 10:15 AM CDT Unknown Elver Brennan MD LAB - BLOOD ORDERABLES Performing Organization Address City/State/ZIP Code Phon e Number LABORATORY [facility], [place] [address] Care Lab [address] 1st floor, Room 20B Adult Type and Screen (01/07/2022 10:11 AM CDT) Patholo gist Method Time Signature ABO/RH(D) O NEG 01/07/2022 BLOOD 10:00 AM BANK CDT Antibody Negative Negative 01/07/2022 BLOOD Screen 10:00 AM BANK CDT SPECIMEN [id number] 01/07/2022 BLOOD EXPIRATION 10:00 AM BANK DATE [...] Number BLOOD BANK [address] [place] [address] (ABNORMAL) Glucose (01/07/2022 10:11 AM CDT) P [...] Address City/State/ZIP Code Phon e [place] [address] Care Lab [address] 1st [...] nausea, v omiting, Starting on Wed01/07/22 at 185, This is [...] esic side effects. Hold while on IV DESIGN RELEASE ENGINEER or with regular IV opioid dosing. oxyCODONE (ROXICODONE) tablet 5 mg 5 mg, Oral, EVERY 4 HOURS PRN, other, mo derate pain (pain rating 4-6), Starting on Wed01/07/22 at 1858, Hold oral PRN dose f or analgesic side effects. Notify provider to assess for uncontrolled pain or analg esic side effects. Hold while on IV DESIGN RELEASE ENGINEER or with regular IV opioid dosing. prochlorperazine [...] Smith APRN CRNA) Routine, 2 g, Intravenous, PRE-OP/PRE-MI OCEDURE, Starting on Wed01/07/22 at 0955, For 1 dose, Give first dose within 1 hour PRIOR to incision. If patient weight is greater than or equal to 120 kg increas e dose to 3 g., Indications: Perioperative Pharmacoprophylaxis, Pre-procedure metFORMIN (GLUCOPHAGE) tablet 500 mg 203 2 (Given - Provider: Erinn Conley RN) 0824 (Given - Provider: Nurys Ellington, CARL) 500 mg, Oral, 2 TIMES DAILY WITH [...] (New Bag - Provider: Bernie Smith APRN DIAL LATHE OPERATOR)1640 (Anesthesia Volume Adjustment - Provider: Guido Le APRN DIAL LATHE OPERATOR)1754 (Anesthesia Volume Adjustment - Provider: Guido Le APRN DIAL LATHE OPERATOR) at 100 mL/hr, Intravenous, CONTINUOUS, P re-procedure, [...] ic side effects. Hold while on IV DESIGN RELEASE ENGINEER or with regular IV opioid dosing. oxyCODONE (ROXICODONE) tablet 5 mg(Linked Group 4) 5 mg, Oral, EVERY 4 HOURS PRN, other, mo derate pain (pain rating 4-6), Starting on Wed01/07/22 at 1858, Hold oral PRN dose for analgesic side effects. Notify provider to assess for uncontrolled pain or a nalgesic side effects. Hold while on IV DESIGN RELEASE ENGINEER or with regular IV o pioid dosing. [...] side effects. Hol d while on IV DESIGN RELEASE ENGINEER or with regular IV opioid dosing.
Or oxyCODONE (ROXICODONE) tablet 10 mgJump to med 10 mg, Oral, EVERY 4 HOURS PRN, severe p ain, (pain rating 7-10), Starting on Wed01/07/22 at 1858
Hold oral PRN dose for analgesic side effects. Notify provider to assess for uncontrolled pain or analgesic side effects. Hold whil e on IV DESIGN RELEASE ENGINEER or with regular IV opioid dosing.
Group [...] provider.
documented in this encounter Care Teams Lead Relay Tester Relationship Specialty Start Date End Date Maurizio Yost MD PCP - General 06/17/01 [address] [place] [address] documented as of this encounter
--- OUTSIDE RECORDS SUMMARY | 2022-04-06 08:13 | XMS_ITS | Encounter Summary ---
:1955 Author Organization [place] Address [address] [place] [address]. [place] [address] Care Team Providers Name Role Phone Maurizio Yost MD Primary Care Provider [phone] Reason for Visit Reason Comments RECHECK follow up on lab work Encounter Details Date Type Department Care Team Description [facility] LIPIDEMIA NEC/NOS (Primary Dx); Clinic Kaden Lux MD DYSMETABOLIC SYNDROME X; [place] [address] BLOOD CHEMISTRY NEC; [address] PURE HYPERC HOLES[address] [phone] [address] (Work) [phone] Social History Tobacco Use Types Packs/Day Years Used Date Smoking Tobacco: Never Alcohol Use Standard Drinks/Week Comments No 0 (1 standard drink = 0.6 oz pure alcoho l) Sex Assigned at Date Recorded Not on file documented as of this encounter Last Filed Vital Signs Vital Sign Reading Time Taken Comments Blood Pressure 130/70 06/22/2005 3:45 PM TEMPLATE FITTER Pulse 78 06/22/2005 3:45 PM TEMPLATE FITTER Temperature - - Respiratory Rate - - Oxygen Saturation - - Inhaled Oxygen Concentration - - Weight 102.2 kg (225 lb 6.4 oz) 06/22/2005 3:45 PM TEMPLATE FITTER Height 179.7 cm (5' 10.75) 06/22/2005 3:45 PM TEMPLATE FITTER Body Mass Index 31.66 06/22/2005 3:45 PM TEMPLATE FITTER documented in this encounter Progress Notes Maurizio [...] AMINO (ALT) (SGPT), A.M.A. BASIC METABOLIC PANEL LATE FITTER documented in this encounter Nursing Notes 06/22/2005 [...] hypercholesterolemia documented in this encounter Care Teams Printing Film Stripper Relationship Specialty Start Date End Date Maurizio Yost MD PCP - General 06/17/01 [address] [place] [address] documented as of this encounter
--- OUTSIDE RECORDS SUMMARY | 2022-04-06 08:13 | XMS_ITS | Encounter Summary ---
:1955 Author Organization [place] Address [facility] [place] [address] Care Team Providers Name Role Phone Maurizio Yost MD Primary Care Provider [phone] Reason for Visit Reason Comments Blood Draw Encounter Details Date Type Department Care Team Description 05/28/2004 Orders Only [facility] HYP ERLIPIDEMIA NEC/NOS; [facility] ABN BLOOD CHEMISTRY NEC Laboratory [address] [phone] Social History Tobacco Use [...] Blood Chemistry Re sults for this HEMOGLOBIN SPEECH THERAPIST EARLY INTERVENTION Nec procedure are in Hyperlipidemia Nec/Nos the r esults section. HCL AST Routine 05/28/2004 9:10 AM Hyperlipidemia Nec/Nos Results for this SPEECH THERAPIST EARLY INTERVENTION procedure are i n the results section. CL AFF A.M.A. LIPID Routine 05/28/2004 9:10 AM Hyperlipidemia Nec/Nos Results for this PANEL SPEECH THERAPIST EARLY INTERVENTION procedure are i n the results section. documented in this encounter Results AST (05/28/2004 9:10 AM SPEECH THERAPIST EARLY INTERVENTION) P athologist Signature AST 31 0 - 55 U/L [facility] LAB Specimen Anatomical Collection Method Collection Time Receive d Time (Source) Location / / Volume Laterality 05/28/2004 9:10 AM 5 9:15 SPEECH THERAPIST EARLY INTERVENTION AM SPEECH THERAPIST EARLY INTERVENTION Maurizio Yost MD LABORATORY Performing Organization Address City/State/ZIP Code Phon e Number [facility] [address] [place] [address] [facility] LAB (ABNORMAL) HEMOGLOBIN A1C (05/28/2004 9:10 AM SPEECH THERAPIST EARLY INTERVENTION) athologist Signature Hemoglobin A1C 6.2 (H) 4.3 - 6.0 [facility] LAB Specimen Anatomical Collection Method Collection Time Receive d Time (Source) Location / / Volume Laterality 05/28/2004 9:10 AM 5 9:15 SPEECH THERAPIST EARLY INTERVENTION AM SPEECH THERAPIST EARLY INTERVENTION Maurizio Yost MD LABORATORY Performing Organization Address City/[facility]/ZIP Code Phon e Number [facility] [address] [place] [id number] [facility] LAB (ABNORMAL) A.M.A. LIPID PANEL (05/28/2004 9:10 AM SPEECH THERAPIST EARLY INTERVENTION) P athologist Signature Cholesterol 163 0 - 200 [place] mg/dL [facility] LAB Comment: Cholesterol Reference Range: <200 ??The NCEP recommends further ? evaluation of: ? 1. ??Patients with cholesterol ? greater than 200 mg/dL ? if additional risk facto rs ? are present. ? 2. ??All patients with a ? cholesterol greater than ? 240 mg/dL. Triglycerides 160 (H) 0 - 150 mg/dL [facility] HDL Cholesterol 38 (L) >40 mg/dL [facility] LDL Cholesterol Calculated 93 0 - 129 mg/dL [facility] LAB VLDL-Cholesterol 32 (H) 0 - 30 mg/dL [facility] Cholesterol/HDL Ratio 4.2 0.0 - 5.0 [facility] LAB Specimen Anatomical Collection Method Collection Time Receive d Time (Source) Location / / Volume Laterality 05/28/2004 9:10 AM 5 9:15 SPEECH THERAPIST EARLY INTERVENTION AM SPEECH THERAPIST EARLY INTERVENTION Maurizio Yost MD LABORATORY Performing Organization Address City/State/[facility] Code Phon e Number [facility] [address] [place] [address] [facility] documented in this encounter Visit Diagnoses Diagnosis Other and unspecified hyperlipidemia Other abnormal blood chemistry documented in this encounter Care Teams Nutrition Associate Relationship Specialty Start Date End Date Maurizio Yost MD PCP - General 06/17/01 [address] [place] [address] documented as of this encounter
--- OUTSIDE RECORDS SUMMARY | 2022-04-06 08:13 | XMS_ITS | Encounter Summary ---
:1955 Author Organization [place] Address [facility] [place] [address] Care Team Providers Name Role Phone Maurizio Yost MD Primary Care Provider [phone] Reason for Visit Reason Comments Blood Draw Encounter Details Date Type Department Care Team Description 06/12/2005 Orders Only [facility] HYP ERLIPIDEMIA NEC/NOS; [place] [facility] ABN BLOOD CHEMISTRY NEC ; Laboratory ROUTINE MEDICAL EXAM [address] [phone] Social History Tobacco Use Types [...] Routine Medical Exam Results for this NONLAB TOURIST AGENT procedure are i n the results section. HCL PROSTATE SPEC Routine 06/12/2005 7:48 AM Routine Medical E xam Results for this ANTIGEN,SCREEN TOURIST AGENT procedure are in the results section. HCL GLYCATED Routine 06/12/2005 7:48 AM ABN BLOOD CHEMISTRY Re sults for this HEMOGLOBIN TOURIST AGENT NEC procedure are in Hyperlipidemia N ec/Nos the results Routine Medical Exam section . HCL AST Routine 06/12/2005 7:48 AM Hyperlipidemi a Nec/Nos Results for this TOURIST AGENT Routine Medical Exam procedu re are in the results section. HCL CREATININE Routine 06/12/2005 7:48 AM Hyperlipidemi a Nec/Nos Results for this TOURIST AGENT ABN BLOOD CHEMISTRY procedur e are in NEC the results Routine Medical Exam section . CL AFF A.M.A. LIPID Routine 06/12/2005 7:48 AM Hyperlipi demia Nec/Nos Results for this PANEL TOURIST AGENT Routine Medical Exam procedu re are in the results section. documented in this encounter Results (ABNORMAL) A.M.A. LIPID PANEL (06/12/2005 7:48 AM TOURIST AGENT) athologist Signature Cholesterol 170 0 - 200 [place] mg/dL [facility] Comment: LDL Cholesterol is the primary guide to therapy: LDL-cholesterol goal in high risk patients is <100 mg/dL and in very high risk patients is <70 mg/dL. The NCEP recommends further evaluation of: patients with cholesterol <200 mg/dL if additional risk factors are present, cholesterol >240 mg/dL, triglycerides >150 mg/dL, or HDL <40 mg/dL. Triglycerides 187 (H) 0 - 150 mg/dL [facility] HDL Cholesterol 46 40 - 110 mg/dL [facility] LDL Cholesterol Calculated 86 0 - 129 mg/dL [facility] Comment: LDL Cholesterol is the primary guide to therapy: LDL-cholesterol goal in high risk patients is <100 mg/dL and in very high risk patients is <70 mg/dL. VLDL-Cholesterol 37 (H) 0 - 30 mg/dL [place] [facility] Cholesterol/HDL Ratio 3.7 0.0 - 5.0 [facility] Specimen Anatomical Collection Method Collection Time Receive d Time (Source) Location / / Volume Laterality 06/12/2005 7:48 AM 6 7:53 TOURIST AGENT AM TOURIST AGENT Maurizio Yost MD LABORATORY Performing Organization Address City/State/ZIP Code Phon e Number [facility] [address] [place] [address] [facility] AST (06/12/2005 7:48 AM TOURIST AGENT) athologist Signature AST 28 0 - 55 U/L [facility] Specimen Anatomical Collection Method Collection Time Receive d Time (Source) Location / / Volume Laterality 06/12/2005 7:48 AM 6 7:53 TOURIST AGENT AM TOURIST AGENT Maurizio Yost MD LABORATORY Performing Organization Address City/State/ZIP Code Phon e Number [facility] [address] [address] [facility] (ABNORMAL) HEMOGLOBIN A1C (06/12/2005 7:48 AM TOURIST AGENT) P athologist Signature Hemoglobin A1C 6.4 (H) 4.3 - 6.0 [facility] Specimen Anatomical Collection Method Collection Time Receive d Time (Source) Location / / Volume Laterality 06/12/2005 7:48 AM 6 7:53 TOURIST AGENT AM TOURIST AGENT Maurizio Yost MD LABORATORY Performing Organization Address City/[facility]/ZIP Code Phon e Number [facility] [address] [place] [address] [facility] PROSTATE SPEC ANTIGEN,SCREEN (06/12/2005 7:48 AM TOURIST AGENT) P athologist Signature PSA 1.59 0 - 4 ug/L [facility] Specimen Anatomical Collection Method Collection Time Receive d Time (Source) Location / / Volume Laterality 06/12/2005 7:48 AM 6 7:53 TOURIST AGENT AM TOURIST AGENT Maurizio Yost MD LABORATORY Performing Organization Address City/State/ZIP Code Phon e Number [facility] [address] [place] [address] [place] [facility] HGB (06/12/2005 7:48 AM TOURIST AGENT) P athologist Signature Hemoglobin 14.8 13.3 - 17.7 [facility] g/dL CLINIC LAB Specimen Anatomical Collection Method Collection Time Receive d Time (Source) Location / / Volume Laterality 06/12/2005 7:48 AM 6 7:53 TOURIST AGENT AM TOURIST AGENT Maurizio Yost MD LABORATORY Performing Organization Address City/State/ZIP Code Phon e Number [facility] [address] [place] [address] [facility] CREATININE (06/12/2005 7:48 AM TOURIST AGENT) P athologist Signature Creatinine 1.00 0.80 - [facility] 1.50 mg/dL [facility] GFR Estimate 84 >60 [place] mL/min/1.7 [facility] GFR Estimate If >90 >60 [place] Black mL/min/1.7 [facility] m2 LAB Specimen Anatomical Collection Method Collection Time Receive d Time (Source) Location / / Volume Laterality 06/12/2005 7:48 AM 6 7:53 TOURIST AGENT AM TOURIST AGENT Maurizio Yost MD LABORATORY Performing Organization Address City/State/ZIP Code Phon e Number [facility] [address] [place] [address] [facility] documented in this encounter Visit Diagnoses Diagnosis Other and unspecified hyperlipidemia ABN BLOOD CHEMISTRY NEC Other abnormal blood chemistry Routine general medical examination at a health care facility documented in this encounter Care Teams Supervisor Asbestos Removal Relationship Specialty Start Date End Date Maurizio Yost MD PCP - General 06/17/01 [address] [place] [address] documented as of this encounter
--- OUTSIDE RECORDS SUMMARY | 2022-04-06 08:13 | XMS_ITS | Encounter Summary ---
:1955 Author Organization [place] Address [facility] [place] [address] Care Team Providers Name Role Phone Maurizio Yost MD Primary Care Provider [phone] Encounter Details Date Type Department Care Team Description 07/29/2006 Orders Only [facility] HYP ERLIPIDEMIA NEC/NOS; [place] PURE HYPE RCHOLESTEROLEM; Laboratory ABN BLOOD CHEMISTRY NEC [address] [phone] Social History Tobacco Use [...] Sodium 138 133 - 144 [place] mmol/L [facility] Potassium 3.9 3.4 - 5.3 [place] mmol/L [facility] Chloride 100 94 - 109 [place] mmol/L [facility] Carbon Dioxide 24 20 - 32 [place] mmol/L [facility] Anion Gap 14 6 - 17 [place] mmol/L [facility] Glucose 122 (H) 60 - 110 [facility] Urea Nitrogen 16 7 - 30 [facility]/dL [facility] Creatinine 1.00 0.80 - [place] 1.50 mg/dL [facility] GFR Estimate 84 >60 [place] mL/min/1.7 [place] [facility] m2 LAB GFR Estimate If >90 >60 [place] mL/min/1.7 [facility] m2 LAB Calcium 9.5 8.5 - 10.4 [facility] mg/dL [facility] Specimen Anatomical Collection Method Collection Time Receive d Time (Source) Location / / Volume Laterality 07/29/2006 8:01 AM 7 8:06 CDT AM CDT Maurizio Yost MD LABORATORY Performing Organization Address City/[facility]/ZIP Code Phon e Number [facility] [address] [place] [address] [facility] ALANINE AMINO (ALT) (SGPT) (07/29/2006 8:01 AM CDT) athologist Signature ALT 32 0 - 70 U/L [facility] Specimen Anatomical Collection Method Collection Time Receive d Time (Source) Location / / Volume Laterality 07/29/2006 8:01 AM 7 8:06 CDT AM CDT Maurizio Yost MD LABORATORY Performing Organization Address City/[facility]/ZIP Code Phon e Number [facility] [address] [place] [address] [facility] AST (07/29/2006 8:01 AM CDT) athologist Signature AST 31 0 - 55 U/L [facility] Specimen Anatomical Collection Method Collection Time Receive d Time (Source) Location / / Volume Laterality 07/29/2006 8:01 AM 7 8:06 CDT AM CDT Maurizio Yost MD LABORATORY Performing Organization Address City/[facility]/ZIP Code Phon e Number [facility] [address], [place] [address] [facility] (ABNORMAL) HEMOGLOBIN A1C (07/29/2006 8:01 AM CDT) athologist [facility] Hemoglobin A1C 6.1 (H) 4.3 - 6.0 [place] % [facility] Specimen Anatomical Collection Method Collection Time Receive d Time (Source) Location / / Volume Laterality 07/29/2006 8:01 AM 7 8:06 CDT AM CDT Maurizio Yost MD LABORATORY Performing Organization Address City/State/ZIP Code Phon e Number [facility] [address] [place] [address] [facility] (ABNORMAL) A.M.A. LIPID PANEL (07/29/2006 8:01 AM CDT) athologist Signature Cholesterol 183 0 - 200 [place] mg/dL [facility] Comment: LDL Cholesterol [...] Triglycerides 298 (H) 0 - 150 mg/dL [facility] HDL Cholesterol 44 40 - 110 mg/dL [facility] LDL Cholesterol Calculated 79 0 - 129 mg/dL [facility] VLDL-Cholesterol 60 (H) 0 - 30 mg/dL [place] [facility] Cholesterol/HDL Ratio 4.1 0.0 - 5.0 [facility] Specimen Anatomical Collection Method Collection Time Receive d Time (Source) Location / / Volume Laterality 07/29/2006 8:01 AM 7 8:06 CDT AM CDT Maurizio Yost MD LABORATORY Performing Organization Address City/State/ZIP Code Phon e Number [facility] [address] [place] [address] [facility] documented in this encounter Visit Diagnoses Diagnosis Other and unspecified hyperlipidemia Pure hypercholesterolemia Other abnormal blood chemistry documented in this encounter Care Teams Pace Analyst Relationship Specialty Start Date End Date Maurizio Yost MD PCP - General 06/17/01 [address] [place] [address] documented as of this encounter
--- OUTSIDE RECORDS SUMMARY | 2022-04-06 08:13 | XMS_ITS | Encounter Summary ---
:1955 Author Organization [place] Address [address] [place] [address]. [place] [address] Care Team Providers Name Role Phone Maurizio Yost MD Primary Care Provider [phone] Encounter Details Date Type Department Care Team Description 03/15/2009 Orders Only [facility] HYP ERLIPIDEMIA NEC/NOS; [place] Other and Unspecified Hyperlipidemia; Laboratory ABN BLOOD CHEMISTRY [facility]; [address] [place] [address] Dysmetabolic Syndrome X; [place], [place] Special Scre ening for Malignant Neoplasm [...] Special Screening for Results for this ANTIGEN,SCREEN COIL WINDER STRAP Malignant Neoplasm of proc edure are in Prostate the results section. HCL BASIC METABOLIC Routine 03/15/2009 7:35 AM HYPERLIPI DEMIA NEC/NOS Results for this PANEL [employer]IL [employer]ER [employer]AP Other and Unspecified proced ure are in Hyperlipidemia the results ABN BLOOD CHEMISTRY section. NEC Dysmetabolic Syndrome X HCL GLYCATED Routine 03/15/2009 7:35 AM HYPERLIPIDEMI A NEC/NOS Results for this HEMOGLOBIN COIL WINDER STRAP Other and Unspecified proced ure are in Hyperlipidemia the results ABN BLOOD CHEMISTRY section. NEC Dysmetabolic Syndrome X HCL AST Routine 03/15/2009 7:35 AM HYPERLIPIDEMI A NEC/NOS Results for this COIL WINDER STRAP Other and Unspecified proced ure are in Hyperlipidemia the results ABN BLOOD CHEMISTRY section. NEC Dysmetabolic Syndrome X CL AFF A.M.A. LIPID Routine 03/15/2009 7:35 AM HYPERLIPI DEMIA NEC/NOS Results for this PANEL COIL W[employer]ER STRAP Other and Unspecified proced ure are in Hyperlipidemia the results ABN BLOOD CHEMISTRY section. NEC Dysmetabolic Syndrome X documented in this encounter Results PROSTATE SPEC ANTIGEN,SCREEN (03/15/2009 7:35 AM COIL WINDER STRAP) P athologist Signature PSA 1.94 0 - 4 ug/L [facility] Specimen Anatomical Collection Method Collection Time Receive d Time (Source) Location / / Volume Laterality 03/15/2009 7:35 AM 9 7:40 COIL WINDER STRAP AM COIL WINDER STRAP Maurizio Yost MD LABORATORY Performing Organization Address City/State/ZIP Code Phon e Number [facility] [address] [place] [address] [facility] (ABNORMAL) A.M.A. BASIC METABOLIC PANEL (03/15/2009 7:35 AM COIL WINDER STRAP) P athologist Signature Sodium 142 133 - 144 [place] mmol/L [facility] Potassium 4.6 3.4 - 5.3 [place] mmol/L [facility] Chloride 104 94 - 109 [place] mmol/L [facility] Carbon Dioxide 26 20 - 32 [place] mmol/L [facility] Anion Gap 12 6 - 17 [place] mmol/L [facility] Glucose 127 (H) 60 - 99 [place] mg/dL [facility] Urea Nitrogen 20 7 - 30 [place] mg/dL [facility] Creatinine 1.01 0.66 - [facility] 1.25 mg/dL [facility] Comment: New IDMS-traceable calibration beginning 09/01/07 GFR Estimate 77 >60 mL/min/1.7m2 [place] [facility] GFR Estimate If Black >90 >60 mL/min/1.7m2 [facility] Calcium 10.0 8.5 - 10.4 mg/dL [facility] Specimen Anatomical Collection Method Collection Time Receive d Time (Source) Location / / Volume Laterality 03/15/2009 7:35 AM 9 7:40 COIL WINDER STRAP AM COIL WINDER STRAP Maurizio Yost MD LABORATORY Performing Organization Address City/State/ZIP Code Phon e Number [facility] [address] [place] [address] [facility] (ABNORMAL) HEMOGLOBIN A1C (03/15/2009 7:35 AM COIL WINDER STRAP) P athologist Signature Hemoglobin A1C 6.3 (H) 4.3 - 6.0 [place] % [facility] Specimen Anatomical Collection Method Collection Time Receive d Time (Source) Location / / Volume Laterality 03/15/2009 7:35 AM 9 7:40 COIL WINDER STRAP AM COIL WINDER STRAP Maurizio Yost MD LABORATORY Performing Organization Address City/[facility]/ZIP Code Phon e Number [facility] [address] [place] [address] [facility] AST (03/15/2009 7:35 AM COIL WINDER STRAP) P athologist Signature AST 30 0 - 55 U/L [facility] Specimen Anatomical Collection Method Collection Time Receive d Time (Source) Location / / Volume Laterality 03/15/2009 7:35 AM 9 7:40 COIL WINDER STRAP AM COIL WINDER STRAP Maurizio Yost MD LABORATORY Performing Organization Address City/[facility]/ZIP Code Phon e Number [facility] [address] [place] [address] [facility] A.M.A. LIPID PANEL (03/15/2009 7:35 AM COIL WINDER STRAP) P athologist Signature Cholesterol 160 0 - 200 [place] mg/dL [facility] Comment: LDL Cholesterol is the primary guide to therapy: LDL-cholesterol goal in high risk patients is <100 mg/dL and in very high risk patients is <70 mg/dL. The NCEP recommends further evaluation of: patients with cholesterol <200 mg/dL if additional risk factors are present, cholesterol >240 mg/dL, triglycerides >150 mg/dL, or HDL <40 mg/dL. Triglycerides 119 0 - 150 mg/dL [facility] [place] HDL Cholesterol 50 40 - 110 mg/dL [facility] LDL Cholesterol Calculated 86 0 - 129 mg/dL [facility] VLDL-Cholesterol 24 0 - 30 mg/dL [place] [facility] Cholesterol/HDL Ratio 3.2 0.0 - 5.0 [facility] Specimen Anatomical Collection Method Collection Time Receive d Time (Source) Location / / Volume Laterality 03/15/2009 7:35 AM 9 7:40 COIL WINDER STRAP AM COIL WINDER STRAP Maurizio Yost MD LABORATORY Performing Organization Address City/State/ZIP Code Phon e Number [facility] [address] [place] [phone] [facility] documented in this encounter Visit Diagnoses Diagnosis HYPERLIPIDEMIA NEC/NOS Other and unspecified hyperlipidemia ABN BLOOD CHEMISTRY NEC Other abnormal blood chemistry Dysmetabolic syndrome X Dysmetabolic Syndrome X Special screening for malignant neoplasm of prostate documented in this encounter Care Teams Manager Infusion Relationship Specialty Start Date End Date Maurizio Yost MD PCP - General 06/17/01 [address] [place] [address] documented as of this encounter
--- OUTSIDE RECORDS SUMMARY | 2022-04-06 08:13 | XMS_ITS | Encounter Summary ---
:1955 Author Organization [place] Address [facility] [place] [address] Care Team Providers Name Role Phone Maurizio Yost MD Primary Care Provider [phone] Encounter Details Date Type Department Care Team Description 08/04/[address] [facility] HYP ERLIPIDEMIA NEC/NOS; [place] [facility] ABN BLOOD CHEMISTRY NEC; Laboratory DYSMETABOLIC SYNDROME X [address] [phone] Social History Tobacco Use [...] athologist Signature Hemoglobin 14.4 13.3 - 17.7 [place] [facility]dL CLINIC LAB Specimen Anatomical Collection Method Collection Time Receive d Time (Source) Location / / Volume Laterality 08/04/2007 7:32 AM 8 7:37 CDT AM CDT Maurizio Yost MD LABORATORY Performing Organization Address City/[facility]/ZIP Code Phon e Number [facility] [address] [place] [address] [facility] (ABNORMAL) GLUCOSE (08/04/2007 7:32 AM CDT) athologist Signature Glucose 129 (H) 60 - 99 [place] mg/dL [facility] Specimen Anatomical Collection Method Collection Time Receive d Time (Source) Location / / Volume Laterality 08/04/2007 7:32 AM 8 7:37 CDT AM CDT Maurizio Yost MD LABORATORY Performing Organization Address City/[facility]/ZIP Code Phon e Number [facility] [address] [place] [address] [facility] HEMOGLOBIN A1C (08/04/2007 7:32 AM CDT) athologist Signature Hemoglobin A1C 6.0 4.3 - 6.0 [place] % [facility] Specimen Anatomical Collection Method Collection Time Receive d Time (Source) Location / / Volume Laterality 08/04/2007 7:32 AM 8 7:37 CDT AM CDT Maurizio Yost MD LABORATORY Performing Organization Address City/[facility]/ZIP Code Phon e Number [facility] [address] [place] [address] [facility] ALANINE AMINO (ALT) (SGPT) (08/04/2007 7:32 AM CDT) P athologist Signature ALT 38 0 - 70 U/L [facility] Specimen Anatomical Collection Method Collection Time Receive d Time (Source) Location / / Volume Laterality 08/04/2007 7:32 AM 8 7:37 CDT AM CDT Maurizio Yost MD LABORATORY Performing Organization Address City/[facility]/ZIP Code Phon e Number [facility] [address] [place] [address] [facility] (ABNORMAL) AST (08/04/2007 7:32 AM CDT) P athologist Signature AST 59 (H) 0 - 55 U/L [facility] Specimen Anatomical Collection Method Collection Time Receive d Time (Source) Location / / Volume Laterality 08/04/2007 7:32 AM 8 7:37 CDT AM CDT Maurizio Yost MD LABORATORY Performing Organization Address City/[facility]/ZIP Code Phon e Number [facility] [address] [place] [address] [facility] (ABNORMAL) A.M.A. LIPID PANEL (08/04/2007 7:32 AM CDT) P athologist Signature Cholesterol 163 0 - 200 [place] mg/dL [facility] Comment: LDL Cholesterol is the primary guide to therapy: LDL-cholesterol goal in high risk patients is <100 mg/dL and in very high risk patients is <70 mg/dL. The NCEP recommends further evaluation of: patients with cholesterol <200 mg/dL if additional risk factors are present, cholesterol >240 mg/dL, triglycerides >150 mg/dL, or HDL <40 mg/dL. Triglycerides 206 (H) 0 - 150 mg/dL [facility] HDL Cholesterol 44 40 - 110 mg/dL [place] [facility] LDL Cholesterol Calculated 78 0 - 129 mg/dL [facility] VLDL-Cholesterol 41 (H) 0 - 30 mg/dL [place] [facility] Cholesterol/HDL Ratio 3.7 0.0 - 5.0 [facility] Specimen Anatomical Collection Method Collection Time Receive d Time (Source) Location / / Volume Laterality 08/04/2007 7:32 AM 8 7:37 CDT AM CDT Maurizio Yost MD LABORATORY Performing Organization Address City/State/ZIP Code Phon e Number [facility] [address] [place] [address] [facility] documented in this encounter Visit Diagnoses Diagnosis Other and unspecified hyperlipidemia Other abnormal blood chemistry Dysmetabolic syndrome X Dysmetabolic Syndrome X documented in this encounter Care Teams Doctor Assistant Relationship Specialty Start Date End Date Maurizio Yost MD PCP - General 06/17/01 [address] [place] [address] documented as of this encounter
--- OUTSIDE RECORDS SUMMARY | 2022-04-06 08:13 | XMS_ITS | Encounter Summary ---
:1955 Author Organization [place] Address [facility] [address] Care Team Providers Name Role Phone Maurizio Yost MD Primary Care Provider Encounter Details Date Type Department Care Team Description 02/17/2007 Orders Only [facility] HYP ERLIPIDEMIA NEC/NOS; [facility] ROUTINE M EDICAL EXAM Laboratory [address] [phone] Social History Tobacco Use [...] Signature Glucose 111 (H) 60 - 99 [place] mg/dL [facility] Specimen Anatomical Collection Method Collection Time Receive d Time (Source) Location / / Volume Laterality 02/17/2007 8:44 AM 7 8:49 CDT AM CDT Maurizio Yost MD LABORATORY Performing Organization Address City/[facility]/ZIP Code Phon e Number [facility] [address] [place] [address] [facility] HGB (02/17/2007 8:44 AM CDT) P athologist Signature Hemoglobin 14.9 13.3 - 17.7 [facility] g/dL [facility] Specimen Anatomical Collection Method Collection Time Receive d Time (Source) Location / / Volume Laterality 02/17/2007 8:44 AM 7 8:49 CDT AM CDT Maurizio Yost MD LABORATORY Performing Organization Address City/[facility]/ZIP Code Phon e Number [facility] [address] [place] [address] [facility] PROSTATE SPEC ANTIGEN,SCREEN (02/17/2007 8:44 AM CDT) P athologist Signature PSA 1.41 0 - 4 ug/L [facility] Specimen Anatomical Collection Method Collection Time Receive d Time (Source) Location / / Volume Laterality 02/17/2007 8:44 AM 7 8:49 CDT AM CDT Maurizio Yost MD LABORATORY Performing Organization Address City/[facility]/ZIP Code Phon e Number [facility] [address] [place] [address] [facility] HEMOGLOBIN A1C (02/17/2007 8:44 AM CDT) athologist Signature Hemoglobin A1C 5.7 4.3 - 6.0 [facility] Specimen Anatomical Collection Method Collection Time Receive d Time (Source) Location / / Volume Laterality 02/17/2007 8:44 AM 7 8:49 CDT AM CDT Maurizio Yost MD LABORATORY Performing Organization Address City/[facility]/ZIP Code Phon e Number [facility] [address] [place] [address] [facility] ALANINE AMINO (ALT) (SGPT) (02/17/2007 8:44 AM CDT) athologist Signature ALT 22 0 - 70 U/L [facility] Specimen Anatomical Collection Method Collection Time Receive d Time (Source) Location / / Volume Laterality 02/17/2007 8:44 AM 7 8:49 CDT AM CDT Maurizio Yost MD LABORATORY Performing Organization Address City/State/ZIP Code Phon e Number [facility] [address] [place] [address] [facility] AST (02/17/2007 8:44 AM CDT) athologist Signature AST 27 0 - 55 U/L [facility] Specimen Anatomical Collection Method Collection Time Receive d Time (Source) Location / / Volume Laterality 02/17/2007 8:44 AM 7 8:49 CDT AM CDT Maurizio Yost MD LABORATORY Performing Organization Address City/[facility]/ZIP Code Phon e Number [facility] [address] [place] [address] [facility] (ABNORMAL) A.M.A. LIPID PANEL (02/17/2007 8:44 AM CDT) athologist Signature Cholesterol 159 0 - 200 [place] mg/dL [facility] Comment: LDL Cholesterol is the primary guide to therapy: LDL-cholesterol goal in high risk patients is <100 mg/dL and in very high risk patients is <70 mg/dL. The NCEP recommends further evaluation of: patients with cholesterol <200 mg/dL if additional risk factors are present, cholesterol >240 mg/dL, triglycerides >150 mg/dL, or HDL <40 mg/dL. Triglycerides 210 (H) 0 - 150 mg/dL [facility] HDL Cholesterol 42 40 - 110 mg/dL [facility] LDL Cholesterol Calculated 75 0 - 129 mg/dL [facility] VLDL-Cholesterol 42 (H) 0 - 30 mg/dL [place] [facility] Cholesterol/HDL Ratio 3.8 0.0 - 5.0 [facility] Specimen Anatomical Collection Method Collection Time Receive d Time (Source) Location / / Volume Laterality 02/17/2007 8:44 AM 7 8:49 CDT AM CDT Maurizio Yost MD LABORATORY Performing Organization Address City/State/ZIP Code Phon e Number [facility] [address] [place] [address] [facility] documented in this encounter Visit Diagnoses Diagnosis Other and unspecified hyperlipidemia Routine general medical examination at a health care facility documented in this encounter Care Teams Sand Mill Grinder Relationship Specialty Start Date End Date Maurizio Yost MD PCP - General 06/17/01 [address] [place] [address] documented as of this encounter
--- OUTSIDE RECORDS SUMMARY | 2022-04-06 08:13 | XMS_ITS | Encounter Summary ---
:1955 Author Organization [place] Address [address] [place] [address]. [place] [address] Care Team Providers Name Role Phone Maurizio Yost MD Primary Care Provider [phone] Reason for Visit Reason Comments Lab Result Notice labs drawn on 09/12/09 Ear Problem left ear feels plugged, flon ase ineffective Refill Request Simvastatin Encounter Details Date Type Department Care Team Description 09/18/2009 Office Visit [facility] Maurizio Yost Other and Unspecified Hyperlipidemia (Primary Dx); Clinic Kaden Lux MD ETD (Eustachian Tube Dysfunction) [place] [address] [phone] [phone] Social History Tobacco Use Types Packs/Day Years [...] Education: N/A 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
--- OUTSIDE RECORDS SUMMARY | 2022-04-06 08:13 | XMS_ITS | Encounter Summary ---
:1955 Author Organization [place] Address [facility] [place] [address] Care Team Providers Name Role Phone Maurizio Yost MD Primary Care Provider [phone] Encounter Details Date Type Department Care Team Description 08/07/2008 Orders Only [facility] HYP ERLIPIDEMIA NEC/NOS; [place] Dysmetabo lic Syndrome X Laboratory [address] [phone] Social History Tobacco Use [...] athologist Signature Sodium 142 133 - 144 [place] mmol/L [facility] Potassium 4.1 3.4 - 5.3 [place] mmol/L [facility] Chloride 103 94 - 109 [place] mmol/L [facility] Carbon Dioxide 27 20 - 32 [place] mmol/L [facility] Anion Gap 12 6 - 17 [place] mmol/L [facility] Glucose 126 (H) 60 - 99 [place] mg/dL [facility] Urea Nitrogen 17 7 - 30 [place] mg/dL [facility] Creatinine 0.99 0.66 - [place] 1.25 mg/dL [facility] Comment: New IDMS-traceable calibration beginning 09/01/07 GFR Estimate 79 >60 mL/min/1.7m2 [place] O [facility] GFR Estimate If Black >90 >60 mL/min/1.7m2 [facility] Calcium 9.6 8.5 - 10.4 mg/dL [facility] Specimen Anatomical Collection Method Collection Time Receive d Time (Source) Location / / Volume Laterality 08/07/2008 7:39 AM 9 8:46 CDT AM CDT Maurizio Yost MD LABORATORY Performing Organization Address City/[facility]/ZIP Code Phon e Number [facility] [address] [place] [address] [facility] (ABNORMAL) HEMOGLOBIN A1C (08/07/2008 7:39 AM CDT) athologist Signature Hemoglobin A1C 6.6 (H) 4.3 - 6.0 [place] % [facility] Specimen Anatomical Collection Method Collection Time Receive d Time (Source) Location / / Volume Laterality 08/07/2008 7:39 AM 9 8:46 CDT AM CDT Maurizio Yost MD LABORATORY Performing Organization Address City/[facility] Code Phon e Number [facility] [address] [place] [address] [facility] ALANINE AMINO (ALT) (SGPT) (08/07/2008 7:39 AM CDT) athologist Signature ALT 41 0 - 70 U/L [facility] Specimen Anatomical Collection Method Collection Time Receive d Time (Source) Location / / Volume Laterality 08/07/2008 7:39 AM 9 8:46 CDT AM CDT Maurizio Yost MD LABORATORY Performing Organization Address City/[facility]/ZIP Code Phon e Number [facility] [address] [place] [address] [facility] AST (08/07/2008 7:39 AM CDT) athologist Signature AST 37 0 - 55 U/L [facility] Specimen Anatomical Collection Method Collection Time Receive d Time (Source) Location / / Volume Laterality 08/07/2008 7:39 AM 9 8:46 CDT AM CDT Maurizio Yost MD LABORATORY Performing Organization Address City/State/[facility] Code Phon e Number [facility] [address] [place] [address] [facility] (ABNORMAL) A.M.A. LIPID PANEL (08/07/2008 7:39 AM CDT) athologist Signature Cholesterol 187 0 - 200 [place] mg/dL [facility] Comment: LDL Cholesterol is [...] Triglycerides 228 (H) 0 - 150 mg/dL [facility] HDL Cholesterol 48 40 - 110 mg/dL [facility] LDL Cholesterol Calculated 94 0 - 129 mg/dL [facility] VLDL-Cholesterol 46 (H) 0 - 30 mg/dL [facility] Cholesterol/HDL Ratio 3.9 0.0 - 5.0 [facility] Specimen Anatomical Collection Method Collection Time Receive d Time (Source) Location / / Volume Laterality 08/07/2008 7:39 AM 9 8:46 CDT AM CDT Maurizio Yost MD LABORATORY Performing Organization Address City/State/ZIP Code Phon e Number [facility] [address] [place] [address] [facility] documented in this encounter Visit Diagnoses Diagnosis HYPERLIPIDEMIA NEC/NOS Other and unspecified hyperlipidemia Dysmetabolic syndrome X Dysmetabolic Syndrome X documented in this encounter Care Teams Potato Chip Sacking Machine Operator Relationship Specialty Start Date End Date Maurizio Yost MD PCP - General 06/17/01 [address] [place] [address] documented as of this encounter
--- OUTSIDE RECORDS SUMMARY | 2022-04-06 08:13 | XMS_ITS | Encounter Summary ---
:1955 Author Organization [place] Address [address] [place] [address]. [place] [address] Care Team Providers Name Role Phone Maurizio Yost MD Primary Care Provider [phone] Reason for Visit Reason Onset Date Comments Colonoscopy 03/04/2007 Encounter Details Date Type Department Care Team Description 03/04/2007 Telephone [facility] Owen Banuelos MD Colonoscopy [facility] NO INFO FOUND [address] [phone] (Wo rk) Social History Tobacco Use Types Packs/Day Years Used Date Smoking Tobacco: Never Alcohol Use Standard Drinks/Week Comments No 0 (1 standard drink = 0.6 oz pure alcoho l) Sex Assigned at Date Recorded Not on file documented as of this encounter Miscellaneous Notes Telephone Encounter - Arlene Goff - 03/04/2007 10:37 AM CDT Colonoscopy scheduled at [facility] on 05/20/07 at 7:15AM for screening and mother of colon cancer. Worksheet completed and packet will be mailed. documented in this encounter Plan of Treatment Not on filedocumented as of this encounter Visit Diagnoses Not on filedocumented in this encounter Care Teams Insurance Salesman Relationship Specialty Start Date End Date Maurizio Yost MD PCP - General 06/17/01 [address] [place] [address] documented as of this encounter
--- OUTSIDE RECORDS SUMMARY | 2022-04-06 08:13 | XMS_ITS | Encounter Summary ---
:1955 Author Organization [place] Address [address] [place] [address]. 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 Tobacco Use: [...] X documented in this encounter Care Teams Forge Shop Supervisor Relationship Specialty Start Date End Date Maurizio Yost MD PCP - General 06/17/01 [address] [place] [address] documented as of this encounter
--- OUTSIDE RECORDS SUMMARY | 2022-04-06 08:13 | XMS_ITS | Encounter Summary ---
:1955 Author Organization [place] Address [address] [place] [address]. [place] [address] Care Team Providers Name Role Phone Maurizio Yost MD Primary Care Provider [phone] Reason for Visit Reason Comments Lipids med check and review labs Encounter Details Date Type Department Care Team Description 08/10/2008 Office Visit [facility] Maurizio Yost HYPER LIPIDEMIA NEC/NOS (Primary Dx); Clinic Kaden Lux MD Need for Mgccaigqtd-Nqlnspy-Luwgdylwe (T dap) Vaccine, Adult/Adolescent; [place] [address] Other and Unspecified Hyperlipidemia; [address] ABN BLOOD CHEMISTRY NEC; [place] [address] Dysmetabolic Syndrome X; [address] Special Screening for Malignant Neoplasm of Prostate [phone] Social History Tobacco Use Types Packs/Day Years [...] Please get fasting labs done in the [facility] lab 1-2 days before this appointment. Eat nothing for at least 8 hours prior to having these labs drawn. Call [phone] to schedule both appointments. OBESITY/WEIGHT LOSS: * [...] OK). Try to keep the calories under 8215-8746 total per day, divide between 3 small [...] choices * Picture Perfect Weight Loss (Dr. Hayn Cooper) A book about choices * Calorie Celio (either book or web site) Calorie and carbohydrate data * The Best Life Diet a complete program. * Pipe Gerardoish: Eat More, Weigh Less or The Program for the Reversal of Heart Disease * [facility] web site the food and nutrition link. 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 Tobacco Use: [...] A.M.A. BASIC METABOLIC PANEL V06.1H Need for Wrrdphrgfu-Xqgtafb-Obpbdfcxo (Tdap) Vaccine, Adult/Adolescent Comment: Plan: TDAP (ADACEL [...] Primary Other and unspecified hyperlipidemia Need for tfjpjljycu-rfoymud-ishdumtbt (T dap) vaccine, adult/adolescent Need for prophylactic vaccination with c ombined ovzzujmtsz-ndfnryk-jfjcqethg (DTP) vaccine ABN BLOOD CHEMISTRY NEC Other abnormal blood chemistry Dysmetabolic syndrome X Dysmetabolic Syndrome X Special screening for malignant neoplasm of prostate documented in this encounter Care Teams Plant Custodian Relationship Specialty Start Date End Date Maurizio Yost MD PCP - General 06/17/01 [address] [place] [address] documented as of this encounter
--- OUTSIDE RECORDS SUMMARY | 2022-04-06 08:13 | XMS_ITS | Encounter Summary ---
:1955 Author Organization [place] Address [address] [place] [address]. [place] [address] Care Team Providers Name Role Phone Maurizio Yost MD Primary Care Provider [phone] Reason for Visit Reason Comments Knee Pain left knee pain and swelling x 1 week, denies injury, states also experiencing left ankle numb ness Encounter Details Date Type Department Care Team Description 01/11/2007 Office Visit [facility] Maurizio Yost N OF KNEE & LEG NOS (Primary Dx); Clinic Kaden Lux MD HYPERLIPIDEMIA NEC/NOS; [place] [address] BLOOD CHEMISTRY NEC [address] [address] [phone] Social History Tobacco Use Types Packs/Day Years [...] of Education: N/A 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 Tobacco Use: [...] chemistry documented in this encounter Care Teams Cobol Engineer Relationship Specialty Start Date End Date Maurizio Yost MD PCP - General 06/17/01 [address] [place] [address] documented as of this encounter
--- OUTSIDE RECORDS SUMMARY | 2022-04-06 08:13 | XMS_ITS | Encounter Summary ---
:1955 Author Organization [place] Address [address] [place] [address] Care Team Providers Name Role Phone Maurizio Yost MD Primary Care Provider [phone] Reason for Referral Rehab Therapy Chiropractic Services - Closed Specialty Diagnoses / Procedures Referred By Contact Refer red To Contact Diagnoses Perceptive hearing loss, unilateral Maurizio Yost [place] MD OTOLARYNGOLOGY [address] [place] [address] [facility] [address] [place], [place] [address] [place] [address] Fax: Referral ID Status Reason Start Date Expiration Date Visits Requ ested Visits Authorized [id number] Closed 10/02/2009 05/02/2011 1 1 Reason for Visit Reason Comments RECHECK left ear continues to have f luid pt cannot hear as well out of it has taken 2 weeks of musinex D with no r tammie Encounter Details Date Type Department Care Team Description 10/02/2009 Office Visit [facility] [place] Maurizio Yost [facility]ce [facility] Kaden Lux MD Loss, Unilateral [place] [address] (Primary Dx) [address], [place] [phone] Social History Tobacco Use Types Packs/Day Years [...] of Education: N/A 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
--- OUTSIDE RECORDS SUMMARY | 2022-04-06 08:13 | XMS_ITS | Encounter Summary ---
:1955 Author Organization [place] Address [address] [place] [address]. [place] [address] Care Team Providers Name Role Phone Maurizio Yost MD Primary Care Provider [phone] Reason for Visit Reason Comments Lipids med check, review labs, is t aking simvastatin, no c/o myalgias Ear Problem right ear ringing Eye Problem left eye redness, denies any discomfort/drainage Encounter Details Date Type Department Care Team Description 08/08/2007 Office Visit [facility] Maurizio Yost HYPER LIPIDEMIA NEC/NOS (Primary Dx); Clinic Kaden Lux MD DYSMETABOLIC SYNDROME X; [place] [address] BLOOD CHEMISTRY NEC; [address] ACUTE CONJUNCTIVITIS NOS; [place] [address] DYSFUNCT EUSTACHIAN TUBE; [address] DIVERTICULOSIS OF COLON W/O BLEED [phone] Social History Tobacco Use Types Packs/Day Years [...] TABS 1 TABLET AT BEDTIME ??? 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 Tobacco Use: [...] 372.00 ACUTE CONJUNCTIVITIS NOS Note: Plan: POLYTRIM 22153-1.1 UNIT/ML-% OP SOLN 381.81 DYSFUNCT EUSTACHIAN TUBE [...] hemorrhage) documented in this encounter Care Teams Curing Oven Tender Relationship Specialty Start Date End Date Maurizio Yost MD PCP - General 06/17/01 [address] [place] [address] documented as of this encounter
--- OUTSIDE RECORDS SUMMARY | 2022-04-06 08:13 | XMS_ITS | Encounter Summary ---
:1955 Author Organization [place] Address [address] [place] [address]. [place] [address] Care Team Providers Name Role Phone Maurizio Yost MD Primary Care Provider [phone] Reason for Visit Reason Comments Eye Problem eye infection rt eye has had for 3 days Encounter Details Date Type Department Care Team Description 08/27/2008 Office Visit [facility] Elver Zapata Blepha rityumiko (Primary Clinic Kaden [place] MD Dx) [place] [address] [place] [phone] Social History Tobacco Use Types Packs/Day Years [...] Elver Zapata - 08/27/2008 11:45 AM CDT Bradnen Graf is here for irritated upper eyelid. [...] unspecified documented in this encounter Care Teams Accountant Property Relationship Specialty Start Date End Date Maurizio Yost MD PCP - General 06/17/[address] [place] [address] documented as of this encounter
--- OUTSIDE RECORDS SUMMARY | 2022-04-06 08:13 | XMS_ITS | Encounter Summary ---
:1955 Author Organization [place] Address [address] [place] [address]. [place] [address] Care Team Providers Name Role Phone Maurizio Yost MD Primary Care Provider [phone] Reason for Visit Reason Comments Lipids med check and review labs Encounter Details Date Type Department Care Team Description [facility] HYPER LIPIDEMIA [facility]/NOS; Clinic Kaden Lux MD Dysmetabolic Syndrome X; [place] [address] [phone] Social History Tobacco Use Types Packs/Day Years Used Date Smoking Tobacco: Never Alcohol Use Standard Drinks/Week Comments No 0 (1 standard drink = 0.6 oz pure alcoho l) Sex Assigned at Date Recorded Not on file documented as of this encounter Last Filed Vital Signs Vital Sign Reading Time Taken Comments Blood Pressure 132/82 03/22/2009 3:54 PM FIELD UNDERWRITER Pulse 60 03/22/2009 3:54 PM FIELD UNDERWRITER Temperature - - Respiratory Rate - - Oxygen Saturation - - Inhaled Oxygen Concentration - - Weight 101.6 kg (224 lb) 03/22/2009 3:54 PM FIELD UNDERWRITER Height - - Body Mass Index 31.24 [...] Please get fasting labs done in the [facility] lab 1-2 days before this appointment. Eat nothing for at least 8 hours prior to having these labs drawn. Call [phone] to schedule both appointments. D UNDERWRITER documented in this encounter Nursing Notes 03/22/2009 [...] glucose documented in this encounter Care Teams Tooling Specialist Relationship Specialty Start Date End Date Maurizio Yost MD PCP - General 06/17/01 [address] [place] [address] documented as of this encounter
--- OUTSIDE RECORDS SUMMARY | 2022-04-06 08:13 | XMS_ITS | Encounter Summary ---
:1955 Author Organization [place] Address [address] [facility] [address] Care Team Providers Name Role Phone Maurizio Yost MD Primary Care Provider [phone] Reason for Referral Referral not Required - Closed Specialty Diagnoses / Procedures Referred By Contact Refer red To Contact Diagnoses Unspecified tinnitus Maurizio Yost [place] MD OTOLARYNGOLOGY [address] [place] [address] [place] [address] [address] [place], [place] [address] [place] [address] Fax: Referral ID Status Reason Start Date Expiration Date Visits Requ ested Visits Authorized [id number] Closed 2007 05/02/2011 1 1 Reason for Visit Reason Comments Ear Problem Right ear discomfort and rin ging x 2 months. Has tried decongestants w/o relief. Encounter Details Date Type Department Care Team Description 2007 Office Visit [facility] Maurizio Yost TUS NOS (Primary Dx); Clinic Kaden Lux MD DYSFUNCT EUSTACHIAN TUBE [place] [address] [place], [place] [phone] Social History Tobacco Use Types Packs/Day Years [...] ? 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
--- OUTSIDE RECORDS SUMMARY | 2022-04-06 08:13 | XMS_ITS | Encounter Summary ---
:1955 Author Organization [place] Address [address] [place] [address]. [place] [address] Care Team Providers Name Role Phone Maurizio Yost MD Primary Care Provider [phone] Reason for Visit Reason Comments Lipids med check and review labs Encounter Details Date Type Department Care Team Description 08/05/2006 Office Visit [facility] Maurizio Yost HYPER LIPIDEMIA NEC/NOS (Primary Dx); Clinic Kaden Lux MD DYSMETABOLIC SYNDROME X; [place] [address] [place] [address] ROUTINE MEDICAL EXAM [address] [address] [phone] Social History Tobacco Use Types Packs/Day Years [...] Body Mass Index 32.45 06/22/2005 3:45 PM 3RD GRADE READING TEACHER documented in this encounter Progress Notes Maurizio [...] of Education: N/A 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 Tobacco Use: [...] facility documented in this encounter Care Teams Legal Process Specialist Relationship Specialty Start Date End Date Maurizio Yost MD PCP - General 06/17/01 [address] [place] [address] documented as of this encounter
--- OUTSIDE RECORDS SUMMARY | 2022-04-06 08:13 | XMS_ITS | Encounter Summary ---
:1955 Author Organization [place] Address [address] [place] [address]. [place] [address] Care Team Providers Name Role Phone Maurizio Yost MD Primary Care Provider [phone] Reason for Visit Reason Onset Date Comments Refill Request 08/14/2009 Simvastatin Encounter Details Date Type Department Care Team Description 08/14/2009 Refill [facility] Maurizio Yost Refil l Request Clinic Kaden Lux MD (Simvastatin) [place] [address] [address] [place], [place] [phone] (Wo rk) [address] [phone] Social History Tobacco Use Types Packs/Day Years [...] rimary documented in this encounter Care Teams Refining Still Operator Relationship Specialty Start Date End Date Maurizio Yost MD PCP - General 06/17/01 [address] [place] [address] documented as of this encounter
--- OUTSIDE RECORDS SUMMARY | 2022-04-06 08:13 | XMS_ITS | Encounter Summary ---
:1955 Author Organization [place] Address [facility] [place] [address] Care Team Providers Name Role Phone Maurizio Yost MD Primary Care Provider [phone] Encounter Details Date Type Department Care Team Description 08/07/2008 Orders Only [facility] Maurizio Yost HYPER LIPIDEMIA NEC/NOS; Clinic Kaden Lux MD PURE HYPERCHOLESTEROLEM; [place] [address] [place] [address] Dysmetabolic Syndrome X [address] [phone] Social History Tobacco Use Types Packs/Day Years [...] X documented in this encounter Care Teams Producer Relationship Specialty Start Date End Date Maurizio Yost MD PCP - General 06/17/[address] [place] [phone] documented as of this encounter
--- OUTSIDE RECORDS SUMMARY | 2022-04-06 08:13 | XMS_ITS | Encounter Summary ---
:1955 Author Organization [place] Address [facility] [address] Care Team Providers Name Role Phone Maurizio Yost MD Primary Care Provider [phone] Encounter Details Date Type Department Care Team Description 09/12/2009 Orders Only [facility] HYP ERLIPIDEMIA NEC/NOS; [place] Dysmetabo lic Syndrome X; Laboratory Hyperglycemia [address] [phone] Social History Tobacco Use [...] athologist Signature Hemoglobin 14.5 13.3 - 17.7 [facility] g/dL CLINIC LAB Specimen Anatomical Collection Method Collection Time Receive d Time (Source) Location / / Volume Laterality 09/12/2009 7:37 AM 0 7:42 CDT AM CDT Maurizio Yost MD LABORATORY Performing Organization Address City/State/ZIP Code Phon e Number [facility] [address] [place] [address] [facility] (ABNORMAL) A.M.A. BASIC METABOLIC PANEL (09/12/2009 7:37 AM CDT) athologist Signature Sodium 140 133 - 144 [place] mmol/L [facility] Potassium 4.5 3.4 - 5.3 [place] mmol/L [facility] Chloride 104 94 - 109 [place] mmol/L [facility] Carbon Dioxide 26 20 - 32 [place] mmol/L [facility] Anion Gap 10 6 - 17 [place] mmol/L [facility] Glucose 115 (H) 60 - 99 [place] mg/dL [facility] Urea Nitrogen 18 7 - 30 [place] mg/dL [facility] Creatinine 0.99 0.66 - [facility] 1.25 mg/dL [facility] Comment: New IDMS-traceable calibration beginning 09/01/07 GFR Estimate 79 >60 mL/min/1.7m2 [place] O [facility] GFR Estimate If Black >90 >60 mL/min/1.7m2 [facility] Calcium 9.4 8.5 - 10.4 mg/dL [facility] CLINIC LAB Specimen Anatomical Collection Method Collection Time Receive d Time (Source) Location / / Volume Laterality 09/12/2009 7:37 AM 0 7:42 CDT AM CDT Maurizio Yost MD LABORATORY Performing Organization Address City/[facility]/ZIP Code Phon e Number [facility] [address] [place] [address] [facility] ALANINE AMINO (ALT) (SGPT) (09/12/2009 7:37 AM CDT) P athologist Signature ALT 16 0 - 70 U/L [facility] Specimen Anatomical Collection Method Collection Time Receive d Time (Source) Location / / Volume Laterality 09/12/2009 7:37 AM 0 7:42 CDT AM CDT Maurizio Yost MD LABORATORY Performing Organization Address City/[facility]/ZIP Code Phon e Number [facility] [address] [place] [address] [facility] AST (09/12/2009 7:37 AM CDT) P athologist Signature AST 34 0 - 55 U/L [facility] Specimen Anatomical Collection Method Collection Time Receive d Time (Source) Location / / Volume Laterality 09/12/2009 7:37 AM 0 7:42 CDT AM CDT Maurizio Yost MD LABORATORY Performing Organization Address City/[facility]/ZIP Code Phon e Number [facility] [address] [place] [address] [facility] (ABNORMAL) HEMOGLOBIN A1C (09/12/2009 7:37 AM CDT) P athologist Signature Hemoglobin A1C 6.2 (H) 4.3 - 6.0 [facility] Specimen Anatomical Collection Method Collection Time Receive d Time (Source) Location / / Volume Laterality 09/12/2009 7:37 AM 0 7:42 CDT AM CDT Maurizio Yost MD LABORATORY Performing Organization Address City/[facility]/ZIP Code Phon e Number [facility] [address] [place] [address] [facility] LIPID PANEL, REFLEX TO DIRECT LDL (09/12/2009 7:37 AM CDT) P athologist Signature Cholesterol 138 0 - 200 [place] mg/dL [facility] Comment: LDL Cholesterol is the primary guide to therapy. The NCEP recommends further evaluation of: patients with cholesterol <200 mg/dL if additional risk factors are present, cholesterol >240 mg/dL, triglycerides >150 mg/dL, or HDL <40 mg/dL. Triglycerides 134 0 - 150 mg/dL [place] [facility] HDL Cholesterol 43 40 - 110 mg/dL [facility] LDL Cholesterol Calculated 68 0 - 129 mg/dL [facility] Comment: LDL Cholesterol is the primary guide to therapy: LDL-cholesterol goal in high risk patients is <100 mg/dL and in very high risk patients is <70 mg/dL. VLDL-Cholesterol 27 0 - 30 mg/dL [place] [facility] Cholesterol/HDL Ratio 3.2 0.0 - 5.0 [facility] Specimen Anatomical Collection Method Collection Time Receive d Time (Source) Location / / Volume Laterality 09/12/2009 7:37 AM 0 7:42 CDT AM CDT Maurizio Yost MD LABORATORY Performing Organization Address City/State/ZIP Code Phon e Number [facility] [address] [place] [address] [facility] documented in this encounter Visit Diagnoses Diagnosis HYPERLIPIDEMIA NEC/NOS Other and unspecified hyperlipidemia Dysmetabolic syndrome X Dysmetabolic Syndrome X Hyperglycemia Other abnormal glucose documented in this encounter Care Teams Manager Radio Relationship Specialty Start Date End Date Maurizio Yost MD PCP - General 06/17/01 [address] [address] documented as of this encounter
--- OUTSIDE RECORDS SUMMARY | 2022-04-06 08:13 | XMS_ITS | Encounter Summary ---
:1955 Author Organization [place] Address [address] [place] [address]. [place] [address] Care Team Providers Name Role Phone Maurizio Yost MD Primary Care Provider [phone] Reason for Visit Reason Comments RECHECK cholesterol Encounter Details Date Type Department Care Team Description [facility]/05[facility] HY[facility]IP[facility] N[facility]/NOS (Primary Dx); Clinic Kaden Lux MD DYSMETABOLIC SYNDROME X ; [place] [address] BLOOD CHEMISTRY NEC ; [address] [place] [address] [phone] Social History Tobacco Use Types Packs/Day Years Used Date Smoking Tobacco: Never Alcohol Use Standard Drinks/Week Comments No 0 (1 standard drink = 0.6 oz pure alcoho l) Sex Assigned at Date Recorded Not on file documented as of this encounter Last Filed Vital Signs Vital Sign Reading Time Taken Comments Blood Pressure 122/80 06/05/2004 3:34 PM ECONOMIC DEVELOPMENT MANAGER Pulse 72 06/05/2004 3:34 PM ECONOMIC DEVELOPMENT MANAGER Temperature - - Respiratory Rate - - Oxygen Saturation - - Inhaled Oxygen Concentration - - Weight 102.5 kg (226 lb) 06/05/2004 3:34 PM ECONOMIC DEVELOPMENT MANAGER Height - - Body Mass Index [...] issues to discuss today: YES also has gerson atkins with impaired glucose tolerance and early [...] N/A Number of Children: 2 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
--- OUTSIDE RECORDS SUMMARY | 2022-04-06 08:13 | XMS_ITS | Encounter Summary ---
:1955 Author Organization [place] Address [address] [place] [address]. [place] [address] Care Team Providers Name Role Phone Maurizio Yost MD Primary Care Provider [phone] Encounter Details Date Type Department Care Team Description 06/10/2007 GI Procedure [facility] Endoscopy Aidan Yi MD None [place] [address] [address] [facility] [place] [phone] (Wo rk) Social History Tobacco Use [...] 06/10/2007 7:55 AM Results f or this SCALLOP CUTTER procedure are i n the results section . documented in this encounter Results COLONOSCOPY (06/10/2007 7:55 AM SCALLOP CUTTER) Component Value Ref Test Analysis Performed At [facility] Method Time Signature COLONOSCOPY [facility] RADIOLOGY [facility] Endoscopy Department RESULTS Patient Name: Branden Rivas [...] Providers: ? Owen Banuelos MD, Charissa Del aCstillo , CARL Referring : ?Maurizio Yost MD [...] ? saturations were monitored continuously. The ? [id number] was introduced through the ? anus and [...] / / Volume Laterality 06/10/2007 7:55 AM SCALLOP CUTTER Aidan Yi MD PROCEDURES Performing Organization Address City/State/ZIP Code Phon e Number RADIOLOGY RESULTS documented in this encounter Visit Diagnoses Not on filedocumented in this encounter Care Teams Supervisor Offset Plate Preparation Relationship Specialty Start Date End Date Maurizio Yost MD PCP - General 06/17/01 [address] [place] [address] documented as of this encounter
--- OUTSIDE RECORDS SUMMARY | 2022-04-06 08:13 | XMS_ITS | Encounter Summary ---
:1955 Author Organization [place] Address [address] [place] [address]. [place] [address] Care Team Providers Name Role Phone Maurizio Yost MD Primary Care Provider [phone] Reason for Visit Reason Comments Ear Problem Left ear pressure x 2 weeks Encounter Details Date Type Department Care Team Description 09/04/[address] [facility] LIAM Perkins ( [facility] Mely Fuller PA-C Dysfunction) (Primary [address] [facility] [address] Dx) [place] [phone] Social History Tobacco Use Types Packs/Day Years [...] tube documented in this encounter Care Teams Regional Branch Manager Relationship Specialty Start Date End Date Maurizio Yost MD PCP - General 06/17/01 [address] [place] [address] documented as of this encounter
--- OUTSIDE RECORDS SUMMARY | 2022-04-06 08:14 | XMS_ITS ---
:1955 Author Care Team Providers Name Role Phone GABRIEL LEONG MD Primary Care Provider [phone] Allergies Code Code System Name Reaction Severity [...] 11/07/2021 PET-CT, Skull Base to Mid-thigh Scan [facility] [address] [place] [address] (Work Place) Results Lab Results Date Name Specimen Result Interpretation Description Value Range Status Address ? 02/23/2022 PSA, Serum or ? Psa <0.04 ng/ml 0-4.0 ? [facility]: [address] Past Encounters Encounter Date Diagnosis Provider 02/23/2022 Malignant Tumor of Prostate; Elver Escobedo MD: Erectile Dysfunction [address], [place] [address], [place] [address], Ph. 01/16/2022 Malignant Tumor of Prostate TK Guerrier: [address], [place] [address], Ph. 12/05/2021 Malignant Tumor of Prostate Elver Escobedo MD: [address], [place] [address], Ph. [phone] 11/07/2021 Malignant Tumor of Prostate Elver Escobedo MD: [address], [place] [address], Ph. 10/06/2021 Raised Prostate Specific Antigen Elver Escobedo MD: [address], [address] [address], Ph. Social History Tobacco Smoking Status Never [...]
--- OUTSIDE RECORDS SUMMARY | 2022-04-06 08:14 | XMS_ITS | Encounter Summary ---
:1955 Author Organization [place] Address [address] [place] [address]. [place] [address] Care Team Providers Name Role Phone Maurizio Yost MD Primary Care Provider [phone] Reason for Visit Reason Comments Musculoskeletal Problem right knee pain , only has p ain when kneels, no swelliing or pain with walking Shoulder pain between shoulder blades Encounter Details Date Type Department Care Team Description 07/27/2003 Office Visit [facility] [place] Maurizio Yost [facility] Clinic MD GRAY Whelan (Primary Dx) [place] [address] [address] [phone] Social History Tobacco Use Types Packs/Day Years Used Date Smoking Tobacco: Never Alcohol Use Standard Drinks/Week Comments No 0 (1 standard drink = 0.6 oz pure alcoho l) Sex Assigned at Date Recorded Not on file documented as of this encounter Last Filed Vital Signs Vital Sign [place] Time Taken Comments Blood Pressure 126/82 07/27/2003 11:45 AM DANCE HALL HOSTESS Pulse 60 07/27/2003 11:45 AM DANCE HALL HOSTESS Temperature - - Respiratory Rate - - Oxygen Saturation - - Inhaled Oxygen Concentration - - Weight 100.2 kg (221 lb) 07/27/2003 11:45 AM DANCE HALL HOSTESS Height - - Body Mass Index - - documented in this encounter Progress Notes 07/27/2003 11:45 AM DANCE HALL HOSTESS Branden Graf is here for evaluation of [...] Nursing Notes 07/27/2003 11:45 AM CST >> GIOVANA CASTANEDA 07/27/2003 12:06 pm BP cuff size: regular Giovana Castaneda RN documented in this encounter Plan of Treatment Not on filedocumented as of this encounter Visit Diagnoses Diagnosis Chondromalacia of patella - Primary documented in this encounter Care Teams Multimedia Instructional Designer Relationship Specialty Start Date End Date Maurizio Yost MD PCP - General 06/17/01 [address] [place] [address] documented as of this encounter
--- OUTSIDE RECORDS SUMMARY | 2022-04-06 08:14 | XMS_ITS | Encounter Summary ---
:1955 Author Care Team Providers Name Role Phone Rodriguez Desai MD Primary Care Provider [phone] Reason for Visit Malignant tumor of prostate Assessment and Plan Assessment Note 66M [id number] Hussein 4+3=7 prostate ca ncer s/p RALP [...] MD Lab PSA, Serum or Plasma 02/23/2022 [facility] Referral None recorded. ? ? Procedures None [...] or ? Psa <0.04 ng/ml 0-4.0 ? [facility] [address] [facility] [address], [place] [facility] Allergies Code Code System Name Reaction Severity [...] (No Notes) Functional Status Unknown. Past Encounters Encounter Date Diagnosis Provider 02/23/2022 Malignant Tumor of Prostate; Elver Escobedo MD: Erectile Dysfunction [address], [address], [place] [address], Ph. History of Present Illness Note: <div>66M with pT2N0 Hussein 4+3=7 prostate cancer s/p RALP 01/07/22 (-SMS, 0/6 LN).</div><div>
</div><div>Overall doing well. Initially some hematuria, this has resolved.</div><div>
</div><div>Voiding with good stream. Using 1 safety ppd, almost always dry. Rare ERCIH with BM. </div><div>Erections minimal.</div><div>
</div><div>UF: 1/5</div><div>Date of continence: 02/23/22</div><div>EF: 5/5</div><div>Pre-op EF: 4/5</div><div>
< [...]
--- OUTSIDE RECORDS SUMMARY | 2022-04-06 08:14 | XMS_ITS | Encounter Summary ---
:1955 Author Organization [place] Address [facility] [place] [address] Care Team Providers Name Role Phone Maurizio Yost MD Primary Care Provider [phone] Encounter Details Date Type Department Care Team Description 05/06/[address] [facility] PURE HYPER CHOLESTEROLEM Clinic [place] (Primary Dx) [facility] Laboratory [address] [address] Social History Tobacco Use Types [...] Routine 05/06/2002 9:53 Results for this AM [facility]ANDMEN procedure are i n the results section. HCL ALT Routine 05/06/2002 9:52 Pure Hypercholesterolem R esults for this AM [facility] procedure are i n the results section. CL AFF A.M.A. Routine 05/06/2002 9:52 Pure Hypercholesterolem Results for this LIPID PANEL AM [facility] procedure are i n the results section. documented in this encounter Results (ABNORMAL) GLUCOSE (05/06/2002 9:53 AM LANDMEN) P athologist Signature Glucose 119 (H) 60 - 115 [place] mg/dL [facility] Specimen Anatomical Collection Method Collection Time Receive d Time (Source) Location / / Volume Laterality 05/06/2002 9:53 AM 3 9:58 LAND[facility] AM LANDMEN Kedar Philippe MD LABORATORY Performing Organization Address City/[facility]/ZIP Code Phon e Number [facility] [address] [place] [address] [facility] ALANINE AMINO (ALT) (SGPT) (05/06/2002 9:52 AM [place]) P athologist Signature ALT 52 0 - 70 U/L [facility] Specimen Anatomical Collection Method Collection Time Receive d Time (Source) Location / / Volume Laterality 05/06/2002 9:52 AM 3 9:58 LAND[facility] AM LANDMEN Kedar Pihlippe MD LABORATORY Performing Organization Address City/[facility]/ZIP Code Phon e Number [facility] [address] [place] [address] [facility] (ABNORMAL) A.M.A. LIPID PANEL (05/06/2002 9:52 AM LANDMEN) P athologist Signature Cholesterol 194 <200 mg/dL [facility] Comment: Cholesterol Reference Range: <200 ??The NCEP recommends further ? evaluation of: ? 1. ??Patients with cholesterol ? greater than 200 mg/dL ? if additional risk facto rs ? are present. ? 2. ??All patients with a ? cholesterol greater than ? 240 mg/dL. Triglycerides 389 (H) <150 mg/dL [facility] HDL Cholesterol 41 >40 mg/dL [facility] LDL Cholesterol Calculated 75 <130 mg/dL [facility] VLDL-Cholesterol 78 (H) 0 - 30 mg/dL [facility] Cholesterol/HDL Ratio 5 0 - 5 [facility] Specimen Anatomical Collection Method Collection Time Receive d Time (Source) Location / / Volume Laterality 05/06/2002 9:52 AM 3 9:58 [facility] AM LANDMEN Kedar Philippe MD LABORATORY Performing Organization Address City/State/ZIP Code Phon e Number [facility] [address] [place] [address] [facility] documented in this encounter Visit Diagnoses Diagnosis Pure hypercholesterolemia - Primary documented in this encounter Care Teams Rag Cutting Machine Operator Relationship Specialty Start Date End Date Maurizio Yost MD PCP - General 06/17/01 [address] [place] [address] documented as of this encounter
--- OUTSIDE RECORDS SUMMARY | 2022-04-06 08:14 | XMS_ITS | Encounter Summary ---
:1955 Author Organization [place] Address [address] [place] [address]. [place] [address] Care Team Providers Name Role Phone Maurizio Yost MD Primary Care Provider [phone] Reason for Visit Reason Comments Lab Result Notice labs drawn 11-02-03 Encounter Details Date Type Department Care Team Description 11/15/2003 Office Visit [facility] Maurizio Yost HYPER LIPIDEMIA NEC/NOS; Clinic Kaden Lxu MD ABN BLOOD CHEMISTRY NEC; [place] [address] ROTATOR CUFF SYND NOS [address] [address] [phone] Social History Tobacco Use Types Packs/Day Years [...] than 50% of time was educational and adoption counselor ing. documented in this encounter Nursing Notes [...] using BP cuff size: large. QAMAR DAVID GEOTECHNICAL ENGINEER documented in this encounter Plan of Treatment Not on filedocumented as of this encounter Visit Diagnoses Diagnosis Other and unspecified hyperlipidemia Other abnormal blood chemistry Disorders of bursae and tendons in shoul aliza region, unspecified documented in this encounter Care Teams Chalk Tester Relationship Specialty Start Date End Date Maurizio Yost MD PCP - General 06/17/01 [address] [place] [address] documented as of this encounter
--- OUTSIDE RECORDS SUMMARY | 2022-04-06 08:14 | XMS_ITS | Encounter Summary ---
:1955 Author Organization [place] Address [address] [place] [address]. [place] [address] Care Team Providers Name Role Phone Maurizio Yost MD Primary Care Provider [phone] Reason for Visit Reason Comments Physical Encounter Details Date Type Department Care Team Description [facility] Clinic Kaden Diaz MD PURE HYPERCHOLESTEROLEM [place] [address] [place] [address] [place] [address] [place] [address] Social History Tobacco Use Types Packs/Day Years Used Date Smoking Tobacco: Never Alcohol Use Standard Drinks/Week Comments No 0 (1 standard drink = 0.6 oz pure alcoho l) Sex Assigned at Date Recorded Not on file documented as of this encounter Last Filed Vital Signs Vital Sign Reading Time Taken Comments Blood Pressure 120/74 05/05/2002 3:45 PM SAUTE CHEF Pulse 70 05/05/2002 3:45 PM SAUTE CHEF Temperature - - Respiratory Rate - - Oxygen Saturation - - Inhaled Oxygen Concentration - - Weight 113.4 kg (250 lb) 05/05/2002 3:45 PM SAUTE CHEF Height - - Body Mass Index - - documented in this encounter Progress Notes 05/05/2002 3:45 PM SAUTE CHEF SUBJECTIVE: CC: Branden Graf is a 46 [...] hypercholesterolemia documented in this encounter Care Teams Right Of Way Cutter Relationship Specialty Start Date End Date Maurizio Yost MD PCP - General 06/17/01 [address] [place] [address] documented as of this encounter
--- OUTSIDE RECORDS SUMMARY | 2022-04-06 08:14 | XMS_ITS | Encounter Summary ---
:1955 Author Organization [place] Address [facility] [place] [address] Care Team Providers Name Role Phone Maurizio Yost MD Primary Care Provider [phone] Encounter Details Date Type Department Care Team Description 04/24/2003 Orders Only [facility] DYS METABOLIC SYNDROME X; [place] PURE HYPE RCHOLESTEROLEM Laboratory [address] [phone] Social History Tobacco Use [...] X Results for this METABOLIC PANEL AM ECONOMETRICS PROFESSOR Pure Hypercholesterolem p rocedure are in the results section. HCL GLYCATED Routine 04/24/2003 7:35 Dysmetabolic Syn drome X Results for this HEMOGLOBIN AM ECONOMETRICS PROFESSOR Pure Hypercholesterolem proc edure are in the results section. HCL CK, TOTAL Routine 04/24/2003 7:35 Dysmetabolic Syn drome X Results for this AM ECONOMETRICS PROFESSOR Pure Hypercholesterolem proc edure are in the results section. HCL AST Routine 04/24/2003 7:35 Dysmetabolic Syn drome X Results for this AM ECONOMETRICS PROFESSOR Pure Hypercholesterolem proc edure are in the results section. documented in this encounter Results A.M.A. BASIC METABOLIC PANEL (04/24/2003 7:35 AM ECONOMETRICS PROFESSOR) P athologist Signature Sodium 140 133 - 144 [place] mmol/L [facility] Potassium 3.8 3.4 - 5.3 [place] mmol/L [facility] Chloride 105 94 - 109 [place] mmol/L [facility] Carbon Dioxide 26 20 - 32 [place] mmol/L [facility] Anion Gap 9 6 - 17 [place] mmol/L [facility] Glucose 105 60 - 115 [place] mg/dL [facility] Urea Nitrogen 19 5 - 24 [place] mg/dL [facility] Creatinine 1.00 0.80 - [place] 1.50 mg/dL [facility] GFR Estimate >80 >80 mL/min [facility] GFR Estimate If >80 >80 mL/min [place] Black [facility] Calcium 9.4 8.5 - 10.4 [place] mg/dL [facility] Specimen Anatomical Collection Method Collection Time Receive d Time (Source) Location / / Volume Laterality 04/24/2003 7:35 AM 3 7:40 ECONOMETRICS PROFESSOR AM ECONOMETRICS PROFESSOR Maurizio Yost MD LABORATORY Performing Organization Address City/State/ZIP Code Phon e Number [facility] [address] [place] [address] [facility] CK, TOTAL (04/24/2003 7:35 AM ECONOMETRICS PROFESSOR) athologist Signature CK Total 106 45 - 300 [facility] U/L CLINIC LAB Specimen Anatomical Collection Method Collection Time Receive d Time (Source) Location / / Volume Laterality 04/24/2003 7:35 AM 3 7:40 ECONOMETRICS PROFESSOR AM ECONOMETRICS PROFESSOR Maurizio Yost MD LABORATORY Performing Organization Address City/State/ZIP Code Phon e Number [facility] [address] [place] [address] [facility] AST (04/24/2003 7:35 AM ECONOMETRICS PROFESSOR) athologist Signature AST 24 0 - 55 U/L [facility] Specimen Anatomical Collection Method Collection Time Receive d Time (Source) Location / / Volume Laterality 04/24/2003 7:35 AM 3 7:40 ECONOMETRICS PROFESSOR AM ECONOMETRICS PROFESSOR Maurizio Yost MD LABORATORY Performing Organization Address City/[facility]/ZIP Code Phon e Number [facility] [address] [place] [address] [facility] (ABNORMAL) HEMOGLOBIN A1C (04/24/2003 7:35 AM ECONOMETRICS PROFESSOR) P athologist Signature Hemoglobin A1C 6.5 (H) 4.3 - 6.0 [facility] Specimen Anatomical Collection Method Collection Time Receive d Time (Source) Location / / Volume Laterality 04/24/2003 7:35 AM 3 7:40 ECONOMETRICS PROFESSOR AM ECONOMETRICS PROFESSOR Maurizio Yost MD LABORATORY Performing Organization Address City/[facility]/ZIP Code Phon e Number [facility] [address] [place] [address] [facility] documented in this encounter Visit Diagnoses Diagnosis Dysmetabolic syndrome X Dysmetabolic Syndrome X Pure hypercholesterolemia documented in this encounter Care Teams Concrete Placement Equipment Operator Relationship Specialty Start Date End Date Maurizio Yost MD PCP - General 06/17/01 [address] [place] [address] documented as of this encounter
--- OUTSIDE RECORDS SUMMARY | 2022-04-06 08:14 | XMS_ITS | Encounter Summary ---
:1955 Author Organization [place] Address [address] [place] [address]. [place] [address] Care Team Providers Name Role Phone Maurizio Yost MD Primary Care Provider [phone] Reason for Visit Reason Comments Lipids had labs on Wednesday, needs wr itten rx for mail order Headache cluster TIRADO's any tx. 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 Will enbark opn aggressive diet changes emphasizing [...] TOTAL, A.M.A. 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 Plan: RTCprn krystyna TIRADO Spent greater than 25 minutes with pt , greater than 5 0% of time was educational and counseling. documented in this encounter Nursing Notes 10/27/2002 3:30 PM CDT >> ROSANA KLINE 10/27/2002 3:37 pm Rosana Kline RN documented in this encounter Plan of Treatment Not on filedocumented as of this encounter Visit Diagnoses Diagnosis Dysmetabolic syndrome X - Primary Dysmetabolic Syndrome X Pure hypercholesterolemia Variants of migraine, not elsewhere clas sified, without mention of intractable migraine without mention of status migra inosus documented in this encounter Care Teams Radial Drill Press Set Up Operator Relationship Specialty Start Date End Date Maurizio Yost MD PCP - General 06/17/01 [address] [place] [address] documented as of this encounter
--- OUTSIDE RECORDS SUMMARY | 2022-04-06 08:14 | XMS_ITS | Encounter Summary ---
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 Emilia muller at [facility] 01/07/22 Discussed kegels, 2 sets of [...] Unknown. Past Encounters Encounter Date Diagnosis Provider 01/16/2022 Malignant Tumor of Prostate Linda grayson PA: [address] [place] [address], Ph. History of Present Illness Note: <div>66yo male here today for routine postop visit. S/p RALP with Dr. Brennan at [facility] on 01/07/22. </div><div>
</div><div>Reports he has been doing well at home. Urine has been clear, no issues with baptiste. Minimal pain. Moving his bowels well. Ambulating. No fever/chills/sob </div><div>
</div><div>Surgical pathology:[place] 3+4</div><div>LN negative </div><div>Margins negative </div> Review of [...]
--- OUTSIDE RECORDS SUMMARY | 2022-04-06 08:14 | XMS_ITS | Encounter Summary ---
:1955 Author Organization [place] Address [address] [place] [address]. [place] [address] Care Team Providers Name Role Phone Maurizio Yost MD Primary Care Provider [phone] Reason for Visit Reason Comments Medication Request Encounter Details Date Type Department Care Team Description 08/08/2003 Telephone [facility] Maurizio Oakes Medic ation Request Clinic Kaden Lux MD [facility] [address] [address] [place], [place] [phone] (Wo rk) [address] [phone] Social History Tobacco Use Types Packs/Day Years [...] on filedocumented in this encounter Care Teams Plant Operations Vice President Relationship Specialty Start Date End Date Maurizio Yost MD PCP - General 06/17/01 [address] [place] [address] documented as of this encounter
--- OUTSIDE RECORDS SUMMARY | 2022-04-06 08:14 | XMS_ITS | Encounter Summary ---
:1955 Author Organization [place] Address [address] [place] [address]. [place] [address] Care Team Providers Name Role Phone Maurizio Yost MD Primary Care Provider [phone] Reason for Visit Reason Comments Diabetes pt here to discuss treatment options Encounter Details Date Type Department Care Team Description 05/16/2003 Office Visit [facility] Maurizio Yost DIABHolden ANTONIO UNCOMPL ADULT-TYPE II (Primary Dx); Clinic Kaden Lux MD LIPOID METABOL DIS NOS [place] [address] [address] [phone] Social History Tobacco Use Types Packs/Day Years Used Date Smoking Tobacco: Never Alcohol Use Standard Drinks/Week Comments No 0 (1 standard drink = 0.6 oz pure alcoho l) Sex Assigned at Date Recorded Not on file documented as of this encounter Last Filed Vital Signs Vital Sign Reading Time Taken Comments Blood Pressure 134/84 05/16/2003 4:15 PM GRAVITY PROSPECTING OPERATOR Pulse 58 05/16/2003 4:15 PM GRAVITY PROSPECTING OPERATOR Temperature - - Respiratory Rate - - Oxygen Saturation - - Inhaled Oxygen Concentration - - Weight 100.2 kg (221 lb) 05/16/2003 4:15 PM GRAVITY PROSPECTING OPERATOR Height - - Body Mass Index - - documented in this encounter Progress Notes 05/16/2003 4:15 PM GRAVITY PROSPECTING OPERATOR Branden Graf is a 47 year old [...] CV: negative for chest pain, palpitations, PND, TEPMLETON, orthopnea, pal pitations GI: negative for dysphagia, [...] m documented in this encounter Care Teams Greens Cutter Relationship Specialty Start Date End Date Maurizio Yost MD PCP - General 06/17/01 [address] [place] [address] documented as of this encounter
--- OUTSIDE RECORDS SUMMARY | 2022-04-06 08:14 | XMS_ITS | Clinical Summary ---
:1955 Author Organization [facility] [place] [address] Care Team Providers Name Role Phone Rodriguez [...] Group MEDICARE PART B MEDICARE PART B [id number] 2020-[employer] ATTN: CLAIMS - HB USE ONLY HB ONLY t [address] [place] [address] MEDICARE - PB MEDICARE PB [id number] 2020-[employer] ATTN : CLAIMS USE ONLY ONLY t [address] [place] [address] BLUE CROSS BLUE CROSS OF [id number] 2020-Presen [address] [facility] [place] [id number] Guarantor Name Account Type Relation to Date of Phone Billing Patient Address GrafBranden Personal/Family Self 1955 [address] (Home) [address] [place] [address] Care Teams Nursing Staffing Coordinator Relationship Specialty Start Date End Date Rodriguez Desai MD PCP - General Internal Medicine 07/30/211999 [place] [address]
--- OUTSIDE RECORDS SUMMARY | 2022-04-06 08:14 | XMS_ITS | Encounter Summary ---
:1955 Author Organization [place] Address [facility]0 [facility] [place] [address] Care Team Providers Name Role Phone Maurizio Yost MD Primary Care Provider [phone] Encounter Details Date Type Department Care Team Description 11/02/2003 Orders Only [facility] BILLY BETES UNCOMPL ADULT-TYPE II; [place] LIPOID ME TABOL DIS NOS Laboratory [address] [phone] Social History Tobacco [...] Creatinine 1.10 0.80 - [facility] 1.50 mg/dL [facility] GFR Estimate 76 >60 [facility] mL/min/1.7 [facility] m2 LAB GFR Estimate If >80 >60 [facility] Black mL/min/1.7 [facility] m2 LAB Specimen Anatomical Collection Method Collection Time Receive d Time (Source) Location / / Volume Laterality 11/02/2003 7:40 AM 4 7:44 CDT AM CDT Maurizio Yost MD LABORATORY Performing Organization Address City/[facility]/ZIP Code Phon e Number [facility] [address] [place] [address] [facility] GLUCOSE (11/02/2003 7:40 AM CDT) athologist Signature Glucose 109 60 - 115 [facility] mg/dL CLINIC LAB Specimen Anatomical Collection Method Collection Time Receive d Time (Source) Location / / Volume Laterality 11/02/2003 7:40 AM 4 7:44 CDT AM CDT Maurizio Yost MD LABORATORY Performing Organization Address City/[facility]/ZIP Code Phon e Number [facility] [address] [place] [address] [facility] AST (11/02/2003 7:40 AM CDT) athologist Signature AST 25 0 - 55 U/L [facility] Specimen Anatomical Collection Method Collection Time Receive d Time (Source) Location / / Volume Laterality 11/02/2003 7:40 AM 4 7:44 CDT AM CDT Maurizio Yost MD LABORATORY Performing Organization Address City/[facility]/ZIP Code Phon e Number [facility] [address] [place] [address] [facility] HEMOGLOBIN A1C (11/02/2003 7:40 AM CDT) athologist Signature Hemoglobin A1C 6.0 4.3 - 6.0 [facility] Specimen Anatomical Collection Method Collection Time Receive d Time (Source) Location / / Volume Laterality 11/02/2003 7:40 AM 4 7:44 CDT AM CDT Maurizio Yost MD LABORATORY Performing Organization Address City/[facility] Code Phon e Number [facility] [address] [place] [address] [facility] (ABNORMAL) A.M.A. LIPID PANEL (11/02/2003 7:40 AM CDT) athologist Signature Cholesterol 211 (H) <200 mg/dL [facility] Comment: Cholesterol Reference Range: <200 ??The NCEP recommends further ? evaluation of: ? 1. ??Patients with cholesterol ? greater than 200 mg/dL ? if additional risk facto rs ? are present. ? 2. ??All patients with a ? cholesterol greater than ? 240 mg/dL. Triglycerides 212 (H) <150 mg/dL [facility] HDL Cholesterol 40 (L) >40 mg/dL [facility] LDL Cholesterol Calculated 129 <130 mg/dL [facility] VLDL-Cholesterol 42 (H) 0 - 30 mg/dL [facility] Cholesterol/HDL Ratio 5.3 (H) 0.0 - 5.0 [facility] Specimen Anatomical Collection Method Collection Time Receive d Time (Source) Location / / Volume Laterality 11/02/2003 7:40 AM 4 7:44 CDT AM CDT Maurizio Yost MD LABORATORY Performing Organization Address [facility] Code Phon e Number [facility] [address] [place] [address] [facility] documented in this encounter Visit Diagnoses Diagnosis Type II or unspecified type diabetes davis litus without mention of complication, not stated as uncontrolled Unspecified disorder of lipoid metabolis m documented in this encounter Care Teams Hospital Superintendent Relationship Specialty Start Date End Date Maurizio Yost MD PCP - General 06/17/01 [address] [place] [address] documented as of this encounter
--- OUTSIDE RECORDS SUMMARY | 2022-04-06 08:14 | XMS_ITS | Encounter Summary ---
:1955 Author Organization [place] Address [address] [place] [address]. [place] [address] Care Team Providers Name Role Phone Maurizio Yost MD Primary Care Provider [phone] Encounter Details Date Type Department Care Team Description 03/23/2002 Abstract [facility] Vin madrid, Jennifer [place] [address] [phone] Social History Tobacco Use [...] on filedocumented in this encounter Care Teams Content Development Specialist Relationship Specialty Start Date End Date Maurizio Yost MD PCP - General 06/17/[address] [address] documented as of this encounter
--- OUTSIDE RECORDS SUMMARY | 2022-04-06 08:14 | XMS_ITS | Encounter Summary ---
:1955 Author Organization [place] Address [address] [place] [address]. [place] [address] Care Team Providers Name Role Phone Maurizio Yost MD Primary Care Provider [phone] Reason for Visit Reason Comments Medication Request Encounter Details Date Type Department Care Team Description 02/13/2002 Telephone [facility] Kedar Philippe MD Medication Request [address] [facility] [place] [address] [place], [place] [address] (Wo rk) Social History Tobacco Use Types Packs/Day Years Used Date Smoking Tobacco: Never Assessed Sex Assigned at Date Recorded Not on file documented as of this encounter Miscellaneous Notes Telephone Encounter - 02/13/2002 11:59 PM CDT >> LUKE CANDELARIA [facility] Feb 16, 2002 10:31 AM rx sent to pt's home address. >> KEDAR PHILIPPE [facility] Feb 16, 2002 10:23 AM okay for patient to p/u. >> VIKTORIA SANTAMARIA [facility] Feb 13, 2002 3:03 PM >> CALL RECEIVED. Contact: Changed to mail order pharm. Needs written rx and mail to pt. See med sheet. documented in this encounter Plan of Treatment Not on filedocumented as of this encounter Visit Diagnoses Not on filedocumented in this encounter Care Teams Slasher Machine Operator Relationship Specialty Start Date End Date Maurizio Yost MD PCP - General 06/17/01 [address] [place] [address] documented as of this encounter
--- OUTSIDE RECORDS SUMMARY | 2022-04-06 08:14 | XMS_ITS | Encounter Summary ---
:1955 Author Organization [place] Address [address] [place] [address]. [place] [address] Care Team Providers Name Role Phone Maurizio Yost MD Primary Care Provider [phone] Reason for Visit Reason Comments Medication Request Encounter Details Date Type Department Care Team Description 07/10/2002 Telephone [facility] Kedar Philippe MD Medication Request [address] [facility] [phone] [place], [place] [address] (Wo rk) Social History Tobacco Use Types Packs/Day Years Used Date Smoking Tobacco: Never Alcohol Use Standard Drinks/Week Comments No 0 (1 standard drink = 0.6 oz pure alcoho l) Sex Assigned at Date Recorded Not on file documented as of this encounter Miscellaneous Notes Telephone Encounter - 07/10/2002 11:59 PM LEARNING SUPPORT SPECIALIST >> HARRY SILVA WedJul 10, 2002 5:01 [...] 10:01 AM >> CALL RECEIVED. Contact: W [phone] until 4pm, H [phone] Please see previous message 05/15/02. Patient had [...] lipids done 05/05. Patient would like to pick and shovel man Rx. chart requested Luz Maria Simon RN documented in this encounter Plan of Treatment Not on filedocumented as of this encounter Visit Diagnoses Diagnosis Pure hypercholesterolemia Other abnormal blood chemistry documented in this encounter Care Teams Furniture Inspector Relationship Specialty Start Date End Date Maurizio Yost MD PCP - General 06/17/01 [address] [place] [address] documented as of this encounter
--- OUTSIDE RECORDS SUMMARY | 2022-04-06 08:14 | XMS_ITS | Encounter Summary ---
:1955 Author Organization [place] Address [address] [place] [address]. [place] [address] Care Team Providers Name Role Phone Maurizio Yost MD Primary Care Provider [phone] Reason for Referral - Closed Specialty Diagnoses / Procedures Referred By Contact Refer red To Contact Diagnoses Type II or unspecified type diabetes mellitus without mention of complication, not stated as uncontrolled Maurizio Yost MD [address] [address] Referral ID Status Reason Start Date Expiration Date Visits Requ ested Visits Authorized [id number] Closed 12/11/2002 05/02/2011 1 1 Reason for Visit Reason Comments Diabetes Encounter Details Date Type Department Care Team Description 12/11/2002 Telephone [facility] Cosme Yost, Diabetes [place] [address] [place] [address] [phone] [place] [address] [phone] (Wo rk) Social History Tobacco Use Types [...] Primary documented in this encounter Care Teams Merchandise Examiner Relationship Specialty Start Date End Date Maurizio Yost MD PCP - General 06/17/01 [address] [place] [address] documented as of this encounter
--- OUTSIDE RECORDS SUMMARY | 2022-04-06 08:14 | XMS_ITS | Encounter Summary ---
:1955 Author Organization [place] Address [facility] [place] [address] Care Team Providers Name Role Phone Maurizio Yost MD Primary Care Provider [phone] Encounter Details Date Type Department Care Team Description 10/23/2002 Orders Only [facility] PUR E HYPERCHOLESTEROLEM; [facility] BLOOD CHEMISTRY NEC Laboratory [address] [phone] Social History Tobacco Use [...] Hemoglobin A1C 6.3 (H) 4.3 - 6.0 [facility] Specimen Anatomical Collection Method Collection Time Receive d Time (Source) Location / / Volume Laterality 10/23/2002 8:19 AM 3 8:24 CDT AM CDT Maurizio Yost MD LABORATORY Performing Organization Address City/State/ZIP Code Phon e Number [facility] [address] [place] [address] [facility] GLUCOSE (10/23/2002 8:19 AM CDT) athologist Signature Glucose 108 60 - 115 [facility] mg/dL CLINIC LAB Specimen Anatomical Collection Method Collection Time Receive d Time (Source) Location / / Volume Laterality 10/23/2002 8:19 AM 3 8:24 CDT AM CDT Maurizio Yost MD LABORATORY Performing Organization Address City/State/ZIP Code Phon e Number [facility] [address] [place] [address] [facility] CK, TOTAL (10/23/2002 8:19 AM CDT) athologist Signature CK Total 157 45 - 300 [place] [facility] Specimen Anatomical Collection Method Collection Time Receive d Time (Source) Location / / Volume Laterality 10/23/2002 8:19 AM 3 8:24 CDT AM CDT Maurizio Yost MD LABORATORY Performing Organization Address City/[facility]/ZIP Code Phon e Number [facility] [address] [place] [address] [place] AST (10/23/2002 8:19 AM CDT) athologist Signature AST 24 0 - 55 U/L [facility] Specimen Anatomical Collection Method Collection Time Receive d Time (Source) Location / / Volume Laterality 10/23/2002 8:19 AM 3 8:24 CDT AM CDT Maurizio Yost MD LABORATORY Performing Organization Address City/[facility]/ZIP Code Phon e Number [facility] [address] [place] [address] [facility] (ABNORMAL) A.M.A. LIPID PANEL (10/23/2002 8:19 AM CDT) athologist Signature Cholesterol 153 <200 mg/dL [facility] Comment: Cholesterol Reference Range: <200 ??The NCEP recommends further ? evaluation of: ? 1. ??Patients with cholesterol ? greater than 200 mg/dL ? if additional risk facto rs ? are present. ? 2. ??All patients with a ? cholesterol greater than ? 240 mg/dL. Triglycerides 197 (H) <150 mg/dL [facility] HDL Cholesterol 45 >40 mg/dL [facility] LDL Cholesterol Calculated 69 <130 mg/dL [facility] VLDL-Cholesterol 39 (H) 0 - 30 mg/dL [facility] Cholesterol/HDL Ratio 3 0 - 5 [facility] Specimen Anatomical Collection Method Collection Time Receive d Time (Source) Location / / Volume Laterality 10/23/2002 8:19 AM 3 8:24 CDT AM CDT Maurizio Yost MD LABORATORY Performing Organization Address City/State/ZIP Code Phon e Number [facility] [address] [place] [address] [facility] documented in this encounter Visit Diagnoses Diagnosis Pure hypercholesterolemia Other abnormal blood chemistry documented in this encounter Care Teams Retail Director Relationship Specialty Start Date End Date Maurizio Yost MD PCP - General 06/17/[address] [place] [address] documented as of this encounter
--- OUTSIDE RECORDS SUMMARY | 2022-04-06 08:14 | XMS_ITS | Encounter Summary ---
:1955 Author Organization [place] Address [address] [place] [address]. [place] [address] Care Team Providers Name Role Phone Maurizio Yost MD Primary Care Provider [phone] Reason for Visit Reason Comments Medication Request Encounter Details Date Type Department Care Team Description 05/15/2002 Telephone [facility] Kedar Philippe MD Medication Request [address] [phone] [place], [place] [address] (Wo rk) Social History Tobacco Use Types Packs/Day Years Used Date Smoking Tobacco: Never Alcohol Use Standard Drinks/Week Comments No 0 (1 standard drink = 0.6 oz pure alcoho l) Sex Assigned at Date Recorded Not on file documented as of this encounter Miscellaneous Notes Telephone Encounter - 05/15/2002 11:59 PM [facility] >> KELLY GIBBONS WedMay 22, 2002 12:28 [...] on filedocumented in this encounter Care Teams State Patrol Officer Relationship Specialty Start Date End Date Maurizio Yost MD PCP - General 06/17/01 [address] [place] [address] documented as of this encounter
[2022-04-06 11:17] LABS: Albumin* 4.7 g/dL (3.3-5.0)
[2022-04-06 11:18] LABS: Chloride* 107 mmol/L (96-114); Sodium* 141 mmol/L (135-149)
[2022-04-06 11:20] LABS: Cholesterol* 188 mg/dL (90-199)
[2022-04-06 11:21] LABS: Alanine Aminotransferase* 33 U/L (4-50); Alkaline Phosphatase* 85 U/L (40-150); Aspartate Amino Transferase* 28 U/L (12-35); Bilirubin Total* 0.7 mg/dL (0.1-1.5); Blood Urea Nitrogen* 24 mg/dL (7-30); Calcium* 9.8 mg/dL (8.4-10.6); Carbon Dioxide* 25 mmol/L (20-32); Creatinine* 1.1 mg/dL (0.5-1.5); Estimated Glomerular Filt Rate 74 ml/min; Glucose* 121 mg/dL (60-115); Total Protein* 7.8 g/dL (6.0-8.3); Triglycerides* 127 mg/dL (40-149)
[2022-04-06 11:22] LABS: HDL Cholesterol* 63 mg/dL (>=40); LDL Cholesterol Calculated 100 mg/dL (<100)
[2022-04-06 11:32] LABS: Microalbumin Urine 3 mg/dL
[2022-04-06 11:33] LABS: Creatinine Urine 182.2 mg/dL; Microalbumin Creatinine Ratio 10 mg/g (0-30)
[2022-04-06 11:50] LABS: PSA Screen* < 0.06 ng/mL (0.10-4.00)
[2022-04-06 12:57] LABS: Potassium* 5.5 mmol/L (3.6-5.1)
== END 2022-04-06 08:00 | disposition home or self-care (01) ==
LOC: NFLDREF 08:00
PROVIDERS: PCP Internal Medicine; Visit Provider Internal Medicine
DX: Z00.00 Encounter for general adult medical examination without abnormal findings (principal); E11.9 Type 2 diabetes mellitus without complications; E78.5 Hyperlipidemia, unspecified; Z12.5 Encounter for screening for malignant neoplasm of prostate
CPT/HCPCS: 80053; 80061; 82043; 82570; 84153

== ENCOUNTER 2023-04-08 07:30 | Outpatient (CLI) | payer MEDICARE, SELFPAY | END 2023-04-08 07:31 | disposition home or self-care (01) | LOC: NFLDREF 14:59 | PROVIDERS: PCP Internal Medicine; Referring Provider Internal Medicine; Visit Provider Internal Medicine | DX: E11.9 Type 2 diabetes mellitus without complications (principal); C61 Malignant neoplasm of prostate; Z13.220 Encounter for screening for lipoid disorders | CPT/HCPCS: 80053; 80061; 82043; 82570; 84153; 84154 ==

== ENCOUNTER 2024-02-16 16:09 | Outpatient (CLI) | payer MEDICARE, SELFPAY ==
--- OUTSIDE RECORDS SUMMARY | 2024-02-16 16:12 | XMS_ITS | Referral Summary ---
Author Organization [place] Address [facility] [place] [address] Care Team Providers Care Switchman Name Role Phone Maurizio Yost MD Primary Care Provider Allergies Active Allergy Reactions Criticality Noted Date Comments No Known Allergies 05/05/2002 Medications Medication Sig Dispensed Refills Start Date End Date Status FISH OIL 1000 MG OR CAPSIndications:Othe r and unspecified hyperlipidemia Take 2 g by mouth daily (with dinner) (2 x 1000 mg = 2000 mg) 08/05/2006 Active simvastatin (ZOCOR) 40 MG tabletIndications:Hy perlipidemia LDL goal <130 Take 1 tablet by mouth At Bedtime. 90 tablet 0 09/20/2012 Active Additional Information Patient taking differently:40 mg OralEVERY EVENING, Reported on 01/08/2022 metFORMIN (GLUCOPHAGE) 500 MG tablet Take 500 mg by mouth 2 times daily (with meals) Active Aspirin 81 MG CAPSIndications:Ratna adames general medical examination at a health care facility 01/12/2022 Acti ve senna-docusate (SENOKOT-S/PERICOLAC E) 8.6-50 MG tabletIndications:Pr ostate cancer (H) Take 1-2 tablets by mouth 2 times daily as needed for constipation 20 tablet 01/08/2022 Active oxyCODONE (ROXICODONE) 5 MG tabletIndications:Pr ostate cancer (H) Take 1 tablet (5 mg) by mouth every 4 hours as needed for moderate to severe pain 8 tablet 01/08/2022 Active Active Problems Problem Noted Date Diagnosed Date Prostate cancer 01/07/2022 HYPERLIPIDEMIA LDL GOAL <130 03/02/2010 Dysmetabolic syndrome X 11/30/2003 Abnormal blood chemistry 07/10/2002 Overview: Problem list name updated by automated process. Provider to review Pure hypercholesterolemia 05/05/2002 Diverticulosis of large intestine Overview: incidental diverticulosis seen on colonoscopy Problem list name updated by automated process. Provider to review Sensorineural hearing loss, unilateral Overview: left sided hearing loss without obvious cause; ENT workup and MRI negative Resolved Problems Problem Noted Date Diagnosed Date Resolved Date Advanced directives, counseling/discussion 09/11/2011 10/18/2023 Overview: Patient states has Advance Directive and will bring in a copy to clinic. 09/11/2011 Immunizations Name Administration Dates Next Due Influenza (IIV3) PF 03/03/2011 TDAP Vaccine (Adacel) 08/10/2008 Social History Tobacco Use Types Packs/Day Years Used Date Smoking Tobacco: Never Smokeless Tobacco: Former Alcohol Use Standard Drinks/Week Comments No 0 (1 standard drink = 0.6 oz pur e alcohol) Adolescent Education Answer Date Record ed Getting School Help Needed Not on file 02/15 Sex and Gender Information Value Date Recorded Sex Assigned at Not on file Gender Identity Not on file Sexual Orientation Not on file Last Filed Vital Signs Vital Sign Reading Time Taken Comments Blood Pressure 121/70 01/08/2022 7:24 AM CDT Pulse 68 01/08/2022 7:24 AM CDT Temperature 36.6 ??C (97.9 ??F) 01/08/2022 7:24 AM CD T Respiratory Rate 14 01/08/2022 7:24 AM CDT Oxygen Saturation 98% 01/08/2022 7:24 AM CDT Inhaled Oxygen Concentration - - Weight 97.5 kg (215 lb) 01/07/2022 10:02 AM CDT Height 180.3 cm (5' 11) 01/07/2022 10:02 AM CDT Body Mass Index 29.99 01/07/2022 10:02 AM CDT Plan of Treatment Not on file Procedures Procedure Name Priority Date/Time Associated Diagnosis Comments BASIC METABOLIC PANEL Routine 01/08/2022 6:56 AM CDT LIPID PROFILE Routine 09/04/2011 7:28 AM CDT Hyperlipidemia LDL goal <130 HEMOGLOBIN A1C Routine 09/04/2011 7:28 AM CDT Dysmetabolic syndrome X COMPREHENSIVE METABOLIC PANEL Routine 09/03/2010 7:43 AM CDT Hyperlipidemia LDL goal <130 COLONOSCOPY Routine 06/10/2007 7:55 AM ELECTRIC SWITCH REPAIRER from Last 3 Months or Most Recently Relevant to Health Maintenance Results * (ABNORMAL) Basic metabolic panel (01/08/2022 6:56 AM CDT) Sodium 137 133 - 144 mmol/L 01/08/2022 7:46 AM CDT LABORATORY Potassium 4.2 3.4 - 5.3 mmol/L 01/08/2022 7:46 AM CDT LABORATORY Chloride 104 94 - 109 mmol/L 01/08/2022 7:46 AM [facility] Carbon Dioxide (CO2) 26 20 - 32 mmol/L 01/08/2022 7:46 AM CDT LABORATORY Anion Gap 7 3 - 14 mmol/L 01/08/2022 7:46 AM CDT LABORATORY Urea Nitrogen 18 7 - 30 mg/dL 01/08/2022 7:46 AM CDT LABORATORY Creatinine 1.14 0.66 - 1.25 mg/dL 01/08/2022 7:46 AM CDT LABORATORY Calcium 8.9 8.5 - 10.1 mg/dL 01/08/2022 7:46 AM [facility]OR[facility]ORY Glucose 153(H) 70 - 99 mg/dL 01/08/2022 7:46 AM [facility] GFR Estimate 71 >60 mL/min/1.7 3m2 01/08/2022 7:46 AM [facility] Comment:Effective April 032020 eGFRcr in adults is calculated using the 2020 CKD-EPI creatinine equation which includes age and gender (Randolph et al., NEJM, DOI: 10.1056/IWKOgw1539859) Blood STRUCTURE OF RIGHT UPPER LIMB / Unknown Venipuncture / Unknown 01/08/2022 6:56 AM CDT 01/08/2022 7:22 AM CDT Tomeka Salter PA-C LAB - BLOOD O RDERABLES LABORATORY [facility] Acute [facility] Lab [address], [address] [place] [address], [facility] [phone] * Lipid Profile (09/04/2011 7:28 AM CDT) Cholesterol 152 0 - 200 mg/dL [facility] Comment: LDL Cholesterol is the primary guide to therapy. The NCEP recommends further evaluation of: patients with cholesterol greater than 200 mg/dL if additional risk factors are present, cholesterol greater than 240 mg/dL, triglycerides greater than 150 mg/dL, or HDL less than 40 mg/dL. Triglycerides 96 0 - 150 mg/dL [facility] HDL Cholesterol 52 40 - 110 mg/dL [facility] LDL Cholesterol Calculated 81 0 - 129 mg/dL [facility] Comment: LDL Cholesterol is the primary guide to therapy: LDL-cholesterol goal in high risk patients is <100 mg/dL and in very high risk patients is <70 mg/dL. VLDL-Cholesterol 19 0 - 30 mg/dL [facility] Cholesterol/HDL Ratio 2.9 0.0 - 5.0 [facility] Blood specimen (specimen) 09/04/2011 7:28 AM CDT 09/04/2011 7:33 AM CDT Maurizio Yost MD LAB - BLOOD OR DERABLES [facility] * (ABNORMAL) Hemoglobin A1c (09/04/2011 7:28 AM CDT) Hemoglobin A1C 6.2(H) 4.3 - 6.0 % [facility] Blood specimen (specimen) 09/04/2011 7:28 AM CDT 09/04/2011 7:33 AM CDT Maurizio Yost MD LAB - BLOOD OR DERABLES [facility] * (ABNORMAL) Comprehensive metabolic panel (09/03/2010 7:43 AM CDT) Sodium 141 133 - 144 mmol/L [facility] Potassium 4.3 3.4 - 5.3 mmol/L [facility] Chloride 103 94 - 109 mmol/L [facility] Carbon Dioxide 28 20 - 32 mmol/L [facility] Anion Gap 10 6 - 17 mmol/L [facility] Glucose 118(H) 60 - 99 mg/dL [facility] Urea Nitrogen 20 7 - 30 mg/dL [facility] Creatinine 1.02 0.66 - 1.25 mg/dL [facility] GFR Estimate Not Calculated >60 mL/min/1. 7m2 [facility] GFR Estimate If Black Not Calculated >60 mL/min/1. 7m2 [facility] Calcium 9.6 8.5 - 10.4 mg/dL [facility] Bilirubin Total 0.8 0.2 - 1.3 mg/dL [facility] Albumin 4.4 3.3 - 4.9 g/dL [facility] Protein Total 8.1 6.8 - 8.8 g/dL [facility] Alkaline Phosphatase 79 40 - 150 U/L [facility] ALT 38 0 - 70 U/L [facility] AST 36 0 - 55 U/L [facility] Blood specimen (specimen) 09/03/2010 7:43 AM CDT 09/03/2010 7:48 AM CDT Maurizio Yost MD LAB - BLOOD OR DERABLES [facility] * COLONOSCOPY (06/10/2007 7:55 AM ELECTRIC SWITCH REPAIRER) COLONOSCOPY [facility] Endoscopy Department ___ Patient Name: Branden Candelaria ? Gender: M ? Procedure Date: 06/10/2007 7:55 AM ? Date of : 1955 ?Age: 51 ? Admit Type: Outpatient ?Room: 6 ? Note Status: Finalized ? Attending MD: Owen Banuelos MD ? Pause For The Cause: Pause for the cause ___ Procedure: ? Colonoscopy Indications: ? High risk colon CA screening: Colon cancer in mother 60 ? or older Providers: ? Owen Banuelos MD, Charissa Del Castillo RN Referring MD: ?Maurizio Yost MD Medicines: ? Fentanyl IV 100 mcgs, Versed IV 1 mg Complications: ? No immediate complications ___ Procedure: ? - Prior to the procedure, [...] alert and oriented. Airway Examination: ? normal oropharyngeal airway and neck mobility. ? Respiratory Examination: [...] The heart rate, respiratory rate, ? oxygen saturations, blood pressure, adequacy of ? pulmonary ventilation, and response to care were ? monitored throughout the procedure. The physical status ? of the patient was re-assessed after the procedure. ? After obtaining informed consent, the colonoscope was ? passed under direct vision. Throughout the procedure, ? the patient's blood pressure, pulse, and oxygen ? saturations were monitored continuously. The ? [id number] oscope was introduced through the ? anus and advanced to the cecum, identified by ? appendiceal orifice & IC valve. The colonoscopy was ? performed with ease. The patient tolerated the procedure ? well. The quality of the prep was excellent. The prep ? was adequate to identify polyps. Scope insertion time ? was 12 minutes. Scope withdrawal time was 8 minutes. ? Findings: ? The perianal and digital rectal examinations were normal. Pertinent ? negatives include normal sphincter tone, no palpable rectal lesions and ? no anal lesion or abnormality was detected. A few small-mouthed ? diverticula were found in the sigmoid colon and in the descending colon. ? Otherwise normal colon from the anus (including rectal retroflexion) to ? the base of the cecum. ? Impression: ?- Diverticulosis sigmoid colon and descending colon. ? - The exam was otherwise normal to the cecum. Recommendation: ?- Discharge patient to home (ambulatory). ? - High bulk, high fluid diet. ? - Follow up with Dr. Yost as planned and get annual ? FOBT (fecal occult blood test). ? - Repeat colonoscopy for screening purposes in 5 years ? or PRN sooner. ? - The findings and recommendations were discussed with ? the patient. ? Owen Banuelos M.D. Owen Banuelos MD Signed Date: 06/10/2007 9:00 AM Number of Addenda: 0 I was physically present for the entire viewing portion of the exam. Note initiated on 06/10/2007 7:55 AM RADIOLOGY RESULTS COLONOSCOPY RADIOLOG Y RESULTS 06/10/2007 7:55 AM ELECTRIC SWITCH REPAIRER Aidan Yi MD PROCEDURES RADIOLOGY RESULTS from Last 3 Months or Most Recently Relevant to Health Maintenance Advance Directives For more information, please contact: [phone] * Full Code (Latest Code Status on File) Date Activated Date Inactivated Comments 01/07/2022 5:40 PM 01/08/2022 4:38 PM All basic and advanced life-sustaining interventions are performed as appropriate Question Answer Comments Code status determined by: Unable to dis cuss and no AD/POLST on file; continue PREVIOUSLY ORDERED code status Care Teams Switchman Relationship Specialty Start Date End Date Maurizio Yost MD [address], [place] [address] PCP - General 06/17/01
--- OUTSIDE RECORDS SUMMARY | 2024-02-16 16:12 | XMS_ITS | Clinical Summary ---
Author Organization [facility] Address [address] [place] [address] Care Team Providers Care Machine Assembler Name Role Phone Unavailable Primary Care Provider Unavailabl e Source Comments Patient records contain information from all sites at [facility]. For routine questions regarding patient records, call [phone] during business hours, M-F 8:00 AM - 5:00 PM Central Time. Record requests for emergency care only can be directed to [phone] at any time.[facility] Allergies No known active allergies Medications metFORMIN (GLUCOPHAGE) 500 mg tablet Take 500 mg by mouth 2 (two) times a day with meals. 07/13/2022 Active simvastatin (ZOCOR) 40 mg tablet Take 40 mg by mouth at bedtime. 07/13/2022 Active aspirin ([place]) 81 mg capsule Take by mouth. 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 Gender Identity Not on file Sexual Orientation Not on file Last Filed Vital Signs Vital Sign Reading Time Taken Comments Blood Pressure 146/77 10/04/2022 1:59 PM CDT Pulse 65 10/04/2022 1:57 PM CDT Temperature 36.8 ??C (98.2 ??F) 10/04/2022 1:57 PM CD T Respiratory Rate - - Oxygen Saturation 97% 10/04/2022 1:57 PM CDT Inhaled Oxygen Concentration - - Weight 99.7 kg (219 lb 12.8 oz) 10/04/2022 1:57 PM CDT Height - - Body Mass Index - - Plan of Treatment Health Maintenance Due Date Last Done Comments CT Colonography 1955 Cologuard 1955 Colonoscopy 1955 Colorectal Cancer Screening 1955 FIT 1955 Hepatitis C Screening 1955 Depression Screening (Annual PHQ-2) 05/03/2023 Fall Risk Screen (Annual) 05/03/2023 COVID-19 Vaccine (2023- 5 season) 2024 03/01/2023, 03/10/2022, 09/09/2021, Additional history exists Influenza Vaccine (#1) 2024 , 02/13/2022, 02/05/2021, Additional history exists Fasting Glucose for Diabetes Screening 01/08/2025 01/08/2022, 01/07/2022 Pneumococcal vaccine (65+ ye ars) (3 of 3 - PPSV23 or PCV20) 03/05/2026 03/05/2021, 09/29/2018 DTaP,Tdap,and Td Vaccines (4 - Td or Tdap) 12/19/2031 12/18/2021, 08/19/2012, 08/10/2008 Zoster Vaccines Completed 02/25/2021, 09/02, 07/21/2018, Additional history exists Insurance [facility]
--- OUTSIDE RECORDS SUMMARY | 2024-02-16 16:12 | XMS_ITS ---
Author Organization [facility] Address [address] [place] [address] Care Team Providers Care Parts Counter Clerk Name Role Phone Unavailable Unavailable Unavailable Surgery Details Not on file Complications Check Surgery Details section. Procedure Estimated Blood Loss Check Surgery Details section. Procedure Findings Check Surgery Details section. Procedure Specimens Taken Check Surgery Details section.
--- OUTSIDE RECORDS SUMMARY | 2024-02-16 16:12 | XMS_ITS | Clinical Summary ---
Author Organization [facility] Address [place], [place] [address] Care Team Providers Care Handbag Stitcher Name Role Phone Rodriguez Desai MD Primary Care Provider Allergies No known active allergies Medications Medication Sig Dispensed Refills Start Date End Date Status simvastatin (ZOCOR) 40 mg tablet Take 40 mg by mouth at bedtime. 07/24/2021 Active metFORMIN (GLUCOPHAGE) 500 mg tablet Take 500 mg by mouth 2 times daily with meals. 07/24/2021 Active fish oil-omega-3 fatty acids 1,000-340 mg capsule Daily Active aspirin chewable 81 mg chewable tablet Daily Active Social History Tobacco Use Types Packs/Day Years Used Date Smoking Tobacco: Never Smokeless Tobacco: Never Sex and Gender Information Value Date Recorded Sex Assigned at Not on file Gender Identity Not on file Sexual Orientation Not on file Obstetrics History Last Filed [...] and wt on same day) for age 18+ 08/30/1973 Hepatitis C screening for age 18-79 08/30/1973 Tetanus booster 1975 Colonoscopy through age 75 08/30/2000 Lipids for age 45-75 08/30/2000 Zoster (shingles) series for age 50+ (1 of 2) 08/30/2005 Medicare Wellness for age 65+ 08/30/2020 Pneumococcal series for age 65+ (1 of 1 - PCV) 08/30/2020 COVID-19 vaccine series (2023-25 season) 2024 03/29/2021, 08/07/2020, 07/10/2020 Influenza for age 65+ 01/02/2024 Care Teams Handbag Stitcher Relationship Specialty Start Date End Date Rodriguez Desai MD [address] [place] [address] PCP - General Internal Medicine 07/30/21
--- OUTSIDE RECORDS SUMMARY | 2024-02-16 16:12 | XMS_ITS | Clinical Summary ---
Author Organization [place] Address [facility]0 [facility] [place] [address] Care Team Providers Care Maintenance Engineer Name Role Phone Maurizio Yost MD Primary [...] OF HM ORDERS 1955 CT COLONOGRAPHY 1955 FIT 1955 FLEX SIG 1955 sDNA (Cologuard) 1955 HEPATITIS C SCREENING 08/30/1973 CMP 09/04/2011 09/03/2010 A1C 03/06/2012 09/04/2011, 0 08/2010, 09/12/2009, Additional history exists LIPID 09/03/2012 09/04/2011, 0 08/2010, 09/12/2009, Additional history exists ADVANCE CARE PLANNING 09/10/2016 09/11/2011, 012 COLONOSCOPY 06/10/2017 06/10/2007 COLORECTAL CANCER SCREENING 06/10/2017 FALL RISK ASSESSMENT 08/30/2020 MEDICARE ANNUAL WELLNESS VISIT 08/30/2020 05/05/2002 PHQ-2 (once per calendar year) 2023 COVID-19 Vaccine ( season) 2024 09/09/2021, 03/29/2021, 08/07/2020, Additional history exists INFLUENZA VACCINE (#1) 2024 , 02/12/2019, 02/24/2017, Additional history exists GLUCOSE 01/08/2025 01/08/2022, 10/2021, 01/07/2022, Additional history exists Pneumococcal Vaccine: 65+ Years (3 of 3 - PPSV23 or PCV20) 03/05/2026 03/05/2021, 09/29/2018 RSV VACCINE (1 - 1-dose 75+ series) 08/30/2030 DTAP/TDAP/TD IMMUNIZATION (4 - Td or Tdap) 12/19/2031 12/18/2021, 08/19/2012, 08/10/2008 ZOSTER IMMUNIZATION Completed 02/25/2021, 09/29/2018, 07/21/2018, Additional history exists HPV IMMUNIZATION Aged Out No longer e ligible based on patient's age to complete this topic MENINGITIS IMMUNIZATION Aged Out No l onger eligible based on patient's age to complete this topic RSV MONOCLONAL ANTIBODY Aged Out No l onger eligible based on patient's age to complete this topic Procedures Procedure Name Priority Date/Time Associated Diagnosis Comments BASIC METABOLIC PANEL Routine 01/08/2022 6:56 AM CDT LIPID PROFILE Routine 09/04/2011 7:28 AM CDT Hyperlipidemia LDL goal <130 HEMOGLOBIN A1C Routine 09/04/2011 7:28 AM CDT Dysmetabolic syndrome X COMPREHENSIVE METABOLIC PANEL Routine 09/03/2010 7:43 AM CDT Hyperlipidemia LDL goal <130 COLONOSCOPY Routine 06/10/2007 7:55 AM MANAGER ORDER from Last 3 Months or Most Recently Relevant to Health Maintenance Results * (ABNORMAL) Basic metabolic panel (01/08/2022 6:56 AM CDT) Sodium 137 133 - 144 mmol/L 01/08/2022 7:46 AM CDT LABORATORY Potassium 4.2 3.4 - 5.3 mmol/L 01/08/2022 7:46 AM CDT LABORATORY Chloride 104 94 - 109 mmol/L 01/08/2022 7:46 AM CDT LABORATORY Carbon Dioxide (CO2) 26 20 - 32 mmol/L 01/08/2022 7:46 AM CDT LABORATORY Anion Gap 7 3 - 14 mmol/L 01/08/2022 7:46 AM CDT LABORATORY Urea Nitrogen 18 7 - 30 mg/dL 01/08/2022 7:46 AM CDT LABORATORY Creatinine 1.14 0.66 - 1.25 mg/dL 01/08/2022 7:46 AM CDT LABORATORY Calcium 8.9 8.5 - 10.1 mg/dL 01/08/2022 7:46 AM CDT LABORATORY Glucose 153(H) 70 - 99 mg/dL 01/08/2022 7:46 AM CDT LABORATORY GFR Estimate 71 >60 mL/min/1.7 3m2 01/08/2022 7:46 AM CDT LABORATORY Comment:Effective April 032020 eGFRcr in adults is calculated using the 2020 CKD-EPI creatinine equation which includes age and gender (Randolph et al., NEJ, DOI: 10.1056/SONUmv4538350) Blood STRUCTURE OF RIGHT UPPER LIMB / Unknown Venipuncture / Unknown 01/08/2022 6:56 AM CDT 01/08/2022 7:22 AM CDT Tomeka Salter PA-C LAB - BLOOD O RDERABLES LABORATORY [facility] Acute Care Lab [address], [address] [place] [address], [facility] [phone] * Lipid Profile (09/04/2011 7:28 AM CDT) Cholesterol 152 0 - 200 mg/dL [facility] Comment: LDL Cholesterol is the primary guide to therapy. The NCEP recommends further evaluation of: patients with cholesterol greater than 200 mg/dL if additional risk factors are present, cholesterol greater than 240 mg/dL, triglycerides greater than 150 mg/dL, or HDL less than 40 mg/dL. Triglycerides 96 0 - 150 mg/dL [facility] HDL Cholesterol 52 40 - 110 mg/dL [facility] LDL Cholesterol Calculated 81 0 - 129 mg/dL [facility] Comment: LDL Cholesterol is the primary guide to therapy: LDL-cholesterol goal in high risk patients is <100 mg/dL and in very high risk patients is <70 mg/dL. VLDL-Cholesterol 19 0 - 30 mg/dL [facility] Cholesterol/HDL Ratio 2.9 0.0 - 5.0 [facility] Blood specimen (specimen) 09/04/2011 7:28 AM CDT 09/04/2011 7:33 AM CDT Maurizio Yost MD LAB - BLOOD OR DERABLES [facility] * (ABNORMAL) Hemoglobin A1c (09/04/2011 7:28 AM CDT) Hemoglobin A1C 6.2(H) 4.3 - 6.0 % [facility] Blood specimen (specimen) 09/04/2011 7:28 AM CDT 09/04/2011 7:33 AM CDT Mauriizo Yost MD LAB - BLOOD OR DERABLES [facility] * (ABNORMAL) Comprehensive metabolic panel (09/03/2010 7:43 AM CDT) Sodium 141 133 - 144 mmol/L [facility] Potassium 4.3 3.4 - 5.3 mmol/L [facility] Chloride 103 94 - 109 mmol/L [facility] Carbon Dioxide 28 20 - 32 mmol/L [facility] Anion Gap 10 6 - 17 mmol/L [facility] Glucose 118(H) 60 - 99 mg/dL [facility] Urea Nitrogen 20 7 - 30 mg/dL [facility] Creatinine 1.02 0.66 - 1.25 mg/dL [facility] GFR Estimate Not Calculated >60 mL/min/1. 7m2 [facility] GFR Estimate If Black Not Calculated >60 mL/min/1. 7m2 [facility] Calcium 9.6 8.5 - 10.4 mg/dL [facility] Bilirubin Total 0.8 0.2 - 1.3 mg/dL [facility] Albumin 4.4 3.3 - 4.9 g/dL [facility] Protein Total 8.1 6.8 - 8.8 g/dL [facility] Alkaline Phosphatase 79 40 - 150 U/L [facility] ALT 38 0 - 70 U/L [facility] AST 36 0 - 55 U/L [facility] Blood specimen (specimen) 09/03/2010 7:43 AM CDT 09/03/2010 7:48 AM CDT Maurizio Yost MD LAB - BLOOD OR DERABLES [facility] * COLONOSCOPY (06/10/2007 7:55 AM MANAGER ORDER) COLONOSCOPY [facility] Endoscopy Department ___ Patient Name: Branden Graf ? Gender: M ? Procedure Date: 06/10/2007 [...] Providers: ? Owen Banuelos MD, Charissa Del Castillo, RN Referring MD: ?Maurizio Yost MD Medicines: [...] ? saturations were monitored continuously. The ? [id number] oscope was introduced through the ? anus [...] COLONOSCOPY RADIOLOG Y RESULTS 06/10/2007 7:55 AM MANAGER ORDER Aidan Yi MD PROCEDURES RADIOLOGY RESULTS from Last 3 Months or Most Recently Relevant to Health Maintenance Advance Directives For more information, please contact: [phone] * Full Code (Latest Code Status on File) Date Activated Date Inactivated Comments 01/07/2022 5:40 PM 01/08/2022 4:38 PM All basic and advanced life-sustaining interventions are performed as appropriate Question Answer Comments Code status determined by: Unable to dis cuss and no AD/POLST on file; continue PREVIOUSLY ORDERED code status Care Teams Maintenance Engineer Relationship Specialty Start Date End Date Maurizio Yost MD [address] [place] [address] PCP - General 06/17/01
--- OUTSIDE RECORDS SUMMARY | 2024-02-16 16:12 | XMS_ITS | Referral Summary ---
Author Organization [facility] Address [address] [place] [address] Care Team Providers Care Screen Making Technician Name Role Phone Unavailable Primary Care Provider Unavailabl e Source Comments Patient records contain information from all sites at [facility]. For routine questions regarding patient records, call [phone] during business hours, M-F 8:00 AM - 5:00 PM Central Time. 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
== END 2024-02-16 16:10 | disposition home or self-care (01) ==
LOC: NFLDREF 16:10
PROVIDERS: PCP Internal Medicine; Visit Provider Internal Medicine
DX: R07.9 Chest pain, unspecified (principal)
CPT/HCPCS: 85379

== ENCOUNTER 2024-02-24 08:43 | Outpatient (CLI) | payer MEDICARE, SELFPAY ==
--- OUTSIDE RECORDS SUMMARY | 2024-02-24 08:46 | XMS_ITS | Referral Summary ---
Author Organization [facility] Address [address] [place] [address] Care Team Providers Care Delivery Supervisor Name Role Phone Unavailable Primary Care Provider Unavailabl e Source Comments Patient records contain information from all sites at [facility]. For routine questions regarding patient records, call [phone] during business hours, M-F 8:00 AM - 5:00 PM Central Time. 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
--- OUTSIDE RECORDS SUMMARY | 2024-02-24 08:46 | XMS_ITS ---
Author Organization [facility] Address [address] [place] [address] Care Team Providers Care Nanotechnology Engineering Technician Name Role Phone Unavailable Unavailable Unavailable Surgery Details Not on file Complications Check Surgery Details section. Procedure Estimated Blood Loss Check Surgery Details section. Procedure Findings Check Surgery Details section. Procedure Specimens Taken Check Surgery Details section.
--- OUTSIDE RECORDS SUMMARY | 2024-02-24 08:46 | XMS_ITS | Referral Summary ---
Author Organization [facility] Address [address] [place] [address]. [place] [address] Care Team Providers Care Wire Worker Name Role Phone Maurizio Yost MD Primary Care Provider Allergies Active Allergy Reactions Criticality Noted Date Comments No Known Allergies 05/05/2002 Medications FISH OIL 1000 MG OR CAPSIndications:Ot her and unspecified hyperlipidemia Take 2 g by mouth daily (with dinner) (2 x 1000 mg = 2000 mg) 08/06/19 07 Active simvastatin (ZOCOR) 40 MG tabletIndications: Hyperlipidemia LDL goal <130 Take 1 tablet by mouth At Bedtime. 90 tablet 0 09/21/19 13 Active Additional Information Patient taking differently:40 mg OralEVERY EVENING, Reported on 01/08/2022 metFORMIN (GLUCOPHAGE) 500 MG tablet Take 500 mg by mouth 2 times daily (with meals) Active Aspirin 81 MG CAPSIndications:Aretha mai general medical examination at a health care facility 01/13/20 22 Active senna-docusate (SENOKOT-S/PERICOL SANTA) 8.6-50 MG tabletIndications: Prostate cancer (H) Take 1-2 tablets by mouth 2 times daily as needed for constipation 20 tablet 01/09/20 22 Active oxyCODONE (ROXICODONE) 5 MG tabletIndications: Prostate cancer (H) Take 1 tablet (5 mg) by mouth every 4 hours as needed for moderate to severe pain 8 tablet 01/09/20 22 Active Active Problems Problem Noted Date Diagnosed Date Prostate cancer 01/07/2022 HYPERLIPIDEMIA LDL GOAL <130 03/02/2010 Dysmetabolic syndrome X 11/30/2003 Abnormal blood chemistry 07/10/2002 Overview (01/31/2015): Problem list name updated by automated process. Provider to review Pure hypercholesterolemia 05/05/2002 Diverticulosis of large intestine Overview (02/01/2015): incidental diverticulosis seen on colonoscopy Problem list name updated by automated process. 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 1[address], [address] [place] [address], [facility] [phone] * Lipid Profile (09/04/2011 7:28 AM CDT) Cholesterol 152 0 - 200 mg/dL [facility] Comment: LDL Cholesterol is the primary guide to therapy. The NCEP recommends further evaluation of: patients with cholesterol greater than 200 mg/dL if additional risk factors are present, cholesterol greater than 240 mg/dL, triglycerides greater than 150 mg/dL, or HDL less than 40 mg/dL. Triglycerides 96 0 - 150 mg/dL [facility] HDL Cholesterol 52 40 - 110 mg/dL [facility] LDL Cholesterol Calculated 81 0 - 129 mg/dL [facility] Comment: LDL Cholesterol is the primary guide to therapy: LDL-cholesterol goal in high risk patients is <100 mg/dL and in very high risk patients is <70 mg/dL. VLDL-Cholesterol 19 0 - 30 mg/dL [facility] Cholesterol/HDL Ratio 2.9 0.0 - 5.0 [facility] Blood specimen (specimen) 09/04/2011 7:28 AM CDT 09/04/2011 7:33 AM CDT us Maurizio Yost MD LAB - BLOOD ORDERABLES Final Result [facility] [address] [place] [address] * (ABNORMAL) Hemoglobin A1c (09/04/2011 7:28 AM CDT) Hemoglobin A1C 6.2(H) 4.3 - 6.0 % [facility] Blood specimen (specimen) 09/04/2011 7:28 AM CDT 09/04/2011 7:33 AM CDT us Maurizio Yost MD LAB - BLOOD ORDERABLES Final Result [facility] [address] [place] [address] * (ABNORMAL) Comprehensive metabolic panel (09/03/2010 7:43 AM CDT) Pathologist [facility] Sodium 141 133 - 144 mmol/L [facility] Potassium 4.3 3.4 - 5.3 mmol/L [facility] Chloride 103 94 - 109 mmol/L [facility] Carbon Dioxide 28 20 - 32 mmol/L [facility] Anion Gap 10 6 - 17 mmol/L [facility] Glucose 118(H) 60 - 99 mg/dL [facility] Urea Nitrogen 20 7 - 30 mg/dL [facility] Creatinine 1.02 0.66 - 1.25 mg/dL [facility] GFR Estimate Not Calculated >60 mL/min/1 .7m2 [facility] GFR Estimate If Black Not Calculated >60 mL/min/1 .7m2 [facility] Calcium 9.6 8.5 - 10.4 mg/dL [facility] Bilirubin Total 0.8 0.2 - 1.3 mg/dL [facility] Albumin 4.4 3.3 - 4.9 g/dL [facility] Protein Total 8.1 6.8 - 8.8 g/dL [facility] Alkaline Phosphatase 79 40 - 150 U/L [facility] ALT 38 0 - 70 U/L [facility] AST 36 0 - 55 U/L [facility] Blood specimen (specimen) 09/03/2010 7:43 AM CDT 09/03/2010 7:48 AM CDT us Maurizio Yost MD LAB - BLOOD ORDERABLES Final Result [facility] [address] [place] [address] * COLONOSCOPY (06/10/2007 7:55 AM WELDER MANUFACTURE) COLONOSCOPY [facility] Endoscopy Department ___ Patient Name: Branden Candelaria [...] ? saturations were monitored continuously. The ? [id number]-[id number] oscope was introduced through the ? anus [...] screening purposes in 5 years ? or AIRAM sooner. ? - The findings and recommendations were discussed with ? the patient. ? Owen Banuelos M.D. Owen Banuelos MD Signed Date: 06/10/2007 9:00 AM Number of Addenda: 0 I was physically present for the entire viewing portion of the exam. Note initiated on 06/10/2007 7:55 AM RADIOLOGY RESULTS COLONOSCOPY RADIOLOG Y RESULTS 06/10/2007 7:55 AM WELDER MANUFACTURE Aidan Yi MD PROCEDURES Final Result RADIOLOGY RESULTS from Last 3 Months or Most Recently Relevant to Health Maintenance Insurance MEDICARE [facility] MEDICARE SUPPLEMENT MEDICARE [place] MEDICARE SUPPLEMENT Advance Directives For more information, please contact: [phone] * Full Code (Latest Code Status on File) Date Activated Date Inactivated Comments 01/07/2022 5:40 PM 01/08/2022 4:38 PM All basic and advanced life-sustaining interventions are performed as appropriate Question Answer Comments Code status determined by: Unable to dis cuss and no AD/POLST on file; continue PREVIOUSLY ORDERED code status Care Teams Wire Worker Relationship Specialty Start Date End Date Maurizio Yost MD [address] [place] [id number] PCP - General 06/17/01
--- OUTSIDE RECORDS SUMMARY | 2024-02-24 08:46 | XMS_ITS | Data Portability ---
Author Organization [facility], [facility] Address [address] [place] [address] Care Team Providers Care Melt Supervisor Name Role Phone GABRIEL LEONG Primary Care Provider Assessment Encounter Date Assessment Date Assessment LastModified by Organization Details LastModified Time 01/16/2022 01/16/2022 66M with newly-diagnosed high-risk prostate cancer ([id number], Hussein 4+4=8, PSA 12.43) S/p RALP with PLND with Dr. Brennan at [facility] 01/07/22 Discussed kegels, 2 sets of 10 reps per day Reviewed surgical pathology cont activity restrictions until 6wks postop Complete cipro tomorrow f/u with Dr. Brennan 6wks with first PSA [email or web address] Not available 01/16/2022 12:50:19 02/23/2022 02/23/2022 66M [id number] Hussein 4+3=7 prostate cancer s/p RALP 01/07/22 (-SMS, 0/6 LN). 1) Prostate cancer - f/u 4 months with PSA 2) ERICH, minimal 3) ED - V20/100, discussed side effects [email or web address] Not available 02/23/2022 16:25:18 06/24/2022 06/24/2022 66M with pT2N0 [place] 4+3=7 prostate cancer s/p RALP 01/07/22 (-SMS, 0/6 LN). 1) Prostate cancer. YUVAL. - f/u 6 months with PSA 2) ERICH, minimal 3) ED - V20/100, discussed side effects 4) thigh pain - possible nerve irritation - rec ibuprofen BID x 2 weeks - if not improving, consider gabapentin [email or web address] Not available 06/24/2022 16:14:47 01/21/2023 01/21/2023 67M with pT2N0 [place] 4+3=7 prostate cancer s/p RALP 01/07/22 (-SMS, 0/6 LN). 1) Prostate cancer. YUAVL. - f/u 6 months with PSA 2) ERICH, minimal 3) ED - V20/100 prn 4) thigh pain - resolving [email or web address] Not available 01/21/2023 12:14:46 08/13/2023 08/13/2023 67M with pT2N0 [place] 4+3=7 prostate cancer s/p RALP 01/07/22 (-SMS, 0/6 LN). 1) Prostate cancer. YUVAL. - f/u 6 months with PSA 2) ERICH, minimal 3) ED - V20/100 prn [email or web address] Not available 08/13/2023 11:39:35 Plan of Treatment Reminders Order Date Submit Date Provider Last Modified By Organization Details Last Modified Time Details Appointments LAB BLOOD DRAW 2023 01:40P M [facility] Not available Not available Not available ESTABLISH ED 10 2023 02:00P M Elver soriano MD, PHD Not available Not available Not available Lab PSA, total, serum or plasma 2021 022 [email or web address] Not available 01/19/2022 08:58:54 PSA, serum or plasma 2021 022 [email or web address] 2 [facility], [address], [place], [address], 02/23/2022 16:11:52 PSA, serum or plasma 2022 023 [email or web address] [facility], [address], [place], [address], 06/24/2022 15:58:52 PSA, serum or plasma 2022 023 [email or web address] [facility], [address], [place], [address], 01/21/2023 12:04:01 PSA, serum or plasma 2023 024 [email or web address] [facility], [address], [place], [address], 08/13/2023 11:35:31 Referral None recorded. Procedures None recorded. Surgeries None recorded. Imaging None recorded. Medication Orders sildenafi l (pulmonar y hypertens ion) 20 mg tablet 2021 022 [email or web address] Not available 02/25/2022 11:47:37 Patient TargetsNo targets recorded. Patient InstructionsNo instructions recorded. Reason for Referral None Reported. Results Created Date Observation Date Name Description Value Unit Range Abnormal Flag Note LastModifiedBy Organization Detail LastModifiedTime 02/24/2002/23/2022 PSA, serum or plasm a PSA <0.04 ng/ml 0-4.0 Not Available [facility] [address] [facility] [address], [place], [address], 02/23/2022 16:11:25 06/24/19 23 06/24/2022 PSA, serum or plasm a PSA <0.04 ng/ml 0-4.0 Not Available [facility] [address], [place], [address], 06/24/2022 15:44:43 01/22/20 23 01/21/2023 PSA, serum or plasm a PSA <0.04 ng/ml 0-4.0 Not Available [facility] [address], [place], [address], 01/21/2023 10:52:05 08/13/19 24 08/13/2023 PSA, serum or plasm a PSA <0.04 ng/ml 0-4.0 Not Available [facility] [address], [place], [address], 08/11/2023 11:11:48 Result Notes None recorded. Problems Name Problem SNOMED Code Status Onset Date Resolution Date Notes Provider Name and Address Organization Details Recorded Time Malignant tumor of prostate 688326069 Active 2021 Elver soriano MD, PHD [address] [place] [address], [phone], [facility] 16:41:42 Erectile dysfunction 516802470 Active 2021 Elver soriano MD, PHD [address] [place] [address], [phone], [facility] 16:19:40 Problem Notes None recorded. Procedures Surgical History Date Name Laterality Status Provider Name and Address Organization Details Recorded Time 08/13/19 24 BINDER OPERATOR/blood draw [facility] 08/11/2023 11:11:50 01/22/20 23 BINDER OPERATOR/blood draw completed Lina [facility] 01/21/2023 11:42:24 06/24/19 23 Blood Draw/BINDER OPERATOR/PSA RESULTS completed Linarudi Fletcher [facility] 06/24/2022 15:44:38 02/24/20 22 BINDER OPERATOR/blood draw completed Amelie Durham [facility] 02/23/2022 16:11:14 01/22/20 22 Prostatectomy completed Elver muller MD, PHD [address] [place] [address],[address], [address], [facility] 02/23/2022 15:48:36 10/07/19 22 Prostate Biopsy Procedure completed Elver muller MD, PHD [address] [place] [address],[address], [address], [facility] 10/06/2021 18:08:21 10/07/19 22 URONAV completed Elver muller MD, PHD [address] [place] [address],[address], [address], [facility] 10/06/2021 17:07:31 05/03/19 20 colonoscopy completed Elver muller MD, PHD [address] [place] [address], [phone], [facility] 11/07/2021 16:20:07 Imaging Results None recorded. Procedure Notes None recorded. Medical Equipment None Reported. Allergies No known drug allergies Medications Name Sig Start Date Stop Date Status Note LastModified by Organization Details LastModified Time metformin 500 mg tablet TAKE ONE TABLET BY MOUTH TWICE A DAY FOR DIABETES active Not Available Not Available No t Available prednisone 20 mg tablet TAKE ONE TABLET BY MOUTH TWICE A DAY 11/07 completed Not Available Not Available Not Available ciprofloxac in 500 mg tablet 2021 active Not Available Not Available Not Avai lable simvastatin 40 mg tablet TAKE ONE TABLET BY MOUTH EVERY EVENING active Not Available Not Available No t Available ceftriaxone 1 gram solution for injection Take 1 g by injection route. 11/07 completed Not Available Not Available Not Available amoxicillin 875 mg-potassiu m clavulanate 125 mg tablet TAKE ONE TABLET BY MOUTH VIA FEEDING TUBE TWICE A DAY FOR OTITIS MEDIA active Not Available Not Available No t Available oxycodone 5 mg tablet 01/16 completed Not Available Not Available Not Available sildenafil (pulmonary hypertensio n) 20 mg tablet Take 1 tab by mouth daily. One day per week can take 5 tabs (100 mg) 30-60 minutes prior to sexual activity. 2021 active Not Available Not Available Not Avai labsadie BinaxNOW COVID-19 Ag Self Test kit TEST DIRECTED TODAY active Not Available Not Available No t Available Vitals Date Recorded Body height Body mass index (BMI) Body weight Provider Name and Address Organization Details Last Updated DateTime 01/16/2022 180.34 cm 29.4 kg/m2 74210.99 g Mitchell Talha [facility] 01/16/2022 12:30:25 Date Recorded Body height Provider Name an d Address Organization Details Last Updated DateTime 02/23/2022 180.34 cm Elver Brennan MD, PHD [address] [place] [address],[address], [phone] [place] [address] 02/23/2022 15:48:11 Date Recorded Body height Body mass index (BMI) Body weight Provider Name and Address Organization Details Last Updated DateTime 06/24/2022 180.34 cm 29.3 kg/m2 33670.4 g Lina Fletcher [facility] 06/24/2022 15:44:22 Date Recorded Body height Body mass index (BMI) Body weight Provider Name and Address Organization Details Last Updated DateTime 01/21/2023 180.34 cm 29.3 kg/m2 41227.4 g Lina Fletcher [facility] 01/21/2023 11:42:01 Date Recorded Body height Body mass index (BMI) Body weight Provider Name and Address Organization Details Last Updated DateTime 08/13/2023 180.34 cm 29.3 kg/m2 29772.4 g Elver muller MD, PHD [address] [place] [phone] [place] [address] 08/13/2023 11:13:04 Social History Question Answer Notes LastModified by Organizat ion Details LastModified Time Tobacco Smoking Status Never Smoker Elver Brennan MD, PHD [address] [place] [address], [phone] [place] [address] 11/07/2021 16:19:49 What Is Your Level Of Alcohol Consumption? Occasional Information not available 01/16/2022 What Is Your Level Of Caffeine Consumption? Occasional Information not available 01/16/2022 Race White [email or web address] Information not available 02/23/2022 Ethnicity Not /Latin o Information not available 02/23/2022 What Was The Date Of Your Most Recent Tobacco Screening? 08/13/2023 Information not available 08/13/2023 What Is Your Relationship Status? [email or web address] Information not available 02/23/2022 Are You Sexually Active? No Information not available 02/23/2022 Sex: Male Functional Status None recorded. Mental Status None recorded. Family History Relationship Description Onset Age of this Age Resolved Age Notes LastModified by Organization Details LastModified Time Mother Family history of malignant neoplasm [email or web address] Not available 16:19:44 Medical History Condition Response Diabetes Y Bleeding Disorder N High Blood Pressure N Kidney Stones N Cancer Y Depression N Lung Disease N High Cholesterol Y GERD/Acid Reflux N Heart Disease N Past Encounters Encounter ID Performer Location Encounter Start Date Encounter Closed Date Diagnosis/Indication Diagnosis SNOMED-CT Code Diagnosis ICD10 Code [id number] Elver nieves MD, PHD [address] [place] [address] 10/06/2021 15:48:06 10/08/2021 10:09:33 Prostate specific antigen above reference range 022084082 R97.20 [id number] Elver nieves MD, PHD [facility] [employer] [address] [place] [address] 11/07/2021 16:05:37 11/10/2021 09:20:46 Malignant tumor of prostate 398424463 C61 [id number] Elver nieves MD, PHD [facility] [employer] [address] [place] [address] 12/05/2021 08:49:32 12/12/2021 08:24:53 Malignant tumor of prostate 577374244 C61 [id number] TK WANG [facility] [employer] [address] [place] [id number] 01/16/2022 12:18:25 01/21/2022 08:47:46 Malignant tumor of prostate 966659849 C61 [id number] Elver nieves MD, PHD [facility] [address] [facility] [address] [place] [address] 02/23/2022 15:40:59 02/26/2022 12:22:57 Malignant tumor of prostate 923653436 C61 Erectile dysfunction 860 485151 F52.21 [id number] Elver nieves MD, PHD [facility] [employer] [address] [place] [address] 06/24/2022 15:37:01 06/29/2022 12:59:33 Malignant tumor of prostate 583002185 C61 Erectile dysfunction 860 092263 F52.21 [id number] Elver nieves MD, PHD [address] [place] [address] 01/21/2023 11:36:14 02/01/2023 08:17:07 Malignant tumor of prostate 595352525 C61 Erectile dysfunction 860 357987 F52.21 [id number] Elver nieves MD, PHD [address] [place] [address] 08/13/2023 10:56:33 08/16/2023 11:24:15 Malignant tumor of prostate 857809460 C61 Erectile dysfunction 860 404181 F52.21 Health Concerns Section Related Observation LastModified by Organization Detai ls LastModified Time None Recorded Concern Status LastModified by Organization Details LastModified Time None Recorded Advance Directives Directive None Recorded Payers Encounter Date Sequence Insurance Name Policy Number Policy Ceron Covered Member ID Ceron Member ID Guarantor Name 01/16/2022 1 [place] [employer] Branden Barrera Graf [id number] Branden Holly Homar 01/16/2022 2 [place] [id number] Branden Holly Homar [id number] Branden Holly Homar 02/23/2022 1 [place] [employer] Branden Holly Graf [id number] Branden Holly Homar 02/23/2022 2 [place] [id number] Branden Holly Homar [id number] Branden Holly Homar 06/24/2022 1 [place] [id number] Branden Graf [id number] Branden Graf 01/21/2023 1 [place] [id number] Branden Graf [id number] Branden Graf 08/13/2023 1 [place] [id number] Branden Graf [id number] Branden Graf Notes Date Note Type Note Provider Name and Address Organization Details Recorded Time 01/16/2022 text/html HPI Notes: 66yo male here today for routine postop visit. S/p RALP with Dr. Brennan at [facility] on 01/07/22. Reports he has been doing well at home. Urine has been clear, no issues with baptiste. Minimal pain. Moving his bowels well. Ambulating. No fever/chills/sob Surgical pathology: Hussein 3+4 LN negative Margins negative TK WANG [address] [place] [address], [phone], [facility] 01/16/2022 12:51:43 02/23/2022 text/html HPI Notes: 66M with pT2N0 [place] 4+3=7 prostate cancer s/p RALP 01/07/22 (-SMS, 0/6 LN). Overall doing well. Initially some hematuria, this has resolved. Voiding with good stream. Using 1 safety ppd, almost always dry. Rare ERICH with BM. Erections minimal. UF: 05/07 Date of continence: 02/23/22 EF: 5/ Pre-op EF: 4/ PSA Results 02/23/22: <0.04 Elver Brennan MD, PHD [address] [place] [address], [phone], [facility] 02/23/2022 16:25:33 06/24/2022 text/html HPI Notes: 66M with pT2N0 [place] 4+3=7 prostate cancer s/p RALP 01/07/22 (-SMS, 0/6 LN). Overall doing well. Initially some hematuria, this has resolved. Voiding with good stream. Using 1 safety ppd, almost always dry. Rare ERICH with BM/sneeze. Erections minimal; hasn't used PDE5i. Some right thigh pain; after walking 3 miles. Used to walk 8 miles. UF: 05/07 Date of continence: 02/23/22 EF: 5/5 Pre-op EF: 4/5 PSA Results 02/23/22: <0.04 06/24/22: <0.04 Elver Brennan MD, PHD [address] [place] [address],[address], [phone], [facility] 06/24/2022 16:15:01 01/21/2023 text/html HPI Notes: 67M with pT2N0 [place] 4+3=7 prostate cancer s/p RALP 01/07/22 (-SMS, 0/6 LN). Overall doing well. Voiding with good stream. Using 1 safety ppd, almost always dry. Rare ERICH with BM/sneeze. Erections minimal; hasn't used PDE5i. Some right thigh pain; very minimal- back to walking 8-9 miles/day. UF: 05/07 Date of continence: 02/23/22 EF: 5/ Pre-op EF: 4 PSA Results 02/23/22: <0.04 06/24/22: <0.04 01/21/23: <0.04 Elver Brennan MD, PHD [address] [place] [address], [phone], [facility] 01/21/2023 12:15:16 08/13/2023 text/html HPI Notes: 67M with pT2N0 [place] 4+3=7 prostate cancer s/p RALP 01/07/22 (-SMS, 0/6 LN). Overall doing well. Voiding with good stream. Using 1 safety ppd, almost always dry. Rare ERICH with BM/sneeze. Erections minimal; hasn't used PDE5i. Back to walking 8-9 miles/day. UF: 05/07 Date of continence: 02/23/22 EF: 5/ Pre-op EF: 4/5 PSA Results 02/23/22: <0.04 06/24/22: <0.04 01/21/23: <0.04 08/13/23: <0.04 Elver Brennan MD, PHD [address] [place] [address],[address], [address], [facility] 08/13/2023 11:40:12
--- OUTSIDE RECORDS SUMMARY | 2024-02-24 08:46 | XMS_ITS | Clinical Summary ---
Author Organization [facility] Address [address] [place] [address] Care Team Providers Care Patient Accounts Specialist Name Role Phone Unavailable Primary Care Provider Unavailabl e Source Comments Patient records contain information from all sites at [facility]. For routine questions regarding patient records, call [phone] during business hours, M-F 8:00 AM - 5:00 PM Central Time. 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
--- OUTSIDE RECORDS SUMMARY | 2024-02-24 08:46 | XMS_ITS | Clinical Summary ---
Author Organization [facility] Address [address] [place] [address]. 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, [address] [place] [address], [facility] [phone] * Lipid Profile (09/04/2011 7:28 AM CDT) [facility] Signature Cholesterol 152 0 - 200 mg/dL [facility] Comment: LDL Cholesterol is the primary guide to therapy. The NCEP recommends further evaluation of: patients with cholesterol greater than 200 mg/dL if additional risk factors are present, cholesterol greater than 240 mg/dL, triglycerides greater than 150 mg/dL, or HDL less than 40 mg/dL. Triglycerides 96 0 - 150 mg/dL [facility] HDL Cholesterol 52 40 - 110 mg/dL [facility] LDL Cholesterol Calculated 81 0 - 129 mg/dL [facility] Comment: LDL Cholesterol is the primary guide to therapy: LDL-cholesterol goal in high risk patients is <100 mg/dL and in very high risk patients is <70 mg/dL. VLDL-Cholesterol 19 0 - 30 mg/dL [facility] Cholesterol/HDL Ratio 2.9 0.0 - 5.0 [facility] Blood specimen (specimen) 09/04/2011 7:28 AM CDT 09/04/2011 7:33 AM CDT us Maurizio Yost MD LAB - BLOOD ORDERABLES Final Result [facility] [address] [place] [address] * (ABNORMAL) Hemoglobin A1c (09/04/2011 7:28 AM CDT) Hemoglobin A1C 6.2(H) 4.3 - 6.0 % [facility] Blood specimen (specimen) 09/04/2011 7:28 AM CDT 09/04/2011 7:33 AM CDT us Maurizio Yost MD LAB - BLOOD ORDERABLES Final Result [facility] [address] [place] [address] * (ABNORMAL) Comprehensive metabolic panel (09/03/2010 7:43 AM CDT) Pathologist [facility] Sodium 141 133 - 144 mmol/L [facility] Potassium 4.3 3.4 - 5.3 mmol/L [facility] Chloride 103 94 - 109 mmol/L [facility] Carbon Dioxide 28 20 - 32 mmol/L [facility] Anion Gap 10 6 - 17 mmol/L [facility] Glucose 118(H) 60 - 99 mg/dL [facility] Urea Nitrogen 20 7 - 30 mg/dL [facility] Creatinine 1.02 0.66 - 1.25 mg/dL [facility] GFR Estimate Not Calculated >60 mL/min/1 .7m2 [facility] GFR Estimate If Black Not Calculated >60 mL/min/1 .7m2 [facility] Calcium 9.6 8.5 - 10.4 mg/dL [facility] Bilirubin Total 0.8 0.2 - 1.3 mg/dL [facility] Albumin 4.4 3.3 - 4.9 g/dL [facility] Protein Total 8.1 6.8 - 8.8 g/dL [facility] Alkaline Phosphatase 79 40 - 150 U/L [facility] ALT 38 0 - 70 U/L [facility] AST 36 0 - 55 U/L [facility] Blood specimen (specimen) 09/03/2010 7:43 AM CDT 09/03/2010 7:48 AM CDT Maurizio Yost MD LAB - BLOOD ORDERABLES Final Result [facility] [address] [place] [address] * COLONOSCOPY (06/10/2007 7:55 AM LADLE CLEANER) COLONOSCOPY [facility] Endoscopy Department ___ Patient Name: Branden [...] ? saturations were monitored continuously. The ? [id number] oscope was introduced through the ? anus [...] COLONOSCOPY RADIOLOG Y RESULTS 06/10/2007 7:55 AM LADLE CLEANER us Aidan Yi MD PROCEDURES Final Result RADIOLOGY RESULTS from Last 3 Months or Most Recently Relevant to Health Maintenance Insurance MEDICARE [facility] MEDICARE SUPPLEMENT MEDICARE [place] MEDIC[place] SUPPLEMENT Advance Directives For more information, please contact: [phone] * Full Code (Latest Code Status on File) Date Activated Date Inactivated Comments 01/07/2022 5:40 PM 01/08/2022 4:38 PM All basic and advanced life-sustaining interventions are performed as appropriate Question Answer Comments Code status determined by: Unable to dis cuss and no AD/POLST on file; continue PREVIOUSLY ORDERED code status Care Teams Shuttle Filler Relationship Specialty Start Date End Date Maurizio Yost MD [address] [place] [address] [address] PCP - General 06/17/01
--- NOTE | 2024-02-24 09:00 | CRLHL7_ITS ---
For Patients: As a result of the Century Cures Act, medical imaging exams and procedure reports are released immediately into your electronic medical record. You may view this report before your referring provider. If you have questions, please contact your health care provider. Indication: LT SIDED CHEST WALL PAIN/LOWER RIBS AND RADIATES TO BACK Technique: Noncontrast CT chest Please note that all CT scans at this facility use dose modulation, iterative reconstruction, and/or weight-based dosing when appropriate to reduce radiation dose to as low as reasonably achievable. Comparison: None Findings: The visualized thyroid is unremarkable with incidental asymmetry of the right thyroid lobe. Multiple bilateral renal cysts. Mild vascular calcifications. No intrathoracic adenopathy. Discogenic spurring lower thoracic spine. No fracture. No pulmonary nodule. Mild scarring within the right middle lobe. No infiltrate, edema, effusion or pneumothorax. Impression: Intact ribcage. Clear lungs. Please note that all CT scans at this facility use dose modulation, iterative reconstruction, and/or weight-based dosing when appropriate to reduce radiation dose to as low as reasonably achievable. Dictated by Kt Grijalva MD @ 02/24/2024 10:25:01 AM (Electronically Signed)
== END 2024-02-24 08:44 | disposition home or self-care (01) ==
LOC: CT 08:44
PROVIDERS: PCP Internal Medicine; Visit Provider Internal Medicine
DX: R07.9 Chest pain, unspecified (principal)
CPT/HCPCS: 71250

== ENCOUNTER 2024-11-07 08:32 | Outpatient (CLI) | payer MEDICARE, SELFPAY | END 2024-11-07 08:33 | disposition home or self-care (01) | LOC: NFLDREF 11-09 12:30 | PROVIDERS: PCP Internal Medicine; Referring Provider Internal Medicine; Visit Provider Internal Medicine | DX: E78.5 Hyperlipidemia, unspecified (principal); E11.9 Type 2 diabetes mellitus without complications; Z12.5 Encounter for screening for malignant neoplasm of prostate | CPT/HCPCS: 80053; 80061; 82043; 82570; G0103 ==